=== PATIENT | male | born 1955 | race Caucasian/White ===

== ENCOUNTER 2018-05-28 01:36 | Outpatient (RCR) | payer OTHER, SELFPAY ==
[2018-05-28] MEDS: TOCILIZUMAB 800 MG in Normal Saline 60 ML 100 MG IVPB (07:47)
[2018-05-28] MEDS: Normal Saline Flush 10 ML SYR IVP (07:47)
== END 2018-06-22 ==
LOC: INF 01:36
PROVIDERS: PCP Emergency Medicine; Visit Provider Emergency Medicine
DX: M06.9 Rheumatoid arthritis, unspecified (principal)
CPT/HCPCS: 96365; J3490

== ENCOUNTER 2018-06-27 01:31 | Outpatient (RCR) | payer OTHER, SELFPAY ==
[2018-06-27] MEDS: TOCILIZUMAB 800 MG in Normal Saline 60 ML 100 MG IVPB (13:09)
[2018-06-27] MEDS: Normal Saline Flush 10 ML SYR IVP (13:09)
== END 2018-07-22 23:59 | disposition home or self-care (01) ==
LOC: INF 01:31
PROVIDERS: PCP Emergency Medicine; Visit Provider Emergency Medicine
DX: M06.9 Rheumatoid arthritis, unspecified (principal)
CPT/HCPCS: 96365; J3490

== ENCOUNTER 2018-08-20 07:00 | Outpatient (RCR) | payer MEDICARE, OTHER, SELFPAY ==
[2018-07-23] MEDS: Normal Saline Flush 10 ML SYR IVP (08:04)
[2018-07-23] MEDS: TOCILIZUMAB 800 MG in Normal Saline 60 ML 100 MG IVPB (08:04)
[2018-08-20] MEDS: TOCILIZUMAB 800 MG in Normal Saline 60 ML 100 MG IVPB (07:58)
[2018-08-20] MEDS: Normal Saline Flush 10 ML SYR IVP (07:58)
== END 2018-08-22 23:59 | disposition home or self-care (01) ==
LOC: INF 07:00
PROVIDERS: PCP Emergency Medicine; Visit Provider Emergency Medicine
DX: M06.9 Rheumatoid arthritis, unspecified (principal)
CPT/HCPCS: 96365; J3490

== ENCOUNTER 2018-09-17 01:44 | Outpatient (RCR) | payer MEDICARE, OTHER, SELFPAY ==
[2018-09-17] MEDS: Normal Saline Flush 10 ML SYR IVP (07:13)
[2018-09-17] MEDS: TOCILIZUMAB 800 MG in Normal Saline 60 ML 100 MG IVPB (07:40)
== END 2018-09-21 23:59 | disposition home or self-care (01) ==
LOC: INF 01:44
PROVIDERS: PCP Emergency Medicine; Visit Provider Family Medicine
DX: M06.9 Rheumatoid arthritis, unspecified (principal)
CPT/HCPCS: 96365; J3490

== ENCOUNTER 2018-10-12 01:54 | Outpatient (RCR) | payer MEDICARE, OTHER, SELFPAY ==
[2018-10-12 07:35] VITALS: BP 154/98; PULSE 88; RESP 16; TEMP 36.8; O2SAT 94
[2018-10-12 08:26] VITALS: BP 169/101; PULSE 96; RESP 18; TEMP 36.8; O2SAT 94
[2018-10-12 09:00] VITALS: BP 146/102; PULSE 90; RESP 18; TEMP 36.8; O2SAT 95
[2018-10-12] MEDS: Normal Saline Flush 10 ML SYR IVP (09:16)
== END 2018-10-22 23:59 | disposition home or self-care (01) ==
LOC: INF 01:54
PROVIDERS: PCP Emergency Medicine; Visit Provider Family Medicine
DX: M06.9 Rheumatoid arthritis, unspecified (principal)
CPT/HCPCS: 96365; J3490

== ENCOUNTER 2018-11-09 01:13 | Outpatient (RCR) | payer MEDICARE, OTHER, SELFPAY ==
[2018-11-09] MEDS: Normal Saline Flush 10 ML SYR IVP (07:16)
== END 2018-11-22 23:59 | disposition home or self-care (01) ==
LOC: INF 01:13
PROVIDERS: PCP Emergency Medicine; Visit Provider Family Medicine
DX: M06.9 Rheumatoid arthritis, unspecified (principal)
CPT/HCPCS: 96365; J3490

== ENCOUNTER 2018-12-06 14:37 | Outpatient (CLI) | payer MEDICARE, OTHER, SELFPAY ==
--- NOTE | 2018-12-06 14:34 | DI.RAD_ITS ---
SYMPTOMS/DIAGNOSIS: DYSPNEA ON EXERTION, R06.09: PA AND LATERAL CHEST: The heart is normal in size. The lungs are clear. The mediastinal structures and pleura appear intact. CONCLUSION: Normal chest. No evidence of acute cardiopulmonary disease.
[2018-12-06 15:06] LABS: Abs Immature Grans 0.01 k/cumm (0.0-0.09); Absolute Basophil Count 0.02 k/cumm (0.0-0.2); Absolute Eosinophil Count 0.11 k/cumm (0.0-0.7); Absolute Lymphocyte Count 1.86 k/cumm (1.2-3.4); Absolute Monocyte Count 0.91 k/cumm (0.11-0.7); Absolute Neutrophil Count 3.08 k/cumm (1.2-6.7); Basophils % 0.3; Eosinophils % 1.8; Immature Grans % 0.2; Lymphocytes % 31.1; Mean Corpuscular Hemoglobin 31.1 pg (27.0-33.0); Mean Corpuscular Volume 91.3 fL (80-95); Mean Platelet Volume 9.5 fL (8.0-11.0); Monocytes % 15.2; Neutrophils % 51.4; Platelet Count 198 x1000/uL (130-400); RBC 5.15 m/cumm (4.50-6.00); RBC Distribution Width 13.6 % (11.8-14.1); White Blood Cell Count 5.99 k/cumm (4.4-10.8)
[2018-12-06 15:59] LABS: ALT 71 U/L (12-78); AST 39 U/L (15-37); Albumin 4.2 g/dL (3.4-5.0); Alkaline Phosphatase 34 U/L (46-116); Anion Gap 12.4 mmol/L (3-11); BUN 19 mg/dL (7-18); Bilirubin, Total 1.2 mg/dL (0.2-1.0); CO2 27.6 mmol/L (21.0-32.0); CREATININE 1.17 mg/dL (0.70-1.30); Calcium 9.4 mg/dL (8.5-10.1); Chloride 99 mmol/L (98-107); Glucose 121 mg/dL (70-100); Potassium 4.3 mmol/L (3.5-5.1); Sodium 139 mmol/L (136-145); Total Protein 7.1 g/dL (6.4-8.2)
[2018-12-06 16:40] LABS: C-Reactive Protein < 0.05 mg/dL (0.0-0.3)
== END 2018-12-06 14:57 ==
PROVIDERS: PCP Emergency Medicine; Visit Provider Emergency Medicine
DX: R06.09 Other forms of dyspnea (principal)
CPT/HCPCS: 36415; 80053; 71046; 85025; 86140

== ENCOUNTER 2018-12-10 01:38 | Outpatient (RCR) | payer MEDICARE, OTHER, SELFPAY ==
[2018-12-10] MEDS: Normal Saline Flush 10 ML SYR IVP (07:21)
[2018-12-10] MEDS: TOCILIZUMAB 800 MG in Normal Saline 60 ML 100 MG IVPB (07:21)
== END 2018-12-20 23:59 | disposition home or self-care (01) ==
LOC: INF 01:38
PROVIDERS: PCP Emergency Medicine; Visit Provider Family Medicine
DX: M06.9 Rheumatoid arthritis, unspecified (principal)
CPT/HCPCS: 96365; J3490

== ENCOUNTER 2019-01-07 01:27 | Outpatient (RCR) | payer MEDICARE, OTHER, SELFPAY ==
[2019-01-07] MEDS: Normal Saline Flush 10 ML SYR IVP (07:20)
[2019-01-07] MEDS: TOCILIZUMAB 800 MG in Normal Saline 60 ML 100 MG IVPB (07:20)
== END 2019-01-20 23:59 | disposition home or self-care (01) ==
LOC: INF 01:27
PROVIDERS: PCP Emergency Medicine; Visit Provider Family Medicine
DX: M06.9 Rheumatoid arthritis, unspecified (principal)
CPT/HCPCS: 96365; J3490

== ENCOUNTER 2019-02-05 01:22 | Outpatient (RCR) | payer MEDICARE, OTHER, SELFPAY ==
[2019-02-05] MEDS: Normal Saline Flush 10 ML SYR IVP (07:59)
== END 2019-02-19 23:59 | disposition home or self-care (01) ==
LOC: INF 01:22
PROVIDERS: PCP Emergency Medicine; Visit Provider Family Medicine
DX: M06.9 Rheumatoid arthritis, unspecified (principal)
CPT/HCPCS: 96365; J3490

== ENCOUNTER 2019-03-05 05:32 | Emergency (ER) | payer MEDICARE, OTHER, SELFPAY ==
[2019-03-05] VITALS (24 sets, daily range): BP systolic 120–173; BP diastolic 59–89; PULSE 111–133; RESP 12–28; TEMP 37.2; O2SAT 91–98
[2019-03-05] MEDS: Albuterol 2.5 MG/3 ML INH SOLN VIAL 5 MG UPD ×3 (05:47→07:33)
--- NOTE | 2019-03-05 05:50 | ED.GENADUL_ITS ---
Discharge Plan Disposition Patient Disposition: HOME Condition: Stable Discharge Details Chief Complaint: SOB Clinical Impression: Acute bronchitis Primary Care Provider: Jhonatan Black ED Provider: Cara Steward Home Meds and New Rx's Prescriptions: New prednisone 10 mg tablet See Rx Instructions .ROUTE .COMPLEX Qty: 26 RF: 0 doxycycline hyclate 100 mg tablet 100 mg PO BID 5 Days Qty: 10 RF: 0 Continued lisinopril-hydrochlorothiazide [Zestoretic] 10-12.5 mg tablet 1 tab PO DAILY Qty: 90 RF: 3 acetaminophen [Tylenol Extra Strength] 500 MG tablet 2 tab PO PRN RF: 0 hydroxychloroquine [Plaquenil] 200 MG tablet 2 tab PO HS Qty: 90 RF: 0 PROVENTIL HFA 18 GM HFA.AER.AD 1 - 2 puff Inhalation Q4H PRN Qty: 1 RF: 0 actemra IV Monthly RF: 0 acetaminophen [Tylenol] 325 MG tablet 500 mg PO PRN RF: 0 prednisone 1 MG tablet 4 mg PO DAILY RF: 0 methotrexate sodium 2.5 MG tablet 8 mg PO DIRECTED RF: 0 folic acid 1 MG tablet 1 mg PO DAILY RF: 0 No Action Aerochamber Plus Flow-Vu 1 EACH spacer 1 ea Miscellaneous Q4H PRN Qty: 1 RF: 0 Discharge Instructions Instructions: Acute Bronchitis (ED) Additional Instructions: Alternate albuterol inhaler as needed and directed for shortness of breath or wheezing. Take steroids until finished. Hold on taking your regular dose of prednisone until you finish this prescription. If you have no relief or worsening of symptoms such as fever or productive cough, you may start the antibiotics. Follow-up with your scheduled appointment with Dr. Claire at your primary care doctor's office on 8:20 AM on March 07. Return immediately to the emergency department with any worsening or new concerning symptoms. Discharge Data Discharge Physician: Cara Steward Medical Decision Making 0545 -- 63-year-old male with a history of rheumatoid arthritis and hypertension who presents with 4 days of shortness of breath worse when laying flat, dry cough, and chest pain that occurs with coughing and deep breath. Heart rate 110s. Normal respirations. Temp 99. O2 sat 91% on room air on arrival. Speaking in full sentences. Inspiratory and expiratory wheezing. No lower extremity edema. No crackles. EKG notes a rate of 108 and sinus with left anterior fascicular block with no significant difference from previous EKG. No acute ST findings. Differential diagnosis includes bronchitis, pneumonia, CHF, PE, SC. Patient denies a history of COPD. Appears most likely consistent with bronchitis versus pneumonia. Will place an IV, nebs, steroids, and refer for screening labs. Will hold on chest x-ray or CT pending d-dimer. 0600 -- Pt states he feels a little better. Improvement in wheezing. O2 sat 94 on 3L. Will give another neb and reassess. 0630 -- Pt feels much better. Breath sounds improved but still with some wheezing left-sided chest. Patient appears more comfortable. Labs reviewed and unremarkable. Normal white blood cell count. Troponin negative. D dimer and BNP within normal limits. Will send for chest x-ray. 0710 -- chest x-ray negative. Patient complaining of some return of wheezing. He appears comfortable and texting on phone. Reassessment of lung sounds note slight increase in wheezing, and more on the left side. Will give a 5 mg neb through aerogen mist. 0800 -- patient is feeling much better requesting to go home. Oxygen saturation on room air 95%. Improvement in breath sounds but still with some wheezing on the left side of the chest. He is speaking in full sentences and appears comfortable. Patient takes 4 mg of prednisone daily for his rheumatoid arthritis. He is instructed to hold on this dose while he takes the prednisone taper prescription. Will also send home with an albuterol inhaler as well as a prescription for antibiotics if his symptoms do not improve or worsen. An appointment was made with patient for his primary care doctor's office with Dr. Claire on March 07 at 8:20 AM. He is instructed to return here immediately if worse. Medical Records Medical records reviewed: Yes I reviewed the patient's medical records. Imaging Data Radiologic Study: Radiologist's impression: XR Chest, 2 Views EXAM DATE/TIME: 03/05/2019 6:36 AM CLINICAL HISTORY: 63 years old, male; Signs and symptoms; Patient HX: Cough for a few days TECHNIQUE: Imaging protocol: XR of the chest, 2 views. COMPARISON: CR XR CHEST 2V PA LATERAL 12/06/2018 2:30 PM FINDINGS: Lungs: Unremarkable. No consolidation. Pleural space: Unremarkable. No evidence of pneumothorax. Heart/Mediastinum: Unremarkable. Heart size within normal limits for technique. Bones/joints: Unremarkable. IMPRESSION: No acute findings Lab Data Lab results reviewed: Yes I reviewed the patient's lab results. Laboratory Tests Range/Units 03/05/19 03/05/19 03/05/19 05:55 05:55 05:55 WBC (4.4-10.8) k/cumm 10.48 RBC (4.50-6.00) m/cumm 5.24 Hgb (13.5-17.5) g/dL 16.9 Hct (40.0-50.0) % 47.7 MCV (80-95) fL 91.0 MCH (27.0-33.0) pg 32.3 MCHC (32.0-36.0) g/dL 35.4 RDW (11.8-14.1) % 13.6 Plt Count (130-400) x1000/uL 182 MPV (8.0-11.0) fL 9.1 Immature Gran % 0.5 Neutrophils % 67.8 Lymphocytes % 15.1 Monocytes % 14.3 Eosinophils % 1.7 Basophils % 0.6 Absolute Neutrophils (1.2-6.7) k/cumm 7.11 H Absolute Lymphocytes (1.2-3.4) k/cumm 1.58 Absolute Monocytes (0.11-0.7) k/cumm 1.50 H Absolute Eosinophils (0.0-0.7) k/cumm 0.18 Absolute Basophils (0.0-0.2) k/cumm 0.06 D-Dimer (<500) ng/mlFEU 369 Sodium (136-145) mmol/L 135 L Potassium (3.5-5.1) mmol/L 4.2 Chloride (98-107) mmol/L 97 L Carbon Dioxide (21.0-32.0) mmol/L 28.8 Anion Gap (3-11) mmol/L 9.2 BUN (7-18) mg/dL 12 Creatinine (0.70-1.30) mg/dL 1.19 Estimated GFR/1.73 m2 (mL/min/1.73m2) >= 60.00 Glucose (70-100) mg/dL 183 H Calcium (8.5-10.1) mg/dL 9.0 Magnesium (1.8-2.4) mg/dL 1.8 Total Bilirubin (0.2-1.0) mg/dL 0.9 AST (15-37) U/L 57 H ALT (12-78) U/L 98 H Alkaline Phosphatase (46-116) U/L 41 L Troponin I (0.00-0.06) ng/mL < 0.02 NT-Pro-B Natriuret Pep ( - 299) pg/mL 177 Total Protein (6.4-8.2) g/dL 7.2 Albumin (3.4-5.0) g/dL 4.1 ECG Data Attestation: I personally reviewed and interpreted this ECG (s) as follows: Interpretation: Rate of 108, sinus tachycardia. Left anterior fascicular block. No acute change from previous. No acute ST elevation or depression. T wave inversion in 1 and aVL which is been seen in previous. QTc 453. QRS 142. Significant artifact from movement. HPI General Mode of arrival: ambulatory . Date/Time Provider Initiated Documentation: 03/05/19 05:37 . Limitations to Documentation: no limitations . Information obtained by: patient . HPI Narrative: Patient is a 63-year-old male with a history of rheumatoid arthritis and hypertension who presents with 4 days of shortness of breath, cough and wheezing, worse since last night. Patient states he was unable to sleep due to his symptoms. He states his cough has been dry. He states his shortness of breath is worse when laying flat. He also admits to chest pain that occurs mainly with coughing and chest pain with deep breath occasionally. He states he has been eating and drinking less than normally for the past few days. He denies any known fever, leg pain or swelling, recent travel, recent surgery or recent hospital admissions. He states he takes 4 mg of prednisone daily for the past several years for his rheumatoid arthritis. Related Data Home Medications Medication Instructions Recorded Confirmed acetaminophen [Tylenol Extra 2 tab PO PRN 01/15/13 03/05/19 Strength] hydroxychloroquine [Plaquenil] 2 tab PO HS #90 01/15/13 03/05/19 folic acid 1 mg PO DAILY 03/10/17 03/05/19 methotrexate sodium 8 mg PO DIRECTED 03/10/17 03/05/19 inhalational spacing device #1 unit 02/14/18 12/11/18 [Aerochamber Plus Flow-Vu] Actemra IV Monthly 04/23/18 12/11/18 acetaminophen [Tylenol] 500 mg PO PRN tab-cap 06/04/18 03/05/19 prednisone 4 mg PO DAILY tab-cap 06/04/18 03/05/19 lisinopril 10 1 tab PO DAILY #90 tab 11/20/18 03/05/19 mg-hydrochlorothiazide 12.5 mg tablet doxycycline hyclate 100 mg PO BID 5 Days #10 tab 03/05/19 prednisone See Rx Instructions .ROUTE 03/05/19 .COMPLEX #26 tab Previous Rx's Medication Instructions Recorded inhalational spacing device #1 unit 02/14/18 [Aerochamber Plus Flow-Vu] lisinopril 10 1 tab PO DAILY #90 tab 11/20/18 mg-hydrochlorothiazide 12.5 mg tablet doxycycline hyclate 100 mg PO BID 5 Days #10 tab 03/05/19 prednisone See Rx Instructions .ROUTE 03/05/19 .COMPLEX #26 tab Allergies Allergy/AdvReac Type Severity Reaction Status Date / Time aspirin Allergy Severe Swelling/Ed Verified 12/11/18 13:28 rigoberto citric acid Allergy Unknown RASH, Verified 12/11/18 13:28 BLISTER adalimumab Allergy NUMBNESS Verified 12/11/18 13:28 NSAIDS (Non-Steroidal AdvReac CONGESTION Verified 12/11/18 13:28 Anti-Inflamma General Stated Complaint: SOB EMERALD: 3 Review of Systems Review of Systems All systems reviewed & are unremarkable except as noted in HPI and below Constitutional Reports as per HPI, Denies chills and Denies fever(s) Eyes Denies blurry vision ENT Denies dizziness, Denies sore throat and Denies throat swelling Cardiovascular Reports chest pain and Reports dyspnea Respiratory Reports cough and Reports dyspnea Gastrointestinal Denies abdominal pain, Denies diarrhea and Denies vomiting Genitourinary Denies hematuria and Denies dysuria Musculoskeletal Denies back pain and Denies numbness Integumentary/Breasts Denies lesions and Denies rash Neurologic Denies dizziness, Denies focal weakness and Denies numbness Allergic/Immunologic Denies throat swelling [facility] Medical History Abnormal CT scan (Acute) Acute meniscal tear, lateral (Acute) Allergic rhinitis (Acute 03/27/14) Chronic sinusitis (Acute 03/27/14) Deviated nasal septum (Acute 03/27/14) Family history of colon cancer (Acute) Foot joint pain (Acute 07/23/13) History of tobacco use (Acute) Hyperplastic colon polyp (Acute) Migraine (Acute) Rheumatoid arthritis (Acute) Surgical History Colonoscopy - MAC RIB REMOVAL (10/24/83) Family History Mother Personal history of malignant neoplasm Father Personal history of malignant neoplasm Sister No problems noted. Brother Personal history of malignant neoplasm Social History Smoking/Tobacco Use Status: Former Tobacco Use Alcohol Intake: never Drug use: Never Do you feel safe at home: Yes Do you feel safe in your relationship?: Yes Exam Const General: cooperative, healthy appearing and no acute distress HENMT Head: normal to inspection Ears: hearing grossly normal bilaterally and external ears normal General nose exam: external nose normal Face and sinus: normal facial exam Mouth: moist mucous membranes Throat: posterior oropharynx normal Eyes General: appearance normal, both eyes and all related structures EOM: EOM intact bilaterally Neck Neck: normal visual inspection and No submandibular swelling Lymphatic: no lymphadenopathy noted Chest Chest: normal inspection of the chest and no tenderness Resp Effort & Inspection: normal respiratory effort and able to speak in complete sentences Auscultation: wheezes expiratory wheezes, inspiratory wheezes, lower bilaterally and upper bilaterally Cardio Rate: tachycardic Rhythm: regular rhythm GI Inspection: normal to inspection and obesity Palpation: soft, not firm, not rigid and nontender Auscultation: normal bowel sounds Skin General skin exam: no rashes or lesions noted Neuro General: alert, awake and oriented x3 Cognition: normal cognition Speech: speech normal Motor: muscle tone normal throughout Sensory Exam: no sensory deficits noted Extrem General: normal to inspection, full ROM, no calf tenderness bilaterally and no edema Psych Appearance: grossly normal Mental Status: mental status grossly normal Speech and Movement: speech and movement normal Affect: normal affect Course Vital Signs Temperature 99.0 F 03/05/19 05:39 Pulse 111 H 03/05/19 05:39 Respiratory Rate 20 03/05/19 05:39 Blood Pressure 173/89 H 03/05/19 05:39 Pulse Oximetry 93 L 03/05/19 05:39 Temperature 99.0 F 03/05/19 05:39 Temperature Source Temporal Artery Scan 03/05/19 05:39 Pulse 111 H 03/05/19 05:39 Respiratory Rate 20 03/05/19 05:45 Respiratory Effort Incrsd Work of Breathing 03/05/19 05:45 Respiratory Depth Deep 03/05/19 05:45 Respiratory Pattern Normal 03/05/19 05:45 Blood Pressure 173/89 H 03/05/19 05:39 Blood Pressure Position Sitting 03/05/19 05:39 Pulse Oximetry 93 L 03/05/19 05:39 Oxygen Delivery Method Room Air 03/05/19 05:47 Oxygen Flow Rate 0 03/05/19 05:47
[2019-03-05] MEDS: methylPREDNISolone SUCC 125 MG VIAL IVP (05:59)
[2019-03-05 06:03] LABS: Abs Immature Grans 0.05 k/cumm (0.0-0.09); Absolute Basophil Count 0.06 k/cumm (0.0-0.2); Absolute Eosinophil Count 0.18 k/cumm (0.0-0.7); Absolute Lymphocyte Count 1.58 k/cumm (1.2-3.4); Absolute Neutrophil Count 7.11 k/cumm (1.2-6.7); Basophils % 0.6; Eosinophils % 1.7; HCT 47.7 % (40.0-50.0); HGB 16.9 g/dL (13.5-17.5); Immature Grans % 0.5; Lymphocytes % 15.1; Mean Corp. HGB Concentration 35.4 g/dL (32.0-36.0); Mean Corpuscular Hemoglobin 32.3 pg (27.0-33.0); Mean Platelet Volume 9.1 fL (8.0-11.0); Monocytes % 14.3; Neutrophils % 67.8; Platelet Count 182 x1000/uL (130-400); RBC 5.24 m/cumm (4.50-6.00); RBC Distribution Width 13.6 % (11.8-14.1); White Blood Cell Count 10.48 k/cumm (4.4-10.8)
[2019-03-05] MEDS: Albuterol/Ipratropium 3 ML UPD VIAL (06:07)
[2019-03-05 06:20] LABS: ALT 98 U/L (12-78); AST 57 U/L (15-37); Albumin 4.1 g/dL (3.4-5.0); Alkaline Phosphatase 41 U/L (46-116); Anion Gap 9.2 mmol/L (3-11); BUN 12 mg/dL (7-18); Bilirubin, Total 0.9 mg/dL (0.2-1.0); CO2 28.8 mmol/L (21.0-32.0); CREATININE 1.19 mg/dL (0.70-1.30); Chloride 97 mmol/L (98-107); Glucose 183 mg/dL (70-100); Magnesium 1.8 mg/dL (1.8-2.4); NT-proBNP 177 pg/mL; Potassium 4.2 mmol/L (3.5-5.1); Sodium 135 mmol/L (136-145); Total Protein 7.2 g/dL (6.4-8.2)
[2019-03-05 06:22] LABS: Troponin I < 0.02 ng/mL (0.00-0.06)
[2019-03-05 06:29] LABS: D-Dimer 369 ng/mlFEU (<500)
--- NOTE | 2019-03-05 06:50 | DI.RAD_ITS ---
SYMPTOMS/DIAGNOSIS: COUGH, WHEEZING, ? PNEUMONIA PA AND LATERAL CHEST: Comparison is made with [id number]. The heart size is normal. The lungs are clear. No infiltrate or effusion is seen. IMPRESSION: Negative chest x-ray.
--- NOTE | 2019-03-05 06:57 | DI.VRAD_ITS ---
EXAM: XR Chest, 2 Views EXAM DATE/TIME: 03/05/2019 6:36 AM CLINICAL HISTORY: 63 years old, male; Signs and symptoms; Patient HX: Cough for a few days TECHNIQUE: Imaging protocol: XR of the chest, 2 views. COMPARISON: CR XR CHEST 2V PA LATERAL 12/06/2018 2:30 PM FINDINGS: Lungs: Unremarkable. No consolidation. Pleural space: Unremarkable. No evidence of pneumothorax. Heart/Mediastinum: Unremarkable. Heart size within normal limits for technique. Bones/joints: Unremarkable. IMPRESSION: No acute findings. Dictated and Authenticated by: Simone Myesr MD. Ordering:RICKY Marroquin MD
[2019-03-05] MEDS: Normal Saline 250 ML 500 ML IV (07:00)
[2019-03-05] MEDS: Albuterol HFA 8 GM 60 PUFF INH IH (08:20)
--- NOTE | 2019-03-05 08:24 | NUR.NOTE ---
Nursing Note: Appt. made for patient, March 07 w/Dr. Claire @ 0894. Sarah Pires.
== END 2019-03-05 08:23 | disposition home or self-care (01) ==
LOC: ER 07:39
PROVIDERS: Emergency Provider Physician Assistant; PCP Emergency Medicine
DX: J20.9 Acute bronchitis, unspecified (principal); I44.4 Left anterior fascicular block; I10 Essential (primary) hypertension
CPT/HCPCS: 36415; 80053; 93005; 94640; 96361; 96374; 99285; 71046; 83735; 83880; 84484; 85025; 85379; 93010; J2930; J7613; J7620

== ENCOUNTER 2019-03-20 01:41 | Outpatient (RCR) | payer MEDICARE, OTHER, SELFPAY ==
[2019-03-20] MEDS: TOCILIZUMAB 800 MG in Normal Saline 60 ML 100 MG IVPB (07:43)
[2019-03-20] MEDS: Normal Saline Flush 10 ML SYR IVP (07:43)
== END 2019-03-22 23:59 | disposition home or self-care (01) ==
LOC: INF 01:41
PROVIDERS: PCP Emergency Medicine; Visit Provider Family Medicine
DX: M06.9 Rheumatoid arthritis, unspecified (principal)
CPT/HCPCS: 96365; J3490

== ENCOUNTER 2019-04-15 02:13 | Outpatient (RCR) | payer MEDICARE, OTHER, SELFPAY ==
[2019-04-15] MEDS: Normal Saline Flush 10 ML SYR IVP (12:22)
== END 2019-04-21 23:59 | disposition home or self-care (01) ==
LOC: INF 02:13
PROVIDERS: Visit Provider Family Medicine
DX: M06.9 Rheumatoid arthritis, unspecified (principal)
CPT/HCPCS: 96365; J3490

== ENCOUNTER 2019-05-13 01:24 | Outpatient (RCR) | payer MEDICARE, OTHER, SELFPAY ==
[2019-05-13] MEDS: Normal Saline Flush 10 ML SYR IVP (07:05)
[2019-05-13] MEDS: TOCILIZUMAB 800 MG in Normal Saline 60 ML 100 MG IVPB (07:44)
== END 2019-05-22 23:59 | disposition home or self-care (01) ==
LOC: INF 01:24
PROVIDERS: Visit Provider Family Medicine
DX: M06.9 Rheumatoid arthritis, unspecified (principal)
CPT/HCPCS: 96365; J3490

== ENCOUNTER 2019-05-30 09:08 | Outpatient (REF) | payer MEDICARE, OTHER, SELFPAY ==
[2019-05-30 11:56] LABS: Calculated LDL 101 mg/dL; Cholesterol 198 mg/dL (50-200); HDL Cholesterol 54 mg/dL (40-60); Triglyceride 218 mg/dL (30-150)
== END 2019-05-30 09:28 ==
LOC: NCHCN 09:08
PROVIDERS: PCP Nurse Practitioner Family; Visit Provider Nurse Practitioner Family
DX: I10 Essential (primary) hypertension (principal)
CPT/HCPCS: 80061; 83721

== ENCOUNTER 2019-06-10 01:46 | Outpatient (RCR) | payer MEDICARE, OTHER, SELFPAY ==
[2019-06-10] MEDS: Normal Saline Flush 10 ML SYR IVP (06:50)
[2019-06-10] MEDS: TOCILIZUMAB 800 MG in Normal Saline 60 ML 100 MG IVPB (07:35)
== END 2019-06-22 23:59 | disposition home or self-care (01) ==
LOC: INF 01:46
PROVIDERS: PCP Nurse Practitioner Family; Visit Provider Family Medicine
DX: M06.9 Rheumatoid arthritis, unspecified (principal)
CPT/HCPCS: 96365; J3490

== ENCOUNTER 2019-07-08 01:07 | Outpatient (RCR) | payer MEDICARE, OTHER, SELFPAY ==
[2019-07-08] MEDS: Normal Saline Flush 10 ML SYR IVP (10:05)
[2019-07-08] MEDS: TOCILIZUMAB 800 MG in Normal Saline 60 ML 100 MG IVPB (10:05)
== END 2019-07-22 23:59 | disposition home or self-care (01) ==
LOC: INF 01:07
PROVIDERS: PCP Nurse Practitioner Family; Visit Provider Family Medicine
DX: M06.9 Rheumatoid arthritis, unspecified (principal)
CPT/HCPCS: 96365; J3490

== ENCOUNTER → 2019-07-12 09:14 | Outpatient (BNVA) | payer MEDICARE, OTHER, SELFPAY | PROVIDERS: PCP Nurse Practitioner Family; Visit Provider Physical Therapy Assistant | DX: Z12.11 Encounter for screening for malignant neoplasm of colon (principal); Z80.0 Family history of malignant neoplasm of digestive organs; Z86.010 Personal history of colon polyps; I10 Essential (primary) hypertension ==

== ENCOUNTER 2019-07-26 06:57 | Day surgery (SDC) | payer MEDICARE, OTHER, SELFPAY ==
[2019-07-26 07:27] VITALS: BP 152/99; PULSE 93; RESP 18; TEMP 36.8; O2SAT 96
[2019-07-26] MEDS: Lactated Ringers 1,000 ML 80 ML IV (08:08)
--- NOTE | 2019-07-26 09:47 | W.PM.DSUDISC ---
Discharge Plan Disposition Patient Disposition: HOME Condition: Good Discharge Details Reason For Visit: Colonoscopy Attending Provider: Bhavana Kate Primary Care Provider: Isabel Dickey Home Meds and New Rx's Prescriptions: Continued lisinopril-hydrochlorothiazide [Zestoretic] 10-12.5 mg tablet 1 tab PO DAILY Qty: 90 RF: 3 acetaminophen [Tylenol Extra Strength] 500 MG tablet 2 tab PO PRN RF: 0 hydroxychloroquine [Plaquenil] 200 MG tablet 2 tab PO HS Qty: 90 RF: 0 PROVENTIL HFA 18 GM HFA.AER.AD 1 - 2 puff Inhalation Q4H PRN Qty: 1 RF: 0 actemra IV Monthly RF: 0 prednisone 1 MG tablet 4 mg PO DAILY RF: 0 methotrexate sodium 2.5 MG tablet 8 mg PO DIRECTED RF: 0 folic acid 1 MG tablet 1 mg PO DAILY RF: 0 Discontinued polyethylene glycol 3350 17 gram/dose powder 238 g PO ONCE Qty: 238 RF: 0 bisacodyl [Dulcolax (bisacodyl)] 5 mg tablet,delayed release (DR/EC) 5 mg PO ONCE Qty: 4 RF: 0 Discharge Instructions Additional Instructions: Findings: Your colonoscopy was normal. It was noted that you may have sleep apena during the procedure. Follow up: Plan for a follow up colonoscopy in 5 years. Contact your primary doctor to discuss scheduling a sleep study Please call if you develop: fevers >101.5 Nausea or Vomiting Abdominal pain that is not transient DAY SURGERY UNIT POST COLONOSCOPY INSTRUCTIONS 1. Because there will be medication in your system for the next 24 hours, you may feel a little sleepy. Your coordination will be affected. Therefore: a. Do not drive or operate dangerous equipment for 24 hours. b. Do not drink alcohol beverages for 24 hours (not even beer). c. Plan to go home and rest for the day. 2. Generally there are no restrictions on your activity after a day or so has gone by, but you may feel a bit fatigued for a few days. 3 After you arrive home you may have a light meal and return to a normal diet as you can tolerate it without feeling sick to your stomach. 4. After surgery, you may feel pain or discomfort. This should be only transient, but if it persists please contact your doctor. 5. If there are any questions regarding the findings of your procedure, please feel free to contact your doctor. 6. If you are unable to contact your doctor with a problem, contact the hospital at [phone]. 7. Continue all your regular medications unless directed otherwise. I understand the above instructions and have no questions. Signature of Patient or Responsible Adult Escort Date/Time Name of Responsible Adult Escort Signature of Nurse Date/Time Activity:: Activity as Tolerated Diet:: As Tolerated Discharge Orders Discharge Orders: Discharge Order (Routine); Ordered 07/26/19 Ordered By: Bhavana Kate DS: Diagnosis Discharge Diagnosis (1) Family history of colon cancer: Status: Acute
[2019-07-26 10:04] VITALS: BP 145/92; PULSE 89; RESP 18; TEMP 37.1; O2SAT 94
--- NOTE | 2019-07-29 10:04 | COLE_ITS ---
DATE OF PROCEDURE: July 26, 2019 PREOPERATIVE DIAGNOSIS: Family history of colon cancer. POSTOPERATIVE DIAGNOSIS: Normal colon. PROCEDURE: Colonoscopy. SURGEON: Bhavana Kate M.D. ANESTHESIA: General. INDICATIONS: This is a 63-year-old man whose father was treated for colon cancer. His last procedur e in 2013 showed hyperplastic polyps. PROCEDURE: The patient was placed in the left Leonardo position. Propofol was titrated to sedation. Di gital rectal examination revealed no abnormalities. The scope was advanced to the cecum without diff iculty. The ileocecal valve and appendiceal orifice were clearly identified. The scope was slowly w ithdrawn with no abnormalities seen within the ascending, transverse, descending, sigmoid colon or re ctum, including on retroflex view. He tolerated the procedure well and was stable to recovery. He w ill need a follow-up screening again in five years due to his family history. cc: Isabel Dickey N.P.
== END 2019-07-26 10:28 | disposition home or self-care (01) ==
PROVIDERS: PCP Nurse Practitioner Family; Visit Provider Surgery
PROC: 0DJD8ZZ Inspection of Lower Intestinal Tract, Via Natural or Artificial Opening Endoscopic (ICD-10-PCS; CPT 45378; principal; 2019-07-26 09:00)
DX: Z12.11 Encounter for screening for malignant neoplasm of colon (principal); Z80.0 Family history of malignant neoplasm of digestive organs; Z87.19 Personal history of other diseases of the digestive system
CPT/HCPCS: G0105

== ENCOUNTER 2019-08-05 02:12 | Outpatient (RCR) | payer MEDICARE, OTHER, SELFPAY ==
[2019-08-05] MEDS: Normal Saline Flush 10 ML SYR IVP (09:25)
[2019-08-05] MEDS: TOCILIZUMAB 800 MG in Normal Saline 60 ML 100 MG IVPB (09:25)
== END 2019-08-22 23:59 | disposition home or self-care (01) ==
LOC: INF 02:12
PROVIDERS: PCP Nurse Practitioner Family; Visit Provider Family Medicine
DX: M06.9 Rheumatoid arthritis, unspecified (principal)
CPT/HCPCS: 96365; J3490

== ENCOUNTER 2019-09-02 01:26 | Outpatient (RCR) | payer MEDICARE, OTHER, SELFPAY ==
[2019-09-02] MEDS: Normal Saline Flush 10 ML SYR IVP (07:56)
[2019-09-02] MEDS: TOCILIZUMAB 800 MG in Normal Saline 60 ML 100 MG IVPB (07:56)
== END 2019-09-21 23:59 | disposition home or self-care (01) ==
LOC: INF 01:26
PROVIDERS: PCP Nurse Practitioner Family; Visit Provider Internal Medicine
DX: M06.9 Rheumatoid arthritis, unspecified (principal)
CPT/HCPCS: 96365; J3490

== ENCOUNTER 2019-09-30 07:52 | Outpatient (RCR) | payer MEDICARE, OTHER, SELFPAY ==
[2019-09-30] MEDS: TOCILIZUMAB 800 MG in Normal Saline 60 ML 100 MG IVPB (08:01)
[2019-09-30] MEDS: Normal Saline Flush 10 ML SYR IVP (08:01)
== END 2019-10-22 23:59 | disposition home or self-care (01) ==
LOC: INF 07:52
PROVIDERS: PCP Nurse Practitioner Family; Visit Provider Internal Medicine
DX: M06.9 Rheumatoid arthritis, unspecified (principal)
CPT/HCPCS: 96365; J3490

== ENCOUNTER 2019-10-03 14:43 | Outpatient (REF) | payer MEDICARE, OTHER, SELFPAY ==
[2019-10-03 21:13] LABS: Anion Gap 11.1 mmol/L (3-11); BUN 12 mg/dL (7-18); CO2 25.9 mmol/L (21.0-32.0); CREATININE 1.01 mg/dL (0.70-1.30); Calcium 8.7 mg/dL (8.5-10.1); Chloride 101 mmol/L (98-107); Glucose 107 mg/dL (74-106); Potassium 4.1 mmol/L (3.5-5.1); Sodium 138 mmol/L (136-145)
[2019-10-03 21:16] LABS: HCT 45.2 % (40.0-50.0); HGB 15.6 g/dL (13.5-17.5); Mean Corp. HGB Concentration 34.5 g/dL (32.0-36.0); Mean Corpuscular Hemoglobin 31.7 pg (27.0-33.0); Mean Corpuscular Volume 91.9 fL (80-95); Platelet Count 238 x1000/uL (130-400); RBC 4.92 m/cumm (4.50-6.00); RBC Distribution Width 13.5 % (11.8-14.1); White Blood Cell Count 7.28 k/cumm (4.4-10.8)
== END 2019-10-03 15:03 ==
LOC: NCHCN 14:43
PROVIDERS: PCP Nurse Practitioner Family; Visit Provider Nurse Practitioner Family
DX: R42 Dizziness and giddiness (principal)
CPT/HCPCS: 80048; 85027

== ENCOUNTER 2019-10-28 01:53 | Outpatient (RCR) | payer MEDICARE, OTHER, SELFPAY ==
[2019-10-28] MEDS: TOCILIZUMAB 800 MG in Normal Saline 60 ML 100 MG IVPB (08:17)
[2019-10-28] MEDS: Normal Saline Flush 10 ML SYR IVP (08:17)
== END 2019-11-22 23:59 | disposition home or self-care (01) ==
LOC: INF 01:53
PROVIDERS: PCP Nurse Practitioner Family; Visit Provider Internal Medicine
DX: M06.9 Rheumatoid arthritis, unspecified (principal)
CPT/HCPCS: 96365; J3262

== ENCOUNTER 2019-11-25 02:16 | Outpatient (RCR) | payer MEDICARE, OTHER, SELFPAY ==
[2019-11-25] MEDS: TOCILIZUMAB 800 MG in Normal Saline 60 ML 100 MG IVPB (08:13)
[2019-11-25] MEDS: Normal Saline Flush 10 ML SYR IVP (08:13)
== END 2019-12-21 23:59 | disposition home or self-care (01) ==
LOC: INF 02:16
PROVIDERS: PCP Nurse Practitioner Family; Visit Provider Internal Medicine
DX: M06.9 Rheumatoid arthritis, unspecified (principal)
CPT/HCPCS: 96365; J3262

== ENCOUNTER 2019-12-23 01:56 | Outpatient (RCR) | payer MEDICARE, OTHER, SELFPAY ==
[2019-12-23] MEDS: TOCILIZUMAB 800 MG in Normal Saline 60 ML 100 MG IVPB (08:10)
[2019-12-23] MEDS: Normal Saline Flush 10 ML SYR IVP (08:13)
== END 2020-01-21 23:59 | disposition home or self-care (01) ==
LOC: INF 01:56
PROVIDERS: PCP Nurse Practitioner Family; Visit Provider Internal Medicine
DX: M06.9 Rheumatoid arthritis, unspecified (principal)
CPT/HCPCS: 96365; J3262

== ENCOUNTER → 2020-01-06 08:11 | Outpatient (BNVA) | payer MEDICARE, OTHER, SELFPAY | PROVIDERS: PCP Nurse Practitioner Family; Referring Provider Nurse Practitioner Family; Visit Provider Nurse Practitioner Adult Health | DX: G43.109 Migraine with aura, not intractable, without status migrainosus (principal); I10 Essential (primary) hypertension | CPT/HCPCS: 99204; 99215 ==

== ENCOUNTER 2020-02-19 04:04 | Outpatient (RCR) | payer MEDICARE, OTHER, SELFPAY ==
[2020-01-22] MEDS: TOCILIZUMAB 800 MG in Normal Saline 60 ML 100 MG IVPB (08:44)
[2020-01-22] MEDS: Normal Saline Flush 10 ML SYR IVP (08:45)
[2020-02-19] MEDS: Normal Saline Flush 10 ML SYR IVP (08:37)
[2020-02-19] MEDS: TOCILIZUMAB 800 MG in Normal Saline 60 ML 100 MG IVPB (08:37)
== END 2020-02-20 23:59 | disposition home or self-care (01) ==
LOC: INF 04:04
PROVIDERS: PCP Nurse Practitioner Family; Visit Provider Internal Medicine
DX: M06.9 Rheumatoid arthritis, unspecified (principal)
CPT/HCPCS: 96365; J3262

== ENCOUNTER 2020-02-21 01:20 | Outpatient (CLI) | payer MEDICARE, OTHER, SELFPAY ==
--- NOTE | 2020-02-21 06:30 | DI.MRI_ITS ---
EXAM: MR BRAIN WO CLINICAL HISTORY: new onset headache, vision change, paresthesias,g43.109,h53.9. TECHNIQUE: Multiplanar multisequence MRI was performed. COMPARISON: No exams were available for comparison FINDINGS: MR examination of the brain was performed according to the usual protocol. There is mild generalized cerebral atrophy and there are areas of periventricular white matter signal change sparing the corpu s callosum consistent with microvascular ischemic change. There is no evidence of acute or subacute infarction on diffusion-weighted imaging. No evidence of i ntracranial hemorrhage on susceptibility weighted imaging. There is normal flow void in the [place] vasculature. The orbital and temporal bone structures appear intact. Pituitary appears intact. IMPRESSION: No evidence of acute intracranial process. Atrophy and presumed microvascular ischemic changes of wh ite matter. DATA REPOSITORY:
== END 2020-02-21 01:40 ==
PROVIDERS: PCP Nurse Practitioner Family; Visit Provider Nurse Practitioner Adult Health
DX: G43.109 Migraine with aura, not intractable, without status migrainosus (principal); H53.8 Other visual disturbances; R20.2 Paresthesia of skin
CPT/HCPCS: 70551

== ENCOUNTER → 2020-02-25 14:04 | Outpatient (BNVA) | payer MEDICARE, OTHER, SELFPAY | PROVIDERS: PCP Nurse Practitioner Family; Referring Provider Nurse Practitioner Family; Visit Provider Nurse Practitioner Adult Health | DX: G43.109 Migraine with aura, not intractable, without status migrainosus (principal) | CPT/HCPCS: 99213; 99441 ==

== ENCOUNTER 2020-03-18 01:48 | Outpatient (RCR) | payer MEDICARE, OTHER, SELFPAY ==
[2020-03-18] MEDS: TOCILIZUMAB 800 MG in Normal Saline 60 ML 100 MG IVPB (08:46)
[2020-03-18] MEDS: Normal Saline Flush 10 ML SYR IVP (08:46)
== END 2020-03-22 23:59 | disposition home or self-care (01) ==
LOC: INF 01:48
PROVIDERS: PCP Nurse Practitioner Family; Visit Provider Internal Medicine
DX: M06.9 Rheumatoid arthritis, unspecified (principal)
CPT/HCPCS: 96365; J3262

== ENCOUNTER 2020-04-15 01:57 | Outpatient (RCR) | payer MEDICARE, OTHER, SELFPAY ==
[2020-04-15] MEDS: Normal Saline Flush 10 ML SYR IVP (08:53)
[2020-04-15] MEDS: TOCILIZUMAB 800 MG in Normal Saline 60 ML 100 MG IVPB (08:53)
== END 2020-04-21 23:59 | disposition home or self-care (01) ==
LOC: INF 01:57
PROVIDERS: PCP Nurse Practitioner Family; Visit Provider Internal Medicine
DX: M06.9 Rheumatoid arthritis, unspecified (principal)
CPT/HCPCS: 96365; J3262

== ENCOUNTER 2020-05-13 02:59 | Outpatient (RCR) | payer MEDICARE, OTHER, SELFPAY ==
[2020-05-13] MEDS: TOCILIZUMAB 800 MG in Normal Saline 60 ML 100 MG IVPB (08:54)
[2020-05-13] MEDS: Normal Saline Flush 10 ML SYR IVP (08:58)
== END 2020-05-22 23:59 | disposition home or self-care (01) ==
LOC: INF 02:59
PROVIDERS: PCP Nurse Practitioner Family; Visit Provider Internal Medicine
DX: M06.9 Rheumatoid arthritis, unspecified (principal)
CPT/HCPCS: 96365; J3262

== ENCOUNTER 2020-06-10 02:01 | Outpatient (RCR) | payer MEDICARE, OTHER, SELFPAY ==
[2020-06-10] MEDS: TOCILIZUMAB 800 MG in Normal Saline 60 ML 100 MG IVPB (08:46)
[2020-06-10] MEDS: Normal Saline Flush 10 ML SYR IVP (08:46)
== END 2020-06-22 23:59 | disposition home or self-care (01) ==
LOC: INF 02:01
PROVIDERS: PCP Nurse Practitioner Family; Visit Provider Internal Medicine
DX: M06.9 Rheumatoid arthritis, unspecified (principal)
CPT/HCPCS: 96365; J3262

== ENCOUNTER 2020-07-07 09:15 | Outpatient (REF) | payer MEDICARE, OTHER, SELFPAY ==
[2020-07-10 15:03] LABS: Patient Race White; SARS-CoV-2 RNA Undetected (Undetected); SARS-CoV-2 Specimen Source Nasal
== END 2020-07-07 09:35 ==
LOC: NCHCN 09:15
PROVIDERS: PCP Nurse Practitioner Family; Visit Provider Nurse Practitioner Family
DX: Z20.828 Contact with and (suspected) exposure to other viral communicable diseases (principal)
CPT/HCPCS: U0003

== ENCOUNTER 2020-07-22 03:45 | Outpatient (RCR) | payer MEDICARE, OTHER, SELFPAY ==
[2020-07-22] MEDS: TOCILIZUMAB 800 MG in Normal Saline 60 ML 100 MG IVPB (08:36)
[2020-07-22] MEDS: Normal Saline Flush 10 ML SYR IVP (08:36)
== END 2020-07-22 23:59 | disposition home or self-care (01) ==
LOC: INF 03:45
PROVIDERS: PCP Nurse Practitioner Family; Visit Provider Internal Medicine
DX: M06.9 Rheumatoid arthritis, unspecified (principal)
CPT/HCPCS: 96365; J3262

== ENCOUNTER 2020-08-19 03:02 | Outpatient (RCR) | payer MEDICARE, OTHER, SELFPAY ==
[2020-08-19] MEDS: TOCILIZUMAB 800 MG in Normal Saline 60 ML 100 MG IVPB (08:25)
[2020-08-19] MEDS: Normal Saline Flush 10 ML SYR IVP (08:25)
== END 2020-08-22 23:59 | disposition home or self-care (01) ==
LOC: INF 03:02
PROVIDERS: PCP Nurse Practitioner Family; Visit Provider Internal Medicine
DX: M06.9 Rheumatoid arthritis, unspecified (principal)
CPT/HCPCS: 96365; J3262

== ENCOUNTER 2020-09-16 01:31 | Outpatient (RCR) | payer MEDICARE, OTHER, SELFPAY ==
[2020-09-16] MEDS: TOCILIZUMAB 800 MG in Normal Saline 60 ML 100 MG IVPB (08:58)
[2020-09-16] MEDS: Normal Saline Flush 10 ML SYR IVP (08:58)
== END 2020-09-21 23:59 | disposition home or self-care (01) ==
LOC: INF 01:31
PROVIDERS: PCP Nurse Practitioner Family; Visit Provider Nurse Practitioner Family
DX: M06.9 Rheumatoid arthritis, unspecified (principal)
CPT/HCPCS: 96365; J3262

== ENCOUNTER 2020-10-14 01:37 | Outpatient (RCR) | payer MEDICARE, OTHER, SELFPAY ==
[2020-10-14] MEDS: TOCILIZUMAB 800 MG in Normal Saline 60 ML 100 MG IVPB (08:19)
[2020-10-14] MEDS: Normal Saline Flush 10 ML SYR IVP (08:22)
== END 2020-10-22 23:59 | disposition home or self-care (01) ==
LOC: INF 01:37
PROVIDERS: PCP Nurse Practitioner Family; Visit Provider Internal Medicine
DX: M06.9 Rheumatoid arthritis, unspecified (principal)
CPT/HCPCS: 96365; J3262

== ENCOUNTER 2020-10-27 11:47 | Outpatient (REF) | payer MEDICARE, OTHER, SELFPAY ==
[2020-10-27 13:26] LABS: Abs Immature Grans 0.06 10^3/uL (0.0-0.06); Absolute Basophil Count 0.06 10^3/uL (0.0-0.2); Absolute Eosinophil Count 0.19 10^3/uL (0.0-0.7); Absolute Lymphocyte Count 2.06 10^3/uL (1.2-3.4); Absolute Neutrophil Count 4.23 10^3/uL (1.2-6.7); Basophils % 0.8; Eosinophils % 2.6; HCT 45.4 % (40.0-50.0); HGB 15.6 g/dL (13.5-17.5); Immature Grans % 0.8; Lymphocytes % 27.8; MCH 31.7 pg (27.0-33.0); MCHC 34.4 % (32.0-36.0); MCV 92.3 fL (80-95); MPV 9.7 fL (8.0-11.0); Monocytes % 10.8; Neutrophils % 57.2; Nucleated RBC 0 %; Platelet Count 223 10^3/uL (130-400); RBC 4.92 10^6/uL (4.36-5.78); RDW 12.8 % (11.8-14.1); RDW-SD 42.7 fL
[2020-10-27 13:45] LABS: ALT 49 U/L (16-63); AST 28 U/L (15-37); Alkaline Phosphatase 46 U/L (46-116); Anion Gap 6.6 mmol/L (3-11); BUN 17 mg/dL (7-18); Bilirubin, Total 0.6 mg/dL (0.2-1.0); CO2 28.4 mmol/L (21.0-32.0); CREATININE 1.15 mg/dL (0.70-1.30); Calcium 8.7 mg/dL (8.5-10.1); Chloride 98 mmol/L (98-107); Glucose 214 mg/dL (74-106); Sodium 133 mmol/L (136-145); Total Protein 6.7 g/dL (6.4-8.2)
[2020-10-27 13:48] LABS: C-Reactive Protein < 0.05 mg/dL (0.0-0.3)
[2020-10-27 14:25] LABS: ESR 1 mm/hr (1-20)
== END 2020-10-27 12:07 ==
LOC: NCHCN 11:47
PROVIDERS: PCP Nurse Practitioner Family; Visit Provider Nurse Practitioner Family
DX: M05.9 Rheumatoid arthritis with rheumatoid factor, unspecified (principal); Z79.899 Other long term (current) drug therapy
CPT/HCPCS: 80053; 85652; 85025; 86140

== ENCOUNTER 2020-11-11 03:28 | Outpatient (RCR) | payer MEDICARE, OTHER, SELFPAY ==
[2020-11-11] MEDS: TOCILIZUMAB 800 MG in Normal Saline 60 ML 100 MG IVPB (08:09)
[2020-11-11] MEDS: Normal Saline Flush 10 ML SYR IVP (08:09)
== END 2020-11-22 23:59 | disposition home or self-care (01) ==
LOC: INF 03:28
PROVIDERS: PCP Nurse Practitioner Family; Visit Provider Internal Medicine
DX: M06.9 Rheumatoid arthritis, unspecified (principal)
CPT/HCPCS: 96365; J3262

== ENCOUNTER 2020-12-09 02:25 | Outpatient (RCR) | payer MEDICARE, OTHER, SELFPAY ==
[2020-12-09] MEDS: Normal Saline Flush 10 ML SYR IVP (08:17)
[2020-12-09] MEDS: TOCILIZUMAB 800 MG in Normal Saline 60 ML 100 MG IVPB (08:28)
== END 2020-12-20 23:59 | disposition home or self-care (01) ==
LOC: INF 02:25
PROVIDERS: PCP Nurse Practitioner Family; Visit Provider Internal Medicine
DX: M06.9 Rheumatoid arthritis, unspecified (principal)
CPT/HCPCS: 96365; J3262

== ENCOUNTER 2021-01-06 01:49 | Outpatient (RCR) | payer MEDICARE, OTHER, SELFPAY ==
[2021-01-06] MEDS: Normal Saline Flush 10 ML SYR IVP (08:18)
[2021-01-06] MEDS: TOCILIZUMAB 800 MG in Normal Saline 60 ML 100 MG IVPB (08:26)
[2021-01-06 08:31] VITALS: BP 151/95; PULSE 94; RESP 20; TEMP 36.6; O2SAT 96
[2021-01-06 09:03] VITALS: BP 154/93; PULSE 94; RESP 20; TEMP 36.8; O2SAT 96
[2021-01-06 09:30] VITALS: BP 127/84; PULSE 94; RESP 20; TEMP 36.6; O2SAT 100
== END 2021-01-20 23:59 | disposition home or self-care (01) ==
LOC: INF 01:49
PROVIDERS: PCP Nurse Practitioner Family; Visit Provider Internal Medicine
DX: M06.9 Rheumatoid arthritis, unspecified (principal)
CPT/HCPCS: 96365; J3262

== ENCOUNTER 2021-02-03 02:40 | Outpatient (RCR) | payer MEDICARE, OTHER, SELFPAY ==
[2021-01-21 00:15] VITALS: BP 127/84; PULSE 94; RESP 20; TEMP 36.6
[2021-02-03] MEDS: TOCILIZUMAB 800 MG in Normal Saline 60 ML 100 MG IVPB (08:12)
[2021-02-03] MEDS: Normal Saline Flush 10 ML SYR IVP (08:13)
== END 2021-02-19 23:59 | disposition home or self-care (01) ==
LOC: INF 02:40
PROVIDERS: PCP Nurse Practitioner Family; Visit Provider Internal Medicine
DX: M06.9 Rheumatoid arthritis, unspecified (principal)
CPT/HCPCS: 96365; J3262

== ENCOUNTER 2021-03-02 02:38 | Outpatient (RCR) | payer MEDICARE, OTHER, SELFPAY ==
[2021-02-20 00:23] VITALS: BP 127/84; PULSE 94; RESP 20; TEMP 36.6
[2021-03-02] MEDS: TOCILIZUMAB 800 MG in Normal Saline 60 ML 100 MG IVPB (08:32)
[2021-03-02] MEDS: Normal Saline Flush 10 ML SYR IVP (08:37)
== END 2021-03-22 23:59 | disposition home or self-care (01) ==
LOC: INF 02:38
PROVIDERS: PCP Nurse Practitioner Family; Visit Provider Internal Medicine
DX: M06.9 Rheumatoid arthritis, unspecified (principal)
CPT/HCPCS: 96365; J3262

== ENCOUNTER 2021-03-10 01:17 | Outpatient (CLI) | payer MEDICARE, OTHER, SELFPAY ==
--- NOTE | 2021-03-10 09:20 | DI.RAD_ITS ---
Exam(s) XR HIP LT COMPLETE AP PELVIS EXAM: XR HIP LT COMPLETE AP PELVIS CLINICAL HISTORY: LT HIP PAIN, M25.552. TECHNIQUE: 2D digital imaging was performed. COMPARISON: No exams were available for comparison FINDINGS: There is no evidence of pelvic or hip fracture. No osseous lesions seen. Sacroiliac joints unremark able. IMPRESSION: DATA REPOSITORY: RADIATION DOSE DELIVERED:
== END 2021-03-10 01:37 ==
PROVIDERS: PCP Nurse Practitioner Family; Visit Provider Nurse Practitioner Family
DX: M25.552 Pain in left hip (principal)
CPT/HCPCS: 73502

== ENCOUNTER 2021-03-31 01:54 | Outpatient (RCR) | payer MEDICARE, OTHER, SELFPAY ==
[2021-03-23 00:20] VITALS: BP 127/84; PULSE 94; RESP 20; TEMP 36.6
[2021-03-31] MEDS: TOCILIZUMAB 800 MG in Normal Saline 60 ML 100 MG IVPB (08:22)
[2021-03-31] MEDS: Normal Saline Flush 10 ML SYR IVP (08:22)
== END 2021-04-21 23:59 | disposition home or self-care (01) ==
LOC: INF 01:54
PROVIDERS: PCP Nurse Practitioner Family; Visit Provider Internal Medicine
DX: M06.9 Rheumatoid arthritis, unspecified (principal)
CPT/HCPCS: 96365; J3262

== ENCOUNTER 2021-04-28 02:10 | Outpatient (RCR) | payer MEDICARE, OTHER, SELFPAY ==
[2021-04-22 00:09] VITALS: BP 127/84; PULSE 94; RESP 20; TEMP 36.6
[2021-04-28] MEDS: TOCILIZUMAB 800 MG in Normal Saline 60 ML 100 MG IVPB (08:41)
[2021-04-28] MEDS: Normal Saline Flush 10 ML SYR IVP (08:44)
== END 2021-05-22 23:59 | disposition home or self-care (01) ==
LOC: INF 02:10
PROVIDERS: PCP Nurse Practitioner Family; Visit Provider Internal Medicine
DX: M06.9 Rheumatoid arthritis, unspecified (principal)
CPT/HCPCS: 96365; J3262

== ENCOUNTER 2021-05-03 08:47 | Outpatient (REF) | payer MEDICARE, OTHER, SELFPAY ==
[2021-05-03 15:05] LABS: ALT 45 U/L (16-63); AST 24 U/L (15-37); Albumin 4.1 g/dL (3.4-5.0); Alkaline Phosphatase 30 U/L (46-116); Anion Gap 8.9 mmol/L (3-11); BUN 19 mg/dL (7-18); Bilirubin, Total 0.9 mg/dL (0.2-1.0); C-Reactive Protein 0.07 mg/dL (0.0-0.3); CO2 29.1 mmol/L (21.0-32.0); CREATININE 1.2 mg/dL (0.70-1.30); Chloride 104 mmol/L (98-107); Glucose 129 mg/dL (74-106); Sodium 142 mmol/L (136-145); Total Protein 6.4 g/dL (6.4-8.2)
[2021-05-03 15:17] LABS: Abs Immature Grans 0.03 10^3/uL (0.0-0.06); Absolute Basophil Count 0.07 10^3/uL (0.0-0.2); Absolute Lymphocyte Count 2.26 10^3/uL (1.2-3.4); Absolute Neutrophil Count 3.23 10^3/uL (1.2-6.7); Basophils % 1.1; HCT 45.6 % (40.0-50.0); HGB 15.5 g/dL (13.5-17.5); Immature Grans % 0.5; Lymphocytes % 34.3; MCH 32.2 pg (27.0-33.0); MCV 94.8 fL (80-95); MPV 10.2 fL (8.0-11.0); Monocytes % 12.1; Nucleated RBC 0 %; Platelet Count 216 10^3/uL (130-400); RBC 4.81 10^6/uL (4.36-5.78); WBC 6.59 10^3/uL (4.4-10.8)
[2021-05-03 15:24] LABS: ESR < 1 mm/hr (0-20)
== END 2021-05-03 08:48 | disposition home or self-care (01) ==
LOC: NCHCN 08:47
PROVIDERS: PCP Nurse Practitioner Family; Visit Provider Nurse Practitioner Family
DX: E11.9 Type 2 diabetes mellitus without complications (principal); I10 Essential (primary) hypertension; Z79.899 Other long term (current) drug therapy
CPT/HCPCS: 80053; 85652; 85025; 86140

== ENCOUNTER 2021-05-26 02:44 | Outpatient (RCR) | payer MEDICARE, OTHER, SELFPAY ==
[2021-05-23 00:19] VITALS: BP 127/84; PULSE 94; RESP 20; TEMP 36.6
[2021-05-26] MEDS: Normal Saline Flush 10 ML SYR IVP (08:30)
[2021-05-26] MEDS: TOCILIZUMAB 800 MG in Normal Saline 60 ML 100 MG IVPB (08:40)
== END 2021-06-22 23:59 | disposition home or self-care (01) ==
LOC: INF 02:44
PROVIDERS: PCP Nurse Practitioner Family; Visit Provider Internal Medicine
DX: M06.9 Rheumatoid arthritis, unspecified (principal)
CPT/HCPCS: 96365; J3262

== ENCOUNTER 2021-07-21 02:45 | Outpatient (RCR) | payer MEDICARE, OTHER, SELFPAY ==
[2021-06-23 00:21] VITALS: BP 127/84; PULSE 94; RESP 20; TEMP 36.6
[2021-06-23] MEDS: Normal Saline Flush 10 ML SYR IVP ×2 (08:01→08:30)
[2021-06-23] MEDS: TOCILIZUMAB 800 MG in Normal Saline 60 ML 100 MG IVPB (08:33)
[2021-07-21] MEDS: Normal Saline Flush 10 ML SYR IVP (08:30)
[2021-07-21] MEDS: TOCILIZUMAB 800 MG in Normal Saline 60 ML 100 MG IVPB (08:39)
== END 2021-07-22 23:59 | disposition home or self-care (01) ==
LOC: INF 02:45
PROVIDERS: PCP Nurse Practitioner Family; Visit Provider Internal Medicine
DX: M06.9 Rheumatoid arthritis, unspecified (principal)
CPT/HCPCS: 96365; J3262

== ENCOUNTER 2021-08-09 01:54 | Outpatient (CLI) | payer MEDICARE, OTHER, SELFPAY ==
--- NOTE | 2021-08-09 | DI.US_ITS ---
Exam(s) US AAA SCREENING EXAM: US AAA SCREENING CLINICAL HISTORY: SCREENING FOR AAA, H/O TOBACCO USE,Z87.891 COMPARISON: None FINDINGS: Examination was somewhat limited due to body habitus and overlying bowel gas. Maximum diameter of the aorta appears to be 2.9 cm, approximately and the abdominal aorta appears to taper normally with the distal aorta exhibiting diameter 0.1 centimeter. Visualized common iliac arteries are slightly prominent in size, with the right exhibiting diameter o f 17 millimeters and the left exhibiting diameter 18 millimeters. IMPRESSION: No evidence of abdominal aortic aneurysm. Mild arterial megaly of the common iliac arteries is noted. DATA REPOSITORY:
== END 2021-08-09 02:14 ==
PROVIDERS: PCP Nurse Practitioner Family; Visit Provider Nurse Practitioner Family
DX: Z13.6 Encounter for screening for cardiovascular disorders (principal); Z87.891 Personal history of nicotine dependence; I77.89 Other specified disorders of arteries and arterioles
CPT/HCPCS: 76706

== ENCOUNTER 2021-08-18 03:47 | Outpatient (RCR) | payer MEDICARE, OTHER, SELFPAY ==
[2021-07-23 00:11] VITALS: BP 127/84; PULSE 94; RESP 20; TEMP 36.6
[2021-08-18] MEDS: TOCILIZUMAB 800 MG in Normal Saline 60 ML 100 MG IVPB (08:35)
[2021-08-18] MEDS: Normal Saline Flush 10 ML SYR IVP (08:35)
== END 2021-08-22 23:59 | disposition home or self-care (01) ==
LOC: INF 03:47
PROVIDERS: PCP Nurse Practitioner Family; Visit Provider Internal Medicine
DX: M06.9 Rheumatoid arthritis, unspecified (principal)
CPT/HCPCS: 96365; J3262

== ENCOUNTER 2021-08-31 15:10 | Outpatient (REF) | payer MEDICARE, OTHER, SELFPAY ==
[2021-08-31 16:04] LABS: Abs Immature Grans 0.09 10^3/uL (0.0-0.06); Absolute Basophil Count 0.08 10^3/uL (0.0-0.2); Absolute Lymphocyte Count 1.77 10^3/uL (1.2-3.4); Absolute Monocyte Count 1.11 10^3/uL (0.1-0.8); Absolute Neutrophil Count 5.54 10^3/uL (1.2-6.7); Basophils % 0.9; Eosinophils % 2.3; HCT 46.8 % (40.0-50.0); HGB 15.5 g/dL (13.5-17.5); Lymphocytes % 20.1; MCH 31.9 pg (27.0-33.0); MCHC 33.1 % (32.0-36.0); MCV 96.3 fL (80-95); Monocytes % 12.6; Neutrophils % 63.1; Nucleated RBC 0 %; Platelet Count 234 10^3/uL (130-400); RBC 4.86 10^6/uL (4.36-5.78); RDW 12.9 % (11.8-14.1); RDW-SD 45.4 fL; WBC 8.79 10^3/uL (4.4-10.8)
[2021-08-31 16:19] LABS: ESR < 1 mm/hr (0-20)
[2021-09-01 00:12] LABS: ALT 51 U/L (16-63); AST 26 U/L (15-37); Albumin 4.1 g/dL (3.4-5.0); Alkaline Phosphatase 34 U/L (46-116); BUN 21 mg/dL (7-18); Bilirubin, Total 0.6 mg/dL (0.2-1.0); C-Reactive Protein < 0.05 mg/dL (0.0-0.3); CREATININE 1.1 mg/dL (0.70-1.30); Calcium 9.5 mg/dL (8.5-10.1); Chloride 102 mmol/L (98-107); Glucose 136 mg/dL (74-106); Potassium 4.4 mmol/L (3.5-5.1); Sodium 140 mmol/L (136-145); Total Protein 6.6 g/dL (6.4-8.2)
== END 2021-08-31 15:11 | disposition home or self-care (01) ==
LOC: NCHCN 15:10
PROVIDERS: PCP Nurse Practitioner Family; Visit Provider Nurse Practitioner Family
DX: M05.9 Rheumatoid arthritis with rheumatoid factor, unspecified (principal); Z79.899 Other long term (current) drug therapy
CPT/HCPCS: 80053; 85652; 85025; 86140

== ENCOUNTER 2021-09-17 00:53 | Outpatient (RCR) | payer MEDICARE, OTHER, SELFPAY ==
[2021-08-23 00:20] VITALS: BP 127/84; PULSE 94; RESP 20; TEMP 36.6
[2021-09-17] MEDS: Normal Saline Flush 10 ML SYR IVP (08:41)
[2021-09-17] MEDS: TOCILIZUMAB 800 MG in Normal Saline 60 ML 100 MG IVPB (09:00)
== END 2021-09-21 23:59 | disposition home or self-care (01) ==
LOC: INF 00:53
PROVIDERS: PCP Nurse Practitioner Family; Visit Provider Internal Medicine
DX: M06.9 Rheumatoid arthritis, unspecified (principal); Z79.899 Other long term (current) drug therapy
CPT/HCPCS: 96365; J3262

== ENCOUNTER 2021-09-21 15:48 | Observation (INO) | payer MEDICARE, OTHER, SELFPAY ==
[2021-09-21] VITALS (7 sets, daily range): BP systolic 147–155; BP diastolic 76–107; PULSE 95–109; RESP 18–22; TEMP 36.1–36.7; O2SAT 94–96
--- NOTE | 2021-09-21 15:45 | RT.EKG_ITS ---
APPROVED REPORT Exam: Resting ECG Reason for Exam: facial numbness Patient Location: E HR:97 bpm ECG Measurements Heart Rate 97 AXIS MS 202 P 56 QRSd 171 QRS -29 QT 400 T 138 QTc 510 Conclusion Sinus rhythm...normal P axis, V-rate 60- 99 Left bundle branch block...QRSd>120, broad/notched R ST elevation secondary to IVCD...Multiple VCG criteria. Sinus. LBBB. No STEMI. No change from previous EKG. I have reviewed and interpreted ECG and agree with software generated interpretation.
--- NOTE | 2021-09-21 15:51 | W.ED.GENAD ---
Discharge Plan Disposition Patient Disposition: [facility] INPATIENT Condition: Stable Discharge Details Clinical Impression: Acute cerebrovascular accident (CVA) Admit Date/Time: 09/21/21 18:13 Admit Provider: Lucia Licea Attending Provider: Lucia Licea Primary Care Provider: Isabel Dickey ED Provider: Cara Steward Discharge Data Discharge Date/Time-TO BE ENTERED AT DEPARTURE: 09/21/21 19:05 Medical Decision Making 1600 -- 66-year-old male with a history of rheumatoid arthritis on methotrexate, prednisone and Plaquenil and hypertension presents for right-sided facial, right arm and right leg numbness and weakness since yesterday. BP 155/107, will continue to monitor. Patient has diminished sensation to sharp versus dull touch but no obvious focal motor deficits. He is alert and oriented x3. Differential diagnosis includes acute CVA, electrolyte abnormality. Will place an IV, bolus IV fluids, screening labs, CTA head and neck, chest x-ray. Patient states he will not stay in the hospital regardless of recommendations or findings. Labs and imaging reviewed. Labs unremarkable. No acute findings on imaging. Patient initially hesitant for admission. Discussed with patient that his symptom presentation is concerning for an acute CVA and does not appear consistent with TIA as symptoms are persistent. Recommend admission overnight and plan for MRI brain tomorrow. Daughter present in room and patient agreeable with plan. Patient is allergic to aspirin which causes throat swelling. Will consult [facility] neurology for recommendations. 1800 -- Case discussed with hospitalist who accepts patient for admission. 1909 -- Case discussed with [facility] neurology --agrees based on symptom presentation that this could be consistent with a pure sensory stroke in the thalamic region region of brain. Agrees with plan for admission with plan for MRI brain tomorrow. Recommend starting Plavix 75 mg once daily and risk factor control. Pt now on floor. Dose of plavix ordered. Medical Records Medical records reviewed: Yes I reviewed the patient's medical records. Imaging Data Radiologic Study: Radiologist's impression: XR Chest Exam date and time: 09/21/2021 4:21 PM Age: 66 years old Clinical indication: Other: Possible CVA, R/O acute disease TECHNIQUE: Imaging protocol: XR of the chest. Views: 2 views. COMPARISON: CR XR CHEST 2V PA LATERAL 03/05/2019 6:49 AM FINDINGS: Lungs: Unremarkable. No consolidation. Pleural spaces: Unremarkable. No pleural effusion. No pneumothorax. Heart/Mediastinum: Unremarkable. No cardiomegaly. Bones/joints: Unremarkable. IMPRESSION: No acute findings. CT Head Without Contrast Exam date and time: 09/21/2021 4:21 PM Clinical indication: R sided facial numbness, R/O acute CVA TECHNIQUE: Imaging protocol: Computed tomography of the head without contrast. COMPARISON: No relevant prior studies available. FINDINGS: Brain: No hemorrhage. Unremarkable white matter. No mass effect. Cerebral ventricles: No ventriculomegaly. Paranasal sinuses: Visualized sinuses are unremarkable. No fluid levels. Mastoid air cells: Visualized mastoid air cells are well aerated. Bones/joints: No acute fracture. A 1 cm round region of sclerosis noted in the midline frontal bone, similar to prior MRI. Soft tissues: Unremarkable. IMPRESSION: 1. No acute intracranial abnormality. 2. Stable sclerotic focus in the frontal bone, which could represent a bone island or osteoma. No significant change since prior MRI. ASSESSMENT: ASPECTS ([place] Stroke Program Early CT Score) is 10. CT Angiography Head With Contrast, Arteriography Exam date and time: 09/21/2021 4:21 PM Age: 66 years old Clinical indication: Other: R sided facial numbness, R/O acute CVA TECHNIQUE: Imaging protocol: Computed tomography angiography of the head with contrast. Exam focused on the arteries. 3D rendering (Not supervised by radiologist): MIP and/or 3D reconstructed images were created by the technologist. Radiation optimization: All CT scans at this facility use at least one of these dose optimization techniques: automated exposure control; mA and/or kV adjustment per patient size (includes targeted exams where dose is matched to clinical indication); or iterative reconstruction. Contrast material: OMNIPAQUE 350; Contrast volume: 85 ml; Contrast route: INTRAVENOUS (IV); COMPARISON: MR BRAIN WO 02/21/2020 7:59 AM FINDINGS: ANTERIOR CIRCULATION: Right internal carotid artery: Unremarkable. Intracranial segment is patent with no significant stenosis. No aneurysm. Right middle cerebral artery: Unremarkable. No occlusion or significant stenosis. No aneurysm. Right anterior cerebral artery: Unremarkable. No occlusion or significant stenosis. No aneurysm. Left internal carotid artery: Unremarkable. Intracranial segment is patent with no significant stenosis. No aneurysm. Left middle cerebral artery: Unremarkable. No occlusion or significant stenosis. No aneurysm. Left anterior cerebral artery: Unremarkable. No occlusion or significant stenosis. No aneurysm. POSTERIOR CIRCULATION: Right vertebral artery: Unremarkable. No occlusion or significant stenosis. No aneurysm. Left vertebral artery: Unremarkable. No occlusion or significant stenosis. No aneurysm. Basilar artery: Unremarkable. No occlusion or significant stenosis. No aneurysm. Right posterior cerebral artery: Unremarkable. No occlusion or significant stenosis. No aneurysm. Left posterior cerebral artery: Unremarkable. No occlusion or significant stenosis. No aneurysm. Brain: No definite mass, mass effect, or midline shift. Cerebral ventricles: No ventriculomegaly. Bones/joints: Unremarkable. No acute fracture. Soft tissues: Unremarkable. IMPRESSION: No large vessel stenosis or occlusion. CT Angiography Neck With Contrast Exam date and time: 09/21/2021 4:21 PM Age: 66 years old Clinical indication: Other: R sided facial numbness, R/O acute CVA TECHNIQUE: Imaging protocol: Computed tomography angiography of the neck with contrast. 3D rendering (Not supervised by radiologist): MIP and/or 3D reconstructed images were created by the technologist. Radiation optimization: All CT scans at this facility use at least one of these dose optimization techniques: automated exposure control; mA and/or kV adjustment per patient size (includes targeted exams where dose is matched to clinical indication); or iterative reconstruction. Contrast material: OMNIPAQUE 350; Contrast volume: 85 ml; Contrast route: INTRAVENOUS (IV); COMPARISON: MR BRAIN WO 02/21/2020 7:59 AM FINDINGS: Right common carotid artery: No stenosis. No dissection or occlusion. Right internal carotid artery: No stenosis of the extracranial segment. No dissection or occlusion. Right external carotid artery: No occlusion or stenosis of the origin. Left common carotid artery: No stenosis. No dissection or occlusion. Left internal carotid artery: No stenosis of the extracranial segment. No dissection or occlusion. Left external carotid artery: No occlusion or stenosis of the origin. Right vertebral artery: No stenosis. No dissection or occlusion. Left vertebral artery: No stenosis. No dissection or occlusion. Soft tissues: Normal. No significant soft tissue swelling. Bones/joints: No acute fracture. IMPRESSION: No stenosis or occlusion. Lab Data Lab results reviewed: Yes I reviewed the patient's lab results. Labs: Laboratory Tests Range/Units 09/21/21 09/21/21 16:01 16:01 WBC (4.4-10.8) 10^3/uL 10.58 RBC (4.36-5.78) 10^6/uL 4.83 Hgb (13.5-17.5) g/dL 15.6 Hct (40.0-50.0) % 46.1 MCV (80-95) fL 95.4 H MCH (27.0-33.0) pg 32.3 MCHC (32.0-36.0) % 33.8 RDW (11.8-14.1) % 12.7 Plt Count (130-400) 10^3/uL 216 MPV (8.0-11.0) fL 9.1 Immature Gran % 0.7 Neutrophils % 56.3 Lymphocytes % 26.7 Monocytes % 13.5 Eosinophils % 1.9 Basophils % 0.9 Nucleated RBC % % 0 Absolute Neutrophils (1.2-6.7) 10^3/uL 5.96 Absolute Lymphocytes (1.2-3.4) 10^3/uL 2.82 Absolute Monocytes (0.1-0.8) 10^3/uL 1.43 H Absolute Eosinophils (0.0-0.7) 10^3/uL 0.20 Absolute Basophils (0.0-0.2) 10^3/uL 0.10 Sodium (136-145) mmol/L 139 Potassium (3.5-5.1) mmol/L 4.0 Chloride (98-107) mmol/L 102 Carbon Dioxide (21.0-32.0) mmol/L 30.6 Anion Gap (3-11) mmol/L 6.4 BUN (7-18) mg/dL 21 H Creatinine (0.70-1.30) mg/dL 1.1 Estimated GFR/1.73 m2 (mL/min/1.73m2) >= 60.00 Glucose (74-106) mg/dL 118 H Calcium (8.5-10.1) mg/dL 8.9 Magnesium (1.8-2.4) mg/dL 1.9 Total Bilirubin (0.2-1.0) mg/dL 0.5 AST (15-37) U/L 24 ALT (16-63) U/L 53 Alkaline Phosphatase (46-116) U/L 32 L Troponin I (<0.06) ng/mL < 0.05 Total Protein (6.4-8.2) g/dL 6.8 Albumin (3.4-5.0) g/dL 4.1 ECG Data Attestation: I personally reviewed and interpreted this ECG (s) as follows: Interpretation: rate of 97, sinus, LBBB, no stemi, no change from previous ekg. HPI General Mode of arrival: ambulatory. Date/Time Provider Initiated Documentation: 09/21/21 15:49. Limitations to Documentation: no limitations. Information obtained by: patient. HPI Narrative: Patient is a 66-year-old male with a history of rheumatoid arthritis on methotrexate, prednisone and Plaquenil, and a history of hypertension presents for right-sided facial, right arm and right leg weakness and numbness since yesterday morning. Patient states she awoke yesterday morning and noticed the symptoms. He describes it as a numbness in the right side of his face, his entire right arm and right leg extending from his hip to just below fatigue. He admits to some sensation of weakness with difficulty holding objects with his right hand yesterday and today. He denies any headache, dizziness, blurry vision, slurred speech, chest pain, shortness of breath, vomiting or diarrhea. He states he is fully vaccinated for Covid and denies any known exposure to Coronavirus. He denies any fever or recent illness. Related Data Home Medications Medication Instructions Recorded Confirmed acetaminophen [Tylenol Extra 2 tab PO PRN 01/15/13 09/21/21 Strength] hydroxychloroquine [Plaquenil] 2 tab PO HS #90 01/15/13 09/21/21 folic acid 1 mg PO DAILY 03/10/17 09/21/21 methotrexate sodium 8 mg PO DIRECTED 03/10/17 09/21/21 Actemra IV Monthly 04/23/18 01/06/20 prednisone 4 mg PO DAILY tab-cap 06/04/18 09/21/21 lisinopril 10 1 tab PO DAILY #90 tab 11/20/18 09/21/21 mg-hydrochlorothiazide 12.5 mg tablet cholecalciferol (vitamin D3) 50 mcg PO DAILY 09/21/21 09/21/21 loratadine 10 mg PO DAILY 09/21/21 09/21/21 magnesium 400 mg PO DAILY 09/21/21 09/21/21 metformin 500 mg PO DAILY 11/30/21 11/30/21 Previous Rx's Medication Instructions Recorded lisinopril 10 1 tab PO DAILY #90 tab 11/20/18 mg-hydrochlorothiazide 12.5 mg tablet Allergies Allergy/AdvReac Type Severity Reaction Status Date / Time aspirin Allergy Severe Swelling/Ed Verified 09/21/21 15:53 rigoberto citric acid Allergy Unknown RASH, Verified 09/21/21 15:53 BLISTER adalimumab Allergy NUMBNESS Verified 09/21/21 15:53 NSAIDS (Non-Steroidal AdvReac CONGESTION Verified 09/21/21 15:53 Anti-Inflamma General EMERALD: 3 Review of Systems All systems reviewed & are unremarkable except as noted in HPI and below Constitutional Constitutional: Reports as per HPI, Denies chills and Denies fever(s) Eyes Eyes: Denies blurry vision ENT Ears, Nose, Mouth, and Throat: Denies dizziness, Denies sore throat and Denies throat swelling Cardiovascular Cardiovascular: Denies chest pain and Denies dyspnea Respiratory Respiratory: Denies cough and Denies dyspnea Gastrointestinal Gastrointestinal: Denies abdominal pain, Denies diarrhea and Denies vomiting Genitourinary Genitourinary: Denies hematuria and Denies dysuria Musculoskeletal Musculoskeletal: Denies back pain and Reports numbness Integumentary/Breasts Skin/Breast: Denies lesions and Denies rash Neurologic Neurologic: Denies dizziness, Reports localized weakness and Reports numbness Allergic/Immunologic Allergic/Immunologic: Denies throat swelling [facility] Active Problem List (Updated 09/21/21 @ 19:13 by Cara Steward DO) Acute cerebrovascular accident (CVA) (Acute) Migraine headache with aura (Acute) Bronchitis (Acute) Abnormal CT scan (Acute) Acute meniscal tear, lateral (Acute) Allergic rhinitis (Acute 03/27/14) Chronic sinusitis (Acute 03/27/14) Deviated nasal septum (Acute 03/27/14) Family history of colon cancer (Acute) Foot joint pain (Acute 07/23/13) History of tobacco use (Acute) Hyperplastic colon polyp (Acute) Migraine (Acute) Rheumatoid arthritis (Acute) Medical History (Updated 09/21/21 @ 19:13 by Cara Steward DO) Chronic lower back pain Hypertension Lightheadedness Surgical History Colonoscopy - MAC 05/16/14 RIB REMOVAL (01/02/84) LEFT TOP RIB Family History Mother Personal history of malignant neoplasm LUNG Father Personal history of malignant neoplasm COLON Sister No problems noted. Brother Personal history of malignant neoplasm LUNG Social History Smoking/Tobacco Use Status: Former Tobacco Use Quit Date: 10/23/97 Smoking risk assessment performed?: Yes Alcohol Intake: never Drug use: Never Substance use type: does not use Housing: house Number of Children: 2 What is your relationship status?: Panel score (0-1 are the most socially isolated patients): 0 Seatbelt use: always Do you feel safe at home: Yes Do you feel safe in your relationship?: Yes Exam Const General: cooperative, healthy appearing and no acute distress HENMT Head: normal to inspection Face and sinus: normal facial exam Eyes General: appearance normal, both eyes and all related structures Pupils: PERRL EOM: EOM intact bilaterally Neck Neck: normal visual inspection and No submandibular swelling Lymphatic: no lymphadenopathy noted Chest Chest: normal inspection of the chest and no tenderness Resp Effort & Inspection: normal respiratory effort and able to speak in complete sentences Auscultation: clear to auscultation bilaterally Cardio Rate: regular rate Rhythm: regular rhythm GI Inspection: normal to inspection Palpation: soft, not firm, not rigid and nontender Auscultation: normal bowel sounds Skin General skin exam: no rashes or lesions noted Neuro General: patient alert, patient awake, patient oriented x3, moves all extremities, no meningeal signs and no focal motor deficits Cranial Nerves: CN's II-XI intact bilaterally Cognition: normal cognition Speech: speech normal Motor: muscle tone normal throughout and strength 5/5 throughout Sensory Exam: no sensory deficits noted Other: diminished sensation R face/RUE/RLE and decreased ability to discriminate sharp to dull touch RUE/RLE. Extrem General: normal to inspection, full ROM, capillary refill normal, no calf tenderness bilaterally and no edema Psych Appearance: grossly normal Mental Status: mental status grossly normal Speech and Movement: speech and movement normal Affect: normal affect
[2021-09-21 16:07] LABS: Abs Immature Grans 0.07 10^3/uL (0.0-0.06); Absolute Lymphocyte Count 2.82 10^3/uL (1.2-3.4); Absolute Monocyte Count 1.43 10^3/uL (0.1-0.8); Absolute Neutrophil Count 5.96 10^3/uL (1.2-6.7); Basophils % 0.9; Eosinophils % 1.9; HCT 46.1 % (40.0-50.0); HGB 15.6 g/dL (13.5-17.5); Immature Grans % 0.7; Lymphocytes % 26.7; MCH 32.3 pg (27.0-33.0); MCHC 33.8 % (32.0-36.0); MCV 95.4 fL (80-95); MPV 9.1 fL (8.0-11.0); Monocytes % 13.5; Neutrophils % 56.3; Nucleated RBC 0 %; Platelet Count 216 10^3/uL (130-400); RBC 4.83 10^6/uL (4.36-5.78); RDW 12.7 % (11.8-14.1); RDW-SD 44.5 fL; WBC 10.58 10^3/uL (4.4-10.8)
--- NOTE | 2021-09-21 16:15 | DI.CT_ITS ---
Exam(s) CT BRAIN NECK CTA EXAM: CT BRAIN NECK CTA CLINICAL HISTORY: R sided facial numbness, r/o acute cva. TECHNIQUE: Imaging Protocol: Axial CT angiography was performed with multi-slice acquisition and mu lti-planar and/or 3D reconstructions. CONTRAST MATERIAL: Intravenous: Omnipaque 350 Contrast volume:85 mL COMPARISON: CT SINUS CT WITHOUT CONTRAST from 03/18/2014 FINDINGS: The examination is limited due to patient motion artifact. CT Head W/O and W: Ventricles and Extra axial spaces: Normal in size and morphology for the patient's age. Hemorrhage: None. Cerebral parenchyma: No evidence of an acute territorial infarct. There are areas of decreased atten uation in the white matter most consistent with chronic microvascular ischemic disease. Midline shift: None. Brainstem/Cerebellum: Normal. Calvarium: Normal. There is again seen a 1 cm round area of sclerosis in the midline of the frontal b one unchanged from the prior MRI examination from 2019. Visualized Paranasal sinuses/Mastoids: There is mild mucosal thickening in the maxillary sinuses bila terally. No fluid levels are seen. Soft Tissues: Unremarkable. Enhancement: Unremarkable. CTA Neck W: Common Carotid: Right: No dissection, occlusion or significant stenosis. Mild atherosclerosis distally. Left: No dissection, occlusion or significant stenosis. Mild atherosclerosis distally. External Carotid: Right: No occlusion or significant stenosis. Mild atherosclerosis at its origin. Left: No occlusion or significant stenosis. Internal Carotid: Right: No dissection, occlusion or significant stenosis. Mild atherosclerosis at its origin. Left: No dissection, occlusion or significant stenosis. Mild atherosclerosis at its origin. Vertebral Artery: Right: No dissection, occlusion or significant stenosis. Left: No dissection, occlusion or significant stenosis. Lung Apices: Normal. Bones: Within normal limits for the patient's age. Soft Tissues: Normal. Thyroid gland: Unremarkable. CTA Brain W: Internal Carotid Arteries: Normal. Mild atherosclerosis. Anterior Cerebral Arteries: Right: No aneurysm, occlusion or significant stenosis. Left: No aneurysm, occlusion or significant stenosis. Middle Cerebral Arteries: Right: No aneurysm, occlusion or significant stenosis. Left: No aneurysm, occlusion or significant stenosis. Posterior Cerebral Arteries: Right: No aneurysm, occlusion or significant stenosis. Left: No aneurysm, occlusion or significant stenosis. Vertebral Arteries: Right: No aneurysm, occlusion or significant stenosis. Left: No aneurysm, occlusion or significant stenosis. Basilar Artery: No aneurysm, occlusion or significant stenosis. IMPRESSION: 1. No large vessel occlusion or significant stenosis on the CT angiography of the head. 2. No acute intracranial process. 3. No occlusion or significant stenosis on the CT angiography of the neck. RADIATION DOSE DELIVERED: 2,543.93mGy.cm Total DLP DATA REPOSITORY: All CT scans at this facility are submitted to the National Radiology Data Registry (NRDR) Dose Index Registry (DIR) with the [employer] (ACR). RADIATION OPTIMIZATION: All CT scans at this facility use at least one of these dose optimization te chniques: automated exposure control; mA and/or kV adjustment per patient size (includes targeted exa ms where dose is matched to clinical indication); or iterative reconstruction.
--- NOTE | 2021-09-21 16:15 | DI.RAD_ITS ---
Exam(s) XR CHEST 2V PA LATERAL EXAM: XR CHEST 2V PA LATERAL CLINICAL HISTORY: possible cva, r/o acute disease TECHNIQUE: 2D digital imaging was performed of the chest. Two images were obtained. PA and lateral views were obtained. COMPARISON: CR XR CHEST 2V PA LATERAL from 03/05/2019 FINDINGS: MEDIASTINUM: Normal. HEART: Normal. PULMONARY VASCULATURE: Normal. LUNGS: Clear. PLEURAL SPACE: No pleural effusion or pneumothorax. BONE:Within normal limits for the patient's age. OTHER FINDINGS:Normal. IMPRESSION: No acute pulmonary findings. DATA REPOSITORY: RADIATION DOSE DELIVERED:
[2021-09-21 16:34] LABS: ALT 53 U/L (16-63); AST 24 U/L (15-37); Albumin 4.1 g/dL (3.4-5.0); Alkaline Phosphatase 32 U/L (46-116); Anion Gap 6.4 mmol/L (3-11); BUN 21 mg/dL (7-18); Bilirubin, Total 0.5 mg/dL (0.2-1.0); CO2 30.6 mmol/L (21.0-32.0); CREATININE 1.1 mg/dL (0.70-1.30); Calcium 8.9 mg/dL (8.5-10.1); Chloride 102 mmol/L (98-107); Glucose 118 mg/dL (74-106); Magnesium 1.9 mg/dL (1.8-2.4); Sodium 139 mmol/L (136-145); Total Protein 6.8 g/dL (6.4-8.2)
[2021-09-21 16:35] LABS: Troponin I < 0.05 ng/mL (<0.06)
[2021-09-21] MEDS: Normal Saline 1,000 ML 1000 ML IV (16:58)
[2021-09-21] MEDS: Omnipaque 350 MG/ML 100 ML BTL IV (17:04)
--- NOTE | 2021-09-21 17:24 | DI.VRAD_ITS ---
PROCEDURE INFORMATION: Exam: CT Head Without Contrast Exam date and time: 09/21/2021 4:21 PM Clinical indication: R sided facial numbness, R/O acute CVA TECHNIQUE: Imaging protocol: Computed tomography of the head without contrast. COMPARISON: No relevant prior studies available. FINDINGS: Brain: No hemorrhage. Unremarkable white matter. No mass effect. Cerebral ventricles: No ventriculomegaly. Paranasal sinuses: Visualized sinuses are unremarkable. No fluid levels. Mastoid air cells: Visualized mastoid air cells are well aerated. Bones/joints: No acute fracture. A 1 cm round region of sclerosis noted in the midline frontal bone, similar to prior MRI. Soft tissues: Unremarkable. IMPRESSION: 1. No acute intracranial abnormality. 2. Stable sclerotic focus in the frontal bone, which could represent a bone island or osteoma. No significant change since prior MRI. ASSESSMENT: ASPECTS ([place] Stroke Program Early CT Score) is 10. PROCEDURE INFORMATION: Exam: CT Angiography Head With Contrast, Arteriography Exam date and time: 09/21/2021 4:21 PM Age: 66 years old Clinical indication: Other: R sided facial numbness, R/O acute CVA TECHNIQUE: Imaging protocol: Computed tomography angiography of the head with contrast. Exam focused on the arteries. 3D rendering (Not supervised by radiologist): MIP and/or 3D reconstructed images were created by the technologist. Radiation optimization: All CT scans at this facility use at least one of these dose optimization techniques: automated exposure control; mA and/or kV adjustment per patient size (includes targeted exams where dose is matched to clinical indication); or iterative reconstruction. Contrast material: OMNIPAQUE 350; Contrast volume: 85 ml; Contrast route: INTRAVENOUS (IV); COMPARISON: MR BRAIN WO 02/21/2020 7:59 AM FINDINGS: ANTERIOR CIRCULATION: Right internal carotid artery: Unremarkable. Intracranial segment is patent with no significant stenosis. No aneurysm. Right middle cerebral artery: Unremarkable. No occlusion or significant stenosis. No aneurysm. Right anterior cerebral artery: Unremarkable. No occlusion or significant stenosis. No aneurysm. Left internal carotid artery: Unremarkable. Intracranial segment is patent with no significant stenosis. No aneurysm. Left middle cerebral artery: Unremarkable. No occlusion or significant stenosis. No aneurysm. Left anterior cerebral artery: Unremarkable. No occlusion or significant stenosis. No aneurysm. POSTERIOR CIRCULATION: Right vertebral artery: Unremarkable. No occlusion or significant stenosis. No aneurysm. Left vertebral artery: Unremarkable. No occlusion or significant stenosis. No aneurysm. Basilar artery: Unremarkable. No occlusion or significant stenosis. No aneurysm. Right posterior cerebral artery: Unremarkable. No occlusion or significant stenosis. No aneurysm. Left posterior cerebral artery: Unremarkable. No occlusion or significant stenosis. No aneurysm. Brain: No definite mass, mass effect, or midline shift. Cerebral ventricles: No ventriculomegaly. Bones/joints: Unremarkable. No acute fracture. Soft tissues: Unremarkable. IMPRESSION: No large vessel stenosis or occlusion. PROCEDURE INFORMATION: Exam: CT Angiography Neck With Contrast Exam date and time: 09/21/2021 4:21 PM Age: 66 years old Clinical indication: Other: R sided facial numbness, R/O acute CVA TECHNIQUE: Imaging protocol: Computed tomography angiography of the neck with contrast. 3D rendering (Not supervised by radiologist): MIP and/or 3D reconstructed images were created by the technologist. Radiation optimization: All CT scans at this facility use at least one of these dose optimization techniques: automated exposure control; mA and/or kV adjustment per patient size (includes targeted exams where dose is matched to clinical indication); or iterative reconstruction. Contrast material: OMNIPAQUE 350; Contrast volume: 85 ml; Contrast route: INTRAVENOUS (IV); COMPARISON: MR BRAIN WO 02/21/2020 7:59 AM FINDINGS: Right common carotid artery: No stenosis. No dissection or occlusion. Right internal carotid artery: No stenosis of the extracranial segment. No dissection or occlusion. Right external carotid artery: No occlusion or stenosis of the origin. Left common carotid artery: No stenosis. No dissection or occlusion. Left internal carotid artery: No stenosis of the extracranial segment. No dissection or occlusion. Left external carotid artery: No occlusion or stenosis of the origin. Right vertebral artery: No stenosis. No dissection or occlusion. Left vertebral artery: No stenosis. No dissection or occlusion. Soft tissues: Normal. No significant soft tissue swelling. Bones/joints: No acute fracture. IMPRESSION: No stenosis or occlusion. REFERENCES: NASCET CRITERIA. The degree of internal carotid artery stenosis is based on NASCET criteria. Normal is no stenosis. Mild is less than 50% stenosis. Moderate is 50-69% stenosis. Severe is 70% to 99% stenosis. Total occlusion is no detectable patent lumen. Dictated and Authenticated by: Ginna Campoverde MD. Ordering:RICKY Marroquin MD
--- NOTE | 2021-09-21 17:26 | DI.VRAD_ITS ---
PROCEDURE INFORMATION: Exam: XR Chest Exam date and time: 09/21/2021 4:21 PM Age: 66 years old Clinical indication: Other: Possible CVA, R/O acute disease TECHNIQUE: Imaging protocol: XR of the chest. Views: 2 views. COMPARISON: CR XR CHEST 2V PA LATERAL 03/05/2019 6:49 AM FINDINGS: Lungs: Unremarkable. No consolidation. Pleural spaces: Unremarkable. No pleural effusion. No pneumothorax. Heart/Mediastinum: Unremarkable. No cardiomegaly. Bones/joints: Unremarkable. IMPRESSION: No acute findings. Dictated and Authenticated by: Ginna Campoverde MD. Ordering:RICKY Marroquin MD
[2021-09-21 18:27] LABS: Source Nasal/Nares
[2021-09-21] MEDS: Clopidogrel 75 MG TAB PO (19:48)
[2021-09-21] MEDS: Enoxaparin 40 MG/0.4 ML SYR SC (19:49)
[2021-09-21 22:39] LABS: COVID-19 PCR Negative (Negative)
--- NOTE | 2021-09-21 23:05 | W.PM.HP.N ---
Date of service: 09/21/21 Time of Service: 23:08 Assessment and Plan Assessment and plan (1) Acute cerebrovascular accident (CVA): Status: Acute Assessment and plan: Monitor on telemetry. Continue plavix initiated by the ED. Allergic to asa. Neurochecks. Obtain Echo/MRI. Check A1C, Fasting lipid panel, B12, TSH. PT/OT consults. Neuro consult. Permissive hypertension (2) Hypertension: Assessment and plan: Hold home meds - permissive hypertension. Qualifiers: Hypertension type: primary hypertension Qualified Code(s): I10 - Essential (primary) hypertension (3) Non-insulin dependent diabetes mellitus: Assessment and plan: Check A1C. Hold metformin as has received IV contrast. Cover with SSI while in house. (4) Rheumatoid arthritis: Assessment and plan: Continue home medications including prednisone, plaquenil, methotrexate. (5) DVT prophylaxis: Status: Acute Assessment and plan: SC enoxaparin (6) Discharge planning issues: Status: Acute Assessment and plan: Full code History of Present Illness History of Present Illness Chief Complaint: R-sided weakness since yesterday morning Narrative: Mr peng is a 66 year old male with PMHx of RA, NIDDM2, HTN, obesity with BMI of 42.8, who presented to [facility] ED today c/o R-sided facial numbness, RUE numbness/weakness, and RLE numbness down to the knee since waking up yesterday am. The patient has a history of migraines, but he never has symptoms like these with his migraines, and he has not had a headache. Symptoms persist now for more than 24 hrs. He specifically denies paresthesias. he feels that his right hand is weak, but he has not been dropping things. He has not had any falls. The patient had a negative CT/CTA head/neck in the ED. [facility] [place] neurology recommended further stroke workup and initiation of plavix 75 mg PO daily. Review of Systems All systems reviewed & are unremarkable except as noted in HPI and below [facility] Active Problem List (Updated 09/21/21 @ 23:21 by Lucia Licea MD) Discharge planning issues (Acute) DVT prophylaxis (Acute) Acute cerebrovascular accident (CVA) (Acute) Bronchitis (Acute) Abnormal CT scan (Acute) Acute meniscal tear, lateral (Acute) Allergic rhinitis (Acute 03/27/14) Chronic sinusitis (Acute 03/27/14) Deviated nasal septum (Acute 03/27/14) Family history of colon cancer (Acute) Foot joint pain (Acute 07/23/13) History of tobacco use (Acute) Hyperplastic colon polyp (Acute) Migraine (Acute) Medical History (Updated 09/21/21 @ 23:21 by Lucia Licea MD) Chronic lower back pain Hypertension Lightheadedness Migraine headache with aura Non-insulin dependent diabetes mellitus Obesity, morbid, BMI 40.0-49.9 Rheumatoid arthritis Steroid dependent Surgical History Colonoscopy - MAC 05/16/14 RIB REMOVAL (10/24/83) LEFT TOP RIB Family History Mother Personal history of malignant neoplasm LUNG Father Personal history of malignant neoplasm COLON Sister No problems noted. Brother Personal history of malignant neoplasm LUNG Social History Smoking/Tobacco Use Status: Former Tobacco Use Quit Date: 10/23/97 Smoking risk assessment performed?: Yes Alcohol Intake: never Drug use: Never Substance use type: does not use Housing: house Number of Children: 2 What is your relationship status?: Panel score (0-1 are the most socially isolated patients): 0 Seatbelt use: always Do you feel safe at home: Yes Do you feel safe in your relationship?: Yes Meds Allergies and Home Medications Allergies Allergy/AdvReac Type Severity Reaction Status Date / Time aspirin Allergy Severe Swelling/Ed Verified 09/21/21 15:53 rigoberto citric acid Allergy Unknown RASH, Verified 09/21/21 15:53 BLISTER adalimumab Allergy NUMBNESS Verified 09/21/21 15:53 NSAIDS (Non-Steroidal AdvReac CONGESTION Verified 09/21/21 15:53 Anti-Inflamma Home Medications Medication Instructions Recorded Confirmed Type acetaminophen [Tylenol Extra 2 tab PO PRN 01/15/13 09/21/21 History Strength] hydroxychloroquine [Plaquenil] 2 tab PO HS #90 01/15/13 09/21/21 History folic acid 1 mg PO DAILY 03/10/17 09/21/21 History methotrexate sodium 8 mg PO DIRECTED 03/10/17 09/21/21 History Proventil Hfa 1 - 2 puff INHALATION Q4H PRN #1 02/14/18 09/21/21 Clinic inhaler Actemra IV Monthly 04/23/18 01/06/20 History prednisone 4 mg PO DAILY tab-cap 06/04/18 09/21/21 History lisinopril 10 1 tab PO DAILY #90 tab 11/20/18 09/21/21 Rx mg-hydrochlorothiazide 12.5 mg tablet cholecalciferol (vitamin D3) 50 mcg PO DAILY 09/21/21 09/21/21 History loratadine 10 mg PO DAILY 09/21/21 09/21/21 History magnesium 400 mg PO DAILY 09/21/21 09/21/21 History metformin 500 mg PO DAILY 09/21/21 09/21/21 History Exam Narrative Exam Narrative: General: Very pleasant obese male who is laying in bed, comfortable, A&Ox3 Neurological: A&Ox3, CN II-XII intact, finger to nose intact B, appropriate speech pattern/content, right sided numbness from face down to R knee, 5/5 strength throughout, No pronator drift, DTRs 1+ B, symmetric, Plantar response extension B Psychiatric: appropriate affect, cooperative Skin: Visible skin intact HEENT: Atraumatic, normocephalic, EOMI, MMM, clear oropharynx, no submandibular or cervical lymphadenopathy, no goiter or JVD Cardiovascular: RRR, no m/r/g Lungs: CTAB Gastrointestinal: soft, nontender, nondistended Genitourinary: deferred Extremities: no edema BLE's, 2+ pedal pulses B, dry skin B feet, no lesions Results Imaging Additional studies: CT/CTA head/neck: 1. No large vessel occlusion or significant stenosis on the CT angiography of the head. 2. No acute intracranial process. 3. No occlusion or significant stenosis on the CT angiography of the neck. CXR: No acute pulmonary findings. EKG: NSR, HR 97, LBBB (unchanged from prior) Labs Result diagrams: 09/21/21 16:01 09/21/21 16:01 Labs: Laboratory Results - last 24 hr 09/21/21 09/21/21 09/21/21 16:01 16:01 18:21 WBC 10.58 RBC 4.83 Hgb 15.6 Hct 46.1 MCV 95.4 H MCH 32.3 MCHC 33.8 RDW 12.7 Plt Count 216 MPV 9.1 Immature Gran % 0.7 Neutrophils % 56.3 Lymphocytes % 26.7 Monocytes % 13.5 Eosinophils % 1.9 Basophils % 0.9 Nucleated RBC % 0 Absolute Neutrophils 5.96 Absolute Lymphocytes 2.82 Absolute Monocytes 1.43 H Absolute Eosinophils 0.20 Absolute Basophils 0.10 Sodium 139 Potassium 4.0 Chloride 102 Carbon Dioxide 30.6 Anion Gap 6.4 BUN 21 H Creatinine 1.1 Estimated GFR/1.73 m2 >= 60.00 Glucose 118 H Calcium 8.9 Magnesium 1.9 Total Bilirubin 0.5 AST 24 ALT 53 Alkaline Phosphatase 32 L Troponin I < 0.05 Total Protein 6.8 Albumin 4.1 COVID-19 Source Nasal/Nares SARS-CoV-2 (PCR) Negative Last Vital Signs Temp 36.1 C L 09/21/21 19:21 Pulse 100 H 09/21/21 19:42 Resp 20 09/21/21 19:21 BP 153/92 H 09/21/21 19:21 Pulse Ox 96 09/21/21 19:21
[2021-09-22] VITALS (9 sets, daily range): BP systolic 143–154; BP diastolic 87–95; PULSE 74–92; RESP 18; TEMP 36.2–37; O2SAT 94–96
[2021-09-22] MEDS: Hydroxychloroquine 200 MG TAB 400 MG PO (02:31)
[2021-09-22 07:04] LABS: Abs Immature Grans 0.05 10^3/uL (0.0-0.06); Absolute Basophil Count 0.08 10^3/uL (0.0-0.2); Absolute Eosinophil Count 0.43 10^3/uL (0.0-0.7); Absolute Lymphocyte Count 2.64 10^3/uL (1.2-3.4); Absolute Neutrophil Count 4.15 10^3/uL (1.2-6.7); Basophils % 0.9; HCT 44.1 % (40.0-50.0); HGB 14.9 g/dL (13.5-17.5); Immature Grans % 0.6; Lymphocytes % 30.9; MCH 31.9 pg (27.0-33.0); MCHC 33.8 % (32.0-36.0); MCV 94.4 fL (80-95); MPV 9.7 fL (8.0-11.0); Neutrophils % 48.6; Nucleated RBC 0 %; Platelet Count 200 10^3/uL (130-400); RBC 4.67 10^6/uL (4.36-5.78); RDW 12.7 % (11.8-14.1); RDW-SD 43.8 fL; WBC 8.55 10^3/uL (4.4-10.8)
--- NOTE | 2021-09-22 08:00 | DI.MRI_ITS ---
Exam(s) MR BRAIN WO EXAM: MR BRAIN WO CLINICAL HISTORY: Acute CVA TECHNIQUE: Multiplanar multisequence MRI of the brain was performed. COMPARISON: MR MR BRAIN WO from 02/21/[address] BRAIN NECK CTA from 09/21/[address] BRAIN NECK CTA from 09/21/2021 FINDINGS: VENTRICLES AND EXTRA AXIAL SPACES: Normal in size and morphology for the patient's age. MIDLINE SHIFT: None. CEREBRAL PARENCHYMA: No focus of restricted diffusion to suggest acute infarct. No space-occupying le zayra identified. There are again seen foci of hyperintense signal in the white matter on the T2 weigh orse images. There predominantly in a periventricular location. HEMORRHAGE: None. BRAINSTEM/CEREBELLUM: Normal. CALVARIUM: There is a stable sclerotic focus seen in the midline of the frontal bone. VISUALIZED PARANASAL SINUSES/MASTOIDS:There is mild mucosal thickening in the visualized paranasal si nuses. No fluid levels are seen. CREEK OF DASH: Normal flow void. PITUITARY GLAND: Unremarkable. OTHER FINDINGS: None. IMPRESSION: 1. No evidence of an acute infarct. 2. Hyperintense signal seen in the white matter which appears stable. This may represent small vesse l ischemic disease. But other demyelinating processes including MS should be considered. Please cor relate clinically. DATA REPOSITORY:
[2021-09-22 08:04] LABS: BUN 16 mg/dL (7-18); CREATININE 1.1 mg/dL (0.70-1.30); Calcium 8.6 mg/dL (8.5-10.1); Calculated LDL 70 mg/dL (<100); Chloride 100 mmol/L (98-107); Cholesterol 183 mg/dL (<200); Glucose 122 mg/dL (74-106); HDL Cholesterol 52 mg/dL (40-60); Magnesium 1.9 mg/dL (1.8-2.4); Potassium 3.7 mmol/L (3.5-5.1); Sodium 139 mmol/L (136-145); Triglyceride 308 mg/dL (<150); Vitamin B12 587 pg/mL (193-986)
[2021-09-22 08:58] LABS: Hemoglobin A1C 6.5 % (<5.7)
[2021-09-22] MEDS: Cholecalciferol (Vitamin D3) 1,000 UNIT TAB 2000 UNITS PO (09:42)
[2021-09-22] MEDS: Magnesium Oxide 400 MG TAB PO (09:42)
[2021-09-22] MEDS: Clopidogrel 75 MG TAB PO (09:42)
[2021-09-22] MEDS: Folic Acid 1 MG TAB PO (09:42)
[2021-09-22] MEDS: predniSONE 1 MG TAB 4 MG PO (09:42)
[2021-09-22] MEDS: Loratidine 10 MG TAB PO (09:42)
[2021-09-22] MEDS: Insulin Aspart 300 UNITS/3 ML PEN SC (09:42)
[2021-09-22] MEDS: Normal Saline Flush 10 ML SYR IVP (09:43)
--- NOTE | 2021-09-22 11:09 | PDOC.CMIN ---
- If Service Date Differs Date of service: 09/22/21 Time of Service: 11:09 Care Management Initial Assess REASON FOR HOSPITALIZATION:: Acute CVA PAST MEDICAL HISTORY/PAST SURGICAL HISTORY:: Active Problem List. Discharge planning issues (Acute). DVT prophylaxis (Acute). Acute cerebrovascular accident (CVA) (Acute). Bronchitis (Acute). Abnormal CT scan (Acute). Acute meniscal tear, lateral (Acute). Allergic rhinitis (Acute 03/27/14). Chronic sinusitis (Acute 03/27/14). Deviated nasal septum (Acute 03/27/14). Family history of colon cancer (Acute). Foot joint pain (Acute 07/23/13). History of tobacco use (Acute). Hyperplastic colon polyp (Acute). Migraine (Acute). Medical History. Chronic lower back pain. Hypertension. Lightheadedness. Migraine headache with aura. Non-insulin dependent diabetes mellitus. Obesity, morbid, BMI 40.0-49.9. Rheumatoid arthritis. Steroid dependent. Surgical History. Colonoscopy - MAC. 05/16/14. RIB REMOVAL (10/24/83). LEFT TOP RIB PREVIOUS FUNCTIONAL STATUS/SOCIAL/FAMILY SUPPORTS:: Krishan lives in [facility], alone. His son lives next door, and is very supportive. 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 He enjoys making small model buildings that he gives away to friends and family. He is very independent at baseline. CURRENT FUNCTIONAL STATUS:: Krishan was sitting up in his chair when CM met with him. He was pleasant and engaged in conversation. He reported that he had already had his MRI and echo, but was still waiting to meet with Neuro and PT. Later, PT reported that he is independent. Per report, his echo showed new Cardiomyopathy, and an EF of 40%. MD would like to continue to monitor him overnight. CM will continue to follow. ADVANCE DIRECTIVES:: None on file. CM will offer forms. Has patient been provided with info about the portal/API?: Yes Did the patient sign up for the portal?: Yes (active) CODE STATUS:: Full Code INSURANCE COVERAGE / FINANCIAL ISSUES:: [facility]/ [facility]/ [facility] CURRENT HOME/COMMUNITY SERVICES/EQUIPMENT:: No current services or equipment. PRIMARY CARE PHYSICIAN:: Isabel Dickey POTENTIAL DISCHARGE NEEDS:: Evaluations for further needs, follow up appointments. PATIENT/FAMILY EDUCATION NEEDS:: Review discharge instructions regarding activity levels and medications, discussion of self care needs including ask me three. ANTICIPATED BARRIERS TO DISCHARGE:: None identified. TRANSPORTATION:: Via private vehicle by family. PLAN:: Anticipate [place] will return home when medically cleared. He will be driven home via private vehicle by family. He will follow up with his PCP and discharge plan of care. CM will continue to follow.
--- NOTE | 2021-09-22 11:29 | PT.INIE ---
Date of service: 09/22/21 Time of Service: 11:29 PT Notes Visit Reasons: Acute CVA Physical Therapy Inpatient Initial Evaluation Date: 09/22/2021 Referring Doctor: Lucia Licea MD PT Orders: PT CONSULT: Limited ability Precautions: Standard. Activity as tolerated. Patient Profile/Admitting Diagnosis: Blood is a 66-year-old male with rheumatoid arthritis and chronic migraines who presented to the ED on 09/21/2021 due to right sided facial, right arm, and right leg numbness/weakness. CTA of the head and neck showed no large vessel stenoses or occlusion. Patient was sent down early this morning for MRI of the brain and is awaiting result. Patient is diagnosed with suspected acute cerebrovascular accident, hypertension, and NIDDM. PMHX: Active Problem List (Updated 09/21/21 @ 23:21 by Lucia Licea MD) Discharge planning issues (Acute) DVT prophylaxis (Acute) Acute cerebrovascular accident (CVA) (Acute) Bronchitis (Acute) Abnormal CT scan (Acute) Acute meniscal tear, lateral (Acute) Allergic rhinitis (Acute 03/27/14) Chronic sinusitis (Acute 03/27/14) Deviated nasal septum (Acute 03/27/14) Family history of colon cancer (Acute) Foot joint pain (Acute 07/23/13) History of tobacco use (Acute) Hyperplastic colon polyp (Acute) Migraine (Acute) Medical History (Updated 09/21/21 @ 23:21 by Lucia Licea MD) Chronic lower back pain Hypertension Lightheadedness Migraine headache with aura Non-insulin dependent diabetes mellitus Obesity, morbid, BMI 40.0-49.9 Rheumatoid arthritis Steroid dependent Surgical History Colonoscopy - MAC 05/16/14 RIB REMOVAL (10/24/83) LEFT TOP RIB Social History/Home Situation: Lives alone in a private residence with 2 steps to enter without rails. Independent with all aspects of ADLs. 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 Equipment Owned/DME: None Subjective: Reports headache concentrated in his forehead area which he admits to having on and off in the past. Today he attributes the headache to not having caffeine since admission. Reports numbness from his right knee through the thigh, the trunk, the right upper extremity, the right side of neck face, and the right side of head. He states that he has had this sensation for the past couple of days. Denies chest pain, dizziness, visual deficits throughout session. Objective: General Observation: Seated on chair. Obese. IV access in the R UE. Mental Status: Alert and oriented as to person, place, time, and purpose. Able to pay attention, focus, and respond appropriately. Pain: 3/10 in frontal area Vital Signs: BP in the 160s systolically when PERSONAL CARE ATTENDANT Maricruz measured before ambulation activity. ROM: Right Upper Extremity: Shoulder Flexion WFL. Shoulder abduction WFL. Elbow flexion WFL. Wrist flexion WFL. Functional opening and closing of hand WFL. Left Upper Extremity: Shoulder Flexion WFL. Shoulder abduction WFL. Elbow flexion WFL. Wrist flexion WFL. Functional opening and closing of hand WFL. Right Lower Extremity: Hip flexion WFL. Hip abduction WFL. Knee flexion WFL. Ankle dorsiflexion WFL. Ankle plantarflexion WFL. Left Lower Extremity: Hip flexion WFL. Hip abduction WFL. Knee flexion WFL. Ankle dorsiflexion WFL. Ankle plantarflexion WFL. Strength: Right Upper Extremity: Shoulder flexors 5/5. Shoulder abductors 5/5. Elbow flexors 5/5. Elbow extensors 5/5. Sweatband Maker strong. Left Upper Extremity: Shoulder flexors 5/5. Shoulder abductors 5/5. Elbow flexors 5/5. Elbow extensors 5/5. Sweatband Maker strong. Right Lower Extremity: Hip flexors 5/5. Hip abductors 5/5. Knee flexors 5/5. Knee extensors 5/5. Ankle dorsiflexors 5/5. Ankle plantarflexors 5/5. Left Lower Extremity: Hip flexors 5/5. Hip abductors 5/5. Knee flexors 5/5. Knee extensors 5/5. Ankle dorsiflexors 5/5. Ankle plantarflexors 5/5. Bed Mobility/Transfers: Rolling independent Supine to sit independent Sit to supine independent Sit to stand independent Stand to sit independent Bed to reclining chair independent Reclining chair to bed independent Gait: Instructed patient with level surface ambulation of 300 feet requiring supervision assist. No path deviation seen. Gait pattern unremarkable. Balance: Static Sitting: Normal Dynamic Sitting: Normal Static Standing: Normal Dynamic Standing: Good Special Tests: Mobility Limitations Standardized Measure [facility] AM-PAC 6 clicks Basic Mobility Inpatient Short Form: Raw Score: 24 CMS Score: 0% deficit Romberg Test: Almost negligible sway seen but no LOB. 30-Second Chair Rise score: 14 indicating good to normal B LE strength and low fall risk. 4-Stage Balance Test: Able to maintain feet together, semi-tandem, and full-tandem stance for 10 seconds. Unable to do so with one-legged stance. Rapid alternating movement: Intact Pronator Drift in R UE: Absent [id number] Test: Intact Informed Consent/Education: Patient was instructed in purpose of PT consult. Assessment: Symmetric strength in B UE and LE at 5/5. No motor deficits seen. Mild balance deficit during one-legged stance. Hemisensory deficits on the right persistent but did not present any safety issue during mobility assessment. Independent in room without AD. May upgrade to independent in the hallway once blood pressure stabilizes. May see patient 1x/day for balance training while on admission if patient is agreeable. Patient is assessed as a 97676 complexity based on the following: History: 66 [id number] with past medical history as indicated above Examination: Demonstrable impairment in strength, balance, and mobility level with underlying impairments and functional limitations as exhibited above as well as deficit score of 0% utilizing the [facility] Mobility Inpatient Short Form Presentation: Stable Decision Makin complexity Goals: Goals X1 week 1. Normal static and dynamic standing balance/tolerance with patient able to mainatin one-legged stance for 10 seconds to reduce fall risk in the community Plan of Care/Treatment Plan: 1-2x/day, 7 days/week x 1 week. Plan of care has been reviewed with the RELIGIOUS ASSISTANT providing the service under Physical Therapy direction. Initiate Physical Therapy intervention for pain management as needed, strengthening, bed mobility, transfers, gait, stairs, balance training, and use of assistive device. DISCHARGE RECOMMENDATIONS: [X] Home with no service. [] Home with services [specify] [X] Home with outpatient PT. Home when medically cleared by hospitalist. No equipment needs at this time. May benefit from outpatient PT services for balance skilling if patient is interested. [] SNF for continued rehabilitation [] [] Alf Care [] [] SNF versus LTC based on ability to participate and progress [] TREATMENT CODE/TIME: 31171 x 20 minutes, 43266 x 9 minutes beginning at 11:29 AM. Thank you for the opportunity to participate in the care of this patient. Linn Gupta PT, DPT, CLT [facility] [place], [place]
--- NOTE | 2021-09-22 13:29 | PHA.REVIEW ---
Pharmacy Admission Review - Admission Clinical Review (Last Updated 09/21/21 @ 23:19 by Lucia Licea MD) Discharge planning issues (Acute) DVT prophylaxis (Acute) Acute cerebrovascular accident (CVA) (Acute) aspirin Allergy (Severe, Verified 09/21/21 15:53) Swelling/Edema citric acid Allergy (Unknown, Verified 09/21/21 15:53) RASH, BLISTER adalimumab Allergy (Verified 09/21/21 15:53) NUMBNESS NSAIDS (Non-Steroidal Anti-Inflamma Adverse Reaction (Verified 09/21/21 15:53) CONGESTION Resuscitation Status Full Code Height 5 ft 6 in Weight 119.4 kg - Renal Dosing Renal Dosing: BUN 16 mg/dL (7-18) 09/22/21 06:20 Creatinine 1.1 mg/dL (0.70-1.30) 09/22/21 06:20 Medications needing adjustments: Reviewed (SCr: 1.1, CrCl~78.2mL/min. All medications dosed appropriately.) - Anticoagulation Anticoagulation: Hgb 14.9 g/dL (13.5-17.5) 09/22/21 06:20 Hct 44.1 % (40.0-50.0) 09/22/21 06:20 Plt Count 200 10^3/uL (130-400) 09/22/21 06:20 Creatinine 1.1 mg/dL (0.70-1.30) 09/22/21 06:20 DVT Prophylaxis: Reviewed Medications: Enoxaparin (Enoxaparin 40mg SC daily.) - Opiate Usage Evaluate Pain Scale/Pains Meds: N/A (No opiates this admission.) Scheduled Bowel Reg ordered if on Opiates?: Yes (Docusate PRN) - Relevant Labs Sodium 139 mmol/L (136-145) 09/22/21 06:20 Potassium 3.7 mmol/L (3.5-5.1) 09/22/21 06:20 Chloride 100 mmol/L (98-107) 09/22/21 06:20 Magnesium 1.9 mg/dL (1.8-2.4) 09/22/21 06:20 Electrolytes, C-Reactive P, ESR: Reviewed - DM Control DM Control: Glucose 122 mg/dL (74-106) H 09/22/21 06:20 Hemoglobin A1c 6.5 % (<5.7) H 12/01/21 06:20 Finger Stick Blood Glucose 135 Finger Stick Blood Glucose 135 Finger Stick Blood Glucose 135 Finger Stick Blood Glucose 145 Finger Stick Blood Glucose 143 Finger Stick Blood Glucose 143 Insulin Dosing: Reviewed (Insulin aspart SS ordered. Blood glucose within normal limits.) - Heart Failure/W[place] Heart Failure/[place]: Troponin I < 0.05 ng/mL (<0.06) 09/21/21 16:01 EF%, DIANNE's, B-Blockers, Diuretics: N/A - BP Control BP Control: Blood Pressure 154/95 Blood Pressure 143/88 Blood Pressure 150/90 If elevated: Reviewed (Blood pressure elevated.) List meds needing interventions: Lisinopril/HCTZ 20/12.5mg daily home med not ordered. - Qtc Review If Elevated: Reviewed (QTc 510 on admission.) List meds needing interventions: Hydroxychloroquine may cause QTc prolongation (home med ordered). - IV to PO Switch IV Medications: Reviewed - Home Meds Home Med List reviewed: Reviewed Relevent Home Meds Not ordered & why?: Lisinopril/HCTZ not ordered and Metformin (replaced by insulin aspart SS). - Current meds Current Medication Order Review: Reviewed - Comments Comments/Follow Ups: Continue to monitor blood pressure, blood glucose, vitals, labs and for medication changes (avoid QT prolonging medications).
--- NOTE | 2021-09-22 14:17 | W.DIABETESNO ---
Date of service: 09/22/21 Time of Service: 14:17 Diabetes Note NOTE: Excellent PO intake on carbohydrate consistent/heart healthy diet. Weight has been quite stable over many years. BMI is 42.5 kg/m2 c/w class 3 obesity. A1C is 6.5% which is at target. Blood sugars in the hospital here are at target. Ordered for aspart correction as needed. Will continue to follow progress. Time Spent in Nutritional Counseling and Treatment: 0
--- NOTE | 2021-09-22 14:50 | PGE_ITS ---
Date of Service Date of service: 09/22/21 Time of Service: 14:51 Assessment and Plan Assessment and plan (1) Paresthesia: Status: Acute Assessment and plan: Right hemiparesthesia involving right side of face and tongue as well as right arm and leg down to the level of his right knee. Unclear whether this was a thalamic stroke that was missed on noncontrast MRI versus a demyelinating process. We will get a contrast-enhanced MRI tomorrow but may need contrast-enhanced MRI of the cervical and thoracic and lumbar spine. Continue Plavix as well as secondary stroke risk reduction including control of hypertension and diabetes and hyperlipidemia. Patient's newfound cardiomyopathy suggests a predisposition for stroke. If the contrast enhanced MRI shows a stroke patient will need a EVA to evaluate for PFO. (2) Cardiomyopathy: Status: Acute Assessment and plan: Newfound cardiomyopathy with a left ventricular ejection fraction of 40% with regional wall motion abnormalities in the distribution of his LAD lesion. Initial troponin was negative last night but no second troponin was ordered. We will get another troponin along with a BNP today. Clinically he denies symptoms of congestive heart failure. He had some faint minimal basilar rales on posterior lung exam. I will change his lisinopril/hydrochlorothiazide to Entresto and add some torsemide for diuresis. Patient will be started on a low-dose beta-jeevan with bisoprolol. Continue Plavix for both possible CVA as well as for probable underlying coronary artery disease. Patient has an allergic reaction to aspirin which includes angioedema. Patient's LDL appears to be under good control however because of probable underlying ischemic heart disease he should be placed on a low-dose statin. He was started on atorvastatin 80 mg daily I think this can be downgraded to 10 mg a day. Patient should be changed from Metformin to an SGLT2 inhibitor such as empagliflozin for control of his heart failure as well as treatment of his diabetes mellitus. Qualifiers: Cardiomyopathy type: ischemic Qualified Code(s): I25.5 - Ischemic cardiomyopathy (3) Non-insulin dependent diabetes mellitus: Status: Acute Assessment and plan: Glycohemoglobin A1c is at target value of 6.5%. Nevertheless I would recommend switching his Metformin to an SGLT2 inhibitor such as Jardiance (empagliflozin). This would help reduce his risk for worsening heart failure as well as renal failure. (4) Hypertension: Status: Acute Assessment and plan: If patient's contrast-enhanced MRI does not show a recent CVA that I think we should resume blood pressure control and switch him from lisinopril/hydrochlorothiazide to Entresto for his heart failure. I would also add a diuretic such as torsemide. Qualifiers: Hypertension type: primary hypertension Qualified Code(s): I10 - Essential (primary) hypertension Subjective Subjective Interval history since last seen: Patient is a 66-year-old right handed male with a history of rheumatoid arthritis chronically on prednisone, Plaquenil, methotrexate and on monthly injections of Actemra. He also has type 2 diabetes mellitus treated with Metformin as well as essential hypertension treated with lisinopril/hydrochlorothiazide and history of migraine headaches. Patient presented emergency department with 2-day history of right-sided numbness. He states that this was sudden onset not associated with any headaches no visual changes no dysarthric speech no dysphagia no bowel or bladder incontinence and no hyperacusis. He also denies any paraparesis of his right arm or hand or leg. Numbness has been constant and persistent for the last 2 days. Evaluation in the emergency department included a CT scan and CTA of his head and neck. Some decreaseCT of the head showed normal ventricular size and morphology for his age with no evidence of hemorrhage and no evidence of an acute territorial infarct. Attenuation of white matter consistent with chronic microvascular ischemic disease. Calvarium showed a 1 cm round area of sclerosis in the midline of the frontal bone unchanged from prior MRI exam from February 2020. CTA of the head neck showed no large vessel occlusion and no stenosis of the head and no occlusion or stenosis of the cervical vessels. The ER physician called [facility] and spoke with the neurologist on-call who advised that the patient be admitted overnight for evaluation of a possible thalamic stroke causing pure sensory deficit. Because of his patient's history of aspirin allergy he was started on Plavix. He was admitted by the hospitalist service. His lisinopril/hydrochlorothiazide was held to allow for passive hypertension. Echocardiogram and MRI scan of his brai n were performed today. MRI shows no evidence of an acute infarct. He has a hyperintense signal in the white matter which appears stable compared to his previous MRI scan of his brain from February 21, 2020. The radiologist however read this as representing small vessel ischemic disease but put in a caveat that other demyelinating process such as MS should be considered. Echocardiogram was a technically limited study. Valvular structures were not well-visualized to rule out any mobile echodensity. He could not be evaluated for PFO. Left ventricular chamber size and wall thickness was normal however the patient has multiple segmental wall motion abnormalities including hypokinesis of the septum and anterior wall and akinesis of the inferior wall. Global left ventricular systolic function is moderately reduced with estimated ejection fraction of 40%. RV was read as probably normal in size and normal systolic function. Patient has 2+ mitral regurgitation. There was inadequate tricuspid regurgitant jet therefore pulmonary artery hypertension could not be assessed. I asked the patient about any prior history of coronary artery disease or myocardial infarction or congestive heart failure he denied the same. I asked him about any recent chest pain or pressure or exertional dyspnea he denied the same. He denies any pedal edema nor any orthopnea or PND. Exam Narrative Exam Narrative: Obese white male (BMI 42.5 kg/m?) sitting up in his chair he is alert and oriented person place time circumstance. HEENT: No facial asymmetry no dysarthric speech full extraocular motion intact. Pupils are small but equally round and reactive to light. I was unable to do adequate funduscopic exam due to his small pupils. No scleral icterus. He has normal movement of his mouth and tongue and normal movement of his palate. He has an upper denture in place. No facial asymmetry with normal mimetic muscle movement. Neck: Supple nontender no JVD normal carotid pulses no bruits Lungs clear to auscultation Heart is regular I did not appreciate a murmur rub or gallop. Abdomen is obese soft and nontender no bruits Lower extremities without peripheral edema or cyanosis. Neurologic exam: HEENT as described above. Sensory exam he has diminished sensation to light touch and noxious stimulation using the sharp point of a cotton swab tip as well as the soft touch from the cotton swab itself. This diminished sensation is over the right side of his face his right neck his right upper and distal arm and right hand as well as his right leg above the knee. He had normal sensation on his left side. Manual muscle testing revealed no focal paresis. He had normal handgrip strength bilaterally normal proximal distal arm strength as well as normal hip flexion and extension as well as knee extension and flexion and normal dorsiflexion plantarflexion of his feet. Babinski exam was upgoing bilaterally. Objective Last Vital Signs Temp 36.6 C 09/22/21 11:42 Pulse 92 H 09/22/21 12:39 Resp 18 09/22/21 11:42 BP 154/95 H 09/22/21 11:42 Pulse Ox 94 09/22/21 11:42 Laboratory Results - last 24 hr 09/21/21 09/21/21 09/21/21 16:01 16:01 18:21 WBC 10.58 RBC 4.83 Hgb 15.6 Hct 46.1 MCV 95.4 H MCH 32.3 MCHC 33.8 RDW 12.7 Plt Count 216 MPV 9.1 Immature Gran % 0.7 Neutrophils % 56.3 Lymphocytes % 26.7 Monocytes % 13.5 Eosinophils % 1.9 Basophils % 0.9 Nucleated RBC % 0 Absolute Neutrophils 5.96 Absolute Lymphocytes 2.82 Absolute Monocytes 1.43 H Absolute Eosinophils 0.20 Absolute Basophils 0.10 Sodium 139 Potassium 4.0 Chloride 102 Carbon Dioxide 30.6 Anion Gap 6.4 BUN 21 H Creatinine 1.1 Estimated GFR/1.73 m2 >= 60.00 Glucose 118 H Hemoglobin A1c Calcium 8.9 Magnesium 1.9 Total Bilirubin 0.5 AST 24 ALT 53 Alkaline Phosphatase 32 L Troponin I < 0.05 Total Protein 6.8 Albumin 4.1 Triglycerides Total Cholesterol LDL Cholesterol, Calc HDL Cholesterol Vitamin B12 TSH COVID-19 Source Nasal/Nares SARS-CoV-2 (PCR) Negative 09/22/21 09/22/21 09/22/21 06:20 06:20 06:20 WBC 8.55 RBC 4.67 Hgb 14.9 Hct 44.1 MCV 94.4 MCH 31.9 MCHC 33.8 RDW 12.7 Plt Count 200 MPV 9.7 Immature Gran % 0.6 Neutrophils % 48.6 Lymphocytes % 30.9 Monocytes % 14.0 Eosinophils % 5.0 Basophils % 0.9 Nucleated RBC % 0 Absolute Neutrophils 4.15 Absolute Lymphocytes 2.64 Absolute Monocytes 1.20 H Absolute Eosinophils 0.43 Absolute Basophils 0.08 Sodium 139 Potassium 3.7 Chloride 100 Carbon Dioxide 32.0 Anion Gap 7.0 BUN 16 Creatinine 1.1 Estimated GFR/1.73 m2 >= 60.00 Glucose 122 H Hemoglobin A1c 6.5 H Calcium 8.6 Magnesium 1.9 Total Bilirubin AST ALT Alkaline Phosphatase Troponin I Total Protein Albumin Triglycerides 308 H Total Cholesterol 183 LDL Cholesterol, Calc 70 HDL Cholesterol 52 Vitamin B12 587 TSH 3.10 COVID-19 Source SARS-CoV-2 (PCR)
--- NOTE | 2021-09-22 16:06 | NCONE_ITS ---
Date of service: 09/22/21 Time of Service: 16:07 Assessment and Plan Assessment and plan (1) Paresthesia: Status: Acute Assessment and plan: I suspect that Mr. Cope's symptoms are explained by acute ischemic stroke, despite negative MRI. It it possible a small lacune was missed on the slices. Further, he has multiple stroke risk factors including HTN, DM2, and newly found heart disease. However, his MRI does have a flavor for demyelination. It would be highly unusual to develop a demyelinating process such as MS at this age. Actrema is associated with peripheral demyelination, but not central... I recommend getting a brain MRI w/ as further clarification. If negative, then diagnosis is stroke and he should continue Plavix + low dose statin and undergo extended 30 day cardiac monitoring as well as EVA. If MRI shows active demyelination, then we consider treatment with steroids and proceed with further MRI imaging of spine and possible LP. History of Present Illness History of Present Illness Chief Complaint: right hemisensory loss Narrative: Handedness: right. HPI: Mr. Cope is a 66 year-old man with RA on Actemra, Plaquenil, methot rexate, and prednisone. He also has HTN, DM2, and chronic headaches. He awoke 09/20/21 with numbness of his right face > right arm and upper right leg. This was no associated with weakness (note that he has chronic dexterity problems of his right hand due to RA). He has not had any changes in his speech. He presented to ther ER yesterday due to persistent symptoms and was admitted for further work-up as below. He has had no change in his symptoms since onset. He has no constipation. He has no change in nocturia and no change in bladder habits. He denies any problems with his balance. He notes no history of other neurological disorders or transient neurological symptoms including vision loss. However, noted to my colleague Dr. Prescott that he developed right ty- sensory loss with Humira use in the past. His current RA meds are unchanged over many years. He was started on clopidgrel 75mg daily for likely acute stroke. He has an allergy to aspirin. Work-up: -CTH (09/21/21): unremarkable. I reviewed these images personally and this is my personal interpretation. -CTA head/neck (09/21/21): unremarkable. I reviewed these images personally and this is my personal interpretation. -MRI brain (09/22/21): no acute findings. Moderate chronic white matter changes, likely due to , but could be due to demyelination. I reviewed these images personally and this is my personal interpretation. -TTE (09/22/21): limited study. EF 40%. Multiple segmental wall motion abnormalities. Hypokinesis of the septum and anterior wall. Akinesis of the inferior wall. All new findings. He states no history of heart attack. -LDL 70 -A1c 6.5 -B12 587 -TSH 3.10 -Tele: no afib Consults Requesting physician: Lucia Licea [facility] Active Problem List (Updated 09/22/21 @ 16:31 by Akash Prescott) Hypertension (Acute) Non-insulin dependent diabetes mellitus (Acute) Cardiomyopathy (Acute) Paresthesia (Acute) Discharge planning issues (Acute) DVT prophylaxis (Acute) Acute cerebrovascular accident (CVA) (Acute) Bronchitis (Acute) Abnormal CT scan (Acute) Acute meniscal tear, lateral (Acute) Allergic rhinitis (Acute 03/27/14) Chronic sinusitis (Acute 03/27/14) Deviated nasal septum (Acute 03/27/14) Family history of colon cancer (Acute) Foot joint pain (Acute 07/23/13) History of tobacco use (Acute) Hyperplastic colon polyp (Acute) Migraine (Acute) Medical History (Updated 09/22/21 @ 16:31 by Akash Prescott) Chronic lower back pain Lightheadedness Migraine headache with aura Obesity, morbid, BMI 40.0-49.9 Rheumatoid arthritis Steroid dependent Surgical History Colonoscopy - MAC 05/16/14 RIB REMOVAL (10/24/83) LEFT TOP RIB Family History Mother Personal history of malignant neoplasm LUNG Father Personal history of malignant neoplasm COLON Sister No problems noted. Brother Personal history of malignant neoplasm LUNG Social History Smoking/Tobacco Use Status: Former Tobacco Use Quit Date: 10/23/97 Smoking risk assessment performed?: Yes Alcohol Intake: never Drug use: Never Substance use type: does not use Housing: house Number of Children: 2 What is your relationship status?: Panel score (0-1 are the most socially isolated patients): 0 Seatbelt use: always Do you feel safe at home: Yes Do you feel safe in your relationship?: Yes Visit Medication and Allergies Active Medications Generic Name Dose Route Start Last Admin Trade Name Freq PRN Reason Stop Dose Admin Acetaminophen 0 mg 09/21/21 18:15 Acetaminophen 325 Mg Tab PO Q4H PRN PRN Al Hydrox/Mg Hydrox/Simethicone 30 ml 09/21/21 18:15 Mylanta Suspension 30 Ml Cup PO Q2H PRN PRN Albuterol Sulfate 2 puff 09/21/21 23:24 Albuterol Hfa 6.7 Gm 200 Puff Inh IH Q4H PRN PRN Atorvastatin Calcium 80 mg 09/22/21 20:00 Atorvastatin 40 Mg Tab PO QPM MARCOS Cholecalciferol 2,000 units 09/22/21 08:30 09/22/21 09:42 Cholecalciferol (Vitamin D3) 1,000 Unit Tab PO 2,000 units DAILY MARCOS Administration Clopidogrel Bisulfate 75 mg 09/21/21 19:15 09/22/21 09:42 Clopidogrel 75 Mg Tab PO 75 mg DAILY MARCOS Administration Dextrose 0 gm 09/21/21 18:15 Glucose 40% Oral Solution 15 Gm/37.5 Gm Tube PO DIRECTED PRN Dextrose/Water 0 gm 09/21/21 18:15 Dextrose 50%-Water 25 Gm/50 Ml Syr IVP DIRECTED PRN Dimethicone/Zinc Oxide 0 gm 09/21/21 18:10 Jarek Protect Cream 142 Gm Tube TP PRN PRN Docusate Sodium 100 mg 09/21/21 18:15 Docusate Sodium 100 Mg Cap PO TID PRN PRN Enoxaparin Sodium 40 mg 09/21/21 20:00 09/21/21 19:49 Enoxaparin 40 Mg/0.4 Ml Syr SC 40 mg Q24H MARCOS Administration Folic Acid 1 mg 09/22/21 08:30 09/22/21 09:42 Folic Acid 1 Mg Tab PO 1 mg DAILY MARCOS Administration Hydroxychloroquine Sulfate 400 mg 09/23/21 08:30 Hydroxychloroquine 200 Mg Tab PO DAILY MARCOS Sodium Chloride 500 mls @ 0 mls/hr 09/21/21 18:15 Saline 500ml Bag IV PRN PRN As Directed IV Miscellaneous Supplies 1 each 09/21/21 18:15 Iv Access IV DIRECTED [facility] Insulin Aspart 0 units 09/21/21 22:00 09/22/21 12:14 Insulin Aspart 300 Units/3 Ml Pen SC Not Given 0800,1200,1700,2200 [facility] Protocol Loratadine 10 mg 09/22/21 08:30 09/22/21 09:42 Loratidine 10 Mg Tab PO 10 mg DAILY MARCOS Administration Magnesium Hydroxide 30 ml 09/21/21 18:15 Milk Of Magnesia 30 Ml Cup PO DAILY PRN PRN Magnesium Oxide 400 mg 09/22/21 08:30 09/22/21 09:42 Magnesium Oxide 400 Mg Tab PO 400 mg DAILY MARCOS Administration Methotrexate Sodium 10 mg 09/22/21 12:00 09/22/21 13:16 Methotrexate 2.5 Mg Tab PO 10 mg Q7D@0830,2000 MARCOS Administration Perflutren Lipid Microsphere 1.5 ml 09/22/21 10:30 Perflutren Lipid Microspheres 1.5 Ml Vial IVP 10/22/21 23:59 DIRECTED [facility] Prednisone 4 mg 09/22/21 08:30 09/22/21 09:42 Prednisone 1 Mg Tab PO 4 mg DAILY MARCOS Administration Sodium Chloride 0 ml 09/21/21 18:15 09/22/21 09:43 Normal Saline Flush 10 Ml Syr IVP 10 ml PRN PRN Administration Allergies aspirin Allergy (Severe, Verified 09/21/21 15:53) Swelling/Edema citric acid Allergy (Unknown, Verified 09/21/21 15:53) RASH, BLISTER adalimumab Allergy (Verified 09/21/21 15:53) NUMBNESS NSAIDS (Non-Steroidal Anti-Inflamma Adverse Reaction (Verified 09/21/21 15:53) CONGESTION Exam Narrative Exam Narrative: Physical Exam: Gen: Patient of apparent stated age, NAD Head and face: no facial or cranial abnormalities Neck: Supple, no meningismus, no occipital tenderness CV: + S1, S2, RRR, no murmur Resp: CTA B/L Abd: soft, nontender, nondistended Ext: No edema. No clubbing or cyanosis. No bony deformity. Neuro Exam: Language: fluency, naming, repetition, and comprehension intact; Mental Status: AAOx3, current events intact, fund of knowledge intact; Speech: no dysarthria Cranial nerves: Funduscopy: not tested CN II: visual escalante intact CN III, IV, : extraocular movements intact, no nystagmus, pupils symmetric and reactive to light CN V: face sensation reduced to LT R V1-3; reduced to LT R V2-3; split vibration across the forehead CN VII: no facial asymmetry noted CN VIII: hearing intact bilaterally CN IX, X: palate rises symmetrically CN XI: trapezius/SCM 5/5 bilaterally CN XII: protrudes tongue symmetrically Sensory: reduced LT and PP throughout right arm and upper right leg; vibration and joint position intact throughout Motor: bulk and tone intact. Fine motor movements reduced on the right. No pronator drift. Strength 5/5 throughout including the deltoids, biceps, triceps, wrist extensors, hip flexors, knee flexors, knee extensors, ankle fle xors, and ankle extensors. Reflexes: hyporeflexic throughout; +Babinski on right; left toe neutral Coordination: FTN and HTS intact bilaterally Gait: not tested Results Last Vital Signs Temp 98.1 F 09/22/21 15:56 Pulse 90 09/22/21 15:56 Resp 18 09/22/21 15:56 BP 143/89 H 09/22/21 15:56 Pulse Ox 96 09/22/21 15:56 Labs Result diagrams: 09/22/21 06:20 09/22/21 06:20 Labs: Laboratory Results - last 24 hr 09/21/21 09/21/21 09/21/21 16:01 16:01 18:21 WBC 10.58 RBC 4.83 Hgb 15.6 Hct 46.1 MCV 95.4 H MCH 32.3 MCHC 33.8 RDW 12.7 Plt Count 216 MPV 9.1 Immature Gran % 0.7 Neutrophils % 56.3 Lymphocytes % 26.7 Monocytes % 13.5 Eosinophils % 1.9 Basophils % 0.9 Nucleated RBC % 0 Absolute Neutrophils 5.96 Absolute Lymphocytes 2.82 Absolute Monocytes 1.43 H Absolute Eosinophils 0.20 Absolute Basophils 0.10 Sodium 139 Potassium 4.0 Chloride 102 Carbon Dioxide 30.6 Anion Gap 6.4 BUN 21 H Creatinine 1.1 Estimated GFR/1.73 m2 >= 60.00 Glucose 118 H Hemoglobin A1c Calcium 8.9 Magnesium 1.9 Total Bilirubin 0.5 AST 24 ALT 53 Alkaline Phosphatase 32 L Troponin I < 0.05 Total Protein 6.8 Albumin 4.1 Triglycerides Total Cholesterol LDL Cholesterol, Calc HDL Cholesterol Vitamin B12 TSH COVID-19 Source Nasal/Nares SARS-CoV-2 (PCR) Negative 09/22/21 09/22/21 09/22/21 06:20 06:20 06:20 WBC 8.55 RBC 4.67 Hgb 14.9 Hct 44.1 MCV 94.4 MCH 31.9 MCHC 33.8 RDW 12.7 Plt Count 200 MPV 9.7 Immature Gran % 0.6 Neutrophils % 48.6 Lymphocytes % 30.9 Monocytes % 14.0 Eosinophils % 5.0 Basophils % 0.9 Nucleated RBC % 0 Absolute Neutrophils 4.15 Absolute Lymphocytes 2.64 Absolute Monocytes 1.20 H Absolute Eosinophils 0.43 Absolute Basophils 0.08 Sodium 139 Potassium 3.7 Chloride 100 Carbon Dioxide 32.0 Anion Gap 7.0 BUN 16 Creatinine 1.1 Estimated GFR/1.73 m2 >= 60.00 Glucose 122 H Hemoglobin A1c 6.5 H Calcium 8.6 Magnesium 1.9 Total Bilirubin AST ALT Alkaline Phosphatase Troponin I Total Protein Albumin Triglycerides 308 H Total Cholesterol 183 LDL Cholesterol, Calc 70 HDL Cholesterol 52 Vitamin B12 587 TSH 3.10 COVID-19 Source SARS-CoV-2 (PCR)
[2021-09-22 16:50] LABS: Troponin I < 0.05 ng/mL (<0.06)
[2021-09-22 16:54] LABS: NT-proBNP 794 pg/mL (<300)
[2021-09-22] MEDS: Atorvastatin 40 MG TAB 80 MG PO (19:28)
[2021-09-22] MEDS: Enoxaparin 40 MG/0.4 ML SYR SC (19:28)
[2021-09-23 03:10] VITALS: BP 158/98; PULSE 89; RESP 18; TEMP 36.4; O2SAT 97
--- NOTE | 2021-09-23 07:00 | DI.MRI_ITS ---
Exam(s) MR BRAIN W EXAM: MR BRAIN W CLINICAL HISTORY: right hemiparesthesia; r/o demyelinating disease TECHNIQUE: Multiplanar multisequence MRI of the brain was performed. Both noninfused and contrast i nfused sequences were performed. IV Contrast injected was 20 cc Dotarem. COMPARISON: MR MR BRAIN WO from 09/22/2021 FINDINGS: CEREBRAL PARENCHYMA: No evidence of intracranial hemorrhage, mass effect nor shift of midline structu re. No extraaxial fluid collections. Ventricles are not enlarged nor shifted. There is no significant focal signal abnormality in the cerebellar hemispheres nor within the sunday, m idbrain, and thalami. There is some periventricular hyperintensity consistent chronic small vessel ischemic changes. On to day's contrast infused sequences these do not exhibit enhancement. There also no ring enhancing lesi ons in the brain and no abnormal meningeal enhancement, focal nor diffuse. There is no evidence of v enous sinus thrombosis. There are no masses in the cerebellopontine angles. Also no evidence of intra canalicular enhancing acoustic neuroma. PITUITARY GLAND: No mass nor parasellar abnormality. No obvious abnormality in the cavernous sinuses. FLOW VOIDS: The expected flow void are noted. No evidence of obvious aneurysm nor obvious vascular ma lformation. PARANASAL SINUSES: Mild mucosal thickening in right maxillary sinus. No fluid level. Also some mild mucosal thickening in the sphenoid sinuses. ORBITS: No obvious abnormal findings. IMPRESSION: 1. No significant enhancing lesions in the brain. No ring enhancing lesions nor abdomen meningeal en hancement. Periventricular signal abnormalities seen on the non infused sequences does not exhibit e nhancement. These findings are most probably from chronic ischemic disease more so than active demye linating disease. DATA REPOSITORY:
[2021-09-23 07:04] VITALS: PULSE 71
[2021-09-23 07:19] VITALS: BP 158/100; PULSE 82; RESP 18; TEMP 35.7; O2SAT 98
[2021-09-23] MEDS: Hydroxychloroquine 200 MG TAB 400 MG PO (08:20)
[2021-09-23] MEDS: predniSONE 1 MG TAB 4 MG PO (08:20)
[2021-09-23] MEDS: Cholecalciferol (Vitamin D3) 1,000 UNIT TAB 2000 UNITS PO (08:20)
[2021-09-23] MEDS: Clopidogrel 75 MG TAB PO (08:21)
[2021-09-23] MEDS: Folic Acid 1 MG TAB PO (08:21)
[2021-09-23] MEDS: Magnesium Oxide 400 MG TAB PO (08:21)
[2021-09-23] MEDS: Loratidine 10 MG TAB PO (08:21)
[2021-09-23] MEDS: Lisinopril 20 MG TAB PO (09:11)
--- NOTE | 2021-09-23 09:51 | OTDS_ITS ---
Date of service: 09/23/21 Time of Service: 09:52 Occupational Therapy Notes 09/23/21 OT consult received and pts chart was reviewed. OT did attempt consult in which pt states that he is totally (I) and at his baseline level of function. Due to this, OT will formally discharge from from skilled OT services at this time. Ludivina Mccormick, OTR/L [facility]
[2021-09-23 11:24] VITALS: BP 130/85; PULSE 72; RESP 18; TEMP 36.3; O2SAT 95
[2021-09-23] MEDS: Insulin Aspart 300 UNITS/3 ML PEN SC (11:45)
--- NOTE | 2021-09-23 11:51 | PGE_ITS ---
Date of Service Date of service: 09/23/21 Time of Service: 11:51 Assessment and Plan Assessment and plan (1) Paresthesia: Status: Acute Assessment and plan: Right-sided hemiparesthesia, differential diagnosis MS versus medications from his rheumatoid arthritis such as his Actemra versus CVA. Further work-up and treatment hinges upon the results of his enhanced MRI scan of his brain which is scheduled this afternoon. For now continue with statin therapy and Plavix. Even if the MRI does not show a stroke I would continue the Plavix in light of his cardiomyopathy with regional wall motion abnormalities. He probably has ischemic heart disease and needs further work-up including a stress MPI study. (2) Cardiomyopathy: Status: Acute Assessment and plan: Continue low-dose atorvastatin along with Plavix. Schedule outpatient stress MPI. I have resumed his lisinopril 20 mg daily although his primary care provider should uptitrate this to the highest dose tolerable and even consider switching him over to Entresto. Consider resuming his hydrochlorothiazide I added spironolactone. Patient should also be on a low-dose beta-jeevan. We will start him on bisoprolol 5 mg daily. An SGLT2 inhibitor should also be considered for combination treatment of his diabetes mellitus as well as his cardiomyopathy but I will leave this to his primary care provider and recommend that you follow-up with cardiology. Qualifiers: Cardiomyopathy type: ischemic Qualified Code(s): I25.5 - Ischemic cardiomyopathy (3) Non-insulin dependent diabetes mellitus: Status: Acute Assessment and plan: Glycohemoglobin A1c is at target value of 6.5%. Nevertheless I would recommend switching his Metformin to an SGLT2 inhibitor such as Jardiance (empagliflozin). This would help reduce his risk for worsening heart failure as well as renal failure. (4) Hypertension: Status: Acute Assessment and plan: Resume lisinopril 20 mg daily. Discontinue hy drochlorothiazide in favor of spironolactone in light of his cardiomyopathy. Qualifiers: Hypertension type: primary hypertension Qualified Code(s): I10 - Essential (primary) hypertension (5) Discharge planning issues: Status: Acute Assessment and plan: Discharge home this afternoon after the results of MRI are known. Further work-up can be obtained as an outpatient. Subjective Subjective Interval history since last seen: Patient continues to experience right-sided numb feeling over his right face right arm and right leg. No weakness. No dizziness or headache. No dyspnea or chest tightness. Exam Narrative Exam Narrative: Obese white male sitting up in his chair eating his lunch he is alert and oriented person place time circumstance. Lungs are clear to auscultation Heart is regular rate and rhythm Abdomen soft nontender nondistended Lower extremities without peripheral cyanosis or edema. Neuro exam no focal motor deficits. I did not repeat his sensory exam. Objective Last Vital Signs Temp 36.3 C L 09/23/21 11:24 Pulse 72 09/23/21 11:24 Resp 18 09/23/21 11:24 BP 130/85 09/23/21 11:24 Pulse Ox 95 09/23/21 11:24 Laboratory Results - last 24 hr 09/22/21 09/22/21 16:23 16:23 Troponin I < 0.05 NT-Pro-B Natriuret Pep 794 H
[2021-09-23] MEDS: Gadoterate meglumine 20 ML VIAL IVP (13:33)
[2021-09-23] MEDS: Normal Saline Flush 10 ML SYR IVP (13:33)
[2021-09-23] MEDS: Spironolactone 25 MG TAB PO (14:35)
--- NOTE | 2021-09-23 14:40 | CHAPLAIN ---
Krishan was out of the room for a test when I stopped by. I spoke with his daughter, and will try to visit again later with Krishan.
--- NOTE | 2021-09-23 15:02 | W.PM.DS.N ---
Date of service: 09/23/21 Time of Service: 15:02 DS: Diagnosis Discharge Diagnosis (1) Ischemic cerebrovascular accident (CVA): Status: Acute Asessment and Plan: Continue Plavix 75 mg daily and atorvastatin 10 mg daily. Obtain 30-day cardiac event recorder to rule out paroxysmal atrial fibrillation. Dr. Monk will refer the patient to [facility] for EVA. Patient is to follow-up with Dr. Monk in 4 weeks. Further risk reduction includes good diabetes control as well as hypertension control and good lipid control. Of note a glycohemoglobin A1c was obtained and found to be 6.5% which represents good glycemic control. Lipid profile was obtained and demonstrated acceptable cholesterol levels with a total cholesterol 183 and an LDL of 70 and HDL 52. Despite this patient should remain on atorvastatin 10 mg daily for stroke and myocardial infarction prevention. Further work-up for ischemic heart disease is to include Lexiscan stress MPI in the next 1 to 2 weeks and a follow-up with Dr. Vivian Kline in cardiology clinic. (2) Paresthesia: Status: Acute Asessment and Plan: Secondary to ischemic stroke. See above (3) Cardiomyopathy: Status: Acute Asessment and Plan: Patient was found to have a new cardiomyopathy discovered when echocardiogram was done as part of his stroke work-up. At present time patient is not in an acute CHF exacerbation. Nevertheless he needs further work-up including a stress MPI study with Lexiscan to rule out ongoing ischemic heart disease. Patient will remain on Lipitor and Plavix. No changes were made in his Zestoretic dose however it is recommended that he be considered for Entresto along with prn loop diuretic as needed to maintain euvolemia. It is recommended that his Metformin be changed to an SGLT2 inhibitor such as empagliflozin (Jardiance). Because the patient was requesting to be discharged from the hospital after his stroke work-up studies were obtained there was no time to initiate and adjust medications for optimal treatment of his cardiomyopathy including transitioning his Zestoretic over to Entresto or switching his Metformin to Jardiance nor the addition of a beta-jeevan. (4) Non-insulin dependent diabetes mellitus: Status: Acute Asessment and Plan: No changes were made to his Metformin dose. His glycohemoglobin A1c is acceptable at 6.5%. Nevertheless consideration should be made to switching him to an SGLT2 inhibitor for the reasons listed above. (5) Hypertension: Status: Acute Asessment and Plan: No changes were made to his lisinopril/hydrochlorothiazide however consideration should be given for switching him to Entresto for treatment of his cardiomyopathy. The addition of low-dose beta-jeevan should also be considered. Discharge Plan Disposition Patient Disposition: HOME Condition: Stable Discharge Details Reason For Visit: Acute CVA Admit Date/Time: 09/21/21 18:13 Admit Provider: Lucia Licea Attending Provider: Lucia Licea Primary Care Provider: Isabel Dickey Hospital Course Hospital Course: 66-year-old male with past medical history rheumatoid arthritis treated with Actemra, methotrexate, Plaquenil and also history of type 2 diabetes mellitus treated with Metformin, essential hypertension treated with Zestoretic, and morbid obesity who presented emergency department with acute right-sided facial numbness and right upper extremity numbness and right lower extremity numbness down to his right knee that began the morning prior to admission. He has had a prior history of migraines but never had any symptoms like this with his migraines. Diagnostic work-up in the ER included a CT scan of his head and CTA of his head neck. CT of his head showed no evidence of an acute territorial infarct. He has decreased attenuation in the white matter consistent with chronic microvascular ischemic disease. There are no masses and no hemorrhage and no midline shift. CTA of the head neck showed no acute intracranial vessel stenosis or aneurysm. Angiography of his neck showed no occlusion or significant stenosis. Because of the patient's history of aspirin allergy he was started on Plavix and admitted to the hospital for work-up of possible stroke. Following morning an echocardiogram was performed and a brain MRI was performed. Echocardiogram demonstrated a significant cardiomyopathy with decreased left ventricular ejection fraction of 40% with multiple segmental wall motion abnormalities including hypokinesis of the septum and anterior wall and akinesis inferior wall suggestive of an LAD territory injury pattern. He was found to have moderate mitral regurgitation. No thrombi were seen. It was a technically limited study and the valvular structures were not well enough seen to rule out mobile echodensity and a PFO cannot be ruled out. EVA is recommended. Brain MRI showed no evidence of acute infarct but there are hyperintense signal seen in the white matter which appear to be stable when compared to his prior MRI of his brain from February 21, 2020. Radiologist indicated that it demyelinating process such as MS should be considered. Patient was started on atorvastatin in addition to the Plavix. Consultation was obtained with Dr. Melina Monk who recommend a contrast-enhanced brain MRI to be done that was accomplished on 09/23/2021. This showed no significant enhancing lesions in the brain and no ring-enhancing lesions nor were there any abnormal meningeal enhancement. The periventricular signal abnormality seen on the noninfused sequences did not exhibit enhancement suggestive that this was from an ischemic event rather than a demyelinating process. Patient continued to have right-sided paresthesias without any weakness. Physical therapy was consulted and they could not detect any focal weakness. Based on his MRI findings it was felt the patient had sustained a CVA and that he should continue on atorvastatin. We checked his lipid profile he was found to have an LDL of 70 had a total cholesterol 183 triglycerides 308 HDL 52. Based on this he was put on atorvastatin 10 mg daily. TSH was normal at 3.1 and B12 was normal at 587. Troponins were checked and found to be negative at less than 0.05. proBNP was 784. Patient was not having any symptoms of acute CHF exacerbation and therefore he did not require any parenteral or oral diuretic therapy. Based on his cardiomyopathy is recommended that his primary care provider refer him to cardiology and the patient will need an outpatient stress MPI to rule out ongoing ischemic disease. Also recommend that his Metformin be changed to empagliflozin or similar SGLT2 inhibitor because of its beneficial effects in terms of reduction of renal insufficiency and diabetes mellitus as well as a reduction in cardiovascular events including a reduction in CHF exacerbation. As far as his blood pressure medication states recommend that his lisinopril/hydrochlorothiazide be changed to Entresto. Patient should also be started on a low-dose beta-jeevan. Diuretic should be added as needed to maintain euvolemia. Patient was set up to have a 30-day cardiac event recorder and orders will be placed for stress MPI. Follow-up will be with Dr. Melina Monk in 4 weeks and an outpatient appointment will be made with the [facility] [place] as well as follow-up with the patient's primary care provider in the next week. Dr. Monk will refer him to [facility] for EVA to rule out a PFO. Home Meds and New Rx's Prescriptions: New clopidogrel [Plavix] 75 mg tablet 75 mg PO DAILY Qty: 30 RF: 3 atorvastatin 10 mg tablet 10 mg PO QHS Qty: 30 RF: 3 Continued acetaminophen [Tylenol Extra Strength] 500 MG tablet 1 tab PO Q6H PRNRF: 0 hydroxychloroquine [Plaquenil] 200 MG tablet 2 tab PO HS Qty: 90 RF: 0 actemra 800 mg IV Monthly RF: 0 prednisone 1 MG tablet 4 mg PO DAILY RF: 0 methotrexate sodium 2.5 MG tablet 10 mg PO DIRECTED RF: 0 folic acid 1 MG tablet 1 mg PO DAILY RF: 0 loratadine 10 mg Tablet 10 mg PO DAILY RF: 0 cholecalciferol (vitamin D3) 50 mcg (2,000 unit) Tablet 50 mcg PO DAILY RF: 0 magnesium oxide 400 mg magnesium Tablet 400 mg PO DAILY RF: 0 fluticasone propionate 110 mcg/actuation Hfa Aerosol Inhaler 1 puff INHALATION BID RF: 0 lisinopril-hydrochlorothiazide 20-12.5 mg Tablet 1 tab PO QPM RF: 0 albuterol sulfate 90 mcg/actuation Hfa Aerosol Inhaler 1 - 2 puff INHALATION Q4H PRNRF: 0 Discontinued metformin 500 mg Tablet 500 mg PO DAILY RF: 0 Discharge Instructions Instructions: Dilated Cardiomyopathy (DC), Ischemic Stroke (DC) Stand Alone Forms: Nursing Discharge Form Referrals: Vivian Kline MD [ [facility] STAFF PHYSICIAN] - 10/04/21 1:00 pm Melina Monk MD [ [facility] STAFF PHYSICIAN] - 11/11/21 10:45 am Isabel Dickey [Primary Care Provider] - 10/06/21 9:10 am Activity:: Activity as Tolerated Equipment/Supplies:: No Equipment Needed Diet:: Carb Counting Discharge Orders Discharge Orders: Discharge Order (Routine); Ordered 09/23/21 Ordered By: Akash Prescott Other Ambulatory Orders: Cardiac Event Recorder (Routine) Timeframe: 1 Day Facility: [facility] - Location: Respiratory Therapy Ordered By: Akash BARBER MPI rest & stress grp (Routine) Timeframe: 1 Week Facility: [facility] - Location: DIAGNOSTIC IMAGING DEPT Ordered By: Akash Prescott Discharge Data Discharge Date/Time-TO BE ENTERED AT DEPARTURE: 09/23/21 16:56 DS: Summary Time Spent with Patient providing and/or coordinating discharge services: Less than 30 minutes Status at Discharge Functional status at discharge: independent ambulation Overall status at discharge: patient is not back to baseline Mental Status: mental status grossly normal Speech and Movement: speech and movement normal Mood: congruent mood Affect: normal affect Exam Narrative Exam Narrative: Obese white male sitting up in his chair eating his lunch he is alert and oriented person place time circumstance. Lungs are clear to auscultation Heart is regular rate and rhythm Abdomen soft nontender nondistended Lower extremities without peripheral cyanosis or edema. Neuro exam no focal motor deficits. I did not repeat his sensory exam. Psych Mental Status: mental status grossly normal Speech and Movement: speech and movement normal Mood: congruent mood Affect: normal affect DS: Data Vitals/I&O Vitals and I&O: Vital Signs Temperature 36.3 C L 09/23/21 11:24 Temperature Source Tympanic 09/23/21 11:24 Pulse 72 09/23/21 11:24 Pulse Rhythm Regular 09/23/21 08:00 Respiratory Rate 18 09/23/21 11:24 Respiratory Effort Non-Labored 09/23/21 08:00 Respiratory Depth Normal 09/23/21 08:00 Respiratory Pattern Normal 09/23/21 08:00 Blood Pressure 130/85 09/23/21 11:24 Pulse Oximetry 95 09/23/21 11:24 Oxygen Delivery Method Room Air 09/23/21 11:24 Oxygen Flow Rate 0 09/23/21 11:24 Pain Level 0 09/23/21 11:24 Comment 09/23/21 07:19 Intake & Output 09/22/21 09/23/21 09/23/21 23:59 11:59 23:59 Intake Total 250 / 790 480 / 730 250 / 730 Balance 250 / 490 480 / 730 250 / 730 Weight 118.614 kg Intake: Oral 250 / 790 480 / 730 250 / 730 Other: Urine Color Yellow Urine Appearance Clear Comment Urine not seen at this time, voiding independently. Patient voided in the toliet independently. Voiding Methods Toilet Toilet Toilet Data Completed and Pending Labs on day of discharge: Labs from last 24 hours 09/22/21 09/22/21 16:23 16:23 Troponin I < 0.05 NT-Pro-B Natriuret Pep 794 H PFS Active Problem List (Updated 09/23/21 @ 19:59 by Akash Prescott) Ischemic cerebrovascular accident (CVA) (Acute) Medication monitoring encounter (Acute) Hypertension (Acute) Non-insulin dependent diabetes mellitus (Acute) Cardiomyopathy (Acute) Paresthesia (Acute) Discharge planning issues (Acute) DVT prophylaxis (Acute) Acute cerebrovascular accident (CVA) (Acute) Bronchitis (Acute) Abnormal CT scan (Acute) Acute meniscal tear, lateral (Acute) Allergic rhinitis (Acute 03/27/14) Chronic sinusitis (Acute 03/27/14) Deviated nasal septum (Acute 03/27/14) Family history of colon cancer (Acute) Foot joint pain (Acute 07/23/13) History of tobacco use (Acute) Hyperplastic colon polyp (Acute) Migraine (Acute) Medical History (Updated 09/23/21 @ 19:59 by Akash Prescott) Chronic lower back pain Lightheadedness Migraine headache with aura Obesity, morbid, BMI 40.0-49.9 Rheumatoid arthritis Steroid dependent Surgical History Colonoscopy - MAC 05/16/14 RIB REMOVAL (10/24/83) LEFT TOP RIB Family History Mother Personal history of malignant neoplasm LUNG Father Personal history of malignant neoplasm COLON Sister No problems noted. Brother Personal history of malignant neoplasm LUNG Social History Smoking/Tobacco Use Status: Former Tobacco Use Quit Date: 10/23/97 Smoking risk assessment performed?: Yes Alcohol Intake: never Drug use: Never Substance use type: does not use Housing: house Number of Children: 2 What is your relationship status?: Panel score (0-1 are the most socially isolated patients): 0 Seatbelt use: always Do you feel safe at home: Yes Do you feel safe in your relationship?: Yes
[2021-09-23 15:40] VITALS: BP 136/75; PULSE 90; RESP 19; TEMP 36.4; O2SAT 96
[2021-09-23 16:27] VITALS: PULSE 81
--- NOTE | 2021-09-23 17:39 | CMDISCH_ITS ---
- If Service Date Differs Date of service: 09/23/21 Time of Service: 17:39 LACE Index Scoring Tool - Questions: Length of Stay (in days): 2 Acuity (Admit via E.D.?): Yes Comorbidities: Cerebrovascular Disease E.D. Visits: 1 - Answers: Total Score: 7 Risk of Readmission: Low Risk Care Management Discharge Reason for Hospitalization: Acute CVA Discharge Plan: Krishan will return home with no new services. He will drive himself home, as his vehicle is at [facility]. He will follow up with his PCP and discharge plan of care. He is happy to be returning home. Patient/Family Education Needs: Review discharge instructions regarding activity levels and medications, discussion of self care needs including ask me three.
--- NOTE | 2021-09-23 18:00 | PT.INDS ---
Date of service: 09/23/21 PT Notes Visit Reasons: Acute CVA Physical Therapy Inpatient Discharge Summary Date: 09/23/2021 Dates of Service: 09/22/2021 only This is a clinical summary of care provided for the duration of dates listed above. No charge was made in the completion of this documentation. Referring Doctor: Lucia Licea MD PT Orders: PT CONSULT: Limited ability Precautions: Standard. Activity as tolerated. Patient Profile/Admitting Diagnosis: Blood is a 66-year-old male with rheumatoid arthritis and chronic migraines who presented to the ED on 09/21/2021 due to right sided facial, right arm, and right leg numbness/weakness. CTA of the head and neck showed no large vessel stenoses or occlusion. Patient was sent down early this morning for MRI of the brain and is awaiting result. Patient is diagnosed with suspected acute cerebrovascular accident, hypertension, and NIDDM. PMHX: Active Problem List (Updated 09/21/21 @ 23:21 by Lucia Licea MD) Discharge planning issues (Acute) DVT prophylaxis (Acute) Acute cerebrovascular accident (CVA) (Acute) Bronchitis (Acute) Abnormal CT scan (Acute) Acute meniscal tear, lateral (Acute) Allergic rhinitis (Acute 03/27/14) Chronic sinusitis (Acute 03/27/14) Deviated nasal septum (Acute 03/27/14) Family history of colon cancer (Acute) Foot joint pain (Acute 07/23/13) History of tobacco use (Acute) Hyperplastic colon polyp (Acute) Migraine (Acute) Medical History (Updated 09/21/21 @ 23:21 by Lucia Licea MD) Chronic lower back pain Hypertension Lightheadedness Migraine headache with aura Non-insulin dependent diabetes mellitus Obesity, morbid, BMI 40.0-49.9 Rheumatoid arthritis Steroid dependent Surgical History Colonoscopy - MAC 05/16/14 RIB REMOVAL (10/24/83) LEFT TOP RIB Social History/Home Situation: Lives alone in a private residence with 2 steps to enter without rails. Independent with all aspects of ADLs. 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 Equipment Owned/DME: None Subjective: NT. See most recent NAILING MACHINE OPERATOR AUTOMATIC notes. Objective: General Observation: NT. See most recent NAILING MACHINE OPERATOR AUTOMATIC notes. Mental Status: NT. See most recent NAILING MACHINE OPERATOR AUTOMATIC notes. Pain: NT. See most recent NAILING MACHINE OPERATOR AUTOMATIC notes. Vital Signs: NT. See most recent NAILING MACHINE OPERATOR AUTOMATIC notes. ROM: Right Upper Extremity: Shoulder Flexion WFL. Shoulder abduction WFL. Elbow flexion WFL. Wrist flexion WFL. Functional opening and closing of hand WFL. Left Upper Extremity: Shoulder Flexion WFL. Shoulder abduction WFL. Elbow flexion WFL. Wrist flexion WFL. Functional opening and closing of hand WFL. Right Lower Extremity: Hip flexion WFL. Hip abduction WFL. Knee flexion WFL. Ankle dorsiflexion WFL. Ankle plantarflexion WFL. Left Lower Extremity: Hip flexion WFL. Hip abduction WFL. Knee flexion WFL. Ankle dorsiflexion WFL. Ankle plantarflexion WFL. Strength: Right Upper Extremity: Shoulder flexors 5/5. Shoulder abductors 5/5. Elbow flexors 5/5. Elbow extensors 5/5. Associate Director strong. Left Upper Extremity: Shoulder flexors 5/5. Shoulder abductors 5/5. Elbow flexors 5/5. Elbow extensors 5/5. Associate Director strong. Right Lower Extremity: Hip flexors 5/5. Hip abductors 5/5. Knee flexors 5/5. Knee extensors 5/5. Ankle dorsiflexors 5/5. Ankle plantarflexors 5/5. Left Lower Extremity: Hip flexors 5/5. Hip abductors 5/5. Knee flexors 5/5. Knee extensors 5/5. Ankle dorsiflexors 5/5. Ankle plantarflexors 5/5. Bed Mobility/Transfers: Rolling independent Supine to sit independent Sit to supine independent Sit to stand independent Stand to sit independent Bed to reclining chair independent Reclining chair to bed independent Gait: Instructed patient with level surface ambulation of 300 feet requiring supervision assist. No path deviation seen. Gait pattern unremarkable. Balance: Static Sitting: Normal Dynamic Sitting: Normal Static Standing: Normal Dynamic Standing: Good Special Tests: Mobility Limitations Standardized Measure [facility] 6 clicks Basic Mobility Inpatient Short Form: Raw Score: 24 CMS Score: 0% deficit Romberg Test: Almost negligible sway seen but no LOB. 30-Second Chair Rise score: 14 indicating good to normal B LE strength and low fall risk. 4-Stage Balance Test: Able to maintain feet together, semi-tandem, and full-tandem stance for 10 seconds. Unable to do so with one-legged stance. Rapid alternating movement: Intact Pronator Drift in R UE: Absent [id number] Test: Intact Assessment: Symmetric strength in B UE and LE at 5/5. No motor deficits seen. Mild balance deficit during one-legged stance. Hemisensory deficits on the right persistent but did not present any safety issue during mobility assessment. Independent in room without AD. May upgrade to independent in the hallway once blood pressure stabilizes. May see patient 1x/day for balance training while on admission if patient is agreeable. Goals: Goals X1 week 1. Normal static and dynamic standing balance/tolerance with patient able to mainatin one-legged stance for 10 seconds to reduce fall risk in the community NOT MET DISCHARGE RECOMMENDATIONS: [X] Home with no service. [] Home with services [specify] [X] Home with outpatient PT. Home when medically cleared by hospitalist. No equipment needs at this time. May benefit from outpatient PT services for balance skilling if patient is interested. [] SNF for continued rehabilitation [] [] [facility] [] [] SNF versus LTC based on ability to participate and progress [] TREATMENT CODE/TIME: NC Thank you for the opportunity to participate in the care of this patient. Linn Gupta PT, DPT, CLT [facility] [place], [place]
--- NOTE | 2021-09-23 18:00 | NUR.NOTE ---
Nursing Note: This SUBSTATION ELECTRICIAN SUPERVISOR has reviewed all documentation and interventions done by Shahnaz Beltran, SESAR and am in agreement.
== END 2021-09-23 16:56 | disposition home or self-care (01) ==
LOC: ER 16:25 → MS 19:04
PROVIDERS: Internal Medicine; Admitting Provider Internal Medicine; Emergency Provider Physician Assistant; PCP Nurse Practitioner Family; Visit Provider Internal Medicine
DX: I63.9 Cerebral infarction, unspecified (principal); I10 Essential (primary) hypertension; M06.9 Rheumatoid arthritis, unspecified; Z20.822 Contact with and (suspected) exposure to COVID-19; I25.5 Ischemic cardiomyopathy; E11.9 Type 2 diabetes mellitus without complications; Z79.84 Long term (current) use of oral hypoglycemic drugs; E66.9 Obesity, unspecified; Z68.41 Body mass index [BMI] 40.0-44.9, adult; R20.0 Anesthesia of skin; R53.1 Weakness; Z86.718 Personal history of other venous thrombosis and embolism; Z86.73 Personal history of transient ischemic attack (TIA), and cerebral infarction without residual deficits
CPT/HCPCS: 36415; 70496; 70498; 70552; 80048; 80053; 80061; 85027; 87635; 93005; 93270; 96360; 96361; 97162; 97530; 99215; 99285; C8929; J1650; 70551; 71046; 82607; 83036; 83735; 83880; 84443; 84484; 85025; 93010; 99217; 99220; 99226; G0378; J3490; J8610

== ENCOUNTER → 2021-09-22 07:16 | Outpatient (BNVA) | payer MEDICARE, OTHER, SELFPAY ==
--- NOTE | 2021-10-25 15:54 | W.CARDEVENT ---
Date of service: 10/25/21 Time of Service: 15:54 Cardiac Event Recorder Referring Provider:: Melina Monk Indications:: Acute CVA Cardiac Event Note: This is a 30-day event monitor, ordered for stroke Predominant rhythm was sinus with first-degree AV block, with an average heart rate of 83. Minimum was 52, maximum 106 There were rare ventricular ectopic beats. There was one 5 beat run of nonsustained ventricular tachycardia Overall P waves were difficult to discern throughout the recording. 2 wireless events labeled atrial fibrillation appeared to be regular, and probably were sinus rhythm There was no high-grade AV block, no pauses greater than 3 seconds No patient symptoms were reported
== END ==
PROVIDERS: PCP Nurse Practitioner Family; Referring Provider Nurse Practitioner Family; Visit Provider Psychiatry & Neurology Neurology
DX: R69 Illness, unspecified (principal)

== ENCOUNTER 2021-09-28 00:35 | Outpatient (CLI) | payer MEDICARE, OTHER, SELFPAY ==
--- NOTE | 2021-09-28 06:30 | DI.NM_ITS ---
APPROVED REPORT Exam: Pharmacologic Patient Location: Out-Patient Room/Bed: Stress Nurse: Farzana Ricks RN Ordering Provider:MARGOT MARTINO, Contact Number: [phone] BMI: 40.87 Baseline Rhythm: Sinus Rhythm, LBBB Indications: Cardiomyopathy, evaluate for ischemic heart disease, ABNL echo Medical History Medical History: CVA 09/23/21, cardiomyopathy, hypertension, diabetes type II, smoker (former), asthma , obesity, lightheadedness Cardiac Medications: Lisinopril-HCTZ, plavix, metformin, atorvastatin Allergies: Aspirin, citric acid, adalimumab, NSAIDs Cardiac Risk Factors: Hypertension, diabetes type II, smoker (former), asthma, obesity Previous Cardiac Procedures: None Pretest Chest Pain Characteristics: baseline mild-moderate SOB Exercise History: Sedentary Physical Disabilities: None Lung Sounds: Clear to auscultation Heart Sounds: Regular Stress Test Details Test: Pharmacologic stress was paired with low level exercise. Reason for pharmacologic stress test: LBBB. Nuclear Acquisition: Rest Tc-99m/Stress Tc-99m 1 day Rest Isotope: Tc-99m Sestamibi. Dose: 11.6 Date: 09/28/2021 Injection Time: 0900 Stress Isotope: Tc-99m Sestamibi. Dose: 37.5 Date: 09/28/2021 Injection Time: 1030 HR Resting HR Supine: 94 bpm Max Heart Rate (APMHR): 152 bpm Resting HR Standin bpm Target HR (85% APMHR): 129 bpm Max HR Achieved: 135 bpm % of APMHR: 88 Recovery HR: 100 bpm BP Resting BP Supine: 158/82 mmHg Resting BP Standin/80 mmHg Max BP: 170/80 mmHg Recovery BP: 14/82 mmHg ECG Resting ECG: Sinus Rhythm, LBBB, , Clear Ectopy: None Stress ECG: Sinus Tachycardia, LBBB ST Change: Nondiagnostic LBBB Arrhythmia: Occasional PACs and PVCs, couplet Recovery ECG: Sinus Rhythm, LBBB Recovery ST Change: Nondiagnostic LBBB Recovery Arrhythmia: Occasional PACs, rare PVC Clinical Stress Symptoms: General Fatigue, Dyspnea Rate Pressure Product: [id number] Stress ECG Conclusion 1. Resting electrocardiogram showed a left bundle branch block 2. Patient underwent pharmacologic stress with regadenoson 3. Blunted hemodynamics. Peak heart rate achieved was 88% of predicted heart rate for age 4. Electrocardiographically the test was nondiagnostic due to left bundle branch block 5. Atrial and ventricular ectopic beats were seen Stress Test Summary STAGE HR BP Symptoms NOTES Supine 94 158/82 baseline mild SOB SpO2 97% 1 min post Lexiscan injection 120 170/82 moderate SOB SpO2 97% 3 min post Lexiscan injection 113 170/80 SOB resolved SpO2 97% 6 min post Lexiscan injection 105 158/82 SpO2 97% 9 min post Lexiscan injection 100 144/82 SpO2 95% Lexiscan was paired w/ low level exercise at 1.3 mph speed and 0% grade. MPI Conclusion Dilated left ventricle EF 22%. Inferior wall appears hypo to akinetic No definite myocardial ischemia or evidence of prior infarction Radiologist Interpretation Radiologist Interpretation by: Nick Ribeiro MD Interpretation Date/Time: 09/28/2021 15:39:02
[2021-09-28] MEDS: Regadenoson 0.4 MG/5 ML SYR IVP (10:56)
== END 2021-09-28 00:55 ==
PROVIDERS: PCP Nurse Practitioner Family; Visit Provider Internal Medicine
DX: I42.9 Cardiomyopathy, unspecified (principal); R94.39 Abnormal result of other cardiovascular function study; I44.7 Left bundle-branch block, unspecified; I10 Essential (primary) hypertension; E11.9 Type 2 diabetes mellitus without complications; Z87.891 Personal history of nicotine dependence; J45.909 Unspecified asthma, uncomplicated; E66.9 Obesity, unspecified; I49.1 Atrial premature depolarization; I49.3 Ventricular premature depolarization
CPT/HCPCS: 78452; 93016; 93018; 93017; J2785

== ENCOUNTER 2021-10-04 12:38 | Outpatient (CLI) | payer MEDICARE, OTHER, SELFPAY | END 2021-10-04 12:39 | disposition home or self-care (01) | LOC: DI.CARD 12:57 | PROVIDERS: PCP Nurse Practitioner Family; Referring Provider Nurse Practitioner Family; Visit Provider Internal Medicine Cardiovascular Disease | DX: R69 Illness, unspecified (principal) | CPT/HCPCS: 93010 ==

== ENCOUNTER → 2021-10-04 12:38 | Outpatient (BNVA) | payer MEDICARE, OTHER, SELFPAY | PROVIDERS: PCP Nurse Practitioner Family; Referring Provider Nurse Practitioner Family; Visit Provider Internal Medicine Cardiovascular Disease | DX: I25.5 Ischemic cardiomyopathy (principal); I63.9 Cerebral infarction, unspecified; I10 Essential (primary) hypertension; J40 Bronchitis, not specified as acute or chronic | CPT/HCPCS: 99205; 99214 ==

== ENCOUNTER 2021-10-07 02:28 | Outpatient (CLI) | payer MEDICARE, OTHER, SELFPAY ==
[2021-10-07 10:36] LABS: HCT 47.6 % (40.0-50.0); HGB 15.9 g/dL (13.5-17.5); MCH 32.1 pg (27.0-33.0); MCHC 33.4 % (32.0-36.0); MPV 9.5 fL (8.0-11.0); Nucleated RBC 0 %; Platelet Count 216 10^3/uL (130-400); RBC 4.96 10^6/uL (4.36-5.78); RDW 12.7 % (11.8-14.1); RDW-SD 44.6 fL; WBC 9.87 10^3/uL (4.4-10.8)
[2021-10-07 10:51] LABS: INR 1.1 (0.9-1.1); PTT Activated 21.2 sec (21.0-27.5); Prothrombin Time 11.1 sec (9.3-11.0)
[2021-10-07 11:00] LABS: Absolute Lymphocyte Count 1.88 10^3/uL (1.2-3.4); Absolute Monocyte Count 1.97 10^3/uL (0.1-0.8); Absolute Neutrophil Count 5.82 10^3/uL (1.2-6.7); Atypical Lymphocytes % 16; Metamyelocytes % 1
[2021-10-07 11:01] LABS: Diff Comment Manual Differential; RBC Morphology Normal
[2021-10-07 11:23] LABS: Anion Gap 5.1 mmol/L (3-11); BUN 17 mg/dL (7-18); CO2 33.9 mmol/L (21.0-32.0); CREATININE 1.2 mg/dL (0.70-1.30); Chloride 99 mmol/L (98-107); Glucose 134 mg/dL (74-106); Sodium 138 mmol/L (136-145)
== END 2021-10-07 02:29 | disposition home or self-care (01) ==
LOC: LBO 02:29
PROVIDERS: PCP Nurse Practitioner Family; Visit Provider Internal Medicine Cardiovascular Disease
DX: I25.5 Ischemic cardiomyopathy; J40 Bronchitis, not specified as acute or chronic; I63.9 Cerebral infarction, unspecified
CPT/HCPCS: 80051; 82947; 84520; 82565; 85025; 85610; 85730

== ENCOUNTER 2021-10-10 13:22 | Emergency (ER) | payer MEDICARE, OTHER, SELFPAY ==
--- NOTE | 2021-10-10 13:15 | RT.EKG_ITS ---
APPROVED REPORT Exam: Resting ECG Reason for Exam: chest pain Patient Location: E HR:98 bpm ECG Measurements Heart Rate 98 AXIS W[place] 205 P 63 QRSd 172 QRS -30 QT 376 T 142 QTc 482 Conclusion Sinus rhythm...normal P axis, V-rate 60- 99 Probable left atrial enlargement Left bundle branch block, ST elevation secondary to IVCD. Similar to previous 09/21/21
[2021-10-10 13:24] VITALS: BP 184/106; PULSE 106; RESP 20; TEMP 36.2; O2SAT 99
[2021-10-10 13:33] VITALS: RESP 18
--- NOTE | 2021-10-10 13:40 | ED.GENADUL_ITS ---
Discharge Plan Disposition Patient Disposition: HOME Condition: Improving Discharge Details Clinical Impression: Chest pain Primary Care Provider: Isabel Dickey ED Provider: David Joseph Home Meds and New Rx's Prescriptions: Continued metoprolol succinate 25 mg tablet extended release 24 hr 25 mg PO .nightly Qty: 90 RF: 3 acetaminophen [Tylenol Extra Strength] 500 MG tablet 1 tab PO Q6H PRNRF: 0 hydroxychloroquine [Plaquenil] 200 MG tablet 2 tab PO DAILY Qty: 90 RF: 0 actemra 800 mg IV Monthly RF: 0 prednisone 1 MG tablet 4 mg PO DAILY RF: 0 methotrexate sodium 2.5 MG tablet 10 mg PO DIRECTED RF: 0 folic acid 1 MG tablet 1 mg PO DAILY RF: 0 loratadine 10 mg Tablet 10 mg PO DAILY RF: 0 cholecalciferol (vitamin D3) 50 mcg (2,000 unit) Tablet 50 mcg PO DAILY RF: 0 magnesium oxide 400 mg magnesium Tablet 400 mg PO DAILY RF: 0 fluticasone propionate 110 mcg/actuation Hfa Aerosol Inhaler 1 puff INHALATION BID RF: 0 lisinopril-hydrochlorothiazide 20-12.5 mg Tablet 1 tab PO DAILY RF: 0 albuterol sulfate 90 mcg/actuation Hfa Aerosol Inhaler 1 - 2 puff INHALATION Q4H PRNRF: 0 clopidogrel [Plavix] 75 mg tablet 75 mg PO DAILY Qty: 30 RF: 3 atorvastatin 10 mg tablet 10 mg PO DAILY RF: 0 Discharge Instructions Instructions: Chest Pain (ED) Additional Instructions: Avoid extra salt intake as discussed. Please check and record your weight 3 time weekly on the same scale. We will ask our care management team to arrange a follow-up for you in cardiology clinic. Continue your routine medications. Follow-up with outpatient cardiac catheterization as planned on Monday. Return to the emergency department for any acute concerns. Medical Decision Making 66-year-old male states he awoke this morning approxithirty a.m. with chest discomfort that he describes as a tightness and shortness of breath that began while lying flat in bed. He went downstairs, took a breathing treatment with some improvement. He states he was admitted to the hospital at the beginning of the month for strokelike symptoms and during this time an echocardiogram revealed depressed ejection fraction, he underwent nuclear stress test that did not show evidence of ischemia but showed a dilated left ventricle, the inferior wall appeared hypokinetic, and ejection fraction was graded at 22%. He has been scheduled for outpatient cardiac catheterization this coming Monday. Differential diagnosis includes cardiac ischemia, fluid overload, bronchitis. Patient placed on a assembly line worker, screening laboratories, EKG, chest x-ray obtained. Patient's EKG is unchanged showing left bundle branch block. His troponin is negative. The remainder of laboratories note a unremarkable CBC with white count 10, hematocrit 47, platelets 226. D-dimer 260. Electrolytes unremarkable. Troponin negative, BNP 893. Chest x-ray: Peribronchial cuffing, atelectasis left base Patient given 20 mg IV Lasix as well as DuoNeb. Following these interventions he had brisk urine output approximately 1 L, felt improved and with no further chest discomfort. Patient observed on a assembly line worker with normal oxygenation's throughout, repeat troponin obtained and negative. We will arrange outpatient follow-up with cardiology. Patient has freestanding appointment for outpatient cardiac catheterization this coming Monday. We discussed avoiding increased salt in the diet, I will ask him to check his weight at home 3 times a week. Patient stable and improved, appropriate for outpatient management at this time. HPI General Mode of arrival: ambulatory . Date/Time Provider Initiated Documentation: 10/10/21 13:22 . Limitations to Documentation: no limitations . Information obtained by: patient and family . History of Present Illness 66 year old M presents to the emergency department with the chief complaint of Chest pain and shortness of breath at 230 this morning, described as moderate, and is localized to the chest. Patient reports no radiation. Patient started experiencing this hour(s) and it has been other (Now improved). other things that improve symptom(s), (Breathing treatment) No exacerbating factors reported . Patient notes chest pain and shortness of breath; denies fever/chills, syncope and weakness. Patient did receive the following treatments prior to arrival, other (Breathing treatment at home with improvement) Related Data Home Medications Medication Instructions Recorded Confirmed acetaminophen [Tylenol Extra 1 tab PO Q6H PRN 01/15/13 10/10/21 Strength] hydroxychloroquine [Plaquenil] 2 tab PO DAILY #90 01/15/13 10/10/21 folic acid 1 mg PO DAILY 03/10/17 10/10/21 methotrexate sodium 10 mg PO DIRECTED 03/10/17 10/10/21 Actemra 800 mg IV Monthly 04/23/18 10/10/21 prednisone 4 mg PO DAILY tab-cap 06/04/18 10/10/21 cholecalciferol (vitamin D3) 50 mcg PO DAILY 09/21/21 10/10/21 loratadine 10 mg PO DAILY 09/21/21 10/10/21 albuterol sulfate 1 - 2 puff INHALATION Q4H PRN 09/22/21 10/10/21 fluticasone propionate 1 puff INHALATION BID 09/22/21 10/10/21 lisinopril-hydrochlorothiazide 1 tab PO DAILY 09/22/21 10/10/21 magnesium oxide 400 mg PO DAILY 09/22/21 10/10/21 clopidogrel [Plavix] 75 mg PO DAILY #30 tab 09/23/21 10/10/21 metoprolol succinate 25 mg 25 mg PO .nightly #90 tab 10/04/21 10/10/21 tablet,extended release 24 hr atorvastatin 10 mg PO DAILY 10/10/21 10/10/21 Previous Rx's Medication Instructions Recorded clopidogrel [Plavix] 75 mg PO DAILY #30 tab 09/23/21 metoprolol succinate 25 mg 25 mg PO .nightly #90 tab 10/04/21 tablet,extended release 24 hr Allergies Allergy/AdvReac Type Severity Reaction Status Date / Time aspirin Allergy Severe Swelling/Ed Verified 10/10/21 13:28 rigoberto citric acid Allergy Unknown RASH, Verified 10/10/21 13:28 BLISTER adalimumab Allergy NUMBNESS Verified 10/10/21 13:28 NSAIDS (Non-Steroidal AdvReac CONGESTION Verified 10/10/21 13:28 Anti-Inflamma General Stated Complaint: Chest Pain EMERALD: 3 Review of Systems Narrative: Triple immunized for COVID-19. Has been taking his medications. No fever, chills. He has a chronic cough that is unchanged. Denies weight gain. 8 systems reviewed and otherwise negative PFSH All Active Problems (Updated 10/10/21 @ 16:24 by David Joseph MD) Chest pain (Acute) Ischemic cerebrovascular accident (CVA) (Acute) Medication monitoring encounter (Acute) Hypertension (Acute) Non-insulin dependent diabetes mellitus (Acute) Cardiomyopathy (Acute) Paresthesia (Acute) Discharge planning issues (Acute) DVT prophylaxis (Acute) Acute cerebrovascular accident (CVA) (Acute) Bronchitis (Acute) Abnormal CT scan (Acute) 01/31/12 [place]; needs repeat scan at 6,12 and 18 months Acute meniscal tear, lateral (Acute) right Allergic rhinitis (Acute 03/27/14) Chronic sinusitis (Acute 03/27/14) Deviated nasal septum (Acute 03/27/14) Family history of colon cancer (Acute) father-colon Foot joint pain (Acute 07/23/13) History of tobacco use (Acute) Hyperplastic colon polyp (Acute) DR. Kvng NOGUEIRA; X 3 Migraine (Acute) Medical History Chronic lower back pain Lightheadedness Migraine headache with aura Obesity, morbid, BMI 40.0-49.9 Rheumatoid arthritis Steroid dependent Surgical History Colonoscopy - MAC 05/16/14 RIB REMOVAL (10/24/83) LEFT TOP RIB Family History Mother Personal history of malignant neoplasm LUNG Father Personal history of malignant neoplasm COLON Sister No problems noted. Brother Personal history of malignant neoplasm LUNG Social History Smoking/Tobacco Use Status: Former Tobacco Use Quit Date: 10/23/97 Smoking risk assessment performed?: Yes Alcohol Intake: never Drug use: Never Substance use type: does not use Housing: house Number of Children: 2 What is your relationship status?: Panel score (0-1 are the most socially isolated patients): 0 Seatbelt use: always Do you feel safe at home: Yes Do you feel safe in your relationship?: Yes Exam Narrative Exam Narrative: GEN: awake, alert, oriented 3. Pleasant, well groomed, interactive. HEAD: Normocephalic, atraumatic ENT: Mucous membranes moist, oropharynx unremarkable, External ear exam unremarkable EYES: PERRL, EOMI NECK: Full ROM, no YOGI, no menigismus CHEST/RESP: Nontender, clear to auscultation bilateral, question fine rales at the bases CARDIOVASCULAR: RRR, no murmur, rub claudia. 2+ Rad pulse bilateral ABDOMEN: Soft, nontender, no mass. +Bowel sounds EXT: Full ROM, no significant edema, no rash Neuro: Grossly normal neurologic exam, conversant, interactive. Psych: Speech fluent, thoughts congruent, affect normal Course Vital Signs Vital signs: Vital Signs Temperature 36.2 C L 10/10/21 13:24 Pulse 106 H 10/10/21 13:24 Respiratory Rate 20 10/10/21 13:24 Blood Pressure 184/106 H 10/10/21 13:24 Pulse Oximetry 99 10/10/21 13:24 Temperature 36.2 C L 10/10/21 13:24 Temperature Source Temporal Artery Scan 10/10/21 13:24 Pulse 106 H 10/10/21 13:24 Respiratory Rate 18 10/10/21 13:33 Respiratory Effort 10/10/21 13:33 Respiratory Depth Normal 10/10/21 13:33 Respiratory Pattern Normal 10/10/21 13:33 Blood Pressure 184/106 H 10/10/21 13:24 Blood Pressure Position Sitting 10/10/21 13:24 Pulse Oximetry 99 10/10/21 13:24 Oxygen Delivery Method Room Air 10/10/21 13:24 Oxygen Flow Rate 0 10/10/21 13:24 Pain Level 4 10/10/21 13:33
[2021-10-10 13:49] LABS: Abs Immature Grans 0.07 10^3/uL (0.0-0.06); Absolute Eosinophil Count 0.29 10^3/uL (0.0-0.7); Absolute Lymphocyte Count 2.36 10^3/uL (1.2-3.4); Absolute Monocyte Count 1.03 10^3/uL (0.1-0.8); Absolute Neutrophil Count 6.58 10^3/uL (1.2-6.7); Eosinophils % 2.8; Immature Grans % 0.7; Lymphocytes % 22.6; MCH 31.9 pg (27.0-33.0); MCV 93.8 fL (80-95); MPV 9.8 fL (8.0-11.0); Monocytes % 9.9; Nucleated RBC 0 %; Platelet Count 226 10^3/uL (130-400); RBC 5.01 10^6/uL (4.36-5.78); RDW 12.4 % (11.8-14.1); RDW-SD 42.9 fL; WBC 10.43 10^3/uL (4.4-10.8)
[2021-10-10 14:00] VITALS: RESP 4; O2SAT 94
[2021-10-10] MEDS: Albuterol/Ipratropium 3 ML UPD VIAL UPD (14:00)
--- NOTE | 2021-10-10 14:06 | DI.RAD_ITS ---
Exam(s) XR PORTABLE CHEST AP EXAM: XR PORTABLE CHEST AP CLINICAL HISTORY: CP and SOB TECHNIQUE: 2D digital imaging was performed. COMPARISON: CR,XR XR CHEST 2V PA LATERAL from 09/21/2021 FINDINGS: A monitoring device is positioned in the midline, projecting over the spine. The heart size is withi n normal limits for projection. There is increased interstitial markings and broad mild peribronchia l thickening which could indicate mild pulmonary edema. No focal consolidation or visible effusion. No pneumothorax. IMPRESSION: Question of mild pulmonary edema. DATA REPOSITORY: RADIATION DOSE DELIVERED:
[2021-10-10 14:10] LABS: ALT 63 U/L (16-63); AST 27 U/L (15-37); Albumin 4.2 g/dL (3.4-5.0); Alkaline Phosphatase 32 U/L (46-116); Anion Gap 8.5 mmol/L (3-11); BUN 21 mg/dL (7-18); Bilirubin, Total 0.8 mg/dL (0.2-1.0); CO2 28.5 mmol/L (21.0-32.0); CREATININE 1.1 mg/dL (0.70-1.30); Calcium 9.1 mg/dL (8.5-10.1); Chloride 101 mmol/L (98-107); Glucose 148 mg/dL (74-106); NT-proBNP 893 pg/mL (<300); Sodium 138 mmol/L (136-145); Total Protein 6.8 g/dL (6.4-8.2); Troponin I < 50 ng/L (<or=60)
[2021-10-10 14:11] LABS: INR 1.1 (0.9-1.1); PTT Activated 21.4 sec (21.0-27.5); Prothrombin Time 10.9 sec (9.3-11.0)
[2021-10-10] MEDS: Furosemide 20 MG/2 ML VIAL IVP (14:20)
[2021-10-10 14:26] LABS: D-Dimer 260 ng/mlFEU (<500)
--- NOTE | 2021-10-10 15:18 | DI.VRAD_ITS ---
PROCEDURE INFORMATION: Exam: XR Chest Exam date and time: 10/10/2021 1:31 PM Age: 66 years old Clinical indication: Other: Chest pain TECHNIQUE: Imaging protocol: XR of the chest. Views: 1 view. COMPARISON: CR XR CHEST 2V PA LATERAL 09/21/2021 4:57 PM FINDINGS: Lungs: Increased prominence of the central airway markings and peribronchial cuffing. Mild linear airspace disease and/or atelectasis left base. Pleural spaces: Unremarkable. No pleural effusion. No pneumothorax. Heart/Mediastinum: Unremarkable. No cardiomegaly. Bones/joints: Unremarkable. IMPRESSION: 1. Increased prominence of the central airway markings and peribronchial cuffing. 2. Mild linear airspace disease and/or atelectasis left base. Dictated and Authenticated by: Chang Borrego MD. Ordering:SADIA Hernandez MD
[2021-10-10 15:26] VITALS: BP 128/83; PULSE 73; RESP 16; TEMP 36.6; O2SAT 98
--- NOTE | 2021-10-10 15:30 | RT.EKG_ITS ---
APPROVED REPORT Exam: Resting ECG Reason for Exam: Chest pain 2nd Trop Patient Location: E HR:74 bpm ECG Measurements Heart Rate 74 AXIS [place] 196 P 4 QRSd 158 QRS -33 QT 422 T 138 QTc 468 Conclusion Sinus rhythm...normal P axis, V-rate 60- 99 Left bundle branch block...QRSd>120, broad/notched R ST elevation secondary to IVCD...Multiple VCG criteria
--- NOTE | 2021-10-10 15:44 | NUR.NOTE ---
Faxed referral to Cardiology at [facility] for a f/u in one week for fluid overload per Dr. Joseph.
[2021-10-10 16:21] VITALS: BP 128/77; PULSE 73; RESP 20; O2SAT 96
[2021-10-10 16:24] LABS: Troponin I < 50 ng/L (<or=60)
== END 2021-10-10 16:41 | disposition home or self-care (01) ==
PROVIDERS: Emergency Provider Emergency Medicine; PCP Nurse Practitioner Family
DX: R07.9 Chest pain, unspecified (principal); R06.02 Shortness of breath; I44.7 Left bundle-branch block, unspecified
CPT/HCPCS: 36415; 80053; 93005; 94640; 96374; 99284; 71045; 83735; 83880; 84484; 85025; 85379; 85610; 85730; 93010; J1941; J7620

== ENCOUNTER → 2021-10-11 12:50 | Outpatient (BNVA) | payer MEDICARE, OTHER, SELFPAY | PROVIDERS: PCP Nurse Practitioner Family; Referring Provider Nurse Practitioner Family; Visit Provider Psychiatry & Neurology Neurology | DX: I63.9 Cerebral infarction, unspecified (principal); R42 Dizziness and giddiness | CPT/HCPCS: 99214 ==

== ENCOUNTER 2021-10-25 15:54 | Outpatient (CLI) | payer MEDICARE, OTHER, SELFPAY | END 2021-10-25 15:55 | disposition home or self-care (01) | LOC: CARDO 10-29 12:44 | PROVIDERS: PCP Nurse Practitioner Family; Referring Provider Psychiatry & Neurology Neurology; Visit Provider Internal Medicine Cardiovascular Disease | DX: I63.9 Cerebral infarction, unspecified (principal); I44.0 Atrioventricular block, first degree; I47.2 Ventricular tachycardia | CPT/HCPCS: 93272 ==

== ENCOUNTER 2021-10-26 01:22 | Outpatient (RCR) | payer MEDICARE, OTHER, SELFPAY ==
[2021-10-23 00:03] VITALS: BP 127/84; PULSE 94; RESP 20; TEMP 36.6
[2021-10-26] MEDS: TOCILIZUMAB 800 MG in Normal Saline 60 ML 100 MG IVPB (08:06)
[2021-10-26] MEDS: Normal Saline Flush 10 ML SYR IVP (08:07)
== END 2021-11-22 23:59 | disposition home or self-care (01) ==
LOC: INF 01:22
PROVIDERS: PCP Nurse Practitioner Family; Visit Provider Internal Medicine
DX: M06.9 Rheumatoid arthritis, unspecified (principal)
CPT/HCPCS: 96365; J3262

== ENCOUNTER → 2021-11-04 11:30 | Outpatient (BNVA) | payer MEDICARE, OTHER, SELFPAY | PROVIDERS: PCP Nurse Practitioner Family; Referring Provider Nurse Practitioner Family; Visit Provider Internal Medicine Cardiovascular Disease | DX: I25.5 Ischemic cardiomyopathy (principal); I50.9 Heart failure, unspecified; I63.9 Cerebral infarction, unspecified; I11.0 Hypertensive heart disease with heart failure; R00.0 Tachycardia, unspecified | CPT/HCPCS: 99214 ==

== ENCOUNTER 2021-11-23 01:27 | Outpatient (RCR) | payer MEDICARE, OTHER, SELFPAY ==
[2021-11-23 00:04] VITALS: BP 127/84; PULSE 94; RESP 20; TEMP 36.6
[2021-11-23] MEDS: Normal Saline Flush 10 ML SYR IVP (07:52)
[2021-11-23] MEDS: TOCILIZUMAB 800 MG in Normal Saline 60 ML 100 MG IVPB (08:15)
== END 2021-12-20 23:59 | disposition home or self-care (01) ==
LOC: INF 01:27
PROVIDERS: PCP Nurse Practitioner Family; Visit Provider Internal Medicine
DX: M06.9 Rheumatoid arthritis, unspecified (principal)
CPT/HCPCS: 96365; 96413; J3262

== ENCOUNTER → 2021-12-27 11:34 | Outpatient (BNVA) | payer MEDICARE, OTHER, SELFPAY | PROVIDERS: PCP Nurse Practitioner Family; Visit Provider Internal Medicine Cardiovascular Disease | DX: I50.9 Heart failure, unspecified (principal); I63.9 Cerebral infarction, unspecified; I10 Essential (primary) hypertension; I25.5 Ischemic cardiomyopathy | CPT/HCPCS: 99214; 99213 ==

== ENCOUNTER 2021-12-29 04:28 | Outpatient (CLI) | payer MEDICARE, OTHER, SELFPAY ==
[2021-12-29 10:23] LABS: Anion Gap 10.4 mmol/L (3-11); BUN 15 mg/dL (7-18); CO2 25.6 mmol/L (21.0-32.0); CREATININE 1.2 mg/dL (0.70-1.30); Calcium 8.7 mg/dL (8.5-10.1); Chloride 102 mmol/L (98-107); Glucose 204 mg/dL (74-106); NT-proBNP 346 pg/mL (<300); Potassium 4.4 mmol/L (3.5-5.1); Sodium 138 mmol/L (136-145)
== END 2021-12-29 04:29 | disposition home or self-care (01) ==
LOC: LBO 04:28
PROVIDERS: PCP Nurse Practitioner Family; Visit Provider Internal Medicine Cardiovascular Disease
DX: I50.9 Heart failure, unspecified (principal)
CPT/HCPCS: 36415; 80048; 83880

== ENCOUNTER 2022-01-18 02:18 | Outpatient (RCR) | payer MEDICARE, OTHER, SELFPAY ==
[2021-12-21 00:02] VITALS: BP 127/84; PULSE 94; RESP 20; TEMP 36.6
[2021-12-21] MEDS: Normal Saline Flush 10 ML SYR IVP (08:12)
[2021-12-21] MEDS: TOCILIZUMAB 800 MG in Normal Saline 60 ML 100 MG IVPB (08:12)
[2022-01-18] MEDS: Normal Saline Flush 10 ML SYR IVP (07:54)
[2022-01-18] MEDS: TOCILIZUMAB 800 MG in Normal Saline 60 ML 100 MG IVPB (08:13)
== END 2022-01-20 23:59 | disposition home or self-care (01) ==
LOC: INF 02:18
PROVIDERS: PCP Nurse Practitioner Family; Visit Provider Internal Medicine
DX: M06.9 Rheumatoid arthritis, unspecified (principal)
CPT/HCPCS: 96365; J3262

== ENCOUNTER 2022-02-02 14:58 | Outpatient (REF) | payer MEDICARE, OTHER, SELFPAY ==
[2022-02-02 16:06] LABS: Abs Immature Grans 0.08 10^3/uL (0.0-0.06); Absolute Basophil Count 0.08 10^3/uL (0.0-0.2); Absolute Eosinophil Count 0.24 10^3/uL (0.0-0.7); Absolute Lymphocyte Count 2.24 10^3/uL (1.2-3.4); Absolute Neutrophil Count 5.76 10^3/uL (1.2-6.7); Basophils % 0.9; Eosinophils % 2.6; HCT 45.9 % (40.0-50.0); HGB 15.5 g/dL (13.5-17.5); Immature Grans % 0.9; Lymphocytes % 23.8; MCH 31.6 pg (27.0-33.0); MCHC 33.8 % (32.0-36.0); MCV 93.5 fL (80-95); MPV 10.1 fL (8.0-11.0); Monocytes % 10.6; Neutrophils % 61.2; Nucleated RBC 0 %; Platelet Count 209 10^3/uL (130-400); RBC 4.91 10^6/uL (4.36-5.78); RDW 12.8 % (11.8-14.1); RDW-SD 43.8 fL
[2022-02-02 17:24] LABS: ALT 46 U/L (16-63); AST 21 U/L (15-37); Albumin 4.1 g/dL (3.4-5.0); Alkaline Phosphatase 40 U/L (46-116); Anion Gap 9.3 mmol/L (3-11); BUN 22 mg/dL (7-18); Bilirubin, Total 0.7 mg/dL (0.2-1.0); CO2 25.7 mmol/L (21.0-32.0); CREATININE 1.1 mg/dL (0.70-1.30); Calcium 8.5 mg/dL (8.5-10.1); Chloride 100 mmol/L (98-107); Glucose 183 mg/dL (74-106); Potassium 4.6 mmol/L (3.5-5.1); Sodium 135 mmol/L (136-145); Total Protein 6.8 g/dL (6.4-8.2)
== END 2022-02-02 14:59 | disposition home or self-care (01) ==
LOC: NCHCN 14:58
PROVIDERS: PCP Nurse Practitioner Family; Visit Provider Nurse Practitioner Family
DX: Z51.81 Encounter for therapeutic drug level monitoring (principal); M05.9 Rheumatoid arthritis with rheumatoid factor, unspecified
CPT/HCPCS: 80053; 85025

== ENCOUNTER 2022-02-15 04:46 | Outpatient (RCR) | payer MEDICARE, OTHER, SELFPAY ==
[2022-01-21 00:11] VITALS: BP 127/84; PULSE 94; RESP 20; TEMP 36.6
[2022-02-15] MEDS: Normal Saline Flush 10 ML SYR IVP (07:53)
[2022-02-15] MEDS: TOCILIZUMAB 800 MG in Normal Saline 60 ML 100 MG IVPB (08:16)
== END 2022-02-19 23:59 | disposition home or self-care (01) ==
LOC: INF 04:46
PROVIDERS: PCP Nurse Practitioner Family; Visit Provider Internal Medicine
DX: M06.9 Rheumatoid arthritis, unspecified (principal)
CPT/HCPCS: 96365; J3262

== ENCOUNTER 2022-03-07 09:10 | Emergency (ER) | payer MEDICARE, OTHER, SELFPAY ==
[2022-03-07 09:17] VITALS: BP 146/81; PULSE 101; RESP 18; TEMP 36.7; O2SAT 95
--- NOTE | 2022-03-07 09:43 | ED.GENADUL_ITS ---
Discharge Plan Disposition Patient Disposition: HOME Condition: Stable Discharge Details Clinical Impression: Cough, Pulmonary nodule Primary Care Provider: Isabel Dickey ED Provider: Jaimie Espinal Home Meds and New Rx's Prescriptions: New amoxicillin-pot clavulanate 875-125 mg tablet 1 tab PO BID Qty: 14 0RF Continued Entresto 49-51 mg tablet 1 tab PO BID Qty: 180 6RF acetaminophen [Tylenol Extra Strength] 500 MG tablet 1 tab PO Q6H PRN hydroxychloroquine [Plaquenil] 200 MG tablet 2 tab PO DAILY Qty: 90 Label Comments: Takes QAM actemra 800 mg IV Monthly Label Comments: 04-23-18 pt is unsure of dose. -hb prednisone 1 MG tablet 1 mg PO DIRECTED folic acid 1 MG tablet 1 mg PO DAILY methotrexate sodium 2.5 mg tablet 8 mg PO DIRECTED Label Comments: Pt states he takes 4X2.5mg tablets BID (for a total dose of 20mg) every monday once/wk cholecalciferol (vitamin D3) 50 mcg (2,000 unit) Tablet 50 mcg PO DAILY magnesium oxide 400 mg magnesium Tablet 400 mg PO DAILY fluticasone propionate 110 mcg/actuation Hfa Aerosol Inhaler 1 puff INHALATION BID albuterol sulfate 90 mcg/actuation Hfa Aerosol Inhaler 1 - 2 puff INHALATION Q4H PRN clopidogrel [Plavix] 75 mg tablet 75 mg PO DAILY Qty: 30 3RF metformin 500 mg Tablet 500 mg PO DAILY atorvastatin [Lipitor] 10 mg Tablet 10 mg PO HS furosemide [Lasix] 40 mg tablet 20 mg PO DAILY PRN (Reason: edema, sob) atorvastatin 20 mg tablet 20 mg PO DAILY metoprolol succinate 50 mg tablet extended release 24 hr 50 mg PO HS Discharge Instructions Instructions: Bacterial Pneumonia (ED), Acute Cough (ED) Additional Instructions: Please do not take your methotrexate this week as we discussed. After skipping this week's dose, you may resume taking your methotrexate as usual next week. Toña alyxcarl return immediately to the emergency department if you develop any new or worsening symptoms, if your condition does not improve as expected, or if you become otherwise concerned. It is extremely important that you call soon as possible to make an appointment to be seen in follow-up for this visit by your primary care doctor. You will also need to have follow-up for the pulmonary nodules that were found incidentally on your CAT scan. Typically this involves a repeat CT scan in 1 year. Referrals: Isabel Dickey [Primary Care Provider] - Discharge Data Discharge Date/Time-TO BE ENTERED AT DEPARTURE: 03/07/22 16:18 Medical Decision Making Sonia Robbins is a 66-year-old man with a history of CVA 1 year ago without residual symptoms, hypertension, coronary artery disease, [id number] diabetes, RA presenting to the emergency department with cough. Patient reports that 8 or 9 days ago he had an episode where he was eating some bread and choked while eating. He reports that 2 days later he developed a dry cough. Cough has persisted since that time, he has also noticed shortness of breath with exertion. Patient reports that he had exactly similar symptoms after being diagnosed with aspiration pneumonia after a similar choking episode in the past. He states that he feels otherwise well. He denies any pain, fevers, vomiting, diarrhea, numbness, weakness, rash, swelling. Patient reports that he has been eating and drinking as usual. He states that he is vaccinated for COVID. On exam Pt is well and non-toxic appearing. Exp wheeze on right, normal work of breathing. Concern for aspiration PNA, viral PNA, reactive airway disease, other. Exam/hx at this time is not c/w acute coronary syndrome, pulmonary embolism, acute aortic process, sepsis. Plan for duoneb, EKG, IV placement, screening labs, CXR. CXR negative. Plan for CT chest for further eval for aspiration PNA. CT chest shows nodules, no infiltrate. Concern for possible occult PNA, Plan for augmentin. Pt takes methotrexate for RA. I discussed Pt presentation and results with Dr. Lee, PCP, who recommended stop methotrextate for one week while taking augmentin, then resume methotrextate when augmentin completed. Office will see Pt in f/u. I had a discussion with Patient regarding return to emergency department precautions, methotrexate cessation during augmentin use, home care, and importance of outpatient follow-up. Pt verbalizes understanding of the plan and is amenable. Patient discharged to home with clear plan for outpatient follow-up. All questions were answered. Disposition decision was made weighing the risks and benefits of hospitalization versus outpatient treatment, the risk for further decompensation, and the patient's wishes. Medical Records Medical records reviewed: Yes I reviewed the patient's medical records. Imaging Data Radiologic Study: Attestation: I personally reviewed and interpreted this imaging study as follows: Radiologist's impression: EXAM:? CT CHEST WO CLINICAL HISTORY: ? cough. ? TECHNIQUE:? Imaging protocol: Axial computed tomography images were obtained and coronal and sagittal reformatted images were created and reviewed. COMPARISON:? CT CHEST FOR PULMONARY EMBOLUS from 10/21/2011 CT CHEST WITH CONTRAST from 01/28/[address] WITHOUT CONTRAST from 03/18/2014 CR XR PORTABLE CHEST AP from 03/07/2022 FINDINGS: Tracheobronchial tree: Patent where visualized. Pulmonary parenchyma: There is a 5 mm noncalcified pulmonary nodule in the right lower lobe.? There is a 5 mm pulmonary nodule in the right upper lobe.? No focal consolidating infiltrates are present.? There is dependent atelectasis in the lung bases.? No architectural distortion. There are calcified granuloma present. Mediastinum and Marie: No dominant adenopathy or fluid collection. The esophagus is unremarkable. Thyroid gland: Unremarkable. Pleura: No effusion or pneumothorax. Heart: The heart is not dilated. Coronary artery calcifications are present.? No pericardial effusion. Aorta: Thoracic aorta non-dilated. Atherosclerosis. Upper abdomen:? There is diffuse fatty infiltration of the liver.? There is a round hypodensity in the right kidney which appears represent a cyst. ? Lymph nodes: Within normal limits. Soft tissues: Unremarkable. Bones:Within normal limits for the patient's age.? IMPRESSION: 1. No consolidating infiltrates. 2. Two noncalcified pulmonary nodules, each measuring 5 mm.? For low risk patients, optional CT scan of the chest in 12 months may be obtained.? For high risk patients (history of smoking or other risk fractures), optional [address] scan of the chest may be obtained.? (Hafsa et al, 2017) 3. Pulmonary granulomatous disease. EXAM:? XR PORTABLE CHEST AP CLINICAL HISTORY:? cough TECHNIQUE:? 2D digital imaging was performed of the chest. One image was obtained.? An AP view was obtained. COMPARISON:? CR,XR XR PORTABLE CHEST AP from 10/10/2021 FINDINGS: MEDIASTINUM: Normal.? HEART: Normal. PULMONARY VASCULATURE: Normal. LUNGS: Clear.? PLEURAL SPACE: No pleural effusion or pneumothorax. BONE:Within normal limits for the patient's age. OTHER FINDINGS:Normal.? IMPRESSION: No acute pulmonary findings. Lab Data Lab results reviewed: Yes I reviewed the patient's lab results. Labs: Laboratory Tests Range/Units 03/07/22 03/07/22 03/07/22 10:18 10:18 10:18 WBC (4.4-10.8) 10^3/uL 12.03 H RBC (4.36-5.78) 10^6/uL 4.49 Hgb (13.5-17.5) g/dL 14.4 Hct (40.0-50.0) % 41.6 MCV (80-95) fL 93 MCH (27.0-33.0) pg 32.1 MCHC (32.0-36.0) % 34.6 RDW (11.8-14.1) % 12.9 Plt Count (130-400) 10^3/uL 193 MPV (8.0-11.0) fL 9.2 Immature Gran % 2.8 Neutrophils % 72.1 Lymphocytes % 12.6 Monocytes % 8.7 Eosinophils % 2.9 Basophils % 0.9 Nucleated RBC % (0.0-0.3) % 0.0 Absolute Neutrophils (1.2-6.7) 10^3/uL 8.67 H Absolute Lymphocytes (1.2-3.4) 10^3/uL 1.52 Absolute Monocytes (0.1-0.8) 10^3/uL 1.05 H Absolute Eosinophils (0.0-0.7) 10^3/uL 0.35 Absolute Basophils (0.0-0.2) 10^3/uL 0.11 VBG Lactate (0.6-1.4) mmol/L 2.1 H Sodium (136-145) mmol/L 133 L Potassium (3.5-5.1) mmol/L 4.4 Chloride (98-107) mmol/L 99 Carbon Dioxide (21.0-32.0) mmol/L 26.5 Anion Gap (3-11) mmol/L 7.5 BUN (7-18) mg/dL 16 Creatinine (0.70-1.30) mg/dL 1.0 Estimated GFR/1.73 m2 (mL/min/1.73m2) >= 60.00 Glucose (74-106) mg/dL 264 H Calcium (8.5-10.1) mg/dL 9.0 Total Bilirubin (0.2-1.0) mg/dL 0.6 AST (15-37) U/L 25 ALT (16-63) U/L 42 Alkaline Phosphatase (46-116) U/L 42 L Total Protein (6.4-8.2) g/dL 6.6 Albumin (3.4-5.0) g/dL 3.8 Specimen Type SARS-CoV-2 (PCR) (Negative) Nasopharyn COVID-19 PCR Influenza Type A RNA (Negative) Influenza Type B RNA (Negative) RSV RNA Qual (PCR) (Negative) Ref Test Perform Site Range/Units 03/07/22 03/07/22 10:20 10:20 WBC (4.4-10.8) 10^3/uL RBC (4.36-5.78) 10^6/uL Hgb (13.5-17.5) g/dL Hct (40.0-50.0) % MCV (80-95) fL MCH (27.0-33.0) pg MCHC (32.0-36.0) % RDW (11.8-14.1) % Plt Count (130-400) 10^3/uL MPV (8.0-11.0) fL Immature Gran % Neutrophils % Lymphocytes % Monocytes % Eosinophils % Basophils % Nucleated RBC % (0.0-0.3) % Absolute Neutrophils (1.2-6.7) 10^3/uL Absolute Lymphocytes (1.2-3.4) 10^3/uL Absolute Monocytes (0.1-0.8) 10^3/uL Absolute Eosinophils (0.0-0.7) 10^3/uL Absolute Basophils (0.0-0.2) 10^3/uL VBG Lactate (0.6-1.4) mmol/L Sodium (136-145) mmol/L Potassium (3.5-5.1) mmol/L Chloride (98-107) mmol/L Carbon Dioxide (21.0-32.0) mmol/L Anion Gap (3-11) mmol/L BUN (7-18) mg/dL Creatinine (0.70-1.30) mg/dL Estimated GFR/1.73 m2 (mL/min/1.73m2) Glucose (74-106) mg/dL Calcium (8.5-10.1) mg/dL Total Bilirubin (0.2-1.0) mg/dL AST (15-37) U/L ALT (16-63) U/L Alkaline Phosphatase (46-116) U/L Total Protein (6.4-8.2) g/dL Albumin (3.4-5.0) g/dL Specimen Type Not Applicable SARS-CoV-2 (PCR) (Negative) Negative Nasopharyn COVID-19 PCR Not Applicable Influenza Type A RNA (Negative) Negative Influenza Type B RNA (Negative) Negative RSV RNA Qual (PCR) (Negative) Negative Ref Test Perform Site Sophie [email or web address] [facility] ECG Data Attestation: I personally reviewed and interpreted this ECG (s) as follows: Interpretation: EKG shows sinus rhythm at 85, left bundle branch block as seen on prior, occasional PVC, does not meet sgarbossa criteria, nondiagnostic EKG HPI General Date/Time Provider Initiated Documentation: 03/07/22 09:42 . Limitations to Documentation: no limitations . Information obtained by: patient, family, RN notes reviewed and old records reviewed . HPI Narrative: Sonia Robbins is a 66-year-old man with a history of CVA 1 year ago without residual symptoms, hypertension, coronary artery disease, [id number]-vnlyhteze diabetes presenting to the emergency department with cough. Patient reports that 8 or 9 days ago he had an episode where he was eating some bread and choked while eating. He reports that 2 days later he developed a dry cough. Cough has persisted since that time, he has also noticed shortness of breath with exertion. Patient reports that he had exactly similar symptoms after being diagnosed with aspiration pneumonia after a similar choking episode in the past. He states that he feels otherwise well. He denies any pain, fevers, vomiting, diarrhea, numbness, weakness, rash, swelling. Patient reports that he has been eating and drinking as usual. He states that he is vaccinated for COVID. Related Data Home Medications Medication Instructions Recorded Confirmed acetaminophen 500 mg tablet 1 tab PO Q6H PRN 01/15/13 03/07/22 (Tylenol Extra Strength) hydroxychloroquine 200 mg tablet 2 tab PO DAILY ##90 01/15/13 03/07/22 (Plaquenil) folic acid 1 mg tablet 1 mg PO DAILY 03/10/17 03/07/22 Actemra 800 mg IV Monthly 04/23/18 03/07/22 prednisone 1 mg tablet 1 mg PO DIRECTED 06/04/18 03/07/22 cholecalciferol (vitamin D3) 50 50 mcg PO DAILY 09/21/21 03/07/22 mcg (2,000 unit) tablet albuterol sulfate 90 mcg/actuation 1 - 2 puff inhalation Q4H PRN 09/22/21 03/07/22 aerosol inhaler fluticasone propionate 110 1 puff inhalation BID 09/22/21 03/07/22 mcg/actuation HFA aerosol inhaler magnesium oxide 400 mg PO DAILY 09/22/21 03/07/22 clopidogrel 75 mg tablet (Plavix) 75 mg PO DAILY #30 tabs 09/23/21 03/07/22 methotrexate sodium 2.5 mg tablet 8 mg PO DIRECTED 11/04/21 03/07/22 sacubitril 49 mg-valsartan 51 mg 1 tab PO BID #180 tabs 12/27/21 03/07/22 tablet (Entresto) amoxicillin 875 mg-potassium 1 tab PO BID #14 tabs 03/07/22 clavulanate 125 mg tablet atorvastatin 10 mg tablet (Lipitor) 10 mg PO HS 03/07/22 03/07/22 atorvastatin 20 mg tablet 20 mg PO DAILY 03/07/22 03/07/22 furosemide 40 mg tablet (Lasix) 20 mg PO DAILY PRN edema, sob 03/07/22 03/07/22 metformin 500 mg tablet 500 mg PO DAILY 03/07/22 03/07/22 metoprolol succinate 50 mg 50 mg PO HS 03/07/22 03/07/22 tablet,extended release 24 hr Previous Rx's Medication Instructions Recorded clopidogrel 75 mg tablet (Plavix) 75 mg PO DAILY #30 tabs 09/23/21 sacubitril 49 mg-valsartan 51 mg 1 tab PO BID #180 tabs 12/27/21 tablet (Entresto) amoxicillin 875 mg-potassium 1 tab PO BID #14 tabs 03/07/22 clavulanate 125 mg tablet Allergies Allergy/AdvReac Type Severity Reaction Status Date / Time aspirin Allergy Severe Swelling/Ed Verified 03/07/22 09:22 rigoberto citric acid Allergy Unknown RASH, Verified 03/07/22 09:22 BLISTER adalimumab Allergy NUMBNESS Verified 03/07/22 09:22 NSAIDS (Non-Steroidal AdvReac CONGESTION Verified 03/07/22 09:22 Anti-Inflamma General Stated Complaint: RespSymp EMERALD: 3 Review of Systems Narrative: Constitutional: denies fevers Eyes: denies eye pain ENT: denies ear pain, dental pain, sore throat Cardiovascular: denies chest pain, edema Respiratory: reports SOB, cough GI: denies abdominal pain, vomiting, diarrhea : denies flank pain MSK: denies back pain, neck pain, arthralgias, myalgias Skin: denies rash Neuro: denies headaches, numbness, weakness PFSH All Active Problems (Updated 03/07/22 @ 15:44 by Jaimie Espinal MD) Pulmonary nodule (Acute) Cough (Acute) Chest pain (Acute) Ischemic cerebrovascular accident (CVA) (Acute) Medication monitoring encounter (Acute) Hypertension (Acute) Non-insulin dependent diabetes mellitus (Acute) Cardiomyopathy (Acute) Paresthesia (Acute) Discharge planning issues (Acute) DVT prophylaxis (Acute) Acute cerebrovascular accident (CVA) (Acute) Bronchitis (Acute) Abnormal CT scan (Acute) 01/31/12 [place]; needs repeat scan at 6,12 and 18 months Acute meniscal tear, lateral (Acute) right Allergic rhinitis (Acute 03/27/14) Chronic sinusitis (Acute 03/27/14) Deviated nasal septum (Acute 03/27/14) Family history of colon cancer (Acute) father-colon Foot joint pain (Acute 07/23/13) History of tobacco use (Acute) Hyperplastic colon polyp (Acute) DR. Kvng NOGUEIRA; X 3 Migraine (Acute) Medical History Chronic lower back pain Lightheadedness Migraine headache with aura Obesity, morbid, BMI 40.0-49.9 Rheumatoid arthritis Steroid dependent Surgical History Colonoscopy - MAC 05/16/14 RIB REMOVAL (10/24/83) LEFT TOP RIB Family History Mother Personal history of malignant neoplasm LUNG Father Personal history of malignant neoplasm COLON Sister No problems noted. Brother Personal history of malignant neoplasm LUNG Social History Smoking/Tobacco Use Status: Former Tobacco Use Quit Date: 10/23/97 Smoking risk assessment performed?: Yes Alcohol Intake: never Drug use: Never Substance use type: does not use Housing: house Number of Children: 2 What is your relationship status?: Panel score (0-1 are the most socially isolated patients): 0 Seatbelt use: always Do you feel safe at home: Yes Do you feel safe in your relationship?: Yes Exam Narrative Exam Narrative: Constitutional: well and izl-pnutj-qmgnvpras, pleasant, conversing normally, intermittment dry cough HENT: head atraumatic/normocephalic/normal inspection, mucous membranes moist Eyes: conjunctiva normal, sclera normal, pupils 3mm b/l Neck: no stridor, normal ROM, trachea midline Chest: normal inspection Resp: normal work of breathing, mild expiratory wheeze worse on right Cardio: normal rate, normal rhythm, no murmur appreciated GI: abdomen soft, non-tender, non-distended Back: normal inspection, no rash Skin: warm, dry, normal color, no rash Neuro: alert, not altered, grossly non-focal, normal tone Ext: no edema, no posterior calf TTP Psych: normal mood, normal affect, normal behavior Course Vital Signs Vital signs: Vital Signs Temperature 36.7 C 03/07/22 09:17 Pulse 101 H 03/07/22 09:17 Respiratory Rate 18 03/07/22 09:17 Blood Pressure 146/81 H 03/07/22 09:17 Pulse Oximetry 95 03/07/22 09:17 Temperature 36.7 C 03/07/22 09:17 Temperature Source Temporal Artery Scan 03/07/22 09:17 Pulse 101 H 03/07/22 09:17 Respiratory Rate 18 03/07/22 09:17 Respiratory Effort Non-Labored 03/07/22 09:23 Respiratory Depth Normal 03/07/22 09:23 Blood Pressure 146/81 H 03/07/22 09:17 Blood Pressure Position Sitting 03/07/22 09:17 Pulse Oximetry 95 03/07/22 09:17 Oxygen Delivery Method Room Air 03/07/22 09:17 Oxygen Flow Rate 0 03/07/22 09:17 Pain Level 0 03/07/22 09:17
--- NOTE | 2022-03-07 10:00 | RT.EKG_ITS ---
APPROVED REPORT Exam: Resting ECG Reason for Exam: SOB Patient Location: E HR:85 bpm ECG Measurements Heart Rate 85 AXIS FL 226 P 37 QRSd 158 QRS -40 QT 385 T 143 QTc 455 Conclusion Sinus rhythm...normal P axis, V-rate 60- 99 Ventricular premature complex...V complex w/ short R-R interval Prolonged FL interval...FL >220, V-rate 50- 90 Left bundle branch block...QRSd>120, broad/notched R ST elevation secondary to IVCD...Multiple VCG criteria sinus rhythm at 85, left bundle branch block as seen on prior, occasional PVC, does not meet sgarboss a criteria, nondiagnostic EKG
[2022-03-07 10:27] LABS: Abs Immature Grans 0.34 10^3/uL (0.0-0.06); Absolute Basophil Count 0.11 10^3/uL (0.0-0.2); Absolute Eosinophil Count 0.35 10^3/uL (0.0-0.7); Absolute Monocyte Count 1.05 10^3/uL (0.1-0.8); Absolute Neutrophil Count 8.67 10^3/uL (1.2-6.7); Basophils % 0.9; Eosinophils % 2.9; HCT 41.6 % (40.0-50.0); HGB 14.4 g/dL (13.5-17.5); Immature Grans % 2.8; Lymphocytes % 12.6; MCH 32.1 pg (27.0-33.0); MCHC 34.6 % (32.0-36.0); MCV 93 fL (80-95); MPV 9.2 fL (8.0-11.0); Monocytes % 8.7; Neutrophils % 72.1; Platelet Count 193 10^3/uL (130-400); RBC 4.49 10^6/uL (4.36-5.78); RDW 12.9 % (11.8-14.1); RDW-SD 43.4 fL; WBC 12.03 10^3/uL (4.4-10.8)
[2022-03-07 10:29] LABS: Lactate 2.1 mmol/L (0.6-1.4)
[2022-03-07 10:30] LABS: Absolute Lymphocyte Count 1.52 10^3/uL (1.2-3.4)
[2022-03-07 10:54] LABS: ALT 42 U/L (16-63); AST 25 U/L (15-37); Albumin 3.8 g/dL (3.4-5.0); Alkaline Phosphatase 42 U/L (46-116); Anion Gap 7.5 mmol/L (3-11); BUN 16 mg/dL (7-18); Bilirubin, Total 0.6 mg/dL (0.2-1.0); CO2 26.5 mmol/L (21.0-32.0); Chloride 99 mmol/L (98-107); Glucose 264 mg/dL (74-106); Potassium 4.4 mmol/L (3.5-5.1); Sodium 133 mmol/L (136-145); Total Protein 6.6 g/dL (6.4-8.2)
--- NOTE | 2022-03-07 11:03 | DI.RAD_ITS ---
Exam(s) XR PORTABLE CHEST AP EXAM: XR PORTABLE CHEST AP CLINICAL HISTORY: cough TECHNIQUE: 2D digital imaging was performed of the chest. One image was obtained. An AP view was ob tained. COMPARISON: CR,XR XR PORTABLE CHEST AP from 10/10/2021 FINDINGS: MEDIASTINUM: Normal. HEART: Normal. PULMONARY VASCULATURE: Normal. LUNGS: Clear. PLEURAL SPACE: No pleural effusion or pneumothorax. BONE:Within normal limits for the patient's age. OTHER FINDINGS:Normal. IMPRESSION: No acute pulmonary findings. DATA REPOSITORY: RADIATION DOSE DELIVERED:
--- NOTE | 2022-03-07 12:00 | DI.CT_ITS ---
Exam(s) CT CHEST WO EXAM: CT CHEST WO CLINICAL HISTORY: cough. TECHNIQUE: Imaging protocol: Axial computed tomography images were obtained and coronal and sagittal reformatted images were created and reviewed. COMPARISON: CT CHEST FOR PULMONARY EMBOLUS from 10/21/2011 CT CHEST WITH CONTRAST from 01/28/[address] WITHOUT CONTRAST from 03/18/2014 CR XR PORTABLE CHEST AP from 03/07/2022 FINDINGS: Tracheobronchial tree: Patent where visualized. Pulmonary parenchyma: There is a 5 mm noncalcified pulmonary nodule in the right lower lobe. There i s a 5 mm pulmonary nodule in the right upper lobe. No focal consolidating infiltrates are present. There is dependent atelectasis in the lung bases. No architectural distortion. There are calcified g ranuloma present. Mediastinum and Marie: No dominant adenopathy or fluid collection. The esophagus is unremarkable. Thyroid gland: Unremarkable. Pleura: No effusion or pneumothorax. Heart: The heart is not dilated. Coronary artery calcifications are present. No pericardial effusion . Aorta: Thoracic aorta non-dilated. Atherosclerosis. Upper abdomen: There is diffuse fatty infiltration of the liver. There is a round hypodensity in th e right kidney which appears represent a cyst. Lymph nodes: Within normal limits. Soft tissues: Unremarkable. Bones:Within normal limits for the patient's age. IMPRESSION: 1. No consolidating infiltrates. 2. Two noncalcified pulmonary nodules, each measuring 5 mm. For low risk patients, optional CT scan of the chest in 12 months may be obtained. For high risk patients (history of smoking or other risk fractures), optional [address] scan of the chest may be obtained. (Hafsa et al, 2017) 3. Pulmonary granulomatous disease. 4. Results of this exam have been verbally communicated with provider. RADIATION DOSE DELIVERED: 977.08mGy.cm Total DLP 977.08mGy.cm Total DLP DATA REPOSITORY: All CT scans at this facility are submitted to the National Radiology Data Registry (NRDR) Dose Index Registry (DIR) with the [employer] ([employer]). RADIATION OPTIMIZATION: All CT scans at this facility use at least one of these dose optimization te chniques: automated exposure control; mA and/or kV adjustment per patient size (includes targeted exa ms where dose is matched to clinical indication); or iterative reconstruction.
[2022-03-07] MEDS: Albuterol HFA 8 GM 60 PUFF INH IH (15:40)
[2022-03-07] MEDS: Albuterol/Ipratropium 3 ML UPD VIAL UPD (15:41)
[2022-03-07] MEDS: Amoxicillin 875/Clav. 125 TAB PO (15:41)
[2022-03-07 22:27] LABS: Influenza A RNA Result Negative (Negative); Influenza B RNA Result Negative (Negative); RSV RNA Result Negative (Negative)
[2022-03-08 11:56] LABS: COVID-19 RT-PCR UVMMC Result Negative (Negative)
--- NOTE | 2022-03-08 18:04 | NUR.NOTE ---
negative covid and flu test results relayed to patient.
== END 2022-03-07 16:18 | disposition home or self-care (01) ==
PROVIDERS: Emergency Provider Student in an Organized Health Care Education/Training Program; PCP Nurse Practitioner Family
DX: R91.8 Other nonspecific abnormal finding of lung field (principal); R05.9 Cough, unspecified; R06.02 Shortness of breath; Z20.822 Contact with and (suspected) exposure to COVID-19
CPT/HCPCS: 36415; 71250; 80053; 87631; 93005; 99284; 99285; U0003; U0005; 71045; 83605; 85025; 93010; J7620

== ENCOUNTER 2022-03-15 02:27 | Outpatient (RCR) | payer MEDICARE, OTHER, SELFPAY ==
[2022-02-20 00:05] VITALS: BP 127/84; PULSE 94; RESP 20; TEMP 36.6
[2022-03-15] MEDS: Normal Saline Flush 10 ML SYR IVP (07:56)
[2022-03-15] MEDS: TOCILIZUMAB 800 MG in Normal Saline 60 ML 100 MG IVPB (08:00)
== END 2022-03-22 23:59 | disposition home or self-care (01) ==
LOC: INF 02:27
PROVIDERS: PCP Nurse Practitioner Family; Visit Provider Internal Medicine
DX: M06.9 Rheumatoid arthritis, unspecified (principal)
CPT/HCPCS: 96365; J3262

== ENCOUNTER → 2022-04-04 12:37 | Outpatient (BNVA) | payer MEDICARE, OTHER, SELFPAY | PROVIDERS: PCP Nurse Practitioner Family; Referring Provider Nurse Practitioner Family; Visit Provider Internal Medicine Cardiovascular Disease | DX: I25.10 Atherosclerotic heart disease of native coronary artery without angina pectoris (principal); I10 Essential (primary) hypertension; I25.5 Ischemic cardiomyopathy | CPT/HCPCS: 99214; 99213 ==

== ENCOUNTER 2022-04-12 00:38 | Outpatient (RCR) | payer MEDICARE, OTHER, SELFPAY ==
[2022-03-23 00:12] VITALS: BP 127/84; PULSE 94; RESP 20; TEMP 36.6
[2022-04-12] MEDS: Normal Saline Flush 10 ML SYR IVP (08:17)
[2022-04-12] MEDS: TOCILIZUMAB 800 MG in Normal Saline 60 ML 100 MG IVPB (08:26)
== END 2022-04-21 23:59 | disposition home or self-care (01) ==
LOC: INF 00:38
PROVIDERS: PCP Nurse Practitioner Family; Visit Provider Internal Medicine
DX: M06.9 Rheumatoid arthritis, unspecified (principal)
CPT/HCPCS: 96365; J3262

== ENCOUNTER 2022-04-16 13:54 | Emergency (ER) | payer MEDICARE, OTHER, SELFPAY ==
[2022-04-16] VITALS (8 sets, daily range): BP systolic 141; BP diastolic 83; PULSE 65–88; RESP 16–20; TEMP 36.1; O2SAT 95
--- NOTE | 2022-04-16 14:30 | RT.EKG_ITS ---
APPROVED REPORT Exam: Resting ECG Reason for Exam: sob Patient Location: E HR:67 bpm ECG Measurements Heart Rate 67 AXIS KS 200 P -12 QRSd 156 QRS -49 QT 415 T 139 QTc 439 Conclusion Sinus rhythm...normal P axis, V-rate 60- 99 Left bundle branch block...QRSd>120, broad/notched R appropriately disconcordant
--- NOTE | 2022-04-16 14:30 | DI.RAD_ITS ---
Exam(s) XR PORTABLE CHEST AP EXAM: XR PORTABLE CHEST AP CLINICAL HISTORY: cough/sob. TECHNIQUE: 2D digital imaging was performed. COMPARISON: Prior chest x-ray 03/07/2022 FINDINGS: Single AP portable view. Heart size is upper normal. The mediastinum is not widened. Lungs are clear. No infiltrates nor obvious pleural effusions. IMPRESSION: No acute pulmonary findings on this single AP portable view of the chest. DATA REPOSITORY: RADIATION DOSE DELIVERED: All CT scans at this facility use at least one of these dose optimization techniques: automated exposure control; mA and/or kV adjustment per patient size (includes targeted e xams where dose is matched to clinical indication); or iterative reconstruction.
--- NOTE | 2022-04-16 14:43 | ED.GENADUL_ITS ---
Discharge Plan Disposition Patient Disposition: HOME Condition: Stable Discharge Details Clinical Impression: Cough, Aspiration into respiratory tract Primary Care Provider: Isabel Dickey ED Provider: Tony Espinal Home Meds and New Rx's Prescriptions: Continued Entresto 97-103 mg tablet 1 tab PO BID Qty: 180 3RF acetaminophen [Tylenol Extra Strength] 500 MG tablet 1 tab PO Q6H PRN hydroxychloroquine [Plaquenil] 200 MG tablet 2 tab PO DAILY Qty: 90 Label Comments: Takes QAM actemra 800 mg IV Monthly Label Comments: 04-23-18 pt is unsure of dose. -hb prednisone 1 MG tablet 4 mg PO DIRECTED clopidogrel [Plavix] 75 mg tablet 75 mg PO DAILY Qty: 90 1RF folic acid 1 MG tablet 1 mg PO DAILY methotrexate sodium 2.5 mg tablet 8 mg PO DIRECTED Label Comments: Pt states he takes 4X2.5mg tablets BID (for a total dose of 20mg) every monday once/wk cholecalciferol (vitamin D3) 50 mcg (2,000 unit) Tablet 50 mcg PO DAILY magnesium oxide 400 mg magnesium Tablet 400 mg PO DAILY fluticasone propionate 110 mcg/actuation Hfa Aerosol Inhaler 1 puff INHALATION BID albuterol sulfate 90 mcg/actuation Hfa Aerosol Inhaler 1 - 2 puff INHALATION Q4H PRN metformin 500 mg Tablet 500 mg PO DAILY atorvastatin [Lipitor] 10 mg Tablet 10 mg PO HS furosemide [Lasix] 40 mg tablet 20 mg PO DAILY PRN (Reason: edema, sob) atorvastatin 20 mg tablet 20 mg PO DAILY metoprolol succinate 50 mg tablet extended release 24 hr 50 mg PO HS Discharge Instructions Instructions: Acute Cough (ED), Aspiration Precautions (ED) Additional Instructions: Please contact your primary care physician to arrange follow-up. Call on Monday to confirm follow-up this week. Return to the ER immediately for any worsening or new concerning symptoms. Referrals: Isabel Dickey [Primary Care Provider] - Medical Decision Making This is a 66-year-old gentleman with a past medical history of CVA, hypertension, ID, diabetes, cardiomyopathy, presenting to the ER reporting cough, shortness of breath, left-sided chest pressure, concern for aspiration pneumonia. Patient states he was treated last month for the same, symptoms resolved, and then a couple weeks ago he is concerned that he might of aspirated a piece of corn. He is scheduled this week as an outpatient for further evaluation of his ongoing symptoms. Clinically he appears well, nontoxic, pulse in the 80s, respirations 16, speaking full sentences, afebrile, O2 sat 95% on room air. Given his extensive past medical history, presentation, I believe initiating a cardiac work-up including a D-dimer is prudent. Patient reports allergy to aspirin, edema, will not provide aspirin now Medical Records Medical records reviewed: Yes I reviewed the patient's medical records. ECG Data Attestation: I personally reviewed and interpreted this ECG (s) as follows: Interpretation: Please see official report by Dr. Steward. Sinus rhythm, ventricular rate 67, left bundle branch block. HPI General Mode of arrival: ambulatory . Date/Time Provider Initiated Documentation: 04/16/22 14:06 . Limitations to Documentation: no limitations . Information obtained by: patient and family . HPI Narrative: This is a 66-year-old male, past medical history of CVA, hypertension, diabetes, cardiomyopathy, history of smoking, ID, on Plavix, RA, on immunosuppressant, presenting to the ER reporting shortness of breath, left-sided chest pressure, concern for potential aspiration pneumonia. Patient states that he had a very similar episode last month and was placed on an antibiotic, Augmentin. He took the medication and reports that he had all the symptoms resolved completely. Subsequently he states that he has been having multiple episodes of aspiration and is scheduled next week for further imaging and work-up of his ongoing symptoms. He states that starting on Father's Day he felt as though he may have aspirated a piece of corn and since that time has had increasing cough, left- sided chest pressure, shortness of breath. He does tell me that he is vaccinated against COVID including his booster but has not had his second booster. He denies any fever, productive cough, chest pain, abdominal pain, nausea vomiting, pain or swelling in his legs. Related Data Home Medications Medication Instructions Recorded Confirmed acetaminophen 500 mg tablet 1 tab PO Q6H PRN 01/15/13 04/16/22 (Tylenol Extra Strength) hydroxychloroquine 200 mg tablet 2 tab PO DAILY ##90 01/15/13 04/16/22 (Plaquenil) folic acid 1 mg tablet 1 mg PO DAILY 03/10/17 04/16/22 Actemra 800 mg IV Monthly 04/23/18 04/16/22 prednisone 1 mg tablet 4 mg PO DIRECTED 06/04/18 04/16/22 cholecalciferol (vitamin D3) 50 50 mcg PO DAILY 09/21/21 04/16/22 mcg (2,000 unit) tablet albuterol sulfate 90 mcg/actuation 1 - 2 puff inhalation Q4H PRN 09/22/21 04/16/22 aerosol inhaler fluticasone propionate 110 1 puff inhalation BID 09/22/21 04/16/22 mcg/actuation HFA aerosol inhaler magnesium oxide 400 mg PO DAILY 09/22/21 04/16/22 methotrexate sodium 2.5 mg tablet 8 mg PO DIRECTED 11/04/21 04/16/22 atorvastatin 10 mg tablet (Lipitor) 10 mg PO HS 03/07/22 04/16/22 atorvastatin 20 mg tablet 20 mg PO DAILY 03/07/22 04/16/22 furosemide 40 mg tablet (Lasix) 20 mg PO DAILY PRN edema, sob 03/07/22 04/16/22 metformin 500 mg tablet 500 mg PO DAILY 03/07/22 04/16/22 metoprolol succinate 50 mg 50 mg PO HS 03/07/22 04/16/22 tablet,extended release 24 hr clopidogrel 75 mg tablet (Plavix) 75 mg PO DAILY #90 tabs 03/25/22 04/16/22 sacubitril 97 mg-valsartan 103 mg 1 tab PO BID #180 tabs 04/04/22 04/16/22 tablet (Entresto) Previous Rx's Medication Instructions Recorded clopidogrel 75 mg tablet (Plavix) 75 mg PO DAILY #90 tabs 03/25/22 sacubitril 97 mg-valsartan 103 mg 1 tab PO BID #180 tabs 04/04/22 tablet (Entresto) Allergies Allergy/AdvReac Type Severity Reaction Status Date / Time aspirin Allergy Severe Swelling/Ed Verified 04/16/22 14:04 rigoberto citric acid Allergy Unknown RASH, Verified 04/16/22 14:04 BLISTER adalimumab Allergy NUMBNESS Verified 04/16/22 14:04 NSAIDS (Non-Steroidal AdvReac CONGESTION Verified 04/16/22 14:04 Anti-Inflamma General Stated Complaint: SOB EMERALD: 3 Review of Systems Constitutional Constitutional: Denies fatigue, Denies fever(s), Denies headache(s) and Denies weakness ENT Ears, Nose, Mouth, and Throat: Denies headache(s) and Denies neck pain Cardiovascular Cardiovascular: Reports chest pain (Pressure) and Reports dyspnea Respiratory Respiratory: Reports cough and Reports dyspnea Gastrointestinal Gastrointestinal: Denies abdominal pain, Denies nausea and Denies vomiting Musculoskeletal Musculoskeletal: Denies back pain and Denies neck pain Integumentary/Breasts Skin/Breast: Denies rash Neurologic Neurologic: Denies headache(s) and Denies weakness Endocrine Endocrine: Denies fatigue Hematologic/Lymphatic Hematologic/Lymphatic: Reports easy bleeding and Reports easy bruising PFS All Active Problems (Updated 04/16/22 @ 18:15 by Tony Espinal MD) Cough (Acute) Aspiration into respiratory tract (Acute) Chest pain (Acute) Ischemic cerebrovascular accident (CVA) (Acute) Medication monitoring encounter (Acute) Hypertension (Acute) Non-insulin dependent diabetes mellitus (Acute) Cardiomyopathy (Acute) Paresthesia (Acute) Discharge planning issues (Acute) DVT prophylaxis (Acute) Acute cerebrovascular accident (CVA) (Acute) Bronchitis (Acute) Abnormal CT scan (Acute) 01/31/12 [place]; needs repeat scan at 6,12 and 18 months Acute meniscal tear, lateral (Acute) right Allergic rhinitis (Acute 03/27/14) Chronic sinusitis (Acute 03/27/14) Deviated nasal septum (Acute 03/27/14) Family history of colon cancer (Acute) father-colon Foot joint pain (Acute 07/23/13) History of tobacco use (Acute) Hyperplastic colon polyp (Acute) DR. Kvng NOGUEIRA; X 3 Migraine (Acute) Medical History Arterial disease Arthritis CAD (coronary artery disease) Choking Chronic lower back pain CVA (cerebral vascular accident) Dry eye syndrome First degree atrioventricular block Food allergy Glaucoma Hip pain, left History of torn meniscus of left knee Hypermetropia Left bundle branch block Lightheadedness Long-term use of high-risk medication Low back pain Migraine headache with aura Mitral valve regurgitation Obesity, morbid, BMI 40.0-49.9 Pneumonia Presbyopia Regular astigmatism Rheumatoid arthritis Steroid dependent Type 2 diabetes mellitus Surgical History Colonoscopy - MAC 05/16/14 RIB REMOVAL (10/24/83) LEFT TOP RIB Family History Mother Personal history of malignant neoplasm LUNG Father Personal history of malignant neoplasm COLON Sister No problems noted. Brother Personal history of malignant neoplasm LUNG Social History Smoking/Tobacco Use Status: Former Tobacco Use Quit Date: 10/23/97 Smoking risk assessment performed?: Yes Alcohol Intake: never Drug use: Never Substance use type: does not use Housing: house Number of Children: 2 What is your relationship status?: Panel score (0-1 are the most socially isolated patients): 0 Seatbelt use: always Do you feel safe at home: Yes Do you feel safe in your relationship?: Yes Exam Const General: cooperative, healthy appearing, comfortable and no acute distress Orientation: alert, awake and oriented x3 HENMT Head: normal to inspection, normocephalic and atraumatic Face and sinus: normal facial exam Mouth: moist mucous membranes Eyes General: appearance normal, both eyes and all related structures Conjunctivae: conjunctivae normal Neck Neck: normal visual inspection, trachea midline and supple Resp Effort & Inspection: normal respiratory effort, able to speak in complete sentences and cough Quality of cough: dry Auscultation: wheezes (Scattered occasionally throughout, mostly clear with coughing) Cardio Rate: regular rate Rhythm: regular rhythm GI Palpation: soft and nontender Back/Spine/Pelvis Back: No back tenderness Skin General skin exam: no rashes or lesions noted Neuro General: patient alert, patient awake, moves all extremities and no focal motor deficits Cognition: normal cognition Speech: speech normal Gait: normal gait Motor: muscle tone normal throughout Sensory Exam: no sensory deficits noted Extrem General: normal to inspection, full ROM, capillary refill normal, no pedal edema and no calf tenderness Psych Appearance: grossly normal Mental Status: mental status grossly normal Course Vital Signs Vital signs: Vital Signs Temperature 36.1 C L 04/16/22 13:57 Pulse 88 04/16/22 13:57 Respiratory Rate 16 04/16/22 13:57 Blood Pressure 141/83 H 04/16/22 13:57 Pulse Oximetry 95 04/16/22 13:57 Temperature 36.1 C L 04/16/22 13:57 Temperature Source Temporal Artery Scan 04/16/22 13:57 Pulse 88 04/16/22 13:57 Respiratory Rate 20 04/16/22 14:07 Respiratory Effort 04/16/22 14:07 Respiratory Depth Normal 04/16/22 14:07 Respiratory Pattern Normal 04/16/22 14:07 Blood Pressure 141/83 H 04/16/22 13:57 Blood Pressure Position Sitting 04/16/22 13:57 Pulse Oximetry 95 04/16/22 13:57 Oxygen Delivery Method Room Air 04/16/22 13:57 Oxygen Flow Rate 0 04/16/22 13:57 Pain Level 0 04/16/22 13:57 Sign Out Sign Out Data: Sign Out Comment: Patient presents with cough, shortness of breath, left-sided chest pressure, concern for aspiration pneumonia. Given his extensive past medical history initiated a cardiac work-up including D-dimer. Laboratory values and chest x-ray pending Last updated by Akash Vasquez PA at 04/16/22 15:46
[2022-04-16 15:43] LABS: Source Nasal/Nares
[2022-04-16 15:44] LABS: Abs Immature Grans 0.04 10^3/uL (0.0-0.06); Absolute Basophil Count 0.08 10^3/uL (0.0-0.2); Absolute Eosinophil Count 0.36 10^3/uL (0.0-0.7); Absolute Lymphocyte Count 2.12 10^3/uL (1.2-3.4); Absolute Monocyte Count 1.32 10^3/uL (0.1-0.8); Absolute Neutrophil Count 3.31 10^3/uL (1.2-6.7); Basophils % 1.1; HCT 46.2 % (40.0-50.0); HGB 15.8 g/dL (13.5-17.5); Immature Grans % 0.6; Lymphocytes % 29.3; MCHC 34.2 % (32.0-36.0); MCV 94 fL (80-95); MPV 9.2 fL (8.0-11.0); Monocytes % 18.3; Neutrophils % 45.7; Platelet Count 220 10^3/uL (130-400); RBC 4.94 10^6/uL (4.36-5.78); RDW 12.6 % (11.8-14.1); RDW-SD 42.9 fL; WBC 7.23 10^3/uL (4.4-10.8)
--- NOTE | 2022-04-16 15:56 | DI.VRAD_ITS ---
PROCEDURE INFORMATION: Exam: XR Chest Exam date and time: 04/16/2022 3:10 PM Age: 66 years old Clinical indication: Shortness of breath; Patient HX: SOB TECHNIQUE: Imaging protocol: Radiologic exam of the chest. Views: 1 view. COMPARISON: CT CHEST WO 03/07/2022 2:11 PM FINDINGS: Lungs: Unremarkable. No consolidation. Pleural spaces: Unremarkable. No pleural effusion. No pneumothorax. Heart/Mediastinum: Unremarkable. No cardiomegaly. Bones/joints: Unremarkable. IMPRESSION: No acute findings. Dictated and Authenticated by: Oliva River MD. Ordering:ROLF Bustos MD
[2022-04-16 15:58] LABS: PTT Activated 21.2 sec (21.0-27.5); Prothrombin Time 10.5 sec (9.3-11.0)
[2022-04-16 16:04] LABS: ALT 68 U/L (16-63); AST 37 U/L (15-37); Albumin 4.1 g/dL (3.4-5.0); Alkaline Phosphatase 36 U/L (46-116); Anion Gap 7.8 mmol/L (3-11); BUN 18 mg/dL (7-18); Bilirubin, Total 0.8 mg/dL (0.2-1.0); CO2 29.2 mmol/L (21.0-32.0); CREATININE 1.2 mg/dL (0.70-1.30); Calcium 9.4 mg/dL (8.5-10.1); Chloride 100 mmol/L (98-107); Glucose 137 mg/dL (74-106); Magnesium 1.8 mg/dL (1.8-2.4); NT-proBNP 222 pg/mL (<300); Potassium 4.5 mmol/L (3.5-5.1); Sodium 137 mmol/L (136-145); Total Protein 7.1 g/dL (6.4-8.2); Troponin I < 50 ng/L (<or=60)
[2022-04-16 16:29] LABS: D-Dimer 186 ng/mlFEU (<500)
[2022-04-16 16:34] LABS: COVID-19 PCR Negative (Negative)
[2022-04-16 17:53] LABS: Troponin I < 50 ng/L (<or=60)
--- NOTE | 2022-04-16 18:12 | W.EDPROG ---
Date of service: 04/16/22 Time of Service: 18:12 Medical Decision Making Care was signed out by KYLE Vasquez, please see his documentation regarding initial ED presentation and course. Plan at signout was to follow-up on diagnostic labs and chest x-ray and reassess patient for disposition. Labs reviewed and nondiagnostic. Patient has no leukocytosis. Initial troponin and delta troponin negative and unchanged. Chest x-ray was reviewed and interpreted by radiology: No acute findings. Lungs noted to be unremarkable with no consolidation. EKG was reviewed and interpreted by me: Please see report, left bundle branch block present, this is chronic, appropriate this concordance present. Patient was reassessed and remained hemodynamically stable. Saturating well in no respiratory distress. All results were discussed with the patient. He does have follow-up scheduled this week which I encouraged him to maintain. He was encouraged to return immediately for any worsening or new concerning symptoms which were reviewed with him. A medical screening exam was performed today. Usual customary discharge instructions were reviewed with the patient. Lab Data Lab results reviewed: Yes I reviewed the patient's lab results. Labs: Laboratory Tests Range/Units 04/16/22 04/16/22 04/16/22 15:35 15:35 15:35 WBC (4.4-10.8) 10^3/uL 7.23 RBC (4.36-5.78) 10^6/uL 4.94 Hgb (13.5-17.5) g/dL 15.8 Hct (40.0-50.0) % 46.2 MCV (80-95) fL 94 MCH (27.0-33.0) pg 32.0 MCHC (32.0-36.0) % 34.2 RDW (11.8-14.1) % 12.6 Plt Count (130-400) 10^3/uL 220 MPV (8.0-11.0) fL 9.2 Immature Gran % 0.6 Neutrophils % 45.7 Lymphocytes % 29.3 Monocytes % 18.3 Eosinophils % 5.0 Basophils % 1.1 Nucleated RBC % (0.0-0.3) % 0.0 Absolute Neutrophils (1.2-6.7) 10^3/uL 3.31 Absolute Lymphocytes (1.2-3.4) 10^3/uL 2.12 Absolute Monocytes (0.1-0.8) 10^3/uL 1.32 H Absolute Eosinophils (0.0-0.7) 10^3/uL 0.36 Absolute Basophils (0.0-0.2) 10^3/uL 0.08 PT (9.3-11.0) sec 10.5 INR (0.9-1.1) 1.0 APTT (21.0-27.5) sec 21.2 D-Dimer (<500) ng/mlFEU 186 Sodium (136-145) mmol/L 137 Potassium (3.5-5.1) mmol/L 4.5 Chloride (98-107) mmol/L 100 Carbon Dioxide (21.0-32.0) mmol/L 29.2 Anion Gap (3-11) mmol/L 7.8 BUN (7-18) mg/dL 18 Creatinine (0.70-1.30) mg/dL 1.2 Estimated GFR/1.73 m2 (mL/min/1.73m2) >= 60.00 Glucose (74-106) mg/dL 137 H Calcium (8.5-10.1) mg/dL 9.4 Magnesium (1.8-2.4) mg/dL 1.8 Total Bilirubin (0.2-1.0) mg/dL 0.8 AST (15-37) U/L 37 ALT (16-63) U/L 68 H Alkaline Phosphatase (46-116) U/L 36 L Troponin I (<or=60) ng/L < 50 NT-Pro-B Natriuret Pep (<300) pg/mL 222 Total Protein (6.4-8.2) g/dL 7.1 Albumin (3.4-5.0) g/dL 4.1 COVID-19 Source SARS-CoV-2 (PCR) (Negative) Range/Units 04/16/22 04/16/22 15:35 17:27 WBC (4.4-10.8) 10^3/uL RBC (4.36-5.78) 10^6/uL Hgb (13.5-17.5) g/dL Hct (40.0-50.0) % MCV (80-95) fL MCH (27.0-33.0) pg MCHC (32.0-36.0) % RDW (11.8-14.1) % Plt Count (130-400) 10^3/uL MPV (8.0-11.0) fL Immature Gran % Neutrophils % Lymphocytes % Monocytes % Eosinophils % Basophils % Nucleated RBC % (0.0-0.3) % Absolute Neutrophils (1.2-6.7) 10^3/uL Absolute Lymphocytes (1.2-3.4) 10^3/uL Absolute Monocytes (0.1-0.8) 10^3/uL Absolute Eosinophils (0.0-0.7) 10^3/uL Absolute Basophils (0.0-0.2) 10^3/uL PT (9.3-11.0) sec INR (0.9-1.1) APTT (21.0-27.5) sec D-Dimer (<500) ng/mlFEU Sodium (136-145) mmol/L Potassium (3.5-5.1) mmol/L Chloride (98-107) mmol/L Carbon Dioxide (21.0-32.0) mmol/L Anion Gap (3-11) mmol/L BUN (7-18) mg/dL Creatinine (0.70-1.30) mg/dL Estimated GFR/1.73 m2 (mL/min/1.73m2) Glucose (74-106) mg/dL Calcium (8.5-10.1) mg/dL Magnesium (1.8-2.4) mg/dL Total Bilirubin (0.2-1.0) mg/dL AST (15-37) U/L ALT (16-63) U/L Alkaline Phosphatase (46-116) U/L Troponin I (<or=60) ng/L < 50 NT-Pro-B Natriuret Pep (<300) pg/mL Total Protein (6.4-8.2) g/dL Albumin (3.4-5.0) g/dL COVID-19 Source Nasal/Nares SARS-CoV-2 (PCR) (Negative) Negative Sign Out Sign Out Data: Sign Out Comment: Patient presents with cough, shortness of breath, left-sided chest pressure, concern for aspiration pneumonia. Given his extensive past medical history initiated a cardiac work-up including D-dimer. Laboratory values and chest x-ray pending Last updated by Akash Vasquez PA at 04/16/22 15:46 Discharge Plan Disposition Patient Disposition: HOME Condition: Stable Discharge Details Clinical Impression: Cough, Aspiration into respiratory tract Primary Care Provider: Isabel Dickey ED Provider: Tony Espinal Home Meds and New Rx's Prescriptions: Continued Entresto 97-103 mg tablet 1 tab PO BID Qty: 180 3RF acetaminophen [Tylenol Extra Strength] 500 MG tablet 1 tab PO Q6H PRN hydroxychloroquine [Plaquenil] 200 MG tablet 2 tab PO DAILY Qty: 90 Label Comments: Takes QAM actemra 800 mg IV Monthly Label Comments: 04-23-18 pt is unsure of dose. -hb prednisone 1 MG tablet 4 mg PO DIRECTED clopidogrel [Plavix] 75 mg tablet 75 mg PO DAILY Qty: 90 1RF folic acid 1 MG tablet 1 mg PO DAILY methotrexate sodium 2.5 mg tablet 8 mg PO DIRECTED Label Comments: Pt states he takes 4X2.5mg tablets BID (for a total dose of 20mg) every monday once/wk cholecalciferol (vitamin D3) 50 mcg (2,000 unit) Tablet 50 mcg PO DAILY magnesium oxide 400 mg magnesium Tablet 400 mg PO DAILY fluticasone propionate 110 mcg/actuation Hfa Aerosol Inhaler 1 puff INHALATION BID albuterol sulfate 90 mcg/actuation Hfa Aerosol Inhaler 1 - 2 puff INHALATION Q4H PRN metformin 500 mg Tablet 500 mg PO DAILY atorvastatin [Lipitor] 10 mg Tablet 10 mg PO HS furosemide [Lasix] 40 mg tablet 20 mg PO DAILY PRN (Reason: edema, sob) atorvastatin 20 mg tablet 20 mg PO DAILY metoprolol succinate 50 mg tablet extended release 24 hr 50 mg PO HS Discharge Instructions Instructions: Acute Cough (ED), Aspiration Precautions (ED) Additional Instructions: Please contact your primary care physician to arrange follow-up. Call on Monday to confirm follow-up this week. Return to the ER immediately for any worsening or new concerning symptoms. Referrals: Isabel Dickey [Primary Care Provider] -
== END 2022-04-16 18:26 | disposition home or self-care (01) ==
PROVIDERS: Physician Assistant; Emergency Provider Student in an Organized Health Care Education/Training Program; PCP Nurse Practitioner Family
DX: T17.928A Food in respiratory tract, part unspecified causing other injury, initial encounter (principal); I44.7 Left bundle-branch block, unspecified; I10 Essential (primary) hypertension; E11.9 Type 2 diabetes mellitus without complications; Z79.84 Long term (current) use of oral hypoglycemic drugs; Z87.891 Personal history of nicotine dependence; Z20.822 Contact with and (suspected) exposure to COVID-19; Z79.02 Long term (current) use of antithrombotics/antiplatelets; R06.02 Shortness of breath
CPT/HCPCS: 36415; 80053; 87635; 93005; 99284; 71045; 83735; 83880; 84484; 85025; 85379; 85610; 85730; 93010

== ENCOUNTER 2022-04-18 03:18 | Outpatient (CLI) | payer MEDICARE, OTHER, SELFPAY ==
[2022-04-18 12:18] LABS: Source Nasal/Nares
[2022-04-18 17:50] LABS: COVID-19 PCR Negative (Negative)
== END 2022-04-18 03:19 | disposition home or self-care (01) ==
PROVIDERS: Family Medicine; PCP Nurse Practitioner Family; Visit Provider Speech-Language Pathologist
DX: Z20.822 Contact with and (suspected) exposure to COVID-19 (principal)
CPT/HCPCS: 87635; U0005

== ENCOUNTER → 2022-04-19 02:01 | Outpatient (CLI) | payer MEDICARE, OTHER, SELFPAY ==
--- NOTE | 2022-04-19 | DI.RAD_ITS ---
Exam(s) RF MODIFIED SPEECH BA SWALLOW TECHNIQUE: Modified barium swallow was performed in conjunction with speech pathology. CONTRAST MATERIAL: Oral barium contrast was administered. COMPARISON: No exams were available for comparison FINDINGS: Note that this is not a dedicated esophagram, distal esophagus not evaluated. There is no evidence of aspiration or penetration of thick or thin liquids, barium coated cookies. S peech pathology report to follow. . . . IMPRESSION: No evidence of aspiration or penetration. RADIATION DOSE DELIVERED: reina Laboy=12.2 mGy
--- NOTE | 2022-04-19 10:30 | ST.MBS_ITS ---
Date of Service Date of service: 04/19/22 Time of Service: 10:30 Modified Barium Swallow Study Findings: Videofluoroscopic Swallowing Evaluation (VFSE) / Modified Barium Swallow Study (MBSS) Speech Language Pathology Report HPI: Patient is a 66 year old M referred for VFSE/MBSS from [facility] due to recent pneumonia and new onset coughing during meals with concern for aspiration pneumonia. He participated in outpatient clinical swallow evaluation (see note dated 04/05/22 for further details) and recommended to complete MBSS at that time. PMHx All Active Problems? ?Pulmonary nodule (Acute) ?Cough (Acute) ?Chest pain (Acute) ?Ischemic cerebrovascular accident (CVA) (Acute) ?Medication monitoring encounter (Acute) ?Hypertension (Acute) ?Non-insulin dependent diabetes mellitus (Acute) ?Cardiomyopathy (Acute) ?Paresthesia (Acute) ?Discharge planning issues (Acute) ?DVT prophylaxis (Acute) ?Acute cerebrovascular accident (CVA) (Acute) ?Bronchitis (Acute) ?Abnormal CT scan (Acute) ? 01/31/12 [place]; needs repeat scan at 6,12 and 18 months Acute meniscal tear, lateral (Acute) right Allergic rhinitis (Acute 03/27/14) ?Chronic sinusitis (Acute 03/27/14) ?Deviated nasal septum (Acute 03/27/14) ?Family history of colon cancer (Acute)? father-colon Foot joint pain (Acute 07/23/13) ?History of tobacco use (Acute) ?Hyperplastic colon polyp (Acute)? DR. Kvng NOGUEIRA; X 3 Migraine (Acute) Medical History? ?Arterial disease ?Arthritis ?CAD (coronary artery disease) ?Choking ?Chronic lower back pain ?CVA (cerebral vascular accident) ?Dry eye syndrome ?First degree atrioventricular block ?Food allergy ?Glaucoma ?Hip pain, left ?History of torn meniscus of left knee ?Hypermetropia ?Left bundle branch block ?Lightheadedness ?Long-term use of high-risk medication ?Low back pain ?Migraine headache with aura ?Mitral valve regurgitation ?Obesity, morbid, BMI 40.0-49.9 ?Pneumonia ?Presbyopia ?Regular astigmatism ?Rheumatoid arthritis ?Steroid dependent ?Type 2 diabetes mellitus Surgical History? ?Colonoscopy ? MAC ?05/16/14 RIB REMOVAL (10/24/83) LEFT TOP RIB SUBJECTIVE: Patient arrived on time for this appointment, unaccompanied. He reports no new updates since initial visit on 04/05, though does clarify that he believes his increased coughing occurs both during and outside of meals this date. He also shares that since you told me all about acid reflux last week, now I feel like I have it, maybe it's all in my head. IMPRESSIONS: Mild/borderline oropharyngealdysphagia, characterized primarily by delayed swall ow initiation and epiglottic inversion and mild reduced anterior-posterior oral transit and reduced tongue base retraction, though not resulting in any airway compromise and with minimal residue/stasis for majority of textures presented this date. Swallow safety is preserved ; swallow efficiency is preserved. Patient did experience stasis of 13mm barium tablet at level of valleculae which did resolve with spontaneous/baseline use of secondary/sequential swallow of large volume thin liquids. Question possible impact of mild physiologic and sensation changes related to increased tension vs GERD vs phonotrauma r/t persistent coughing (though patient with relatively low scores on reflux symptom index, may be influenced by low insight/awareness - may warrant further investigation by medical team). Patient appears to be at low risk for potential aspiration PNA and/or pulmonary compromise based on oral-pharyngeal swallow function alone, though given limitations of brief exam and under optimal testing conditions, results may mildly under-rate patient's deficits. Diet modification is not indicated; non-oral nutrition is not indicated. Swallow prognosis is excellent given age, severity, awareness, and pending patient/caregiver training in risk management as outlined, including use of compensatory strategies as recommended this date. No further VISUAL MERCHANDISE MANAGER services necessary at this time. Consider treatment for chronic cough via Speech Therapy in the future if patient continues to complain of persistent cough without other medical explanation. Risk Management:? Behavioral reflux precautions, including upright position during + 90 mins a fter meals. Small bites, approx [id number] Multiple swallows per bolus to encourage clearance of oral/pharyngeal stasis/residue Control risk factors for aspiration pneumonia via (a) thorough oral hygiene & (b) maintaining physical mobility as tolerated Diet Texture Recommendation:? IDDSI Level 7 (Regular Solids) and Level 0 (Thin Liquids) Please see further details at?[email or web address].iddsi.org PLAN: Minimal modifications/precautions recommended as above this date. No further VISUAL MERCHANDISE MANAGER follow up needed at this time. Patient is welcome to return for evaluation of ?chronic cough if other causes are ruled out be medical team. Thank you for allowing us to take part in this patient's care. Please feel free to contact the [facility] Speech Language Pathology Department with any questions/concerns. OBJECTIVE: Videofluoroscopic Swallow Evaluation (VFSE/MBSS) was conducted in the lateral [and [id number]] projection by Speech-Language Pathologist, in collaboration with Radiologist, to evaluate oropharyngeal swallow function. Anatomic view under fluoroscopy: WFL PO Barium Contrast Trials Oral barium water-soluble contrast was administered as follows: IDDSI Level 0 Varibar thin liquid (40% w/v) IDDSI Level 4 Varibar pudding/pureed/extremely thick (40% w/v) IDDSI Level 7 Regular Solid: 1/2 ida cracker coated in 3 mL Varibar pudding 13 mm barium tablet PHYSIOLOGIC FINDINGS/STANDARDIZED MEASURES MBSImP Component Scores: COMPONENT Scale SCORE 1 Lip closure (0-4) 0 Resulted in no labial escape 2 Hold Position (0-3) 1 Allowed bolus escape to lateral buccal cavity/floor of mouth 3 Bolus Preparation (0-4) 0 Resulted in timely and efficient chewing and mashi ng 4 Bolus Transport (0-4) 0 Was with brisk tongue motion 5 Oral Residue (0-4) 2 Was a collection on oral structures 6 Swallow Initiation (0-4) 3 Occurred when the bolus head was in the pyriform sinuses 7 Soft Palate Elevation (0-4) 0 Resulted in no bolus between soft palate and t he pharyngeal wall 8 Laryngeal Elevation (0-3) 0 Demonstrated complete superior movement of thyro id cartilage with complete approximation of arytenoids to epiglottic petiole 9 Anterior Hyoid Motion (0-2) 0 Demonstrated complete anterior movement 10 Epiglottic Movement (0-2) 0 Resulted in complete inversion 11 Laryngeal Closure (0-2) 0 Was complete with no air or contrast in laryngeal vestibule 12 Pharyngeal Stripping Wave (0-2) 1 Was present, but diminished 13 Pharyngeal Contraction (0-3) NA DNT - no A/P view performed 14 PES Opening (0-3) 0 Was completely distended and complete duration with no obstruction of flow 15 Tongue Base Retraction (0-4) 2 Allowed a narrow column of contrast or air between the retracted tongue base and the posterior pharyngeal wall 16 Pharyngeal Residue (0-4) 1 Showed a trace within or on pharyngeal structure s 17 Esophageal Clearance (0-4) NADEEM DNT - no A/P view performed [place] Pharyngeal Residue Severity Rating Scale: Valleculae II Trace 1-5% Trace coating Pyriform sinuses II Trace 1-5% Trace coating MBSImP Results: COMPONENT Scale SCORE 1 Oral Score (0-18) 6 mild 2 Pharyngeal Score (0-29) 3 mild/borderline 3 Esophageal Score (0-4) 0 n/a Penetration-Aspiration Scale: COMPONENT Scale SCORE 1 Thin liquid (1-8) 1 Contrast did not enter the airway 2 [place] thick (1-8) NA 3 Honey thick (1-8) NA 4 Pudding thick (1-8) 1 Contrast did not enter the airway 5 CookieA (1-8) 1 Contrast did not enter the airway Dysphagia Outcome and Severity Scale: COMPONENT Scale SCORE 1 LEVEL (1-7) 6 Full PO: Normal Diet - Within functional limits/modified independence Note: This study was performed for interpretation only of the oropharyngeal and pharyngoesophageal domains of swallowing, and is not intended to diagnose any other radiologic abnormalities or substitute for a formal esophagram study Trialed Compensatory Strategies & Outcome: Maneuvers ? Successful/Unsuccessful Postures Successful/Unsuccessful 3 second Preparatory Set? ?neither successful nor unsuccessful Chin Tuck Posture? ? n/a Cough? ? Posterior Head tilt?? ? n/a Reflexive? ? n/a ? ? Cued? ? n/a ? ? Throat Clear? ? Head Tilt to?? ? Reflexive? ? n/a Left? ? n/a Cued? ? Right? ? n/a Saliva swallow? + to resolve oral residue Head Turn/Rotation to? ? Supraglottic Swallow?? ? n/a Left? ? n/a Super-supraglottic Swallow?? ? n/a Right? ? n/a Bolus Modifications ? Successful/Unsuccessful Delivery/Alternating Consistencies Follow with Liquid Wash ? ? + to resolve stasis of 13mm tablet Delivery/Via Straw? ? n/a Reduced Volume? ? n/a Reduced Rate of Intake? ? n/a Increased Viscosity? ? n/a Other:?? ? n/a Coding CPT Codes MOTION FLUOROSCOPY/SWALLOW - [id number] ([id number])
[2022-04-19] MEDS: Barium Sulfate 700 MG TAB PO (11:42)
[2022-04-19] MEDS: Barium Sulfate 40% W/V 1500 CPS 250 ML BTL PO (11:44)
[2022-04-19] MEDS: Barium Sulfate Oral Paste 40% W/V 230 ML TUBE 13 ML PO (11:45)
[2022-04-19] MEDS: Barium Sulfate 81% w/w for Oral Suspension 148 GM BTL PO (11:46)
== END ==
PROVIDERS: PCP Nurse Practitioner Family; Visit Provider Nurse Practitioner Family
DX: R09.89 Other specified symptoms and signs involving the circulatory and respiratory systems (principal)
CPT/HCPCS: 92611; 74221

== ENCOUNTER → 2022-05-03 01:42 | Outpatient (CLI) | payer MEDICARE, OTHER, SELFPAY ==
--- NOTE | 2022-05-03 | DI.RAD_ITS ---
Exam(s) XR ANKLE RT COMPLETE EXAM: XR ANKLE RT COMPLETE CLINICAL HISTORY: RT ANKLE PAIN M25.571. TECHNIQUE: 2D digital imaging was performed of the right ankle. Three images were obtained. AP, la teral and oblique views were obtained. COMPARISON: CR RIGHT FOOT COMPLETE from 07/10/2013 FINDINGS: BONES: No acute fracture is present. No bony destructive lesion is seen. There is a very tiny 1-2 mm density lateral to the lateral malleolus. This is unchanged compared to the x-ray of the right foot from 07/10/2013. JOINTS: The ankle mortise is normally aligned. SOFT TISSUE: There is again seen a moderate size plantar calcaneal spur. There is an enthesophyte at the posterior superior calcaneus. Mild soft tissue swelling is seen about the ankle laterally. IMPRESSION: 1. No acute fracture or dislocation. 2. Mild soft tissue swelling about the ankle laterally. DATA REPOSITORY: RADIATION DOSE DELIVERED:
== END ==
PROVIDERS: PCP Nurse Practitioner Family; Visit Provider Nurse Practitioner Family
DX: M25.571 Pain in right ankle and joints of right foot (principal); M79.89 Other specified soft tissue disorders
CPT/HCPCS: 73610

== ENCOUNTER 2022-05-04 16:48 | Outpatient (REF) | payer MEDICARE, OTHER, SELFPAY ==
[2022-05-04 15:17] LABS: Abs Immature Grans 0.07 10^3/uL (0.0-0.06); Absolute Basophil Count 0.09 10^3/uL (0.0-0.2); Absolute Eosinophil Count 0.16 10^3/uL (0.0-0.7); Absolute Lymphocyte Count 1.84 10^3/uL (1.2-3.4); Absolute Monocyte Count 0.84 10^3/uL (0.1-0.8); Absolute Neutrophil Count 4.38 10^3/uL (1.2-6.7); Basophils % 1.2; Eosinophils % 2.2; HCT 43.1 % (40.0-50.0); HGB 15.2 g/dL (13.5-17.5); Immature Grans % 0.9; Lymphocytes % 24.9; MCH 32.6 pg (27.0-33.0); MCHC 35.3 % (32.0-36.0); MCV 93 fL (80-95); MPV 9.7 fL (8.0-11.0); Monocytes % 11.4; Neutrophils % 59.4; Platelet Count 214 10^3/uL (130-400); RBC 4.66 10^6/uL (4.36-5.78); RDW 12.9 % (11.8-14.1); RDW-SD 43.3 fL; WBC 7.38 10^3/uL (4.4-10.8)
[2022-05-04 15:28] LABS: ESR < 1 mm/hr (0-20)
[2022-05-04 16:03] LABS: ALT 49 U/L (16-63); AST 27 U/L (15-37); Albumin 4.1 g/dL (3.4-5.0); Alkaline Phosphatase 34 U/L (46-116); Anion Gap 7.4 mmol/L (3-11); BUN 15 mg/dL (7-18); Bilirubin, Total 0.8 mg/dL (0.2-1.0); CO2 27.6 mmol/L (21.0-32.0); CREATININE 1.1 mg/dL (0.70-1.30); Calcium 8.8 mg/dL (8.5-10.1); Chloride 100 mmol/L (98-107); Glucose 161 mg/dL (74-106); Potassium 4.8 mmol/L (3.5-5.1); Sodium 135 mmol/L (136-145); Total Protein 6.8 g/dL (6.4-8.2); Uric Acid 4.8 mg/dL (3.5-7.2)
[2022-05-04 16:12] LABS: C-Reactive Protein < 0.05 mg/dL (0.0-0.3)
== END 2022-05-04 16:49 | disposition home or self-care (01) ==
LOC: NCHCN 16:48
PROVIDERS: PCP Nurse Practitioner Family; Visit Provider Nurse Practitioner Family
DX: M25.571 Pain in right ankle and joints of right foot (principal)
CPT/HCPCS: 80053; 85652; 84550; 85025; 86140

== ENCOUNTER 2022-05-10 01:16 | Outpatient (RCR) | payer MEDICARE, OTHER, SELFPAY ==
[2022-04-22 00:17] VITALS: BP 127/84; PULSE 94; RESP 20; TEMP 36.6
[2022-05-10] MEDS: TOCILIZUMAB 800 MG in Normal Saline 60 ML 100 MG IVPB (08:09)
[2022-05-10] MEDS: Normal Saline Flush 10 ML SYR IVP (08:09)
== END 2022-05-22 23:59 | disposition home or self-care (01) ==
LOC: INF 01:16
PROVIDERS: PCP Nurse Practitioner Family; Visit Provider Internal Medicine
DX: M06.9 Rheumatoid arthritis, unspecified (principal)
CPT/HCPCS: 96365; J3262

== ENCOUNTER 2022-06-07 01:25 | Outpatient (RCR) | payer MEDICARE, OTHER, SELFPAY ==
[2022-05-23 00:08] VITALS: BP 127/84; PULSE 94; RESP 20; TEMP 36.6
[2022-06-07] MEDS: TOCILIZUMAB 800 MG in Normal Saline 60 ML 100 MG IVPB (07:58)
[2022-06-07] MEDS: Normal Saline Flush 10 ML SYR IVP (07:58)
== END 2022-06-22 23:59 | disposition home or self-care (01) ==
LOC: INF 01:25
PROVIDERS: PCP Nurse Practitioner Family; Visit Provider Internal Medicine
DX: M06.9 Rheumatoid arthritis, unspecified (principal)
CPT/HCPCS: 96365; J3262

== ENCOUNTER → 2022-07-01 13:24 | Outpatient (BNVA) | payer MEDICARE, OTHER, SELFPAY | PROVIDERS: PCP Nurse Practitioner Family; Visit Provider Internal Medicine Cardiovascular Disease | DX: R06.09 Other forms of dyspnea (principal); R60.0 Localized edema; I25.5 Ischemic cardiomyopathy; I25.10 Atherosclerotic heart disease of native coronary artery without angina pectoris; I10 Essential (primary) hypertension | CPT/HCPCS: 99214 ==

== ENCOUNTER 2022-07-05 03:16 | Outpatient (RCR) | payer MEDICARE, OTHER, SELFPAY ==
[2022-06-23 00:04] VITALS: BP 127/84; PULSE 94; RESP 20; TEMP 36.6
[2022-07-05] MEDS: Normal Saline Flush 10 ML SYR IVP (07:59)
[2022-07-05] MEDS: TOCILIZUMAB 800 MG in Normal Saline 60 ML 100 MG IVPB (08:00)
== END 2022-07-22 23:59 | disposition home or self-care (01) ==
LOC: INF 03:16
PROVIDERS: PCP Nurse Practitioner Family; Visit Provider Internal Medicine
DX: M06.9 Rheumatoid arthritis, unspecified (principal)
CPT/HCPCS: 96365; J3262

== ENCOUNTER 2022-08-02 02:33 | Outpatient (RCR) | payer MEDICARE, OTHER, SELFPAY ==
[2022-07-23 00:04] VITALS: BP 127/84; PULSE 94; RESP 20; TEMP 36.6
[2022-08-02] MEDS: TOCILIZUMAB 800 MG in Normal Saline 60 ML 100 MG IVPB (08:00)
[2022-08-02] MEDS: Normal Saline Flush 10 ML SYR IVP (08:00)
== END 2022-08-22 23:59 | disposition home or self-care (01) ==
LOC: INF 02:33
PROVIDERS: PCP Nurse Practitioner Family; Visit Provider Internal Medicine
DX: M06.9 Rheumatoid arthritis, unspecified (principal)
CPT/HCPCS: 96365; J3262

== ENCOUNTER 2022-08-02 10:43 | Outpatient (CLI) | payer MEDICARE, OTHER, SELFPAY ==
[2022-08-02 10:22] LABS: HCT 45.4 % (40.0-50.0); HGB 15.7 g/dL (13.5-17.5); MCH 32.2 pg (27.0-33.0); MCHC 34.6 % (32.0-36.0); MCV 93 fL (80-95); MPV 9.2 fL (8.0-11.0); Platelet Count 202 10^3/uL (130-400); RBC 4.87 10^6/uL (4.36-5.78); RDW 12.8 % (11.8-14.1); RDW-SD 43.5 fL; WBC 11.44 10^3/uL (4.4-10.8)
[2022-08-02 10:47] LABS: ALT 59 U/L (16-63); AST 34 U/L (15-37); Albumin 4.2 g/dL (3.4-5.0); Alkaline Phosphatase 38 U/L (46-116); Anion Gap 6.9 mmol/L (3-11); BUN 17 mg/dL (7-18); Bilirubin, Total 0.9 mg/dL (0.2-1.0); CO2 31.1 mmol/L (21.0-32.0); CREATININE 1.3 mg/dL (0.70-1.30); Calcium 9.4 mg/dL (8.5-10.1); Chloride 98 mmol/L (98-107); Estimated GFR 59.84 (mL/min/1.73m2); Glucose 203 mg/dL (74-106); NT-proBNP 244 pg/mL (<300); Potassium 4.8 mmol/L (3.5-5.1); Sodium 136 mmol/L (136-145); Total Protein 7.3 g/dL (6.4-8.2)
[2022-08-02 10:52] LABS: C-Reactive Protein < 0.05 mg/dL (0.0-0.3)
[2022-08-02 11:08] LABS: D-Dimer 182 ng/mlFEU (<500)
[2022-08-02 11:23] LABS: ESR < 1 mm/hr (0-20)
== END 2022-08-02 10:44 | disposition home or self-care (01) ==
LOC: LBO 10:44
PROVIDERS: PCP Nurse Practitioner Family; Visit Provider Nurse Practitioner Family
DX: R06.02 Shortness of breath (principal); Z51.81 Encounter for therapeutic drug level monitoring
CPT/HCPCS: 36415; 80053; 85027; 85652; 96365; 83880; 85379; 86140; J3262

== ENCOUNTER 2022-08-30 03:14 | Outpatient (RCR) | payer MEDICARE, OTHER, SELFPAY ==
[2022-08-23 00:03] VITALS: BP 127/84; PULSE 94; RESP 20; TEMP 36.6
[2022-08-30] MEDS: TOCILIZUMAB 800 MG in Normal Saline 60 ML 100 MG IVPB (08:06)
[2022-08-30] MEDS: Normal Saline Flush 10 ML SYR IVP (08:06)
== END 2022-09-21 23:59 | disposition home or self-care (01) ==
LOC: INF 03:14
PROVIDERS: PCP Nurse Practitioner Family; Visit Provider Internal Medicine
DX: M06.9 Rheumatoid arthritis, unspecified (principal)
CPT/HCPCS: 96365; J3262

== ENCOUNTER 2022-09-27 03:06 | Outpatient (RCR) | payer MEDICARE, OTHER, SELFPAY ==
[2022-09-22 00:04] VITALS: BP 127/84; PULSE 94; RESP 20; TEMP 36.6
[2022-09-27] MEDS: TOCILIZUMAB 800 MG in Normal Saline 60 ML 100 MG IVPB (08:14)
[2022-09-27] MEDS: Normal Saline Flush 10 ML SYR IVP (08:14)
== END 2022-10-22 23:59 | disposition home or self-care (01) ==
LOC: INF 03:06
PROVIDERS: PCP Nurse Practitioner Family; Visit Provider Internal Medicine
DX: M06.9 Rheumatoid arthritis, unspecified (principal)
CPT/HCPCS: 96365; J3262

== ENCOUNTER → 2022-10-07 00:36 | Outpatient (CLI) | payer MEDICARE, OTHER, SELFPAY ==
--- NOTE | 2022-10-07 10:10 | DI.US_ITS ---
APPROVED REPORT EXAM: Comprehensive 2D, Doppler, and color-flow Echocardiogram Patient Location: Out-Patient Quality Control Projectionist: Betty Dodson RDCS (AE) Indications: Check LV function, HTN, Cardiomyopathy Other Information Study Quality: Fair. Technically limited study due to body habitus. Conclusion Technically difficult study Left ventricle is moderately dilated. Wall thickness is normal. Estimated ejection fraction is 35%. There is global hypokinesis The right ventricle appears grossly normal in size and systolic function Both atria are normal in size Aortic valve is sclerotic and trileaflet without stenosis or regurgitation Mild mitral annular calcification. Mild mitral regurgitation Normal tricuspid valve with trace regurgitation Wall motion Left Ventricle Left ventricle is moderately dilated Left ventricular systolic function is moderately decreased. Ther e is normal left ventricular wall thickness. There is global hypokinesis of the left ventricle. There is no ventricular septal defect visualized. LVEF is 35%. Right Ventricle Right ventricle is grossly normal in size. Right ventricular systolic function is grossly normal. Atria The left atrium size is normal. The right atrium size is normal. The interatrial septum is intact wit h no evidence for an atrial septal defect. Aortic Valve The Aortic valve is sclerotic. Aortic valve is trileaflet. There is no aortic valvular stenosis. No a ortic regurgitation is present. Mitral Valve Mild mitral annular calcification. No evidence of mitral valve stenosis. Mild mitral regurgitation. Tricuspid Valve The tricuspid valve is normal in structure. There is no tricuspid valve stenosis. Trace tricuspid reg urgitation. Unable to assess PA pressure. Pulmonic Valve The pulmonary valve is normal in structure. There is no pulmonic valvular stenosis. Trace to mild pul floyd regurgitation. Great Vessels The aortic root is normal in size. The ascending aorta is normal in size. Aortic arch is not well vis ualized. The IVC was not visualized. Pericardium There is no pericardial effusion. 2D Dimensions IVSD d PLAX 1.20 cm M: 0.6-1.2 LV Vol A2C d MOD 179.8 mL LVPW d PLAX 1.12 cm M: 0.6 - 1.2 LV Vol A4C d MOD 204.9 mL LVID d PLAX 5.28 cm M: 4.2 - 5.8 LA vol/ BSA A2C s A-L 21.2 mL/m2 LVDs 4.50 cm M: 2.5 - 4.0 LA vol/ BSA A4C s A-L 23.3 mL/m2 Ao Root d 2.76 cm M: 3.1 - 3.7 LA Vol/ BSA Biplane s A-L 24.0 mL/m2 RA Area A4C 14.91 cm2 LA Area A4C s MOD 18.59 cm2 RA Vol/ BSA A4C s A-L 15.9 mL/m2 LA Area A2C s MOD 16.42 cm2 Ao Asc Diam d 3.16 cm M: 2.6 - 3.4 LV EF A4C MOD 35.6 % LV EF Teichholz 30.0 % LV EF A2C MOD 35.2 % LVEF (Montoya's) 35.02 % M: 52 - 72 LV EF Biplane MOD 35.0 % LV Volume 143.27 mL M: 62 - 150 SV 69.52 mL LV Volume Index 63.39 mL/m2 M: 34 - 74 SV Index 30.84 mL/m2 LV Vol Biplane MOD 198.5 mL FS 14.15 % M-Mode TAPSE 1.91 cm (M/F) >1.7 LV Diastology MV E' medial 0.045 (>0.07 m/s) E/A Ratio 0.7 LV E/e MED 18.25 (<14) MV E Vmax 0.82 (0.4-1.3 m/s) MV E' lateral 0.050 (>0.1 m/s) MV A Vmax 1.25 (0.4-1.3 m/s) LV E/e LAT 16.45 (<14) MV E/A Ratio 0.64 MV E/E' medial 18.26 MV E/E' lateral 16.47 Aortic Valve LVOT Area 3.58 cm2 AoV Area Vmax 2.07 cm2 LVOT Vmax 1.14 m/s AoV Area/ BSA (Vmax) 0.92 cm2/m2 LVOT Mean Wm. 0.68 m/s TRACY Mean Wm. 1.83 cm2 LVOT Peak Grad 5.2 mmHg TRACY Mean Wm. Index 0.81 cm2/m2 LVOT Mean Grad 2.3 mmHg LVOT VTI 0.231 m LVOT Diam s 2.10 cm AoV Vmax 1.96 m/s Velocity Ratio 0.58 AoV Mean Mw. 1.34 m/s AoV Peak Grad 15.3 mmHg LVOT SV 82.63 mL AoV Mean Grad 8.1 mmHg AoV VTI 0.369 m AoV Area VTI 2.24 cm2 AoV Area/ BSA (VTI) 0.99 cm/m2 Mitral Valve MV DT 118 (160-240 msec) MV PHT 34 msec MV Area PHT 6.42 cm2 MV VTI 0.308 m MV Area VTI 2.69 (4.0-6.0 cm2) Pulmonary Valve PV Vmax 1.12 (0.5-1.5 m/s) RVOT Peak Gr. 3.21 mmHg PV Peak Grad 5.1 mmHg RVOT Mean Gr. 1.45 mmHg PV Mean Grad 2.6 mmHg RVOT VTI 0.165 m PV VTI 0.217 m RVOT Vmax 0.90 m/s
== END ==
PROVIDERS: PCP Nurse Practitioner Family; Visit Provider Internal Medicine Cardiovascular Disease
DX: I10 Essential (primary) hypertension (principal); I42.9 Cardiomyopathy, unspecified
CPT/HCPCS: 93306

== ENCOUNTER → 2022-11-01 08:53 | Outpatient (BNVA) | payer MEDICARE, OTHER, SELFPAY | PROVIDERS: PCP Nurse Practitioner Family; Referring Provider Nurse Practitioner Family; Visit Provider Internal Medicine Cardiovascular Disease | DX: I25.5 Ischemic cardiomyopathy (principal); I10 Essential (primary) hypertension; I25.10 Atherosclerotic heart disease of native coronary artery without angina pectoris; I44.7 Left bundle-branch block, unspecified | CPT/HCPCS: 99214 ==

== ENCOUNTER → 2022-11-15 09:40 | Outpatient (BNVA) | payer MEDICARE, OTHER, SELFPAY | PROVIDERS: PCP Nurse Practitioner Family; Referring Provider Registered Nurse Maternal Newborn; Visit Provider Surgery | DX: R13.10 Dysphagia, unspecified (principal); J69.0 Pneumonitis due to inhalation of food and vomit; E65 Localized adiposity; I25.5 Ischemic cardiomyopathy; E66.01 Morbid (severe) obesity due to excess calories; R06.02 Shortness of breath; E11.9 Type 2 diabetes mellitus without complications; M06.9 Rheumatoid arthritis, unspecified; Z86.73 Personal history of transient ischemic attack (TIA), and cerebral infarction without residual deficits; Z87.891 Personal history of nicotine dependence | CPT/HCPCS: 99215; 99243 ==

== ENCOUNTER 2022-11-22 02:32 | Outpatient (RCR) | payer MEDICARE, OTHER, SELFPAY ==
[2022-10-23 00:02] VITALS: BP 127/84; PULSE 94; RESP 20; TEMP 36.6
[2022-10-25] MEDS: TOCILIZUMAB 800 MG in Normal Saline 60 ML 100 MG IVPB (08:08)
[2022-10-25] MEDS: Normal Saline Flush 10 ML SYR IVP (08:08)
[2022-11-22] MEDS: TOCILIZUMAB 800 MG in Normal Saline 60 ML 100 MG IVPB (08:13)
[2022-11-22] MEDS: Normal Saline Flush 10 ML SYR IVP (08:20)
== END 2022-11-22 23:59 | disposition home or self-care (01) ==
LOC: INF 02:32
PROVIDERS: PCP Nurse Practitioner Family; Visit Provider Internal Medicine
DX: M06.9 Rheumatoid arthritis, unspecified (principal)
CPT/HCPCS: 96365; J3262

== ENCOUNTER 2022-11-23 02:07 | Outpatient (CLI) | payer MEDICARE, OTHER, SELFPAY ==
--- NOTE | 2022-11-23 07:15 | DI.RAD_ITS ---
Exam(s) RF BARIUM SWALLOW EXAM: RF BARIUM SWALLOW CLINICAL HISTORY: continued aspiration,nl MBSS,dysphagia,cva,r13.10 TECHNIQUE: 2D and realtime digital imaging was performed. CONTRAST MATERIAL: Thick and thin barium and barium tablet were administered. COMPARISON: CT CT CHEST WO from 03/07/2022 CR,XR XR PORTABLE CHEST AP from 04/16/2022 FINDINGS: Lateral ranch rider view of the neck shows degenerative changes of the cervical spine. The airway is unrem arkable. PA and lateral views of the chest show normal heart size and clear lung escalante. The patient swallowed barium without difficulty. There is no aspiration observed during the exam. E sophageal peristalsis appears normal. Barium tablet stuck at the GE junction although there is no di screte visible stricture. No mass or ulceration. Stomach and duodenum grossly normal. No gastroeso phageal reflux observed during the exam. IMPRESSION: Barium tablet stuck transiently at the GE junction. No visible stricture. RADIATION DOSE DELIVERED: reina Laboy=26.4 mGy
[2022-11-23] MEDS: Barium Sulfate 98% W/W 140 ML BTL PO (09:08)
[2022-11-23] MEDS: Barium Sulfate 60% W/V 355 ML BTL PO (09:08)
[2022-11-23] MEDS: Simethicone/Sod Bicarb/Cit Ac, 4 gram PACKET 1 PACKET PO (09:09)
[2022-11-23] MEDS: Barium Sulfate 700 MG TAB PO (09:10)
== END 2022-11-23 02:27 ==
PROVIDERS: PCP Nurse Practitioner Family; Visit Provider Surgery
DX: R13.10 Dysphagia, unspecified (principal); I63.89 Other cerebral infarction; J69.0 Pneumonitis due to inhalation of food and vomit; Z87.891 Personal history of nicotine dependence
CPT/HCPCS: 74221; J3490

== ENCOUNTER → 2022-12-06 09:15 | Outpatient (BNVA) | payer MEDICARE, OTHER, SELFPAY | PROVIDERS: PCP Nurse Practitioner Family; Referring Provider Nurse Practitioner Family; Visit Provider Surgery | DX: R13.10 Dysphagia, unspecified (principal); E65 Localized adiposity; E66.01 Morbid (severe) obesity due to excess calories; E11.9 Type 2 diabetes mellitus without complications; F19.20 Other psychoactive substance dependence, uncomplicated | CPT/HCPCS: 99213 ==

== ENCOUNTER 2022-12-15 11:12 | Outpatient (CLI) | payer MEDICARE, OTHER, SELFPAY ==
--- NOTE | 2022-12-15 10:30 | DI.RAD_ITS ---
Exam(s) XR ANKLE RT COMPLETE EXAM: XR ANKLE RT COMPLETE CLINICAL HISTORY: ANKLE PAIN. TECHNIQUE: 2D digital imaging was performed of the right ankle. Three images were obtained. AP, la teral and oblique views were obtained. COMPARISON: CR XR ANKLE RT COMPLETE from 05/03/2022 FINDINGS: BONES: No acute fracture is present. No bony destructive lesion is seen. There is again seen a plant ar calcaneal spur. There is an enthesophyte at the posterior calcaneus. There is a stable tiny dens ity at the lateral aspect of the lateral malleolus. JOINTS: The ankle mortise is normally aligned. SOFT TISSUE: There is soft tissue swelling about the ankle laterally. IMPRESSION: 1. No acute fracture or dislocation. 2. Soft tissue swelling of the ankle laterally. DATA REPOSITORY: RADIATION DOSE DELIVERED:
== END 2022-12-15 11:13 | disposition home or self-care (01) ==
LOC: DIORS 11:12
PROVIDERS: PCP Nurse Practitioner Family; Referring Provider Nurse Practitioner Family; Visit Provider Student in an Organized Health Care Education/Training Program
DX: R22.41 Localized swelling, mass and lump, right lower limb; M25.571 Pain in right ankle and joints of right foot; I63.9 Cerebral infarction, unspecified
CPT/HCPCS: 99213; 73610

== ENCOUNTER 2022-12-16 11:27 | Outpatient (REF) | payer MEDICARE, OTHER, SELFPAY ==
[2022-12-16 15:09] LABS: Abs Immature Grans 0.04 10^3/uL (0.0-0.06); Absolute Basophil Count 0.07 10^3/uL (0.0-0.2); Absolute Eosinophil Count 0.24 10^3/uL (0.0-0.7); Absolute Lymphocyte Count 1.71 10^3/uL (1.2-3.4); Absolute Monocyte Count 0.76 10^3/uL (0.1-0.8); Absolute Neutrophil Count 3.75 10^3/uL (1.2-6.7); Basophils % 1.1; Eosinophils % 3.7; HCT 43.5 % (40.0-50.0); HGB 14.5 g/dL (13.5-17.5); Immature Grans % 0.6; MCHC 33.3 % (32.0-36.0); MCV 93 fL (80-95); MPV 9.9 fL (8.0-11.0); Monocytes % 11.6; Platelet Count 193 10^3/uL (130-400); RBC 4.68 10^6/uL (4.36-5.78); RDW 12.6 % (11.8-14.1); RDW-SD 42.5 fL; WBC 6.57 10^3/uL (4.4-10.8)
[2022-12-16 15:15] LABS: ESR < 1 mm/hr (0-20)
[2022-12-16 15:28] LABS: ALT 60 U/L (16-63); AST 44 U/L (15-37); Albumin 3.8 g/dL (3.4-5.0); Alkaline Phosphatase 45 U/L (46-116); Anion Gap 6.6 mmol/L (3-11); BUN 10 mg/dL (7-18); Bilirubin, Total 0.8 mg/dL (0.2-1.0); CO2 28.4 mmol/L (21.0-32.0); CREATININE 1.2 mg/dL (0.70-1.30); Calcium 8.6 mg/dL (8.5-10.1); Chloride 103 mmol/L (98-107); Estimated GFR 65.46 (mL/min/1.73m2); Glucose 209 mg/dL (74-106); NT-proBNP 371 pg/mL (<300); Potassium 4.4 mmol/L (3.5-5.1); Sodium 138 mmol/L (136-145); Total Protein 5.9 g/dL (6.4-8.2)
[2022-12-16 15:30] LABS: C-Reactive Protein < 0.05 mg/dL (0.0-0.3)
== END 2022-12-16 11:28 | disposition home or self-care (01) ==
LOC: NCHCN 11:27
PROVIDERS: PCP Nurse Practitioner Family; Visit Provider Nurse Practitioner Family
DX: M05.9 Rheumatoid arthritis with rheumatoid factor, unspecified (principal); R06.02 Shortness of breath
CPT/HCPCS: 80053; 85652; 83880; 85025; 86140

== ENCOUNTER 2022-12-20 02:05 | Outpatient (RCR) | payer MEDICARE, OTHER, SELFPAY ==
[2022-11-23 00:12] VITALS: BP 127/84; PULSE 94; RESP 20; TEMP 36.6
[2022-12-20] MEDS: TOCILIZUMAB 800 MG in Normal Saline 60 ML 100 MG IVPB (07:55)
[2022-12-20] MEDS: Normal Saline Flush 10 ML SYR IVP (07:56)
== END 2022-12-20 23:59 | disposition home or self-care (01) ==
LOC: INF 02:05
PROVIDERS: PCP Nurse Practitioner Family; Visit Provider Internal Medicine
DX: M06.9 Rheumatoid arthritis, unspecified (principal)
CPT/HCPCS: 96365; J3262

== ENCOUNTER 2023-01-03 01:01 | Outpatient (CLI) | payer MEDICARE, OTHER, SELFPAY ==
--- NOTE | 2023-01-03 08:15 | DI.MRI_ITS ---
Exam(s) MR LOWER JOINT RT WO EXAM: MR LOWER JOINT RT WO CLINICAL HISTORY: PAIN,mass rt ankle, r22.41 TECHNIQUE: Multiplanar multisequence MRI was performed without intravenous contrast. COMPARISON: CR XR ANKLE RT COMPLETE from 12/15/2022 FINDINGS: BONES/JOINTS: No fracture or contusion pattern. No bone lesions identified. The talar dome is smooth. The ankle mortise is maintained. A small posterior talocalcaneal joint effusion is seen. Plantar ca lcaneal spur.. LIGAMENTS: The tibiofibular and calcaneofibular ligaments are intact. The talofibular ligaments are i ntact. The deltoid ligament is intact. The syndesmosis is unremarkable. Sinus tarsi is normal. MUSCULOTENDINOUS STRUCTURES: Achilles tendon: Unremarkable. Plantar fascia: Unremarkable. Anterior Extensor tendons: Unremarkable. Posterior Tibialis: Unremarkable. Flexor Digitorum longus: Unremarkable. Flexor Hallucis longus: Unremarkable. Peroneus longus: Unremarkable. Peroneus brevis:Unremarkable. SOFT TISSUES: Mild subcutaneous edema. Multiloculated synovial cyst versus ganglion seen in the supe rficial soft tissues beneath the level of the lateral malleolus. Approximate dimensions 3 cm in alma th by 3 cm the by 1.5 cm transverse. It is not associated with the peroneal tendons. OTHER FINDINGS: None. IMPRESSION: 3 centimeter multiloculated ganglion cyst at the inferolateral left ankle soft tissues. DATA REPOSITORY:
== END 2023-01-03 01:21 ==
PROVIDERS: PCP Nurse Practitioner Family; Visit Provider Student in an Organized Health Care Education/Training Program
DX: R22.41 Localized swelling, mass and lump, right lower limb (principal); M25.571 Pain in right ankle and joints of right foot; M77.31 Calcaneal spur, right foot; M67.471 Ganglion, right ankle and foot
CPT/HCPCS: 73721

== ENCOUNTER 2023-01-10 12:56 | Day surgery (SDC) | payer MEDICARE, OTHER, SELFPAY ==
[2023-01-10] MEDS: Lactated Ringers 1,000 ML 80 ML IV (12:25)
--- NOTE | 2023-01-10 12:31 | ANES.PREOP_ITS ---
General Info Date of Service Date Performed: 01/10/23 Height: 5 ft 6.5 in Weight: 124.738 kg Body Mass Index (BMI): 43.7 Surgical Procedure: Operation Date: 01/10/23 14:25 Proposed Procedure Side Surgeon p Cyst Excision Ankle Right Stuart Mcfarland MD Meds Allergies and Home Medications Allergies Allergy/AdvReac Type Severity Reaction Status Date / Time aspirin Allergy Severe Swelling/Ed Verified 01/10/23 12:48 rigoberto citric acid Allergy Unknown RASH, Verified 01/10/23 12:48 BLISTER adalimumab Allergy NUMBNESS Verified 01/10/23 12:48 NSAIDS (Non-Steroidal AdvReac CONGESTION Verified 01/10/23 12:48 Anti-Inflamma Home Medication Medication Instructions Recorded acetaminophen 500 mg tablet 1 tab PO Q6H PRN 01/15/13 (Tylenol Extra Strength) hydroxychloroquine 200 mg tablet 2 tab PO DAILY ##90 01/15/13 (Plaquenil) folic acid 1 mg tablet 1 mg PO DAILY 03/10/17 Actemra 800 mg IV Monthly 04/23/18 cholecalciferol (vitamin D3) 50 50 mcg PO DAILY 09/21/21 mcg (2,000 unit) tablet albuterol sulfate 90 mcg/actuation 1 - 2 puff inhalation Q4H PRN 09/22/21 aerosol inhaler fluticasone propionate 110 1 puff inhalation BID 09/22/21 mcg/actuation HFA aerosol inhaler magnesium oxide 400 mg PO DAILY 09/22/21 methotrexate sodium 2.5 mg tablet 8 mg PO DIRECTED 11/04/21 atorvastatin 10 mg tablet (Lipitor) 10 mg PO HS 03/07/22 metformin 500 mg tablet 500 mg PO DAILY 03/07/22 metoprolol succinate 50 mg 50 mg PO HS 03/07/22 tablet,extended release 24 hr clopidogrel 75 mg tablet (Plavix) 75 mg PO DAILY #90 tabs 03/25/22 sacubitril 97 mg-valsartan 103 mg 1 tab PO BID #180 tabs 07/01/22 tablet (Entresto) atorvastatin 20 mg tablet 20 mg PO DAILY #90 tabs 11/01/22 furosemide 40 mg tablet (Lasix) 20 mg PO DAILY edema, sob 11/01/22 pantoprazole 40 mg tablet,delayed 40 mg PO DAILY #30 tabs 11/15/22 release (Protonix) Current Visit Medications: Current Medications Generic Name Dose Route Start Last Admin Trade Name Freq PRN Reason Stop Dose Admin Ringer's Solution 1,000 mls @ 80 mls/hr 01/10/23 06:00 IV 02/08/23 23:59 INFUSION MARCOS Cefazolin Sodium 3,000 mg/ 100 mls @ 200 mls/hr 01/10/23 06:00 Sodium Chloride IVPB 01/10/23 23:59 PREOP MARCOS IV Miscellaneous Supplies 1 each 01/10/23 06:00 Iv Access IV 02/08/23 23:59 DIRECTED MARCOS Sodium Chloride 0 ml 01/10/23 06:00 Normal Saline Flush 10 Ml Syr IV 02/08/23 23:59 PRN PRN Sodium Chloride 0 ml 01/10/23 06:00 Normal Saline 10 Ml Vial IJ 02/08/23 23:59 DIRECTED PRN Sterile Water 0 ml 01/10/23 06:00 Water,Injection,Sterile 10 Ml Vial IJ 02/08/23 23:59 DIRECTED PRN PFSH Active Problems Active Problems: Problem Status Onset Code Migraine G43.909 Hyperplastic colon polyp K63.5 History of tobacco use Z87.891 Foot joint pain 07/23/13 M25.579 Family history of colon cancer Z80.0 Deviated nasal septum 03/27/14 J34.2 Chronic sinusitis 03/27/14 J32.9 Allergic rhinitis 03/27/14 J30.9 Acute meniscal tear, lateral S83.289A Abnormal CT scan R93.89 Bronchitis J40 Hypertension I10 Acute cerebrovascular accident (CVA) I63.9 Non-insulin dependent diabetes mellitus Paresthesia R20.2 Cardiomyopathy I42.9 Medication monitoring encounter Z51.81 Ischemic cerebrovascular accident (CVA) I63.9 Chest pain R07.9 Dysphagia R13.10 Aspiration pneumonia J69.0 Obese abdomen E65 Mass of right ankle R22.41 Medical History Medical History Ankle pain right ankle pain Arterial disease Arthritis Aspiration pneumonia CAD (coronary artery disease) Choking Chronic lower back pain CVA (cerebral vascular accident) Dry eye syndrome First degree atrioventricular block Food allergy Glaucoma pt. denies sates misdiagnosis Hip pain, left History of torn meniscus of left knee Hypermetropia Left bundle branch block Lightheadedness Long-term use of high-risk medication Low back pain Microalbuminuria Migraine headache with aura Mitral valve regurgitation Obesity, morbid, BMI 40.0-49.9 Pneumonia Presbyopia Regular astigmatism Rheumatoid arthritis Shortness of breath Steroid dependent Type 2 diabetes mellitus Surgical History Surgical History Colonoscopy - MAC 05/16/14 RIB REMOVAL (10/24/83) LEFT TOP RIB Tobacco Smoking/Tobacco Use Status: Former Tobacco Use Alcohol Alcohol Intake: never Substance Use Substance use: Never Substance use type: does not use Vital Signs and Lab Results Lab Results Blood Type / Crossmatch: No Data to Display Complete Blood Count: White Blood Count 6.57 10^3/uL (4.4-10.8) 12/16/22 11:10 Red Blood Count 4.68 10^6/uL (4.36-5.78) 12/16/22 11:10 Hemoglobin 14.5 g/dL (13.5-17.5) 12/16/22 11:10 Hematocrit 43.5 % (40.0-50.0) 12/16/22 11:10 Platelet Count 193 10^3/uL (130-400) 12/16/22 11:10 Complete Metabolic Panel: Sodium 138 mmol/L (136-145) 12/16/22 11:10 Potassium 4.4 mmol/L (3.5-5.1) 12/16/22 11:10 Chloride 103 mmol/L (98-107) 12/16/22 11:10 Carbon Dioxide 28.4 mmol/L (21.0-32.0) 12/16/22 11:10 BUN 10 mg/dL (7-18) 12/16/22 11:10 Creatinine 1.2 mg/dL (0.70-1.30) 12/16/22 11:10 Est GFR (CKD-EPI 2020) 65.46 (mL/min/1.73m2) 12/16/22 11:10 Calcium 8.6 mg/dL (8.5-10.1) 12/16/22 11:10 Albumin 3.8 g/dL (3.4-5.0) 12/16/22 11:10 Glucose 209 mg/dL (74-106) H 12/16/22 11:10 C-Reactive Protein < 0.05 mg/dL (0.0-0.3) 12/16/22 11:10 Liver Function Panel: Alanine Aminotransferase (ALT/SGPT) 60 U/L (16-63) 12/16/22 11: 10 Aspartate Amino Transf (AST/SGOT) 44 U/L (15-37) H 12/16/22 11: 10 Coagulation Panel: No Data to Display Cardiac Panel: NT-Pro-B Natriuret Pep 371 pg/mL (<300) H 12/16/22 Arterial Blood Gas: No Data to Display Venous Blood Gas: No Data to Display Pancreas Panel: No Data to Display Thyroid Panel: No Data to Display Infectious Disease: No Data to Display Blood Cultures: No Data to Display Toxicology Panel: No Data to Display Imaging and Studies Imaging and Studies Study information below may be from another EMR and interpreted by another provider. Please see original notes in EMR for more complete details. EKG Summary: 04/13: sinus, lbbb Stress Test Summary: 10/12: 88% predicted HR, MPI EF 22%, no definite ischemia or scar. Echocardiogram Summary: 10/13: LVEF 35%, mild MR, trace TR. Cardiac Catheterization Summary: 10/12: non obstructive dz, LVEF 40% CT Summary: 08/2021: head/neck: unremarkable. MRI Summary: 12/14 cardiac: LVEF 40%, normal rv fxn. Anesthesia Assessment and Plan Anesthesia History Personal History: No History of Anesthesia Complications Family History: No Family History of Anesthesia Complications Exercise Tolerance Exercise Tolerance: Metabolic Equivalents>4 Cardiac & Pulmonary Exam Cardiac Exam: Normal S1/S2 Heart Sounds Pulmonary Exam: Clear Bilateral Breath Sounds Implantable Cardiac Device Does patient have a Pacemaker or an ICD?: No Airway Exam Known Difficult Airway: No Mallampati Class: 3 Mouth Opening: Normal (> 3cm) Thyromental Distance: Greater than 3 cm Neck Range of Motion: Full ROM and Limited ROM Neck Circumference: Thick Teeth Condition: Removable Dentures/Plates Upper, Removable Dentures/Plates Lower and Other (few teeth on bottom. ) ASA Classification ASA Score: ASA 3 Emergency Case?: No NPO Status NPO Status: NPO Clears >2 hours, Solids >8 hours Anesthesia Plan Resuscitation Status: Full Code Anesthesia Technique: MAC Anesthesia Airway Planned: Natural Airway Monitors Used: Standard Monitors Preoperative Comments:: 67 yo male for ankle mass removal Sig PMHx: HTN, cardiomyopathy, CAD, former smoker (quit 1997), RA (followed at [facility] [place]. methotrexate, Actemra, prednisone - has not been on in ~ a year), CVA (09/12, no residual. L thalamus), DM2, dysphagia, BMI >40.
[2023-01-10 12:52] VITALS: BP 156/86; PULSE 91; RESP 18; TEMP 36.7; O2SAT 96
[2023-01-10 13:03] VITALS: BMI 43.7
--- NOTE | 2023-01-10 13:10 | PDOC.DSDIS_ITS ---
Date of service: 01/10/23 Time of Service: 13:49 Discharge Plan Disposition Patient Disposition: Home Condition: Good Discharge Details Reason For Visit: Right ankle mass Attending Provider: Stuart Mcfarland Primary Care Provider: Isabel Dickey Home Meds and New Rx's Prescriptions: New hydrocodone-acetaminophen 5-325 mg tablet 1 tab PO Q6H PRN (Reason: severe pain) Qty: 6 0RF Rx Instructions: Take one tablet up to every 6 hours as needed for severe postoperative pain acetaminophen 500 mg tablet 1,000 mg PO Q8H PRN Qty: 90 0RF Rx Instructions: Take two tablets up to every 8 hours as needed for pain Continued Entresto 97-103 mg tablet 1 tab PO BID Qty: 180 3RF furosemide [Lasix] 40 mg tablet 20 mg PO DAILY atorvastatin 20 mg tablet 20 mg PO DAILY Qty: 90 3RF pantoprazole [Protonix] 40 mg tablet,delayed release (DR/EC) 40 mg PO DAILY Qty: 30 12RF hydroxychloroquine [Plaquenil] 200 MG tablet 2 tab PO DAILY Qty: 90 Patient Comments: Takes QAM actemra 800 mg IV Monthly Patient Comments: 04-23-18 pt is unsure of dose. -hb clopidogrel [Plavix] 75 mg tablet 75 mg PO DAILY Qty: 90 1RF folic acid 1 MG tablet 1 mg PO DAILY methotrexate sodium 2.5 mg tablet 8 mg PO DIRECTED Patient Comments: Pt states he takes 4X2.5mg tablets BID (for a total dose of 20mg) every monday once/wk cholecalciferol (vitamin D3) 50 mcg (2,000 unit) Tablet 50 mcg PO DAILY magnesium oxide 400 mg magnesium Tablet 400 mg PO DAILY fluticasone propionate 110 mcg/actuation Hfa Aerosol Inhaler 1 puff INHALATION BID albuterol sulfate 90 mcg/actuation Hfa Aerosol Inhaler 1 - 2 puff INHALATION Q4H PRN metformin 500 mg Tablet 500 mg PO DAILY atorvastatin [Lipitor] 10 mg Tablet 10 mg PO HS metoprolol succinate 50 mg tablet extended release 24 hr 50 mg PO HS Discontinued acetaminophen [Tylenol Extra Strength] 500 MG tablet 1 tab PO Q6H PRN Discharge Instructions Additional Instructions: Ankle Mass Excision Discharge Instructions Activity: You may weight bear as tolerated. You should keep the leg elevated as much as possible. You may wiggle your toes and move your hip and knee. Dressings: You should keep the initial dressing on for at least 3 days. After 3 days, you may remove it and get it wet in the shower. You should keep it covered with a light gauze dressing or wrap until follow-up. Medications: - You should take Tylenol around the clock for baseline pain. - You have been prescribed a stronger narcotic, Hydrocodone, for breakthrough pain. Follow-up: 2 weeks Referrals: Stuart Mcfarland MD [ [facility] STAFF PHYSICIAN] - Activity:: Elevate Remove Dressings/Wound Care:: 72 hours Shower/Bathe:: 72 hours Diet:: As Tolerated Discharge Orders Discharge Orders: Discharge Order (Routine); Ordered 01/10/23 Ordered By: Joslyn Dueñas
[2023-01-10] MEDS: ceFAZolin 3,000 MG in Normal Saline 100 ML 200 MG IVPB (13:41)
[2023-01-10] MEDS: Bupivacaine 0.25% Pres-Free 30 ML VIAL (13:58)
[2023-01-10 14:20] VITALS: BP 157/88; PULSE 88; RESP 18; TEMP 36.5; O2SAT 95
[2023-01-10 14:50] VITALS: BP 144/76; PULSE 69; RESP 16; TEMP 36.4; O2SAT 96
--- NOTE | 2023-01-10 14:59 | W.ANESPOSTOP ---
Postoperative Evaluation Date, Time and Location Date Performed: 01/10/23 Time Performed: 14:59 Patient Location: Day Surgery Unit Vital Signs Most Recent Imported Vital Signs: Most Recent Vital Signs Temp Pulse Resp BP Pulse Ox 36.4 C L 69 16 144/76 H 96 01/10/23 14:50 01/10/23 14:50 01/10/23 14:50 01/10/23 14:50 01/10/23 14:50 Pain Score Most Recent Pain Score: Most Recent Pain Score Pain Level 2 01/10/23 14:50 Assessment Mental Status: Awake (Alert & Oriented to Patient Baseline) Airway and Respiratory Function: Patent airway with normal (patient baseline) respiratory exam Cardiovascular Function: Hemodynamically Stable Hydration Status: Adequately Hydrated Nausea & Vomiting: No Nausea or Vomiting Pain: Pt. Denies Any Pain Peripheral Nerve Block: Patient did not receive a nerve block
--- NOTE | 2023-01-10 16:09 | W.PM.OP ---
Date of service: 01/10/23 Time of Service: 14:00 Operative Note Operative Note DATE OF PROCEDURE: 01/10/23 PRE-OP DIAGNOSIS: Right Lateral Ankle Cyst POST-OP DIAGNOSIS: same PROCEDURE: Excision of lateral ankle cyst - RIGHT SURGEON: Stuart Mcfarland ANESTHESIA TYPE: MAC Refer to Anesthesia Record ESTIMATED BLOOD LOSS: 5 PATHOLOGY: none sent TOURNIQUET TIME: 0 COMPLICATIONS: None Patient was transported to: same day Patient's condition: stable Indications: Krishan is a 67-year-old who has had progressive enlargement of a cyst and mass about the lateral aspect of the right ankle. MRI confirmed this being a multilobulated simple cyst about the lateral aspect of the ankle. He given its large size and affect on his ability wear shoes and daily function, I offered excision. I reviewed the risk of the procedure to include bleeding, infection, pain, stiffness, recurrence, incomplete resection, need for repeat procedures, damage nerves and vessels, damage to muscle and tendons, wound healing difficulties. Despite these risks, he elects to proceed. Findings: There is a cyst about the lateral aspect of the ankle resting on the lateral aspect of the talus and the superior margin of the peroneal tendons. It was resected and had 2 major lobular components. The cyst itself was removed including its capsule. There is no communication deep encounter. Procedure Description: Krishan was greeted in the preoperative holding area. His identity was confirmed the correct site was identified and marked. The consent was reviewed the patient and signed. But was taken to the operating room placed in the supine position. The right leg was positioned on a bone foam ramp with a bump under the ipsilateral right hip. Prophylactic antibiotics in the form of cefazolin administered. A timeout was performed for safe surgery. The proposed surgical site was anesthetized with 0.25% bupivacaine. A longitudinal incision was then made overlying the cyst in the direction from the distal fibula towards the fourth metatarsal base. The skin was incised sharply. Any crossing structures were protected. The cyst was encountered quite quickly. Cyst capsule was identified. Given his size I deflated the cyst. I utilized the capsule and removed using a rongeur following back to its base resting against the lateral aspect of the talus. There is a secondary lobular component encountered slightly more inferior. There was a crossing venous structure bisecting these 2 lobes. This was cauterized. The cyst was then removed along with this capsule which was resting on top of the peroneal tendons. This was resected. The wound was thoroughly irrigated. There is no other cystic contents. The deep tissues were injected with 0.25% bupivacaine. The wound was closed with 3-0 Vicryl followed by 4-0 Monocryl in a running subcuticular fashion. This was reinforced with skin glue and covered with a Mepilex dressing. His foot was wrapped with an Deshaun wrap and placed in a postop shoe. He tolerated the procedure well. He was taken back to the day surgery area in stable condition.
== END 2023-01-10 15:26 | disposition home or self-care (01) ==
PROVIDERS: PCP Nurse Practitioner Family; Visit Provider Student in an Organized Health Care Education/Training Program
PROC: (CPT 27630; principal; 2023-01-10 14:15)
DX: M67.471 Ganglion, right ankle and foot (principal)
CPT/HCPCS: 27630; J0690; J2704

== ENCOUNTER 2023-01-17 02:08 | Outpatient (RCR) | payer MEDICARE, OTHER, SELFPAY ==
[2022-12-21 00:06] VITALS: BP 127/84; PULSE 94; RESP 20; TEMP 36.6
[2023-01-17] MEDS: TOCILIZUMAB 800 MG in Normal Saline 60 ML 100 MG IVPB (08:06)
[2023-01-17] MEDS: Normal Saline Flush 10 ML SYR IVP (08:07)
== END 2023-01-20 23:59 | disposition home or self-care (01) ==
LOC: INF 02:08
PROVIDERS: PCP Nurse Practitioner Family; Visit Provider Internal Medicine
DX: M06.9 Rheumatoid arthritis, unspecified (principal)
CPT/HCPCS: 96365; J3262

== ENCOUNTER → 2023-01-20 10:54 | Outpatient (BNVA) | payer MEDICARE, OTHER, SELFPAY | PROVIDERS: PCP Nurse Practitioner Family; Referring Provider Nurse Practitioner Family; Visit Provider Student in an Organized Health Care Education/Training Program | DX: R22.41 Localized swelling, mass and lump, right lower limb (principal); Z47.89 Encounter for other orthopedic aftercare ==

== ENCOUNTER 2023-01-25 16:05 | Outpatient (REF) | payer MEDICARE, OTHER, SELFPAY ==
[2023-01-25 15:10] LABS: Abs Immature Grans 0.15 10^3/uL (0.0-0.06); Absolute Basophil Count 0.07 10^3/uL (0.0-0.2); Absolute Eosinophil Count 0.32 10^3/uL (0.0-0.7); Absolute Lymphocyte Count 2.24 10^3/uL (1.2-3.4); Absolute Monocyte Count 1.31 10^3/uL (0.1-0.8); Absolute Neutrophil Count 4.03 10^3/uL (1.2-6.7); Basophils % 0.9; Eosinophils % 3.9; HCT 42.5 % (40.0-50.0); HGB 14.7 g/dL (13.5-17.5); Immature Grans % 1.8; Lymphocytes % 27.6; MCH 31.6 pg (27.0-33.0); MCHC 34.6 % (32.0-36.0); MCV 91 fL (80-95); MPV 10.1 fL (8.0-11.0); Monocytes % 16.1; Neutrophils % 49.7; Platelet Count 198 10^3/uL (130-400); RBC 4.65 10^6/uL (4.36-5.78); RDW 13.2 % (11.8-14.1); RDW-SD 43.5 fL; WBC 8.12 10^3/uL (4.4-10.8)
[2023-01-25 15:12] LABS: ALT 59 U/L (16-63); AST 24 U/L (15-37); Albumin 3.8 g/dL (3.4-5.0); Alkaline Phosphatase 52 U/L (46-116); Anion Gap 10.1 mmol/L (3-11); BUN 15 mg/dL (7-18); Bilirubin, Total 0.6 mg/dL (0.2-1.0); CO2 27.9 mmol/L (21.0-32.0); CREATININE 1.1 mg/dL (0.70-1.30); Calcium 9.2 mg/dL (8.5-10.1); Chloride 103 mmol/L (98-107); Estimated GFR 72.67 (mL/min/1.73m2); Glucose 253 mg/dL (74-106); Potassium 4.3 mmol/L (3.5-5.1); Sodium 141 mmol/L (136-145); Total Protein 6.3 g/dL (6.4-8.2)
[2023-01-25 16:00] LABS: ESR < 1 mm/hr (0-20)
== END 2023-01-25 16:06 | disposition home or self-care (01) ==
LOC: NCHCN 16:05
PROVIDERS: PCP Nurse Practitioner Family; Visit Provider Family Medicine
DX: M06.9 Rheumatoid arthritis, unspecified (principal); J69.0 Pneumonitis due to inhalation of food and vomit
CPT/HCPCS: 80053; 85652; 85025

== ENCOUNTER 2023-02-14 02:19 | Outpatient (RCR) | payer MEDICARE, OTHER, SELFPAY ==
[2023-01-21 00:05] VITALS: BP 127/84; PULSE 94; RESP 20; TEMP 36.6
[2023-02-14] MEDS: TOCILIZUMAB 800 MG in Normal Saline 60 ML 100 MG IVPB (08:11)
[2023-02-14] MEDS: Normal Saline Flush 10 ML SYR IVP (08:11)
== END 2023-02-19 23:59 | disposition home or self-care (01) ==
LOC: INF 02:19
PROVIDERS: PCP Nurse Practitioner Family; Visit Provider Internal Medicine
DX: M06.09 Rheumatoid arthritis without rheumatoid factor, multiple sites (principal)
CPT/HCPCS: 96365; J3262

== ENCOUNTER 2023-02-16 09:46 | Outpatient (CLI) | payer MEDICARE, OTHER, SELFPAY ==
--- NOTE | 2023-02-16 09:45 | RT.EKG_ITS ---
APPROVED REPORT Exam: Resting ECG Reason for Exam: Evaluate QRS duration Patient Location: O HR:86 bpm ECG Measurements Heart Rate 86 AXIS MO 209 P 2 QRSd 158 QRS -48 QT 378 T 124 QTc 452 Conclusion Sinus rhythm...normal P axis, V-rate 50- 99 Left bundle branch block...QRSd>120, broad/notched R
== END 2023-02-16 09:47 | disposition home or self-care (01) ==
LOC: DI.CARD 09:51
PROVIDERS: PCP Nurse Practitioner Family; Visit Provider Internal Medicine Cardiovascular Disease
DX: I42.8 Other cardiomyopathies (principal)
CPT/HCPCS: 93010

== ENCOUNTER → 2023-02-16 09:46 | Outpatient (BNVA) | payer MEDICARE, OTHER, SELFPAY | PROVIDERS: PCP Nurse Practitioner Family; Referring Provider Nurse Practitioner Family; Visit Provider Internal Medicine Cardiovascular Disease | DX: I42.8 Other cardiomyopathies (principal); I44.7 Left bundle-branch block, unspecified | CPT/HCPCS: 99214 ==

== ENCOUNTER 2023-03-14 02:20 | Outpatient (RCR) | payer MEDICARE, OTHER, SELFPAY ==
[2023-02-20 00:15] VITALS: BP 127/84; PULSE 94; RESP 20; TEMP 36.6
[2023-03-14] MEDS: Normal Saline Flush 10 ML SYR IVP (08:08)
[2023-03-14] MEDS: TOCILIZUMAB 800 MG in Normal Saline 60 ML 100 MG IVPB (08:08)
== END 2023-03-22 23:59 | disposition home or self-care (01) ==
LOC: INF 02:20
PROVIDERS: PCP Nurse Practitioner Family; Visit Provider Internal Medicine
DX: M06.9 Rheumatoid arthritis, unspecified (principal)
CPT/HCPCS: 96365; J3262

== ENCOUNTER 2023-04-11 02:54 | Outpatient (RCR) | payer MEDICARE, OTHER, SELFPAY ==
[2023-03-23 00:07] VITALS: BP 127/84; PULSE 94; RESP 20; TEMP 36.6
[2023-04-11] MEDS: TOCILIZUMAB 800 MG in Normal Saline 60 ML 100 MG IVPB (08:03)
[2023-04-11] MEDS: Normal Saline Flush 10 ML SYR IVP (08:03)
== END 2023-04-21 23:59 | disposition home or self-care (01) ==
LOC: INF 02:54
PROVIDERS: PCP Nurse Practitioner Family; Visit Provider Internal Medicine
DX: M06.9 Rheumatoid arthritis, unspecified (principal)
CPT/HCPCS: 96365; J3262

== ENCOUNTER 2023-04-27 13:26 | Outpatient (REF) | payer MEDICARE, OTHER, SELFPAY ==
[2023-04-27 15:15] LABS: Abs Immature Grans 0.04 10^3/uL (0.0-0.06); Absolute Basophil Count 0.08 10^3/uL (0.0-0.2); Absolute Eosinophil Count 0.28 10^3/uL (0.0-0.7); Absolute Lymphocyte Count 2.42 10^3/uL (1.2-3.4); Absolute Monocyte Count 1.14 10^3/uL (0.1-0.8); Basophils % 1.1; Eosinophils % 3.8; HCT 42.3 % (40.0-50.0); HGB 14.9 g/dL (13.5-17.5); Immature Grans % 0.5; Lymphocytes % 32.9; MCHC 35.2 % (32.0-36.0); MCV 94 fL (80-95); MPV 10.4 fL (8.0-11.0); Monocytes % 15.5; Neutrophils % 46.2; Platelet Count 192 10^3/uL (130-400); RBC 4.51 10^6/uL (4.36-5.78); RDW 12.7 % (11.8-14.1); RDW-SD 43.8 fL; WBC 7.36 10^3/uL (4.4-10.8)
[2023-04-27 15:22] LABS: ESR < 1 mm/hr (0-20)
[2023-04-27 15:47] LABS: ALT 49 U/L (16-63); AST 32 U/L (15-37); Albumin 4.2 g/dL (3.4-5.0); Alkaline Phosphatase 59 U/L (46-116); Anion Gap 10.1 mmol/L (3-11); BUN 18 mg/dL (7-18); Bilirubin, Total 0.8 mg/dL (0.2-1.0); CO2 29.9 mmol/L (21.0-32.0); CREATININE 1.4 mg/dL (0.70-1.30); Calcium 9.3 mg/dL (8.5-10.1); Chloride 100 mmol/L (98-107); Estimated GFR 54.41 (mL/min/1.73m2); Glucose 212 mg/dL (74-106); Potassium 4.5 mmol/L (3.5-5.1); Sodium 140 mmol/L (136-145); Total Protein 6.6 g/dL (6.4-8.2)
[2023-04-27 15:50] LABS: C-Reactive Protein < 0.05 mg/dL (0.0-0.3)
[2023-04-27 16:02] LABS: Calculated LDL 36 mg/dL (<100); Cholesterol 148 mg/dL (<200); HDL Cholesterol 62 mg/dL (40-60); Triglyceride 250 mg/dL (<150)
== END 2023-04-27 13:27 | disposition home or self-care (01) ==
LOC: NCHCN 13:26
PROVIDERS: PCP Nurse Practitioner Family; Visit Provider Nurse Practitioner Family
DX: Z79.899 Other long term (current) drug therapy (principal); I42.9 Cardiomyopathy, unspecified; Z95.810 Presence of automatic (implantable) cardiac defibrillator; E11.9 Type 2 diabetes mellitus without complications
CPT/HCPCS: 80053; 80061; 85652; 85025; 86140

== ENCOUNTER → 2023-04-27 13:51 | Outpatient (BNVA) | payer MEDICARE, OTHER, SELFPAY | PROVIDERS: PCP Nurse Practitioner Family; Referring Provider Nurse Practitioner Family; Visit Provider Internal Medicine Cardiovascular Disease | DX: I42.8 Other cardiomyopathies (principal); Z95.810 Presence of automatic (implantable) cardiac defibrillator; I10 Essential (primary) hypertension | CPT/HCPCS: 99213 ==

== ENCOUNTER 2023-04-28 00:44 | Outpatient (CLI) | payer MEDICARE, OTHER, SELFPAY ==
--- NOTE | 2023-04-28 | DI.CT_ITS ---
Exam(s) CT ABDOMEN PELVIS CTA EXAM: CT ABDOMEN PELVIS CTA CLINICAL HISTORY: ARTERIAL DISEASE I77.9 FU ILLIAC ARTERIOMEGALY. TECHNIQUE: Imaging Protocol: Axial CT angiography was performed with multi-slice acquisition and m ulti-planar and/or 3D reconstructions. CONTRAST MATERIAL: Intravenous: Omnipaque 350 Contrast volume:100 mL Oral: no COMPARISON: CR XR CHEST 2V PA LATERAL from 12/06/2018 US US AAA SCREENING from 08/09/2021 CT,NM,TMT NM MPI REST STRESS GRP from 09/28/[address] CHEST WO from 04/28/2023 FINDINGS: Vascular Structures: Celiac [place]/SMA: No evidence of stenosis. Renal Arteries: Calcification at the origin of the renal arteries. No evidence of stenosis. There is a single renal artery perfusing each kidney. Aorta: No aneurysm. No dissection. Atherosclerotic calcifications distally. Proximal aorta measur es 2.5 cm. Distal aorta measures 2.0 cm. Pelvis: Iliac Arteries: Peripheral calcifications. Left common iliac artery 11 millimeters. Right common il iac artery 14 millimeters. External iliac arteries normal in diameter and minimal calcifications. Common Femoral Arteries: No evidence of stenosis. Minimal calcifications. Soft Tissues:Small fatty containing umbilical hernia. Lung bases:Normal. Pacemaker leads. Liver: Enlarged. Severe hepatic steatosis. No measurable mass. Gallbladder and biliary tract: No radiodense calculus or dilation. Pancreas: Normal density, no abnormal calcifications or inflammatory process. Spleen: Normal. Kidneys: Normal size, contour and axis. No radiodense stones or obstructive uropathy. Cysts upper an d lower poles right kidney. No suspicious masses seen. Adrenal glands: No masses seen. Bladder: Low volume. Question of wall thickening. Reproductive: Mildly enlarged prostate. Bowel: No obstruction or bowel wall thickening. Appendix normal. Normal quantity of stool. Peritoneal cavity: No ascites, collection or mesenteric inflammatory response. Bones: Degenerative changes in the spine. Lymph nodes: Within normal limits. IMPRESSION: Normal diameter aorta without atherosclerotic calcifications distally. No significant luminal narrow ing. Atherosclerotic changes of the common iliac arteries with mild dilatation of the right common i liac artery 14 millimeters. RADIATION DOSE DELIVERED: 1,050.02mGy.cm Total DLP DATA REPOSITORY: All CT scans at this facility are submitted to the National Radiology Data Registry (NRDR) Dose Index Registry (DIR) with the [employer] ([employer]). RADIATION OPTIMIZATION: All CT scans at this facility use at least one of these dose optimization te chniques: automated exposure control; mA and/or kV adjustment per patient size (includes targeted exa ms where dose is matched to clinical indication); or iterative reconstruction.
--- NOTE | 2023-04-28 | DI.CT_ITS ---
Exam(s) CT CHEST WO EXAM: CT CHEST WO CLINICAL HISTORY: PULMONARY NODULE R91.1 TECHNIQUE: Imaging Protocol: Axial computed tomography images with coronal and sagittal reformatted images were created and reviewed CONTRAST MATERIAL: Noncontrast COMPARISON: CT CHEST FOR PULMONARY EMBOLUS from 10/21/[address] CHEST WO from 03/07/2022 FINDINGS: Exam is somewhat limited by respiratory motion. Pulmonary parenchyma: No consolidation. No dominant measurable mass. 5 millimeter nodule posterior r ight upper lobe stable from 2010. Two nodules noted in the right lower lobe peripherally, stable fro m 2010. Other tiny scattered calcified granulomas noted. Tracheobronchial tree: No bronchiectasis or mucous plugging. Mediastinum and Marie: No dominant adenopathy or fluid collection. Pleura: No effusion or pneumothorax. Heart: The heart is not dilated. Pacemaker. Coronary artery calcifications present. Aorta: Thoracic aorta non-dilated. Mild atherosclerotic changes. Upper abdomen: Severe fatty infiltration of the liver. Stable right renal cyst. Bones: Degenerative changes in the spine. Soft tissues: Unremarkable. IMPRESSION: 5 millimeter nodules seen in the right upper and right lower lobes which are stable from 2010. No fu rther follow-up recommended in a low risk patient. The patient is at high risk for lung cancer, a lo w-dose screening CT could be considered in 1 year. RADIATION DOSE DELIVERED: 928.48mGy.cm Total DLP DATA REPOSITORY: All CT scans at this facility are submitted to the National Radiology Data Registry (NRDR) Dose Index Registry (DIR) with the [employer] ([employer]). RADIATION OPTIMIZATION: All CT scans at this facility use at least one of these dose optimization te chniques: automated exposure control; mA and/or kV adjustment per patient size (includes targeted exa ms where dose is matched to clinical indication); or iterative reconstruction.
[2023-04-28 08:22] LABS: CREATININE 1.2 mg/dL (0.70-1.30); Estimated GFR 65.46 (mL/min/1.73m2)
[2023-04-28] MEDS: Omnipaque 350 MG/ML 100 ML BTL IJ (09:10)
[2023-04-28] MEDS: Normal Saline - Diluent 50 ML VIAL IJ (09:11)
== END 2023-04-28 01:04 ==
LOC: DI 00:44
PROVIDERS: PCP Nurse Practitioner Family; Visit Provider Nurse Practitioner Family
DX: R91.1 Solitary pulmonary nodule (principal)
CPT/HCPCS: 71250; 74174; 82565; J3490

== ENCOUNTER 2023-05-09 02:08 | Outpatient (RCR) | payer MEDICARE, OTHER, SELFPAY ==
[2023-04-22 00:04] VITALS: BP 127/84; PULSE 94; RESP 20; TEMP 36.6
[2023-05-09] MEDS: Normal Saline Flush 10 ML SYR IVP (08:19)
[2023-05-09] MEDS: TOCILIZUMAB 800 MG in Normal Saline 60 ML 100 MG IVPB (08:19)
== END 2023-05-22 23:59 | disposition home or self-care (01) ==
LOC: INF 02:08
PROVIDERS: PCP Nurse Practitioner Family; Visit Provider Internal Medicine
DX: M06.9 Rheumatoid arthritis, unspecified (principal)
CPT/HCPCS: 96365; J3262

== ENCOUNTER 2023-06-06 02:14 | Outpatient (RCR) | payer MEDICARE, OTHER, SELFPAY ==
[2023-05-23 00:02] VITALS: BP 127/84; PULSE 94; RESP 20; TEMP 36.6
[2023-06-06] MEDS: Normal Saline Flush 10 ML SYR IVP (07:55)
[2023-06-06] MEDS: TOCILIZUMAB 800 MG in Normal Saline 60 ML 100 MG IVPB (08:02)
== END 2023-06-22 23:59 | disposition home or self-care (01) ==
LOC: INF 02:14
PROVIDERS: PCP Nurse Practitioner Family; Visit Provider Internal Medicine
DX: M06.9 Rheumatoid arthritis, unspecified
CPT/HCPCS: 96365; J3262

== ENCOUNTER → 2023-06-09 00:26 | Outpatient (CLI) | payer MEDICARE, OTHER, SELFPAY ==
--- NOTE | 2023-06-09 14:10 | DI.RAD_ITS ---
Exam(s) XR HEEL RT OS CALCIS EXAM: XR HEEL RT OS CALCIS CLINICAL HISTORY: RT HEEL PAIN, M79.671. TECHNIQUE: 2D digital imaging was performed. Two views. COMPARISON: CR XR ANKLE RT COMPLETE from 12/15/2022 MR MR LOWER JOINT RT WO from 01/03/2023 FINDINGS: BONES: No acute fracture is present. No bony destructive lesion is seen. Prominent plantar calcaneal spur, unchanged.. Small enthesophyte again noted at the Achilles insertion. JOINTS: No dislocation present. SOFT TISSUE: Normal. IMPRESSION: Heel spurs. DATA REPOSITORY: RADIATION DOSE DELIVERED:
== END ==
PROVIDERS: PCP Nurse Practitioner Family; Visit Provider Nurse Practitioner Family
DX: M79.671 Pain in right foot (principal); M77.31 Calcaneal spur, right foot
CPT/HCPCS: 73650

== ENCOUNTER 2023-07-04 02:33 | Outpatient (RCR) | payer MEDICARE, OTHER, SELFPAY ==
[2023-06-23 00:03] VITALS: BP 127/84; PULSE 94; RESP 20; TEMP 36.6
[2023-07-04] MEDS: Normal Saline Flush 10 ML SYR IVP (08:08)
[2023-07-04] MEDS: TOCILIZUMAB 800 MG in Normal Saline 60 ML 100 MG IVPB (08:36)
== END 2023-07-22 23:59 | disposition home or self-care (01) ==
LOC: INF 02:33
PROVIDERS: PCP Nurse Practitioner Family; Visit Provider Internal Medicine
DX: M06.00 Rheumatoid arthritis without rheumatoid factor, unspecified site (principal)
CPT/HCPCS: 96365; J3262

== ENCOUNTER 2023-08-01 01:26 | Outpatient (RCR) | payer MEDICARE, OTHER, SELFPAY ==
[2023-07-23 00:02] VITALS: BP 127/84; PULSE 94; RESP 20; TEMP 36.6
[2023-08-01] MEDS: Normal Saline Flush 10 ML SYR IVP (07:52)
[2023-08-01] MEDS: TOCILIZUMAB 800 MG in Normal Saline 60 ML 100 MG IVPB (08:07)
== END 2023-08-22 23:59 | disposition home or self-care (01) ==
LOC: INF 01:26
PROVIDERS: PCP Nurse Practitioner Family; Visit Provider Internal Medicine
DX: M06.00 Rheumatoid arthritis without rheumatoid factor, unspecified site (principal)
CPT/HCPCS: 96365; J3262

== ENCOUNTER 2023-08-29 00:48 | Outpatient (RCR) | payer MEDICARE, OTHER, SELFPAY ==
[2023-08-23 00:04] VITALS: BP 127/84; PULSE 94; RESP 20; TEMP 36.6
[2023-08-29] MEDS: Normal Saline Flush 10 ML SYR IVP (08:15)
[2023-08-29] MEDS: TOCILIZUMAB 800 MG in Normal Saline 60 ML 100 MG IVPB (08:15)
== END 2023-09-21 23:59 | disposition home or self-care (01) ==
LOC: INF 00:48
PROVIDERS: PCP Nurse Practitioner Family; Visit Provider Internal Medicine
DX: M06.9 Rheumatoid arthritis, unspecified (principal)
CPT/HCPCS: 96365; J3262

== ENCOUNTER → 2023-09-01 12:58 | Outpatient (BNVA) | payer MEDICARE, OTHER, SELFPAY | PROVIDERS: PCP Nurse Practitioner Family; Referring Provider Nurse Practitioner Family; Visit Provider Internal Medicine Cardiovascular Disease | DX: Z95.810 Presence of automatic (implantable) cardiac defibrillator (principal); I42.8 Other cardiomyopathies | CPT/HCPCS: 99213 ==

== ENCOUNTER 2023-09-26 01:56 | Outpatient (RCR) | payer MEDICARE, OTHER, SELFPAY ==
[2023-09-22 00:03] VITALS: BP 127/84; PULSE 94; RESP 20; TEMP 36.6
[2023-09-26] MEDS: TOCILIZUMAB 800 MG in Normal Saline 60 ML 100 MG IVPB (08:24)
[2023-09-26] MEDS: Normal Saline Flush 10 ML SYR IVP (09:37)
== END 2023-10-22 23:59 | disposition home or self-care (01) ==
LOC: INF 01:56
PROVIDERS: PCP Nurse Practitioner Family; Visit Provider Internal Medicine
DX: M05.9 Rheumatoid arthritis with rheumatoid factor, unspecified (principal)
CPT/HCPCS: 96365; J3262

== ENCOUNTER 2023-10-11 09:23 | Outpatient (CLI) | payer MEDICARE, OTHER, SELFPAY ==
--- NOTE | 2023-10-11 09:15 | RT.EKG_ITS ---
APPROVED REPORT Exam: Resting ECG Reason for Exam: ICD with biventricular leads Patient Location: O HR:90 bpm ECG Measurements Heart Rate 90 AXIS [place] 155 P 46 QRSd 143 QRS 194 QT 398 T 30 QTc 487 Conclusion Atrial-sensed ventricular-paced rhythm...ventricular pacing tracks p-waves No further analysis attempted due to paced rhythm
== END 2023-10-11 09:24 | disposition home or self-care (01) ==
LOC: DI.CARD 09:24
PROVIDERS: PCP Nurse Practitioner Family; Visit Provider Physician Assistant
DX: I42.9 Cardiomyopathy, unspecified (principal); Z95.810 Presence of automatic (implantable) cardiac defibrillator
CPT/HCPCS: 93010

== ENCOUNTER → 2023-10-11 10:10 | Outpatient (BNVA) | payer MEDICARE, OTHER, SELFPAY | PROVIDERS: PCP Nurse Practitioner Family; Referring Provider Nurse Practitioner Family; Visit Provider Physician Assistant | DX: I42.8 Other cardiomyopathies (principal); Z95.810 Presence of automatic (implantable) cardiac defibrillator | CPT/HCPCS: 93005; 93284 ==

== ENCOUNTER 2023-10-25 04:48 | Outpatient (CLI) | payer MEDICARE, OTHER, SELFPAY ==
[2023-10-25 13:45] LABS: Absolute Eosinophil Count 0.25 10^3/uL (0.0-0.7); Absolute Lymphocyte Count 2.62 10^3/uL (1.2-3.4); Absolute Monocyte Count 1.07 10^3/uL (0.1-0.8); Absolute Neutrophil Count 5.52 10^3/uL (1.2-6.7); Eosinophils % 2.6; HGB 16.3 g/dL (13.5-17.5); Lymphocytes % 27.1; MCH 31.9 pg (27.0-33.0); MCHC 34.7 % (32.0-36.0); MCV 92 fL (80-95); MPV 9.4 fL (8.0-11.0); Monocytes % 11.1; Neutrophils % 57.2; Platelet Count 167 10^3/uL (130-400); RBC 5.11 10^6/uL (4.36-5.78); RDW 12.8 % (11.8-14.1); RDW-SD 42.6 fL; WBC 9.66 10^3/uL (4.4-10.8)
[2023-10-25 14:05] LABS: ESR < 1 mm/hr (0-20)
[2023-10-25 14:14] LABS: ALT 65 U/L (16-63); AST 27 U/L (15-37); Albumin 3.9 g/dL (3.4-5.0); Alkaline Phosphatase 64 U/L (46-116); Anion Gap 6.7 mmol/L (3-11); BUN 30 mg/dL (7-18); Bilirubin, Total 0.6 mg/dL (0.2-1.0); C-Reactive Protein 0.09 mg/dL (0.0-0.3); CO2 29.3 mmol/L (21.0-32.0); CREATININE 1.5 mg/dL (0.70-1.30); Calcium 9.6 mg/dL (8.5-10.1); Chloride 98 mmol/L (98-107); Estimated GFR 49.77 (mL/min/1.73m2); Glucose 330 mg/dL (74-106); Potassium 4.5 mmol/L (3.5-5.1); Sodium 134 mmol/L (136-145); Total Protein 6.9 g/dL (6.4-8.2)
== END 2023-10-25 04:49 | disposition home or self-care (01) ==
LOC: LBO 04:48
PROVIDERS: PCP Nurse Practitioner Family; Visit Provider Nurse Practitioner
DX: Z79.899 Other long term (current) drug therapy (principal); M06.9 Rheumatoid arthritis, unspecified
CPT/HCPCS: 36415; 80053; 85652; 85025; 86140

== ENCOUNTER 2023-11-08 10:01 | Emergency (ER) | payer MEDICARE, OTHER, SELFPAY ==
[2023-11-08] VITALS (41 sets, daily range): BP systolic 105–132; BP diastolic 66–90; PULSE 88–111; RESP 9–31; O2SAT 95
--- NOTE | 2023-11-08 10:00 | RT.EKG_ITS ---
APPROVED REPORT Exam: Resting ECG Reason for Exam: Chest Pain Patient Location: E HR:101 bpm ECG Measurements Heart Rate 101 AXIS [place] 183 P 63 QRSd 146 QRS 188 QT 376 T 20 QTc 488 Conclusion Atrial-sensed ventricular-paced rhythm...ventricular pacing tracks p-waves
--- NOTE | 2023-11-08 10:09 | ED.GENADUL_ITS ---
HPI General Date/Time Provider Initiated Documentation: 11/08/23 10:05 . HPI Narrative: 68-year-old male with history of ICD, nonischemic cardiomyopathy hypertension, hyperlipidemia, CVA, [id number] diabetes presents with report of chest pain. States the pain started after cleaning off his car. He was actually seated in his car and driving to his scheduled doctor's appointment when the pain began. He denies recent history of pain. He states he brought rubbish down to the curb as well and did not have any discomfort with this. He states the pain lasted about 15 minutes and resolved. He denies any shortness of breath, diaphoresis, nausea, vomiting. He denies any palpitations. He denies any fever chills or falls. He denies any recent flights, surgeries, long drives. He denies known exacerbating or alleviating factors. Related Data Home Medications Medication Instructions Recorded Confirmed hydroxychloroquine 200 mg tablet 2 tab PO DAILY ##90 01/15/13 11/08/23 (Plaquenil) folic acid 1 mg tablet 1 mg PO DAILY 03/10/17 11/08/23 Actemra 800 mg IV Monthly 04/23/18 11/08/23 cholecalciferol (vitamin D3) 50 50 mcg PO DAILY 09/21/21 11/08/23 mcg (2,000 unit) tablet albuterol sulfate 90 mcg/actuation 1 - 2 puff inhalation Q4H PRN 09/22/21 11/08/23 aerosol inhaler fluticasone propionate 110 1 puff inhalation BID 09/22/21 11/08/23 mcg/actuation HFA aerosol inhaler magnesium oxide 400 mg PO DAILY 09/22/21 10/11/23 methotrexate sodium 2.5 mg tablet 8 mg PO DIRECTED 11/04/21 11/08/23 atorvastatin 10 mg tablet (Lipitor) 10 mg PO HS 03/07/22 11/08/23 metoprolol succinate 50 mg 50 mg PO HS 03/07/22 11/08/23 tablet,extended release 24 hr clopidogrel 75 mg tablet (Plavix) 75 mg PO DAILY #90 tabs 03/25/22 11/08/23 atorvastatin 20 mg tablet 20 mg PO DAILY #90 tabs 11/01/22 10/11/23 furosemide 40 mg tablet (Lasix) 20 mg PO DAILY edema, sob 11/01/22 10/11/23 pantoprazole 40 mg tablet,delayed 40 mg PO DAILY #30 tabs 11/15/22 11/08/23 release (Protonix) acetaminophen 500 mg tablet 1,000 mg (2 x 500 mg) PO Q8H PRN 01/10/23 11/08/23 pain #90 tabs hydrochlorothiazide 12.5 mg capsule 12.5 mg PO DAILY 04/27/23 11/08/23 sacubitril 97 mg-valsartan 103 mg See Rx Instructions .Route 05/16/23 11/08/23 tablet (Entresto) .COMPLEX #180 tabs empagliflozin 25 mg tablet 25 mg PO DAILY 11/08/23 11/08/23 (Jardiance) triamcinolone acetonide 0.1 % 1 applic topical PRN 11/08/23 11/08/23 topical cream Previous Rx's Medication Instructions Recorded clopidogrel 75 mg tablet (Plavix) 75 mg PO DAILY #90 tabs 03/25/22 atorvastatin 20 mg tablet 20 mg PO DAILY #90 tabs 11/01/22 pantoprazole 40 mg tablet,delayed 40 mg PO DAILY #30 tabs 11/15/22 release (Protonix) acetaminophen 500 mg tablet 1,000 mg (2 x 500 mg) PO Q8H PRN 01/10/23 pain #90 tabs sacubitril 97 mg-valsartan 103 mg See Rx Instructions .Route 05/16/23 tablet (Entresto) .COMPLEX #180 tabs Allergies Allergy/AdvReac Type Severity Reaction Status Date / Time aspirin Allergy Severe Swelling/Ed Verified 11/08/23 10:06 rigoberto citric acid Allergy Unknown RASH, Verified 11/08/23 10:06 BLISTER adalimumab Allergy NUMBNESS Verified 11/08/23 10:06 NSAIDS (Non-Steroidal AdvReac CONGESTION Verified 11/08/23 10:06 Anti-Inflamma General Stated Complaint: Chest Pain EMERALD: 2 PFSH All Active Problems (Updated 11/08/23 @ 14:10 by KYLE Mes[place]) Chest pain (Acute) ICD (implantable cardioverter-defibrillator) in place (Acute) [employer]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 Kvng NOGUEIRA; X 3 History of tobacco use (Acute) Foot joint pain (Acute 07/23/13) Family history of colon cancer (Acute) father-colon Deviated nasal septum (Acute 03/27/14) Chronic sinusitis (Acute 03/27/14) Allergic rhinitis (Acute 03/27/14) Acute meniscal tear, lateral (Acute) right Abnormal CT scan (Acute) 01/31/12 [place]; needs repeat scan at 6,12 and 18 months Bronchitis (Acute) Hypertension (Acute) Acute cerebrovascular accident (CVA) (Acute) Non-insulin dependent diabetes mellitus (Acute) Paresthesia (Acute) Cardiomyopathy (Acute) 2022 EF 35% Medication monitoring encounter (Acute) Ischemic cerebrovascular accident (CVA) (Acute) Chest pain (Acute) Dysphagia (Acute) Aspiration pneumonia (Acute) Obese abdomen (Acute) Mass of right ankle (Acute) Medical History Aspiration pneumonia Ankle pain right ankle pain Microalbuminuria Shortness of breath History of torn meniscus of left knee Food allergy Low back pain Long-term use of high-risk medication Arthritis Type 2 diabetes mellitus Hip pain, left Arterial disease Glaucoma pt. denies sates misdiagnosis Regular astigmatism Hypermetropia Presbyopia Dry eye syndrome CVA (cerebral vascular accident) Left bundle branch block Mitral valve regurgitation First degree atrioventricular block CAD (coronary artery disease) Pneumonia Choking Obesity, morbid, BMI 40.0-49.9 Steroid dependent Migraine headache with aura Chronic lower back pain Lightheadedness Rheumatoid arthritis Surgical History RIB REMOVAL (10/24/83) LEFT TOP RIB Colonoscopy - MAC 05/16/14 Family History Mother Personal history of malignant neoplasm LUNG Father Personal history of malignant neoplasm COLON Sister No problems noted. Brother Personal history of malignant neoplasm LUNG Social History Smoking/Tobacco Use Status: Former Tobacco Use Quit Date: 10/23/97 Smoking risk assessment performed?: Yes Alcohol Intake: never Drug use: Never Substance use type: does not use Housing: house Number of Children: 2 What is your relationship status?: Panel score (0-1 are the most socially isolated patients): 0 Seatbelt use: always Do you feel safe at home: Yes Do you feel safe in your relationship?: Yes Course Vital Signs Vital signs: Vital Signs Pulse 111 H 11/08/23 10:03 Respiratory Rate 22 11/08/23 10:03 Blood Pressure 109/83 11/08/23 10:03 Pulse Oximetry 95 11/08/23 10:03 Pulse 111 H 11/08/23 10:03 Respiratory Rate 22 11/08/23 10:03 Blood Pressure 109/83 11/08/23 10:03 Blood Pressure Position Sitting 11/08/23 10:03 Pulse Oximetry 95 11/08/23 10:03 Oxygen Delivery Method Room Air 11/08/23 10:03 Oxygen Flow Rate 0 11/08/23 10:03 Pain Level 4 11/08/23 10:03 Medical Decision Making 68-year-old male presenting with chest pain, 2 episodes, started after exertion, approximately 10 minutes Denies history of similar symptoms in the past, states he cleaned up his car and did not have any pain with this and ambulated to bring his rubbish down to the street and had no pain He had no discomfort with either of these activities but pain started 10 minutes later when he was in his car He has reproducible chest wall pain, he is fully alert and oriented his pacemaker was interrogated without acute abnormality He has 2 negative troponins His EKG is reassuring Remainder of his labs do not show evidence of acute abnormality pain is resolved He is allergic to aspirin so aspirin was not administered Patient was discharged home after discussion with patient's PCP, Isabel Dickey, she will follow him in the outpatient setting and order additional testing at her discretion Discharged home in stable condition with stable vitals return precautions reviewed Quality:SDOH Health Related Social Needs: No Data to Display Discharge Plan Disposition Patient Disposition: Home Discharge Details Clinical Impression: Chest pain Primary Care Provider: Isabel Dickey ED Provider: Janina Short Home Meds and New Rx's Prescriptions: Continued hydrochlorothiazide 12.5 mg capsule 12.5 mg PO DAILY furosemide [Lasix] 40 mg tablet 20 mg PO DAILY atorvastatin 20 mg tablet 20 mg PO DAILY Qty: 90 3RF pantoprazole [Protonix] 40 mg tablet,delayed release (DR/EC) 40 mg PO DAILY Qty: 30 12RF hydroxychloroquine [Plaquenil] 200 MG tablet 2 tab PO DAILY Qty: 90 Patient Comments: Takes QAM actemra 800 mg IV Monthly Patient Comments: 04-23-18 pt is unsure of dose. -hb clopidogrel [Plavix] 75 mg tablet 75 mg PO DAILY Qty: 90 1RF Entresto 97-103 mg tablet See Rx Instructions .ROUTE .COMPLEX Qty: 180 3RF Dose Instruction: TAKE 1 TABLET TWICE A DAY Rx Instructions: TAKE 1 TABLET TWICE A DAY folic acid 1 MG tablet 1 mg PO DAILY methotrexate sodium 2.5 mg tablet 8 mg PO DIRECTED Patient Comments: Pt states he takes 4X2.5mg tablets BID (for a total dose of 20mg) every monday once/wk acetaminophen 500 mg tablet 1,000 mg PO Q8H PRN Qty: 90 0RF Rx Instructions: Take two tablets up to every 8 hours as needed for pain Jardiance 25 mg tablet 25 mg PO DAILY triamcinolone acetonide 0.1 % cream 1 applic TOPICAL PRN cholecalciferol (vitamin D3) 50 mcg (2,000 unit) Tablet 50 mcg PO DAILY magnesium oxide 400 mg magnesium Tablet 400 mg PO DAILY fluticasone propionate 110 mcg/actuation Hfa Aerosol Inhaler 1 puff INHALATION BID albuterol sulfate 90 mcg/actuation Hfa Aerosol Inhaler 1 - 2 puff INHALATION Q4H PRN atorvastatin [Lipitor] 10 mg Tablet 10 mg PO HS metoprolol succinate 50 mg tablet extended release 24 hr 50 mg PO HS Discharge Instructions Instructions: Chest Pain (ED) Additional Instructions: Follow-up with your primary care physician, you should have a outpatient stress test at the discretion of your provider course Low exertional activities for the next several days and please return immediately should you have worsening or persistent symptoms Tests today are reassuring Referrals: Isabel Dickey [Primary Care Provider] -
[2023-11-08 10:41] LABS: Abs Immature Grans 0.08 10^3/uL (0.0-0.06); Absolute Basophil Count 0.09 10^3/uL (0.0-0.2); Absolute Eosinophil Count 0.21 10^3/uL (0.0-0.7); Absolute Lymphocyte Count 2.31 10^3/uL (1.2-3.4); Absolute Monocyte Count 1.23 10^3/uL (0.1-0.8); Absolute Neutrophil Count 4.76 10^3/uL (1.2-6.7); Eosinophils % 2.4; HCT 49.3 % (40.0-50.0); HGB 17.4 g/dL (13.5-17.5); Immature Grans % 0.9; Lymphocytes % 26.6; MCH 32.5 pg (27.0-33.0); MCHC 35.3 % (32.0-36.0); MCV 92 fL (80-95); MPV 9.7 fL (8.0-11.0); Monocytes % 14.2; Neutrophils % 54.9; Platelet Count 183 10^3/uL (130-400); RBC 5.36 10^6/uL (4.36-5.78); RDW-SD 43.2 fL; WBC 8.68 10^3/uL (4.4-10.8)
[2023-11-08 11:05] LABS: ALT 75 U/L (16-63); AST 40 U/L (15-37); Albumin 4.3 g/dL (3.4-5.0); Alkaline Phosphatase 55 U/L (46-116); Anion Gap 9.9 mmol/L (3-11); BUN 23 mg/dL (7-18); Bilirubin, Total 1.1 mg/dL (0.2-1.0); CO2 28.1 mmol/L (21.0-32.0); CREATININE 1.4 mg/dL (0.70-1.30); Chloride 97 mmol/L (98-107); Estimated GFR 54.07 (mL/min/1.73m2); Glucose 272 mg/dL (74-106); Potassium 3.9 mmol/L (3.5-5.1); Sodium 135 mmol/L (136-145); Total Protein 7.4 g/dL (6.4-8.2); Troponin I < 50 ng/L (< or =60)
[2023-11-08 11:23] LABS: D-Dimer 287 ng/mlFEU (<500)
[2023-11-08 11:29] LABS: Creatine Kinase 86 U/L (39-308)
--- NOTE | 2023-11-08 12:30 | DI.RAD_ITS ---
Exam(s) XR CHEST 2V PA LATERAL EXAM: XR CHEST 2V PA LATERAL CLINICAL HISTORY: chest pain. TECHNIQUE: 2D digital imaging was performed. COMPARISON: CR,RF RF BARIUM SWALLOW from 11/23/2022 FINDINGS: 2 views: Left subclavian pacemaker noted with lead tips in RA and right ventricle. Heart size is normal. The mediastinum is not widened. Lungs are clear. No infiltrates nor pleural effusions. No evidence of pulmonary edema. IMPRESSION: No acute pulmonary findings.Cardiac pacemaker. Normal heart size. DATA REPOSITORY: RADIATION DOSE DELIVERED:
--- NOTE | 2023-11-08 13:15 | RT.EKG_ITS ---
APPROVED REPORT Exam: Resting ECG Reason for Exam: chest pain Patient Location: E HR:95 bpm ECG Measurements Heart Rate 95 AXIS MN 185 P 88 QRSd 142 QRS 223 QT 406 T 54 QTc 511 Conclusion Atrial-sensed ventricular-paced rhythm...ventricular pacing tracks p-waves
[2023-11-08 13:36] LABS: Troponin I < 50 ng/L (< or =60)
== END 2023-11-08 14:20 | disposition home or self-care (01) ==
PROVIDERS: Emergency Provider Physician Assistant; PCP Nurse Practitioner Family
DX: R07.9 Chest pain, unspecified (principal); I25.10 Atherosclerotic heart disease of native coronary artery without angina pectoris; I25.2 Old myocardial infarction; I10 Essential (primary) hypertension; E78.5 Hyperlipidemia, unspecified; Z79.02 Long term (current) use of antithrombotics/antiplatelets; Z79.84 Long term (current) use of oral hypoglycemic drugs; Z86.73 Personal history of transient ischemic attack (TIA), and cerebral infarction without residual deficits; Z95.810 Presence of automatic (implantable) cardiac defibrillator; Z87.891 Personal history of nicotine dependence; M06.9 Rheumatoid arthritis, unspecified
CPT/HCPCS: 80053; 82550; 93005; 96374; 99284; 71046; 83735; 84484; 85025; 85379; 93010; J0131

== ENCOUNTER 2023-11-21 01:51 | Outpatient (RCR) | payer MEDICARE, OTHER, SELFPAY ==
[2023-10-23 00:15] VITALS: BP 127/84; PULSE 94; RESP 20; TEMP 36.6
[2023-10-26] MEDS: Normal Saline Flush 10 ML SYR IVP (08:03)
[2023-10-26] MEDS: TOCILIZUMAB 800 MG in Normal Saline 60 ML 100 MG IVPB (08:03)
[2023-11-21] MEDS: Normal Saline Flush 10 ML SYR IVP (08:04)
[2023-11-21] MEDS: TOCILIZUMAB 800 MG in Normal Saline 60 ML 100 MG IVPB (08:04)
== END 2023-11-22 23:59 | disposition home or self-care (01) ==
LOC: INF 01:51
PROVIDERS: PCP Nurse Practitioner Family; Visit Provider Internal Medicine
DX: M06.9 Rheumatoid arthritis, unspecified (principal); Z79.899 Other long term (current) drug therapy
CPT/HCPCS: 96365; J3262

== ENCOUNTER 2023-12-19 03:09 | Outpatient (RCR) | payer MEDICARE, OTHER, SELFPAY ==
[2023-11-23 00:21] VITALS: BP 127/84; PULSE 94; RESP 20; TEMP 36.6
[2023-12-19] MEDS: TOCILIZUMAB 800 MG in Normal Saline 60 ML 100 MG IVPB (08:18)
[2023-12-19] MEDS: Normal Saline Flush 10 ML SYR IVP (08:18)
== END 2023-12-21 23:59 | disposition home or self-care (01) ==
LOC: INF 03:09
PROVIDERS: PCP Nurse Practitioner Family; Visit Provider Internal Medicine
DX: M06.9 Rheumatoid arthritis, unspecified (principal); Z79.899 Other long term (current) drug therapy
CPT/HCPCS: 96365; J3262

== ENCOUNTER → 2023-12-27 09:10 | Outpatient (BNVA) | payer MEDICARE, OTHER, SELFPAY | PROVIDERS: PCP Nurse Practitioner Family; Referring Provider Nurse Practitioner Family; Visit Provider Podiatrist | DX: M25.572 Pain in left ankle and joints of left foot (principal); M25.571 Pain in right ankle and joints of right foot; E11.65 Type 2 diabetes mellitus with hyperglycemia; B35.1 Tinea unguium; L60.3 Nail dystrophy; B35.3 Tinea pedis; E11.42 Type 2 diabetes mellitus with diabetic polyneuropathy | CPT/HCPCS: 99214 ==

== ENCOUNTER 2023-12-27 14:39 | Outpatient (REF) | payer MEDICARE, OTHER, SELFPAY ==
[2023-12-27 21:30] LABS: Hemoglobin A1C 11.1 % (<5.7)
== END 2023-12-27 14:40 | disposition home or self-care (01) ==
LOC: NCHCN 14:39
PROVIDERS: PCP Nurse Practitioner Family; Visit Provider Nurse Practitioner Family
DX: E11.9 Type 2 diabetes mellitus without complications (principal)
CPT/HCPCS: 83036

== ENCOUNTER → 2023-12-29 00:41 | Outpatient (CLI) | payer MEDICARE, OTHER, SELFPAY ==
--- NOTE | 2023-12-29 06:45 | DI.RAD_ITS ---
Exam(s) XR ANKLE RT COMPLETE XR FOOT RT COMPLETE EXAM: XR FOOT RT COMPLETE and XR ankle RT complete CLINICAL HISTORY: Pain in right foot,m79.671. TECHNIQUE: 2D digital imaging was performed of the right ankle and foot. Six images were obtained. AP, oblique and lateral views were obtained. COMPARISON: CR RIGHT FOOT COMPLETE from 07/10/2013 CR XR ANKLE RT COMPLETE from 05/03/2022 CR XR ANKLE RT COMPLETE from 12/15/2022 CR XR HEEL RT OS CALCIS from 06/09/2023 FINDINGS: BONES: No acute fracture is present. No bony destructive lesion is seen. There is a moderate-sized pl zana calcaneal spur. There is a small enthesophyte at the posterior calcaneus. JOINTS: No dislocation present. The joint spaces are well maintained. SOFT TISSUE: Normal. IMPRESSION: Calcaneal spurs. DATA REPOSITORY: RADIATION DOSE DELIVERED:
--- NOTE | 2023-12-29 06:45 | DI.RAD_ITS ---
Exam(s) XR FOOT LT COMPLETE XR ANKLE LT COMPLETE EXAM: XR FOOT LT COMPLETE and XR ankle LT complete CLINICAL HISTORY: Pain in left foot,m79.672. TECHNIQUE: 2D digital imaging was performed of the left ankle and foot. Six images were obtained. AP, oblique and lateral views were obtained. COMPARISON: There are no priors for comparison. FINDINGS: BONES: No acute fracture is present. No bony destructive lesion is seen. There is a small plantar osmel caneal spur. There is an enthesophyte at the posterior calcaneus. JOINTS: No dislocation present. There is mild narrowing of the medial joint space. Degenerative kay ges are seen in the foot particularly at the talonavicular joint. SOFT TISSUE: Normal. IMPRESSION: Arthrosis of the left foot and ankle as described above. DATA REPOSITORY: RADIATION DOSE DELIVERED:
== END ==
PROVIDERS: PCP Nurse Practitioner Family; Visit Provider Podiatrist
DX: M25.572 Pain in left ankle and joints of left foot; M25.571 Pain in right ankle and joints of right foot
CPT/HCPCS: 73610; 73630; 99213

== ENCOUNTER 2024-01-09 12:17 | Outpatient (REF) | payer MEDICARE, OTHER, SELFPAY ==
[2024-01-09 15:22] LABS: Uric Acid 5.2 mg/dL (3.5-7.2)
== END 2024-01-09 12:18 | disposition home or self-care (01) ==
LOC: NCHCN 12:17
PROVIDERS: PCP Nurse Practitioner Family; Visit Provider Nurse Practitioner Family
DX: M25.572 Pain in left ankle and joints of left foot (principal)
CPT/HCPCS: 84550

== ENCOUNTER 2024-01-16 04:29 | Outpatient (RCR) | payer MEDICARE, OTHER, SELFPAY ==
[2023-12-22 00:22] VITALS: BP 127/84; PULSE 94; RESP 20; TEMP 36.6
[2024-01-16] MEDS: TOCILIZUMAB 800 MG in Normal Saline 60 ML 100 MG IVPB (08:20)
[2024-01-16] MEDS: Normal Saline Flush 10 ML SYR IVP (08:20)
== END 2024-01-21 23:59 | disposition home or self-care (01) ==
LOC: INF 04:29
PROVIDERS: PCP Nurse Practitioner Family; Visit Provider Internal Medicine
DX: M06.9 Rheumatoid arthritis, unspecified (principal)
CPT/HCPCS: 96365; J3262

== ENCOUNTER → 2024-01-24 07:50 | Outpatient (BNVA) | payer MEDICARE, OTHER, SELFPAY | PROVIDERS: PCP Nurse Practitioner Family; Referring Provider Nurse Practitioner Family; Visit Provider Podiatrist | DX: M25.572 Pain in left ankle and joints of left foot (principal); M25.571 Pain in right ankle and joints of right foot; M79.672 Pain in left foot; E11.65 Type 2 diabetes mellitus with hyperglycemia; B35.1 Tinea unguium; E11.42 Type 2 diabetes mellitus with diabetic polyneuropathy; M76.822 Posterior tibial tendinitis, left leg | CPT/HCPCS: 99214 ==

== ENCOUNTER 2024-02-13 04:42 | Outpatient (RCR) | payer MEDICARE, OTHER, SELFPAY ==
[2024-01-22 00:07] VITALS: BP 127/84; PULSE 94; RESP 20; TEMP 36.6
[2024-02-13] MEDS: Normal Saline Flush 10 ML SYR IVP (08:18)
[2024-02-13] MEDS: TOCILIZUMAB 800 MG in Normal Saline 60 ML 100 MG IVPB (08:18)
== END 2024-02-20 23:59 | disposition home or self-care (01) ==
LOC: INF 04:42
PROVIDERS: PCP Nurse Practitioner Family; Visit Provider Internal Medicine
DX: M06.9 Rheumatoid arthritis, unspecified (principal); Z79.899 Other long term (current) drug therapy
CPT/HCPCS: 96365; J3262

== ENCOUNTER → 2024-02-21 08:43 | Outpatient (BNVA) | payer MEDICARE, OTHER, SELFPAY | PROVIDERS: PCP Nurse Practitioner Family; Referring Provider Nurse Practitioner Family; Visit Provider Podiatrist | DX: M25.571 Pain in right ankle and joints of right foot; E11.65 Type 2 diabetes mellitus with hyperglycemia; B35.1 Tinea unguium; E11.42 Type 2 diabetes mellitus with diabetic polyneuropathy; G57.52 Tarsal tunnel syndrome, left lower limb; I87.2 Venous insufficiency (chronic) (peripheral) | CPT/HCPCS: 64455 ==

== ENCOUNTER 2024-03-12 04:56 | Outpatient (RCR) | payer MEDICARE, OTHER, SELFPAY ==
[2024-02-21 00:21] VITALS: BP 127/84; PULSE 94; RESP 20; TEMP 36.6
[2024-03-12] MEDS: TOCILIZUMAB 800 MG in Normal Saline 60 ML 100 MG IVPB (07:54)
[2024-03-12] MEDS: Normal Saline Flush 10 ML SYR IVP (07:54)
== END 2024-03-22 23:59 | disposition home or self-care (01) ==
LOC: INF 04:56
PROVIDERS: PCP Nurse Practitioner Family; Visit Provider Internal Medicine
DX: M05.9 Rheumatoid arthritis with rheumatoid factor, unspecified (principal)
CPT/HCPCS: 96365; J3262

== ENCOUNTER 2024-04-09 04:50 | Outpatient (RCR) | payer MEDICARE, OTHER, SELFPAY ==
[2024-03-23 00:25] VITALS: BP 127/84; PULSE 94; RESP 20; TEMP 36.6
[2024-04-09] MEDS: TOCILIZUMAB 800 MG in Normal Saline 60 ML 100 MG IVPB (08:35)
[2024-04-09] MEDS: Normal Saline Flush 10 ML SYR IVP (08:36)
== END 2024-04-21 23:59 | disposition home or self-care (01) ==
LOC: INF 04:50
PROVIDERS: PCP Nurse Practitioner Family; Visit Provider Internal Medicine
DX: M06.00 Rheumatoid arthritis without rheumatoid factor, unspecified site (principal)
CPT/HCPCS: 96365; J3262

== ENCOUNTER → 2024-04-10 10:22 | Outpatient (BNVA) | payer MEDICARE, OTHER, SELFPAY | PROVIDERS: PCP Nurse Practitioner Family; Referring Provider Nurse Practitioner Family; Visit Provider Student in an Organized Health Care Education/Training Program | DX: Z95.810 Presence of automatic (implantable) cardiac defibrillator (principal); I44.7 Left bundle-branch block, unspecified; I25.5 Ischemic cardiomyopathy | CPT/HCPCS: 93281 ==

== ENCOUNTER → 2024-04-29 02:42 | Outpatient (CLI) | payer MEDICARE, OTHER, SELFPAY ==
--- NOTE | 2024-04-29 | DI.CTLCSR_ITS ---
Exam(s) CT CHEST LUNG CANCER SCREEN EXAM: CT CHEST LUNG CANCER SCREEN CLINICAL HISTORY: Nicotine dependence, F17.210 TECHNIQUE: Imaging Protocol: Axial computed tomography images with coronal and sagittal reformatted images were created and reviewed. Low dose screening protocol. COMPARISON: CT CHEST FOR PULMONARY EMBOLUS from 10/21/[address] CHEST WO from 04/28/2023 FINDINGS: Tracheobronchial tree: No bronchiectasis or mucus plugging. Mediastinum and Marie: No dominant adenopathy or fluid collection. Pulmonary parenchyma: No consolidation or dominant measurable mass. No visible emphysematous changes. Lung Nodules: Some stable 5 millimeter nodule posterior right upper lobe. Stable 5 millimeter nodule right lower lobe. No new or suspicious nodules. Multiple bilateral scattered calcified granulomas. Pleura: No effusion. No pneumothorax. Heart: The heart is mildly dilated. Mild coronary artery calcifications are seen. Aorta: Thoracic aorta non-dilated. Upper abdomen: Unremarkable. Bones: Unremarkable for age. Soft Tissues: Pacemaker over left pectoral muscle. IMPRESSION: No suspicious pulmonary nodules. Lung RADS Cat 2 - Benign Appearance / Behavior: Nodules with a very low likelihood of becoming a clin ically active cancer due to size or lack of growth Lung-RADS 1.0 CATEGORIES: Category 0 - Prior chest CT exam(s) being located for comparison. Category 1 - Annual screening in 12 months. No nodules or definitely benign nodules. Category 2 - Annual screening in 12 months. Benign appearance. Nodules with low likelihood of becomin g active cancer. Category 3 - 6-month follow-up. Probably benign. Short-term follow-up suggested. Nodules with low lik elihood of becoming active cancer. Category 4A - 3-month follow-up and CT/PET if >8 mm in size. Suspicious finding. Findings which requi re additional testing. Category 4B - Findings which require additional testing and tissue sampling. Category 4X - Category 3 or 4 nodules with additional features or imaging findings that increases the suspicion of malignancy. Modifier S- Potentially clinically significant findings (non lung cancer) RADIATION DOSE DELIVERED: 87.92mGy.cm Total DLP DATA REPOSITORY: All CT scans at this facility are submitted to the National Radiology Data Registry (NRDR) Dose Index Registry (DIR) with the [employer] (ACR). RADIATION OPTIMIZATION: All CT scans at this facility use at least one of these dose optimization te chniques: automated exposure control; mA and/or kV adjustment per patient size (includes targeted exa ms where dose is matched to clinical indication); or iterative reconstruction.
== END ==
PROVIDERS: PCP Nurse Practitioner Family; Visit Provider Nurse Practitioner Family
DX: Z12.2 Encounter for screening for malignant neoplasm of respiratory organs (principal); F17.210 Nicotine dependence, cigarettes, uncomplicated; R91.8 Other nonspecific abnormal finding of lung field
CPT/HCPCS: 71271

== ENCOUNTER 2024-05-02 12:39 | Outpatient (REF) | payer MEDICARE, OTHER, SELFPAY ==
[2024-05-02 14:41] LABS: Abs Immature Grans 0.03 10^3/uL (0.0-0.06); Absolute Basophil Count 0.09 10^3/uL (0.0-0.2); Absolute Eosinophil Count 0.22 10^3/uL (0.0-0.7); Absolute Monocyte Count 0.96 10^3/uL (0.1-0.8); Absolute Neutrophil Count 4.68 10^3/uL (1.2-6.7); Basophils % 1.1 %; Eosinophils % 2.7 %; HCT 48.7 % (40.0-50.0); HGB 16.8 g/dL (13.5-17.5); Immature Grans % 0.4 %; MCH 32.5 pg (27.0-33.0); MCHC 34.5 % (32.0-36.0); MCV 94 fL (80-95); MPV 10.2 fL (8.0-11.0); Monocytes % 11.9 %; Neutrophils % 57.9 %; Platelet Count 187 10^3/uL (130-400); RBC 5.17 10^6/uL (4.36-5.78); RDW 13.3 % (11.8-14.1); RDW-SD 45.5 fL; WBC 8.08 10^3/uL (4.4-10.8)
[2024-05-02 14:56] LABS: ALT 66 U/L (16-63); AST 32 U/L (15-37); Alkaline Phosphatase 58 U/L (46-116); Anion Gap 6.5 mmol/L (3-11); BUN 20 mg/dL (7-18); Bilirubin, Total 0.91 mg/dL (0.2-1.0); C-Reactive Protein < 0.50 mg/dL (<or=0.5); CO2 31.5 mmol/L (21.0-32.0); CREATININE 1.3 mg/dL (0.70-1.30); Calcium 9.1 mg/dL (8.5-10.1); Chloride 101 mmol/L (98-107); Glucose 292 mg/dL (74-106); Potassium 4.3 mmol/L (3.5-5.1); Sodium 139 mmol/L (136-145); Total Protein 6.6 g/dL (6.4-8.2); Uric Acid 4.3 mg/dL (3.5-7.2)
[2024-05-02 15:00] LABS: ESR < 1 mm/hr (0-20)
== END 2024-05-02 12:40 | disposition home or self-care (01) ==
LOC: NCHCN 12:39
PROVIDERS: PCP Nurse Practitioner Family; Visit Provider Nurse Practitioner Family
DX: M06.9 Rheumatoid arthritis, unspecified (principal); Z79.899 Other long term (current) drug therapy
CPT/HCPCS: 80053; 85652; 84550; 85025; 86140

== ENCOUNTER 2024-05-07 02:00 | Outpatient (RCR) | payer MEDICARE, OTHER, SELFPAY ==
[2024-04-22 00:25] VITALS: BP 127/84; PULSE 94; RESP 20; TEMP 36.6
[2024-05-07] MEDS: TOCILIZUMAB 800 MG in Normal Saline 60 ML 100 MG IVPB (07:59)
[2024-05-07] MEDS: Normal Saline Flush 10 ML SYR IVP (07:59)
== END 2024-05-22 23:59 | disposition home or self-care (01) ==
LOC: INF 02:00
PROVIDERS: Visit Provider Internal Medicine
DX: M06.9 Rheumatoid arthritis, unspecified (principal); Z79.899 Other long term (current) drug therapy
CPT/HCPCS: 96365; J3262

== ENCOUNTER 2024-06-05 02:36 | Outpatient (RCR) | payer MEDICARE, OTHER, SELFPAY ==
[2024-05-23 00:32] VITALS: BP 127/84; PULSE 94; RESP 20; TEMP 36.6
[2024-06-05] MEDS: TOCILIZUMAB 800 MG in Normal Saline 60 ML 100 MG IVPB (08:35)
[2024-06-05] MEDS: Normal Saline Flush 10 ML SYR IVP (08:35)
== END 2024-06-22 23:59 | disposition home or self-care (01) ==
LOC: INF 02:36
PROVIDERS: Visit Provider Internal Medicine
DX: M06.9 Rheumatoid arthritis, unspecified (principal)
CPT/HCPCS: 96365; J3262

== ENCOUNTER 2024-07-02 01:42 | Outpatient (RCR) | payer MEDICARE, OTHER, SELFPAY ==
[2024-06-23 00:12] VITALS: BP 127/84; PULSE 94; RESP 20; TEMP 36.6
[2024-07-02] MEDS: Normal Saline Flush 10 ML SYR IVP (08:23)
[2024-07-02] MEDS: TOCILIZUMAB 800 MG in Normal Saline 60 ML 100 MG IVPB (08:23)
== END 2024-07-22 23:59 | disposition home or self-care (01) ==
LOC: INF 01:42
PROVIDERS: Visit Provider Internal Medicine
DX: M06.9 Rheumatoid arthritis, unspecified (principal); E11.9 Type 2 diabetes mellitus without complications; Z79.899 Other long term (current) drug therapy
CPT/HCPCS: 96365; J3262

== ENCOUNTER 2024-07-31 01:15 | Outpatient (RCR) | payer MEDICARE, OTHER, SELFPAY ==
[2024-07-23 00:22] VITALS: BP 127/84; PULSE 94; RESP 20; TEMP 36.6
[2024-07-31] MEDS: TOCILIZUMAB 800 MG in Normal Saline 60 ML 100 MG IVPB (08:28)
[2024-07-31] MEDS: Normal Saline Flush 10 ML SYR IVP (08:28)
== END 2024-08-22 23:59 | disposition home or self-care (01) ==
LOC: INF 01:15
PROVIDERS: Visit Provider Internal Medicine
DX: M06.9 Rheumatoid arthritis, unspecified (principal)
CPT/HCPCS: 96365; J3262

== ENCOUNTER 2024-08-27 01:57 | Outpatient (RCR) | payer MEDICARE, OTHER, SELFPAY ==
[2024-08-23 00:31] VITALS: BP 127/84; PULSE 94; RESP 20; TEMP 36.6
[2024-08-27] MEDS: Normal Saline Flush 10 ML SYR IVP (07:50)
[2024-08-27] MEDS: TOCILIZUMAB 800 MG in Normal Saline 60 ML 100 MG IVPB (07:50)
== END 2024-09-21 23:59 | disposition home or self-care (01) ==
LOC: INF 01:57
PROVIDERS: Visit Provider Internal Medicine
DX: M06.9 Rheumatoid arthritis, unspecified (principal)
CPT/HCPCS: 96365; J3262

== ENCOUNTER 2024-10-22 01:59 | Outpatient (RCR) | payer MEDICARE, OTHER, SELFPAY ==
[2024-09-22 00:28] VITALS: BP 127/84; PULSE 94; RESP 20; TEMP 36.6
[2024-09-24] MEDS: TOCILIZUMAB 800 MG in Normal Saline 60 ML 100 MG IVPB (07:54)
[2024-09-24] MEDS: Normal Saline Flush 10 ML SYR IVP (07:55)
[2024-10-22] MEDS: TOCILIZUMAB 800 MG in Normal Saline 60 ML 100 MG IVPB (08:02)
[2024-10-22] MEDS: Normal Saline Flush 10 ML SYR IVP (08:03)
== END 2024-10-22 23:59 | disposition home or self-care (01) ==
LOC: INF 01:59
PROVIDERS: Visit Provider Internal Medicine
DX: M06.9 Rheumatoid arthritis, unspecified (principal)
CPT/HCPCS: 96365; J3262

== ENCOUNTER → 2024-11-04 14:16 | Outpatient (BNVA) | payer MEDICARE, OTHER, SELFPAY | PROVIDERS: Visit Provider Registered Nurse | DX: I42.8 Other cardiomyopathies (principal); I44.7 Left bundle-branch block, unspecified | CPT/HCPCS: 99214 ==

== ENCOUNTER 2024-11-07 20:11 | Outpatient (REF) | payer MEDICARE, OTHER, SELFPAY ==
[2024-11-07 15:36] LABS: HCT 52.7 % (40.0-50.0); HGB 17.7 g/dL (13.5-17.5); MCH 32.2 pg (27.0-33.0); MCHC 33.6 % (32.0-36.0); MCV 96 fL (80-95); MPV 9.7 fL (8.0-11.0); Platelet Count 181 10^3/uL (130-400); RBC 5.49 10^6/uL (4.36-5.78); RDW 13.2 % (11.8-14.1); RDW-SD 46.4 fL; WBC 7.51 10^3/uL (4.4-10.8)
[2024-11-07 15:45] LABS: ESR < 1 mm/hr (0-20)
[2024-11-07 15:47] LABS: ALT 42 U/L (16-63); AST 25 U/L (15-37); Albumin 3.9 g/dL (3.4-5.0); Alkaline Phosphatase 54 U/L (46-116); BUN 19 mg/dL (7-18); Bilirubin, Total 1.02 mg/dL (0.2-1.0); CO2 27.9 mmol/L (21.0-32.0); CREATININE 1.1 mg/dL (0.70-1.30); Calcium 9.2 mg/dL (8.5-10.1); Chloride 102 mmol/L (98-107); Estimated GFR 71.77 (mL/min/1.73m2); Glucose 171 mg/dL (74-106); Total Protein 6.5 g/dL (6.4-8.2)
[2024-11-07 15:48] LABS: C-Reactive Protein < 0.50 mg/dL (<or=0.5)
[2024-11-07 15:53] LABS: Anion Gap 9.1 mmol/L (3-11); Potassium 4.6 mmol/L (3.5-5.1); Sodium 139 mmol/L (136-145)
[2024-11-07 16:08] LABS: Calculated LDL 59 mg/dL (<100); Cholesterol 164 mg/dL (<200); HDL Cholesterol 75 mg/dL (40-60); Triglyceride 151 mg/dL (<150)
[2024-11-08 07:40] LABS: PSA, Screening 1.2 ng/mL (<=6.5)
== END 2024-11-07 20:12 | disposition home or self-care (01) ==
LOC: NCHCN 20:11
PROVIDERS: Visit Provider Nurse Practitioner Family
DX: I25.10 Atherosclerotic heart disease of native coronary artery without angina pectoris (principal); Z12.5 Encounter for screening for malignant neoplasm of prostate
CPT/HCPCS: 80053; 80061; 84153; 85027; 85652; 86140

== ENCOUNTER 2024-11-13 00:43 | Outpatient (CLI) | payer MEDICARE, OTHER, SELFPAY ==
--- NOTE | 2024-11-13 07:00 | DI.US_ITS ---
Exam(s) US ABDOMEN LIMITED EXAM: US ABDOMEN LIMITED CLINICAL HISTORY: STEATOSIS OF LIVER,K76.0,FATTY LIVER TECHNIQUE: Ultrasound abdomen performed using standard protocol. COMPARISON: US US ECHOCARDIOGRAM from 10/07/2022 FINDINGS: There is no ascites evident. LIVER: Liver is diffusely hyperechoic indicating fatty parenchymal change. There are no discrete foc al hepatic lesions identified. GALLBLADDER/BILIARY: There are no gallstones. No gallbladder wall edema nor pericholecystic fluid. The common hepatic duct isnot dilated, measuring 6mm at the level of navneet hepatis. PANCREAS: Not seen. Apparently patient drank fluids prior to this exam. RIGHT KIDNEY:No evidence of solid mass, calculus, nor hydronephrosis. There is a single benign cyst a t the mid cortex level which measures 2.9 x 2.3 x 3.7 cm. This does not require further workup. IMPRESSION: 1. No evidence of cholelithiasis nor dilatation of the biliary tree. 2. Hepatic steatosis noted. No discrete focal hepatic lesions. 3. There is no ascites. DATA REPOSITORY:
== END 2024-11-13 01:03 ==
PROVIDERS: PCP Nurse Practitioner Family; Visit Provider Nurse Practitioner Family
DX: K76.0 Fatty (change of) liver, not elsewhere classified (principal)
CPT/HCPCS: 76705

== ENCOUNTER 2024-11-19 02:53 | Outpatient (RCR) | payer MEDICARE, OTHER, SELFPAY ==
[2024-10-23 00:29] VITALS: BP 127/84; PULSE 94; RESP 20; TEMP 36.6
[2024-11-19] MEDS: TOCILIZUMAB 800 MG in Normal Saline 60 ML 100 MG IVPB (07:55)
[2024-11-19] MEDS: Normal Saline Flush 10 ML SYR IVP (07:55)
== END 2024-11-22 23:59 | disposition home or self-care (01) ==
LOC: INF 02:53
PROVIDERS: PCP Nurse Practitioner Family; Visit Provider Internal Medicine
DX: M05.79 Rheumatoid arthritis with rheumatoid factor of multiple sites without organ or systems involvement (principal)
CPT/HCPCS: 96365; J3262

== ENCOUNTER 2024-12-16 01:19 | Outpatient (CLI) | payer MEDICARE, OTHER, SELFPAY ==
--- NOTE | 2024-12-16 09:05 | ST.MBS_ITS ---
Date of Service Date of service: 12/16/24 Time of Service: 09:00 Modified Barium Swallow Study Findings: Video fluoroscopic Swallowing Evaluation (VFSE) / Modified Barium Swallow Study (MBSS) Speech Language Pathology Report Patient referred for VFSE/MBSS from Isabel Dickey given dysphagia complaints. HPI & Patient report of function: Patient is a 69 year old male with PMH significant for rheumatoid arthritis, type 2 DM, cardiomypathy s/p pacemaker, hx CVA 18 months ago with no reported residual effects. He was seen for a non insturmental swallow evaluation on 11/18/24 and MBSS was recommended. Primary complaints include dry/crunchy solids and raw vegetables get stuck in throat (daily) and sensation of liquids 'going down the wrong way' (daily). Previous Imagin04/19/2022: MBSS performed at [facility], revealing safe swallow function, question of GERD-related sensation changes as cause of coughing. No airway invasion noted. Recommended follow up with PCP re: GI diagnostics. 11/07/2022: Seen by Natalia Figueroa/ENT for flexible laryngoscopy which was WNL. 11/20/2022: Consult with Dr Joslyn Thompson/general surgery for consideration of EGD. Was not deemed candidate due to cardiac history (prior to pacemaker), body habitus, immunosuppression. Referred for barium swallow study. Prescribed Pantoprazole, which patient continues to take daily. 11/23/2022: Barium swallow - The patient swallowed barium without difficulty. There is no aspiration observed during the exam. Esophageal peristalsis appears normal. Barium tablet stuck at the GE junction although there is no discrete visible stricture. No mass or ulceration. Stomach and duodenum grossly normal. No gastroesophageal reflux observed during the exam. IMPRESSIONS: MBSS findings reveal oral pharyngeal swallow function is within functional limits for age/consistent with presbyphagia and largely unchanged from last study in 2021. There is no evidence of penetration, aspiration, or pharyngeal retention. Swallow safety and efficiency are preserved, and risk for aspiration pneumonia from prandial aspiration is considered low. See below for further breakdown of physiologic performance. Anticipate symptoms may be related to dryness, which the patient endorses in the setting of RA, despite drinking 1/2 gallon of water daily. Discussed how dry/rough solids are more likely to stick against dry mucosa, and encouraged swapping dry foods with cooked/warm/moist foods, swapping raw vegetables with cooked or add dips, etc. We further discussed taking slower/smaller sips of water, drinking from a cup vs 1 gallon jug, etc. Patient receptive to all education/recommendations provided. No further REAL ESTATE SITE ANALYST needs identified Specialist referrals:? N/A RECOMMENDATIONS: Diet Texture/IDDSI Level Recommendation:? SOLIDS 7-Regular/Easy to Chew Solids - Add extra moisture. Favor cooked/moistened food over raw/dry foods LIQUIDS? 0-Thin Liquids MEDICATIONS Whole with 0-Thin Liquids Do not alter medications (e.g., cut)? without advice from your MD or pharmacist. Risk Management Strategies:? Small bites, approx [id number] Small sips, approx 10 mL Favor moist/cooked food. Use dips/sauces/condiments Always have a drink with meals Drink out of a cup, not a gallon jug, to support slower/smaller sips PLAN: No further ST warranted. Procedure only. OBJECTIVE Videofluoroscopic Swallow Evaluation (VFSE/MBSS) was conducted in the lateral and [id number]-[id number] projection by Speech-Language Pathologist, in collaboration with Radiologist, to evaluate oropharyngeal swallow function. Anatomic view under fluoroscopy: WFL PO Barium Contrast Trials Oral barium water-soluble contrast was administered as follows: IDDSI Level 0 Varibar thin liquid (40% w/v) IDDSI Level 2 Varibar nectar thick/mildly thick liquid (40% w/v) IDDSI Level 4 Varibar pudding/pureed/extremely thick (40% w/v) IDDSI Level 7 Regular Solid: 1/2 ida cracker coated in 3 mL Varibar pudding MBSImP Component Scores: COMPONENT Scale SCORE 1 Lip closure (0-4) 0 Resulted in no labial escape 2 Hold Position (0-3) 0 Maintained a cohesive bolus between tongue to palatal seal 3 Bolus Preparation (0-4) 0 Resulted in timely and efficient chewing and mashing 4 Bolus Transport (0-4) 0 Was with brisk tongue motion 5 Oral Residue (0-4) 0 Was not observed. There was complete oral clearance 6 Swallow Initiation (0-4) 3 Occurred when the bolus head was in the pyriform sinuses 7 Soft Palate Elevation (0-4) 0 Resulted in no bolus between soft palate and the pharyngeal wall 8 Laryngeal Elevation (0-3) 0 Demonstrated complete superior movement of thyroid cartilage with complete approximation of arytenoids to epiglottic petiole 9 Anterior Hyoid Motion (0-2) 0 Demonstrated complete anterior movement 10 Epiglottic Movement (0-2) 0 Resulted in complete inversion 11 Laryngeal Closure (0-2) 0 Was complete with no air or contrast in laryngeal vestibule 12 Pharyngeal Stripping Wave (0-2) 0 Was present and complete 13 Pharyngeal Contraction (0-3) 0 Was complete 14 PES Opening (0-3) 0 Was completely distended and complete duration with no obstruction of flow 15 Tongue Base Retraction (0-4) 0 Allowed no contrast between the tongue base and posterior pharyngeal wall 16 Pharyngeal Residue (0-4) 1 Showed a trace within or on pharyngeal structures 17 Esophageal Clearance (0-4) 0 Was complete, with only a coating of contrast, if any Results: COMPONENT Scale SCORE 1 Oral Score (0-18) 3 2 Pharyngeal Score (0-29) 0 3 Esophageal Score (0-4) 0 Functional Oral Intake Scale: COMPONENT Scale SCORE 1 Pre-Study (1-7) 7 Total oral intake with no restrictions 2 Post-Study (1-7) 6 Total oral intake with no special preparation, but must avoid specific foods or liquid items Penetration-Aspiration Scale: COMPONENT Scale SCORE 1 Thin liquid (1-8) 1 Contrast did not enter the airway 2 [place] thick (1-8) 1 Contrast did not enter the airway 3 Honey thick (1-8) NA 4 Pudding thick (1-8) 1 Contrast did not enter the airway 5 Cookie (1-8) 1 Contrast did not enter the airway Thank you for allowing us to take part in this patient's care. Please feel free to contact the [facility] Speech Language Pathology Department with any questions/concerns.
--- NOTE | 2024-12-16 09:31 | DI.RAD_ITS ---
Exam(s) RF MODIFIED SPEECH BA SWALLOW EXAM: RF MODIFIED SPEECH BA SWALLOW CLINICAL HISTORY: T17.928A Food in respiratory tract,part unspecified causing other injury, TECHNIQUE: Modified barium swallow was performed in conjunction with speech pathology. CONTRAST MATERIAL: Multiple consistencies of oral barium contrast were administered. COMPARISON: CT CT CHEST LUNG CANCER SCREEN from 04/29/2024 FINDINGS: Prominent endplate osteophytes are noted projecting anteriorly from C5 through C7. There is no evidence of aspiration or penetration with any consistency. No significant residue in th e vallecular or piriform sinuses. Speech pathology report to follow. IMPRESSION: No evidence of aspiration or penetration. RADIATION DOSE DELIVERED: reina Laboy=9.02 mGy
[2024-12-16] MEDS: Barium Sulfate 81% w/w for Oral Suspension 148 GM BTL PO (09:40)
[2024-12-16] MEDS: Barium Sulfate Oral Paste 40% W/V 230 ML TUBE PO (09:41)
[2024-12-16] MEDS: Barium Sulfate 40% W/V 240 ML BTL PO (09:42)
== END 2024-12-16 01:39 ==
LOC: DI 01:19
PROVIDERS: PCP Nurse Practitioner Family; Visit Provider Speech-Language Pathologist
DX: R13.10 Dysphagia, unspecified (principal)
CPT/HCPCS: 92526; 74221

== ENCOUNTER 2024-12-17 02:16 | Outpatient (RCR) | payer MEDICARE, OTHER, SELFPAY ==
[2024-12-17] MEDS: TOCILIZUMAB 800 MG in Normal Saline 60 ML 100 MG IVPB (08:15)
[2024-12-17] MEDS: Normal Saline Flush 5 ML SYR IVP (08:15)
== END 2024-12-20 23:59 | disposition home or self-care (01) ==
LOC: INF 02:16
PROVIDERS: PCP Nurse Practitioner Family; Visit Provider Internal Medicine
DX: M06.9 Rheumatoid arthritis, unspecified (principal)
CPT/HCPCS: 96365; J3262

== ENCOUNTER 2025-01-14 01:50 | Outpatient (RCR) | payer MEDICARE, OTHER, SELFPAY ==
[2025-01-14] MEDS: TOCILIZUMAB 800 MG in Normal Saline 60 ML 100 MG IVPB (08:09)
[2025-01-14] MEDS: Normal Saline Flush 5 ML SYR IVP (08:09)
== END 2025-01-20 23:59 | disposition home or self-care (01) ==
LOC: INF 01:50
PROVIDERS: PCP Nurse Practitioner Family; Visit Provider Internal Medicine
DX: M06.9 Rheumatoid arthritis, unspecified (principal)
CPT/HCPCS: 96365; J3262

== ENCOUNTER 2025-02-11 03:16 | Outpatient (RCR) | payer MEDICARE, OTHER, SELFPAY ==
[2025-02-11] MEDS: Normal Saline Flush 5 ML SYR IVP (07:35)
[2025-02-11] MEDS: TOCILIZUMAB 800 MG in Normal Saline 60 ML 100 MG IVPB (07:55)
== END 2025-02-19 23:59 | disposition home or self-care (01) ==
LOC: INF 03:16
PROVIDERS: PCP Nurse Practitioner Family; Visit Provider Internal Medicine
DX: M05.9 Rheumatoid arthritis with rheumatoid factor, unspecified (principal)
CPT/HCPCS: 96365; J3262

== ENCOUNTER 2025-03-11 02:00 | Outpatient (RCR) | payer MEDICARE, OTHER, SELFPAY ==
[2025-03-11] MEDS: TOCILIZUMAB 800 MG in Normal Saline 60 ML 100 MG IVPB (08:04)
[2025-03-11] MEDS: Normal Saline Flush 10 ML SYR IVP (08:04)
== END 2025-03-22 23:59 | disposition home or self-care (01) ==
LOC: INF 02:00
PROVIDERS: PCP Nurse Practitioner Family; Visit Provider Internal Medicine
DX: M05.9 Rheumatoid arthritis with rheumatoid factor, unspecified (principal)
CPT/HCPCS: 96365; J3262

== ENCOUNTER 2025-04-02 22:08 | Outpatient (REF) | payer MEDICARE, OTHER, SELFPAY ==
[2025-04-02 22:00] LABS: Abs Immature Grans 0.07 10^3/uL (0.0-0.06); Absolute Basophil Count 0.09 10^3/uL (0.0-0.2); Absolute Eosinophil Count 0.35 10^3/uL (0.0-0.7); Absolute Monocyte Count 1.22 10^3/uL (0.1-0.8); Absolute Neutrophil Count 5.67 10^3/uL (1.2-6.7); Basophils % 0.9 %; Eosinophils % 3.7 %; HGB 16.6 g/dL (13.5-17.5); Immature Grans % 0.7 %; Lymphocytes % 22.1 %; MCHC 34.6 % (32.0-36.0); MCV 95 fL (80-95); Monocytes % 12.8 %; Neutrophils % 59.8 %; Platelet Count 176 10^3/uL (130-400); RBC 5.03 10^6/uL (4.36-5.78); RDW 13.4 % (11.8-14.1); RDW-SD 47.1 fL
[2025-04-02 22:12] LABS: ALT 48 U/L (16-63); AST 31 U/L (15-37); Albumin 4.1 g/dL (3.4-5.0); Alkaline Phosphatase 56 U/L (46-116); Anion Gap 8.2 mmol/L (3-11); BUN 17 mg/dL (7-18); Bilirubin, Total 0.9 mg/dL (0.2-1.0); CO2 27.8 mmol/L (21.0-32.0); Calcium 8.9 mg/dL (8.5-10.1); Chloride 105 mmol/L (98-107); Estimated GFR 80.47 (mL/min/1.73m2); Glucose 126 mg/dL (74-106); Potassium 4.3 mmol/L (3.5-5.1); Sodium 141 mmol/L (136-145); Total Protein 6.1 g/dL (6.4-8.2)
[2025-04-02 22:18] LABS: C-Reactive Protein < 0.50 mg/dL (<or=0.5)
[2025-04-02 22:53] LABS: ESR < 1 mm/hr (0-20)
== END 2025-04-02 22:09 | disposition home or self-care (01) ==
LOC: NCHCN 22:08
PROVIDERS: PCP Nurse Practitioner Family; Visit Provider Nurse Practitioner Family
DX: M05.79 Rheumatoid arthritis with rheumatoid factor of multiple sites without organ or systems involvement (principal)
CPT/HCPCS: 80053; 85652; 85025; 86140

== ENCOUNTER 2025-04-08 03:19 | Outpatient (RCR) | payer MEDICARE, OTHER, SELFPAY ==
[2025-04-08] MEDS: TOCILIZUMAB 800 MG in Normal Saline 60 ML 100 MG IVPB (08:03)
[2025-04-08] MEDS: Normal Saline Flush 10 ML SYR IVP (08:03)
== END 2025-04-21 23:59 | disposition home or self-care (01) ==
LOC: INF 03:19
PROVIDERS: PCP Nurse Practitioner Family; Visit Provider Internal Medicine
DX: M05.9 Rheumatoid arthritis with rheumatoid factor, unspecified (principal)
CPT/HCPCS: 96365; J3262

== ENCOUNTER 2025-04-09 07:51 | Outpatient (CLI) | payer MEDICARE, OTHER, SELFPAY ==
--- NOTE | 2025-04-09 07:45 | RT.EKG_ITS ---
APPROVED REPORT Exam: Resting ECG Reason for Exam: CAD Patient Location: O HR:87 bpm ECG Measurements Heart Rate 87 AXIS WA 52 P 56 QRSd 172 QRS 190 QT 410 T 22 QTc 494 Conclusion Ventricular-paced complexes...other complexes also detected No further analysis attempted due to paced rhythm
== END 2025-04-09 07:52 | disposition home or self-care (01) ==
LOC: DI.CARD 07:52
PROVIDERS: PCP Nurse Practitioner Family; Visit Provider Student in an Organized Health Care Education/Training Program
DX: I25.10 Atherosclerotic heart disease of native coronary artery without angina pectoris (principal); I34.0 Nonrheumatic mitral (valve) insufficiency
CPT/HCPCS: 93010

== ENCOUNTER → 2025-04-09 09:28 | Outpatient (BNVA) | payer MEDICARE, OTHER, SELFPAY | PROVIDERS: PCP Nurse Practitioner Family; Visit Provider Student in an Organized Health Care Education/Training Program | DX: I25.5 Ischemic cardiomyopathy (principal); Z45.02 Encounter for adjustment and management of automatic implantable cardiac defibrillator; I34.0 Nonrheumatic mitral (valve) insufficiency | CPT/HCPCS: 93005; 93284 ==

== ENCOUNTER 2025-04-21 01:15 | Outpatient (CLI) | payer MEDICARE, OTHER, SELFPAY ==
--- NOTE | 2025-04-21 | DI.US_ITS ---
Exam(s) US AAA DIAGNOSTIC EXAM: US AAA DIAGNOSTIC CLINICAL HISTORY: Iliac artery aneurysm I72.3 W/iliac vessels COMPARISON: CT CT ABDOMEN PELVIS CTA from 04/28/2023 FINDINGS: Abdominal Aorta: Proximal: 2.8 cm Mid: 2.5 cm Distal: 2.3 cm Iliacs: The iliac arteries were difficult to visualize due to overlying bowel gas and patient body habitus. Right: 1.6 cm Left: 1.5 cm IMPRESSION: No evidence of abdominal aortic aneurysm. Mildly dilated bilateral iliac arteries. DATA REPOSITORY:
== END 2025-04-21 01:35 ==
LOC: DI 01:15
PROVIDERS: PCP Nurse Practitioner Family; Visit Provider Nurse Practitioner Family
DX: I72.3 Aneurysm of iliac artery (principal)
CPT/HCPCS: 76775

== ENCOUNTER 2025-05-05 02:27 | Outpatient (CLI) | payer MEDICARE, OTHER, SELFPAY ==
--- NOTE | 2025-05-05 13:23 | DI.CT_ITS ---
Exam(s) CT CHEST WO EXAM: CT CHEST WO CLINICAL HISTORY: Multiple nodules of lung, R91.8. TECHNIQUE: Imaging protocol: Axial computed tomography images were obtained and coronal and sagittal reformatted images were created and reviewed. Lung Computer Aided Detection (CAD) was utilized. COMPARISON: CT CT CHEST LUNG CANCER SCREEN from 04/29/2024 FINDINGS: Tracheobronchial tree: Patent where visualized. No bronchiectasis is present. Pulmonary parenchyma: No consolidation or dominant measurable mass. There are multiple calcified granulomas present. There is a stable 4-5 mm nodule in the posterior aspect of the right upper lobe and a stable 5 mm nodule in the posterior aspect of the right lower lobe. There are no new pulmonary nodules present. Mild atelectatic changes are seen in the lung bases. Mediastinum and Marie: No dominant adenopathy or fluid collection. The esophagus is unremarkable. Thyroid gland: Unremarkable. Pleura: No effusion or pneumothorax. Heart: The heart is not dilated. Coronary artery calcifications are present. No pericardial effusion. Aorta: Thoracic aorta non-dilated. Atherosclerotic calcifications are present. Upper abdomen: Unremarkable. Lymph nodes: Within normal limits. Tubes, Catheters, and Lines: There is a pacing device present in the left anterior chest wall. Soft tissues: Unremarkable. Bones:Within normal limits for the patient's age. IMPRESSION: 1. Stable noncalcified pulmonary nodules. No new pulmonary nodules. 2. Calcified granulomas. RADIATION DOSE DELIVERED: 352.1mGy.cm Total DLP 352.1mGy.cm Total DLP DATA REPOSITORY: All CT scans at this facility are submitted to the National Radiology Data Registry (NRDR) Dose Index Registry (DIR) with the [employer] (A[employer]). RADIATION OPTIMIZATION: All CT scans at this facility use at least one of these dose optimization techniques: automated exposure control; mA and/or kV adjustment per patient size (includes targeted exams where dose is matched to clinical indication); or iterative reconstruction.
== END 2025-05-05 02:47 ==
LOC: DI 02:27
PROVIDERS: PCP Nurse Practitioner Family; Visit Provider Nurse Practitioner Family
DX: R91.8 Other nonspecific abnormal finding of lung field (principal)
CPT/HCPCS: 71250; 93306

== ENCOUNTER 2025-05-05 02:27 | Outpatient (CLI) | payer MEDICARE, OTHER, SELFPAY ==
--- NOTE | 2025-05-05 13:30 | DI.US_ITS ---
APPROVED REPORT EXAM: Comprehensive 2D, Doppler, and color-flow Echocardiogram Patient Location: Out-Patient Sequins Spooler: Kenny Morris RDCS (AE) Indications: Cardiomyopathy Other Information Study Quality: Fair. Technically limited study due to body habitus. Conclusion Moderately dilated left ventricle. EF is 30 to 35% with global hypokinesis Normal right ventricular size and grossly normal function Normal right atrial size. Moderately enlarged left atrium Device lead noted in the right heart Aortic valve is sclerotic. There is trace aortic regurgitation. There is no hemodynamically significant aortic stenosis Mild mitral regurgitation Wall motion Left Ventricle Left ventricle is moderately dilated. Left ventricular systolic function is severely decreased. There is normal left ventricular wall thickness. There is global hypokinesis of the left ventricle. There is no ventricular septal defect visualized. LVEF is 30-35%. Right Ventricle The right ventricle is normal size. Right ventricular systolic function is grossly normal. Device lead is present in the right ventricle. Atria Left atrium is moderately dilated. The right atrium size is normal. The interatrial septum is intact with no evidence for an atrial septal defect. Aortic Valve The aortic valve is sclerotic. There is no aortic valvular stenosis. Trace aortic regurgitation Mitral Valve The mitral valve is normal in structure. No evidence of mitral valve stenosis. Mild mitral regurgitation. Tricuspid Valve The tricuspid valve is normal in structure. There is no tricuspid valve stenosis. Trace tricuspid regurgitation. Pulmonic Valve The pulmonary valve is normal in structure. There is no pulmonic valvular stenosis. There is no pulmonic valvular regurgitation. Great Vessels The aortic root is normal in size. The ascending aorta is normal in size. Aortic arch is normal in caliber. IVC is normal in size and collapses >50% with inspiration. Pericardium There is no pericardial effusion. 2D Dimensions IVSD d PLAX 1.13 cm M: 0.6-1.2 Ao Root d 2.86 cm M: 3.1 - 3.7 LVPW d PLAX 1.08 cm M: 0.6 - 1.2 Ao Asc Diam d 3.08 cm M: 2.6 - 3.4 LVID d PLAX 7.47 cm M: 4.2 - 5.8 LVDs 6.20 cm M: 2.5 - 4.0 LV EF Teichholz 34.3 % FS 16.93 % LV EDV (Teich) 295.6 mL LV ESV (Teich) 194.3 mL Stroke Vol Index (Teich) 44.80 M-Mode TAPSE 1.57 cm (M/F) >1.7 LV Volumes - Method of Disks (Montoya's) Single Plane 2D LV Volumes Biplane 2D LV Volumes LV EDV A4C 231.1 mL LV EDV BP 230.15 mL M: 62 - 150 LV ESV A4C 164.0 mL LV ESV BP 152.6 mL LVEF(%) A4C 29.0 % LVEF(%) BP 33.71 % M: 52 - 72 LV EDV A2C 209.9 mL LV EDV BP Index 101.83 mL/m2 M: 34 - 74 LV ESV A2C 136.8 mL SV BP LVEF(%) A2C 34.9 % SV Index LA Volume LA Length A4C 5.6 cm LA Length A2C 5.3 cm LA Area A4C s 14.46 cm2 LA Area A2C s 17.28 cm2 LA Vol A4C A-L 31.75 mL LA Vol A2C A-L 48.22 mL LA Vol Biplane A-L 40.3 mL LA Vol/BSA A4C A-L LA Vol/BSA A2C A-L LA Vol/BSA BP A-L 17.8 mL/m2 LA Vol A4C MOD 29.8 mL LA Vol A2C MOD 46.1 mL LA Vol BP MOD 37.8 mL RA Volume RA Area A4C 5.5 cm2 RA ESV A4C (A-L) 8.3mL RA Vol/BSA A4C A-L RA Length A4C 3.1 cm RA ESV A4C (MOD) 8.0mL LV Diastology MV E' medial 0.040 (>0.07 m/s) MV E Vmax 0.33 (0.4-1.3 m/s) MV E/E' MED 8.30 (<14) MV A Vmax 0.95 (0.4-1.3 m/s) E/A Ratio 0.3 Aortic Valve AoV Vmax 1.81 m/s LVOT Vmax 0.54 m/s AoV Peak Grad 13.1 mmHg LVOT Peak Grad 1.2 mmHg AoV Area (Vmax) 1.22 cm2 LVOT VTI 0.106 m AoV VTI 0.359 m LVOT Mean Grad 0.8 mmHg AoV Mean Wm. 1.25 m/s LVOT SV 43.43 mL AoV Mean Grad 7.3 mmHg LVOT Diam s 2.25 cm AoV Area (VTI) 1.21 cm2 AV Regurg Peak Gr. 13.05 mmHg Velocity Ratio 0.30 Pulmonary Valve PV Vmax 0.73 (0.5-1.5 m/s) RVOT Vmax 0.59 m/s PV Peak Grad 2.1 mmHg RVOT Peak Gr. 1.4 mmHg PV Mean Wm 0.49 m/s RVOT VTI 0.091 m PV Mean Grad 1.1 mmHg RVOT Mean Gr. 0.7 mmHg
== END 2025-05-05 02:47 ==
PROVIDERS: PCP Nurse Practitioner Family; Visit Provider Internal Medicine Cardiovascular Disease
DX: I42.8 Other cardiomyopathies (principal)
CPT/HCPCS: 93306

== ENCOUNTER 2025-05-06 03:28 | Outpatient (RCR) | payer MEDICARE, OTHER, SELFPAY ==
[2025-05-06] MEDS: TOCILIZUMAB 800 MG in Normal Saline 60 ML 100 MG IVPB (07:59)
[2025-05-06] MEDS: Normal Saline Flush 10 ML SYR IVP (07:59)
== END 2025-05-22 23:59 | disposition home or self-care (01) ==
LOC: INF 03:28
PROVIDERS: PCP Nurse Practitioner Family; Visit Provider Internal Medicine
DX: M06.9 Rheumatoid arthritis, unspecified (principal)
CPT/HCPCS: 96365; J3262

== ENCOUNTER → 2025-05-07 10:26 | Outpatient (BNVA) | payer MEDICARE, OTHER, SELFPAY | PROVIDERS: PCP Nurse Practitioner Family; Referring Provider Nurse Practitioner Family; Visit Provider Physical Therapy Assistant | DX: Z12.11 Encounter for screening for malignant neoplasm of colon (principal); Z80.0 Family history of malignant neoplasm of digestive organs | CPT/HCPCS: S0285 ==

== ENCOUNTER 2025-06-02 04:01 | Outpatient (RCR) | payer MEDICARE, OTHER, SELFPAY ==
[2025-06-02] MEDS: TOCILIZUMAB 800 MG in Normal Saline 60 ML 100 MG IVPB (08:11)
[2025-06-02] MEDS: Normal Saline Flush 10 ML SYR IVP (08:11)
== END 2025-06-22 23:59 | disposition home or self-care (01) ==
LOC: INF 04:01
PROVIDERS: PCP Nurse Practitioner Family; Visit Provider Internal Medicine
DX: M05.9 Rheumatoid arthritis with rheumatoid factor, unspecified (principal)
CPT/HCPCS: 96365; J3262

== ENCOUNTER 2025-07-01 02:32 | Outpatient (RCR) | payer MEDICARE, OTHER, SELFPAY ==
[2025-07-01] MEDS: TOCILIZUMAB 800 MG in Normal Saline 60 ML 100 MG IVPB (08:16)
[2025-07-01] MEDS: Normal Saline Flush 10 ML SYR IVP (08:16)
== END 2025-07-22 23:59 | disposition home or self-care (01) ==
LOC: INF 02:32
PROVIDERS: PCP Nurse Practitioner Family; Visit Provider Internal Medicine
DX: M05.9 Rheumatoid arthritis with rheumatoid factor, unspecified (principal)
CPT/HCPCS: 96365; J3262

== ENCOUNTER 2025-07-29 03:10 | Outpatient (RCR) | payer MEDICARE, OTHER, SELFPAY ==
[2025-07-29] MEDS: TOCILIZUMAB 800 MG in Normal Saline 60 ML 100 MG IVPB (08:33)
[2025-07-29] MEDS: Normal Saline Flush 10 ML SYR IVP (08:33)
== END 2025-08-22 23:59 | disposition home or self-care (01) ==
LOC: INF 03:10
PROVIDERS: PCP Nurse Practitioner Family; Visit Provider Internal Medicine
DX: M05.9 Rheumatoid arthritis with rheumatoid factor, unspecified (principal)
CPT/HCPCS: 96365; J3262

== ENCOUNTER 2025-08-19 12:53 | Outpatient (REF) | payer MEDICARE, SELFPAY ==
[2025-08-19 14:54] LABS: Abs Immature Grans 0.07 10^3/uL (0.0-0.06); HCT 47.1 % (40.0-50.0); HGB 16.0 g/dL (13.5-17.5); Immature Grans % 0.9 %; MCH 31.8 pg (27.0-33.0); MCHC 34.0 % (32.0-36.0); MCV 94 fL (80-95); MPV 9.9 fL (8.0-11.0); Platelet Count 176 10^3/uL (130-400); RBC 5.03 10^6/uL (4.36-5.78); RDW 13.5 % (11.8-14.1); RDW-SD 45.3 fL; WBC 8.03 10^3/uL (4.4-10.8)
[2025-08-19 15:20] LABS: ALT 42 U/L (16-63); AST 26 U/L (15-37); Albumin 4.0 g/dL (3.4-5.0); Alkaline Phosphatase 45 U/L (46-116); Anion Gap 9.4 mmol/L (3-11); BUN 18 mg/dL (7-18); Bilirubin, Total 0.8 mg/dL (0.2-1.0); CO2 26.6 mmol/L (21.0-32.0); Calcium 9.2 mg/dL (8.5-10.1); Calculated LDL 47 mg/dL (<100); Chloride 101 mmol/L (98-107); Cholesterol 145 mg/dL (<200); Estimated GFR 71.32 (mL/min/1.73m2); Glucose 173 mg/dL (74-106); HDL Cholesterol 65 mg/dL (>or=40); Potassium 4.4 mmol/L (3.5-5.1); Sodium 137 mmol/L (136-145); Total Protein 6.4 g/dL (6.4-8.2); Triglyceride 165 mg/dL (<150)
[2025-08-19 15:39] LABS: ESR < 1 mm/hr (0-20)
[2025-08-19 22:38] LABS: CRP, High Sensitivity <0.34 mg/L (See Note)
== END 2025-08-19 12:54 | disposition home or self-care (01) ==
LOC: NCHCN 12:53
PROVIDERS: PCP Nurse Practitioner Family; Visit Provider Nurse Practitioner Family
DX: Z79.899 Other long term (current) drug therapy (principal)
CPT/HCPCS: 80053; 80061; 85652; 86141; 85025

== ENCOUNTER 2025-08-26 01:18 | Outpatient (RCR) | payer MEDICARE, OTHER, SELFPAY ==
[2025-08-26] MEDS: Normal Saline Flush 10 ML SYR IVP (08:30)
[2025-08-26] MEDS: TOCILIZUMAB 800 MG in Normal Saline 60 ML 100 MG IVPB (08:30)
== END 2025-09-21 23:59 | disposition home or self-care (01) ==
LOC: INF 01:18
PROVIDERS: PCP Nurse Practitioner Family; Visit Provider Internal Medicine
DX: M05.79 Rheumatoid arthritis with rheumatoid factor of multiple sites without organ or systems involvement (principal)
CPT/HCPCS: 96365; J3262

== ENCOUNTER → 2025-10-08 09:58 | Outpatient (BNVA) | payer MEDICARE, OTHER, SELFPAY | PROVIDERS: PCP Nurse Practitioner Family; Visit Provider Registered Nurse | DX: Z95.810 Presence of automatic (implantable) cardiac defibrillator (principal); I42.8 Other cardiomyopathies; Z45.018 Encounter for adjustment and management of other part of cardiac pacemaker; E11.59 Type 2 diabetes mellitus with other circulatory complications; I10 Essential (primary) hypertension | CPT/HCPCS: 93281 ==

== ENCOUNTER 2025-10-20 00:32 | Outpatient (RCR) | payer MEDICARE, OTHER, SELFPAY ==
[2025-09-23] MEDS: Normal Saline Flush 10 ML SYR IVP (07:58)
[2025-09-23] MEDS: TOCILIZUMAB 800 MG in Normal Saline 60 ML 100 MG IVPB (08:35)
[2025-10-20 07:45] VITALS: PULSE 91; TEMP 36.7; O2SAT 95
[2025-10-20] MEDS: Normal Saline Flush 10 ML SYR IVP (07:57)
[2025-10-20] MEDS: TOCILIZUMAB 800 MG in Normal Saline 60 ML 100 MG IVPB (07:57)
== END 2025-10-22 23:59 | disposition home or self-care (01) ==
LOC: INF 00:32
PROVIDERS: PCP Nurse Practitioner Family; Visit Provider Internal Medicine
DX: M05.9 Rheumatoid arthritis with rheumatoid factor, unspecified (principal)
CPT/HCPCS: 96365; J3262